=== PATIENT | female | born 1955 | race Caucasian/White ===

== ENCOUNTER 2023-04-07 12:13 | Outpatient (OUT) | payer BC, SELFPAY ==
--- NOTE | 2023-04-07 12:58 | P.CN_ITS ---
Consult Note: HPI Data of Consult Patient: known to practice within the last 3 years Consult date: 04/07/23 Requesting Physician: Keisha Ruiz MD Primary Care Provider: Non-Staff Physician, Consult Narrative Reason for consult: Low back pain Narrative: this is a pleasant 67-year-old female who presents for assessment. She has persistence of her axial pain, as well as pain throughout much of her body. This previously was relieved by Atoka 5 mg 4 times a day when necessary, which she has been on for several years. However, there was some miscommunication, and her refill was not sent. She continues to engage in provider directed home exercises. She otherwise denies adverse medication side effects for loss of bowel or bladder control. cc:: CC: Keisha Ruiz MD Review of Systems ROS Status of ROS 10 or more systems reviewed and unremarkable except as noted in history and below Exam Constitutional Common normals: no apparent distress, oriented x3 and healthy appearing Respiratory Common normals: normal respiratory effort Effort & inspection: able to speak in complete sentences Back & Pelvis Other: tenderness to palpation throughout the bilateral lumbar spine paraspinal musculature. Pain is elicited with flexion, extension, and lateral rotation of the lumbar spine. Facet loading maneuvers are positive bilaterally. Pronation remains tight. Gait remains nonantalgic. Extremity Common normals: normal to inspection Neuro Common normals: oriented x3, CN's II-XII intact bilaterally and no focal motor deficits Psych Common normals: mental status grossly normal and cooperative Assessment and Plan Assessment and Plan (1) Lumbar spondylosis: Plan this is a pleasant 67-year-old female who presents for system. She has persistence of axial low back pain is worsened with standing and ambulation. She is uninterested in interventional modalities and wishes to stay as no ninterventional as possible. Medications were reviewed. I agree to continue her Atoka 5 mg 4 times a day when necessary. We will obtain a urine drug screen today. She expressed understanding. She'll follow-up in three months or sooner, if needed.
== END 2023-04-07 12:14 | disposition home or self-care (01) ==
LOC: PM 12:15
PROVIDERS: Visit Provider Anesthesiology
DX: M47.816 Spondylosis without myelopathy or radiculopathy, lumbar region (principal); M54.50 Low back pain, unspecified
CPT/HCPCS: G0463

== ENCOUNTER 2023-09-08 13:54 | Outpatient (OUT) | payer BC, SELFPAY ==
--- NOTE | 2023-09-08 14:25 | P.CN_ITS ---
Consult Note: HPI Data of Consult Patient: known to practice within the last 3 years Consult date: 09/08/23 Requesting Physician: Keisha Ruiz MD Primary Care Provider: Non-Staff Physician, Consult Narrative Reason for consult: generalized pain, low back pain Narrative: 68yof who presents for assessment. continues to have generalized body pains, low back pain. Continues to have relief with norco 5mg qid prn. denies adverse med side effects. no changes in pain quality. cc:: CC: Keisha Ruiz MD Review of Systems ROS Status of ROS 10 or more systems reviewed and unremark able except as noted in history and below Meds Home Medications and Allergies Home Medications Medication Instructions Recorded Confirmed Type atenolol 50 mg tablet 50 mg PO DAILY 04/07/23 04/07/23 History atorvastatin 40 mg tablet 40 mg PO DAILY 04/07/23 04/07/23 History calcium carbonate 600 mg calcium 600 mg PO DAILY 04/07/23 04/07/23 History (1,500 mg) tablet (Calcium) conjugated estrogens 0.625 mg/gram 0.625 mg vaginal DAILY 04/07/23 04/07/23 History vaginal cream (Premarin) fenofibrate 150 mg capsule 150 mg PO DAILY 04/07/23 04/07/23 History furosemide 20 mg tablet 20 mg PO DAILY 04/07/23 04/07/23 History hydrocodone 5 mg-acetaminophen 325 1 tab PO QID 04/07/23 04/07/23 History mg tablet potassium chloride 10 mEq 10 meq PO DAILY 04/07/23 04/07/23 History tablet,extended release (K-Tab) hydrocodone 5 mg-acetaminophen 325 1 tab PO QID PRN pain #120 tabs 04/28/23 Rx mg tablet hydrocodone 5 mg-acetaminophen 325 1 tab PO QID PRN pain #120 tabs 05/29/23 Rx mg tablet hydrocodone 5 mg-acetaminophen 325 1 tab PO QID PRN pain #120 tabs 07/29/23 Rx mg tablet hydrocodone 5 mg-acetaminophen 325 1 tab PO BID PRN pain #120 tabs 09/08/23 Rx mg tablet hydrocodone 5 mg-acetaminophen 325 1 tab PO QID PRN pain #120 tabs 09/08/23 Rx mg tablet Allergies Allergy/AdvReac Type Severity Reaction Status Date / Time Penicillins Allergy Verified 04/07/23 14:08 Exam Narrative Exam Narrative: Psych-alert and oriented x 3. Attentive and appropriate, constitutionally normal, displays normal mood and affect per situation.? There are no obvious deficits in memory, reasoning, or intellect.? Skin-no obvious rashes, bruising, erythema noted to the patient's area of pain. Extremities- extremities are warm with minimal edema and palpable pulses. Lumbar-no significant tenderness to palpation noted in the lumbar spine and paraspinal musculature.? Pain is elicited with extension, and lateral rotation of the lumbar spine. Range of motion is slightly diminished with these motions due to pain. Facet loading maneuvers are positive bilaterally and do appear to be concordant with the patient's normal complaints of pain.? Coordination remains intact.? Gait remains non-antalgic. Assessment and Plan Assessment and Plan (1) Lumbar spondylosis: Plan 68yof who presents for assessment. continues to have generalized pain, low back pain. prefers to defer interventional modalities. denies adverse med side effects, so will continue norco 5mg qid prn. she is in agreement. follow up in 3 months.
== END 2023-09-08 13:55 | disposition home or self-care (01) ==
PROVIDERS: Visit Provider Anesthesiology
DX: M47.816 Spondylosis without myelopathy or radiculopathy, lumbar region (principal)
CPT/HCPCS: G0463

== ENCOUNTER 2023-12-08 13:59 | Outpatient (OUT) | payer BC, SELFPAY ==
--- NOTE | 2023-12-08 14:49 | P.CN_ITS ---
Consult Note: HPI Data of Consult Patient: known to practice within the last 3 years Consult date: 12/08/23 Requesting Physician: Keisha Ruiz MD Primary Care Provider: Non-Staff Physician, Consult Narrative Reason for consult: low back pain, generalized pain Narrative: 68yof who presents for assessment. continues to have generalized pain, particularly in low back. uses norco, which provides good relief. denies adverse side effects. cc:: CC: Keisha Ruiz MD Review of Systems ROS Status of ROS 10 or more systems reviewed and unremark able except as noted in history and below Meds Home Medications and Allergies Home Medications Medication Instructions Recorded Confirmed Type atenolol 50 mg tablet 50 mg PO DAILY 04/07/23 04/07/23 History atorvastatin 40 mg tablet 40 mg PO DAILY 04/07/23 04/07/23 History calcium carbonate 600 mg calcium 600 mg PO DAILY 04/07/23 04/07/23 History (1,500 mg) tablet (Calcium) conjugated estrogens 0.625 mg/gram 0.625 mg vaginal DAILY 04/07/23 04/07/23 History vaginal cream (Premarin) fenofibrate 150 mg capsule 150 mg PO DAILY 04/07/23 04/07/23 History furosemide 20 mg tablet 20 mg PO DAILY 04/07/23 04/07/23 History hydrocodone 5 mg-acetaminophen 325 1 tab PO QID 04/07/23 04/07/23 History mg tablet potassium chloride 10 mEq 10 meq PO DAILY 04/07/23 04/07/23 History tablet,extended release (K-Tab) hydrocodone 5 mg-acetaminophen 325 1 tab PO QID PRN pain #120 tabs 04/28/23 Rx mg tablet hydrocodone 5 mg-acetaminophen 325 1 tab PO QID PRN pain #120 tabs 05/29/23 Rx mg tablet hydrocodone 5 mg-acetaminophen 325 1 tab PO QID PRN pain #120 tabs 07/29/23 Rx mg tablet hydrocodone 5 mg-acetaminophen 325 1 tab PO BID PRN pain #120 tabs 09/08/23 Rx mg tablet hydrocodone 5 mg-acetaminophen 325 1 tab PO QID PRN pain #120 tabs 09/08/23 Rx mg tablet hydrocodone 5 mg-acetaminophen 325 1 tab PO QID PRN pain #120 tabs 10/02/23 Rx mg tablet hydrocodone 5 mg-acetaminophen 325 1 tab PO QID PRN pain #120 tabs 10/29/23 Rx mg tablet hydrocodone 5 mg-acetaminophen 325 1 tab PO QID PRN pain #120 tabs 11/26/23 Rx mg tablet Allergies Allergy/AdvReac Type Severity Reaction Status Date / Time Penicillins Allergy Verified 04/07/23 14:08 Exam Narrative Exam Narrative: Psych-alert and oriented x 3. Attentive and appropriate, constitutionally normal, displays normal mood and affect per situation.? There are no obvious deficits in memory, reasoning, or intellect.? Skin-no obvious rashes, bruising, erythema noted to the patient's area of pain. Extremities- extremities are warm with minimal edema and palpable pulses. Lumbar-no significant tenderness to palpation noted in the lumbar spine and pa raspinal musculature.? Pain is elicited with extension, and lateral rotation of the lumbar spine. Range of motion is slightly diminished with these motions due to pain. Coordination remains intact.? Gait remains non-antalgic. Assessment and Plan Assessment and Plan (1) Lumbar spondylosis: Plan 68yof who presents for assessment. continues to do well with her current regimen. discussed that she would increase her physical activity as the weather improves. pdmp reviewed. will continue norco as before. follow up in 3 months.
== END 2023-12-08 14:00 | disposition home or self-care (01) ==
LOC: PM 14:00
PROVIDERS: Visit Provider Anesthesiology
DX: M47.816 Spondylosis without myelopathy or radiculopathy, lumbar region (principal)
CPT/HCPCS: G0463

== ENCOUNTER 2024-03-22 12:59 | Outpatient (OUT) | payer BC, SELFPAY ==
--- NOTE | 2024-03-22 14:25 | P.CN_ITS ---
Consult Note: HPI Data of Consult Patient: known to practice within the last 3 years Consult date: 03/22/24 Requesting Physician: Keisha Ruiz MD Primary Care Provider: Non-Staff Physician, Consult Narrative Reason for consult: low back pain, generalized pain Narrative: 68yof who presents for assessment. continues to have generalized pain, worst in low back. continues to utilize norco as needed. denies adverse med side effects. cc:: CC: Keisha Ruiz MD Review of Systems ROS Status of ROS 10 or more systems reviewed and unremark able except as noted in history and below Meds Home Medications and Allergies Home Medications ?Medication ?Instructions ?Recorded ?Confirmed ?Type atenolol 50 mg tablet 50 mg PO DAILY 04/07/23 04/07/23 History atorvastatin 40 mg tablet 40 mg PO DAILY 04/07/23 04/07/23 History calcium carbonate (Calcium 600) 600 mg PO DAILY 04/07/23 04/07/23 History conjugated estrogens 0.625 mg/gram 0.625 mg vaginal DAILY 04/07/23 04/07/23 History vaginal cream (Premarin) fenofibrate 150 mg capsule 150 mg PO DAILY 04/07/23 04/07/23 History furosemide 20 mg tablet 20 mg PO DAILY 04/07/23 04/07/23 History potassium chloride 10 mEq 10 meq PO DAILY 04/07/23 04/07/23 History tablet,extended release (K-Tab) hydrocodone 5 mg-acetaminophen 325 1 tab PO QID PRN pain #120 tabs 12/31/23 Rx mg tablet hydrocodone 5 mg-acetaminophen 325 1 tab PO QID PRN pain #120 tabs 01/30/24 Rx mg tablet hydrocodone 5 mg-acetaminophen 325 1 tab PO QID PRN pain #120 tabs 02/26/24 Rx mg tablet Allergies Allergy/AdvReac Type Severity Reaction Status Date / Time Penicillins Allergy Verified 04/07/23 14:08 Exam Narrative Exam Narrative: Psych-alert and oriented x 3. Attentive and appropriate, constitutionally normal, displays normal mood and affect per situation.? There are no obvious deficits in memory, reasoning, or intellect.? Skin-no obvious rashes, bruising, erythema noted to the patient's area of pain. Extremities- extremities are warm with minimal edema and palpable pulses. Lumbar-no significant tenderness to palpation noted in the lumbar spine and paraspinal musculature.? Pain is elicited with extension, and lateral rotation of the lumbar spine. Range of motion is slightly diminished with these motions due to pain. Facet loading maneuvers are positive bilaterally and do appear to be concordant with the patient's normal complaints of pain.? Coordination remains intact.? Gait remains non-antalgic. Assessment and Plan Assessment and Plan (1) Lumbar spondylosis: Plan 68yof who presents for assessment. failed conservative measures. continues to have widespread generalized pain, has good relief with norco. uds obtained, pdmp reviewed. no med changes at this time. follow up in 3 months.
== END 2024-03-22 13:00 | disposition home or self-care (01) ==
LOC: PM 12:59
PROVIDERS: Visit Provider Anesthesiology
DX: M47.816 Spondylosis without myelopathy or radiculopathy, lumbar region (principal)
CPT/HCPCS: G0463

== ENCOUNTER 2024-06-28 12:58 | Outpatient (OUT) | payer BC, SELFPAY ==
--- OUTSIDE RECORDS SUMMARY | 2024-06-28 13:14 | XMS_ITS | CCD ---
Author Organization [facility]iniSy[facility] Care Team Providers Care Commercial Airplane Pilot Name Role Phone KARENA, MORTEZA A Unavailable Unavailable ASHLEY, CHRISTIE (PRESIDENT/[employer] LIVE EXPERIENCES) Unavailable Unavaila ble KARENA, MORTEZA A Unavailable Unavailable ASHLEY, CHRISTIE (PRESIDENT/[employer] LIVE EXPERIENCES) Unavailable Unavaila ble AKBANI, MOHAMMED Referring Unavailable BREE, VALERIE Primary Care Unavailable BREE, VALERIE Referring Unavailable BREE, VALERIE Primary Care Unavailable AKBANI, MOHAMMED Admitting Unavailable AKBANI, MOHAMMED Attending Unavailable BREE, VALERIE Primary Care Unavailable RAJEEV OCHOA Consulting Unavailable BREE, VALREIE Referring Unavailable BREE, VALERIE Primary Care Unavailable AKBANI, MOHAMMED Referring Unavailable BREE, VALERIE Primary Care Unavailable AKBANI, MOHAMMED Referring Unavailable BREE, VALERIE Primary Care Unavailable AKBANI, MOHAMMED Referring Unavailable MAY MARIA Primary Care Unavailable May Maria Primary Care Provider GIEDRAITIS, ANDRIUS Attending Unavailable GIEDRAITIS, ANDRIUS Admitting Unavailable MISDomenica, DR GRAYSON Primary Care Unavailable Rachel GALVEZ, Simón Stout Primary Care Pro vider SYSTEM, PROVIDER NOT IN Referring Unavaila ble SYSTEM, PROVIDER NOT IN Attending Unavaila ble SIMÓN SPAULDING MOUNIR Primary Care Mirela vailable SYSTEM, PROVIDER NOT IN Attending Unavaila ble SIMÓN SPAULDIGNUNIR Primary Care Mirela vailable SYSTEM, PROVIDER NOT IN Referring Unavaila ble SYSTEM, PROVIDER NOT IN Attending Unavaila ble RACHEL, SIMÓN MONTALVO MOUNIR Primary Care Mirela vailable SYSTEM, PROVIDER NOT IN Referring Unavaila ble SIMÓN SPAULDING Referring Mirela vailable RACHEL, SIMÓN KATIA MOUNIR Primary Care Mirela vailable RACHEL, SIMÓN KATIA MOUNIR Attending Mirela vailable RACHEL, SIMÓN KATIA MOUNIR Referring Mirela vailable RACHEL, SIMÓN KATIA MOUNIR Admitting Mirela vailable RACHEL, SIMÓN KATIA MOUNIR Primary Care Mirela vailable Dunia Simon [address] Unavailable Unavailable RACHEL, SIMÓN KATIA MOUNIR Attending Mirela vailable RACHEL, SIMÓN KATIA MOUNIR Primary Care Mirela vailable RACHEL, SIMÓN KATIA MOUNIR Attending Mirela vailable RACHEL, SIMÓN KATIA MOUNIR Primary Care Mirela vailable Giedraitis MD, Andrius Vandreina Attending Unavailable Giedraitis MD, Andrius Vytautas Attending Unavailable Giedraitis MD, Andrius Vytautas Attending Unavailable Giedraitis MD, Andrius Vytautas Attending Unavailable Allergies Allergy Classification Reported Allergen(s) Allergy Type Date of Onset Reaction(s) Facility Macrolides (antibiotic) (2 sources) Erythromycin; Translations: [ERYTHROMYCIN] Drug Allergy 9 Hives, Nausea Only [facility] Repository Penicillins (antibiotic) (2 sources) Penicillins; Translations: [PENICILLINS] Drug Allergy [facility] (14 sources) Penicillins; Translations: [PENICILLINS] Propensity to adverse reactions to drug (disorder) 6 [facility] Repository (13 sources) Erythromycin; Translations: [ERYTHROMYCIN] Drug Allergy 9 Hives, Nausea Only [place], [place] Medications Current Medications Medication Drug Class(es) Dates Sig (Normalized) Sig (Original) acetaminophen 325 mg / HYDROcodone bitartrate 5 mg oral tablet (11 sources) Opioid Agonist take 1 tablet by mouth every four hours as needed for pain HYDROcodone-acetami nophen (NORCO) 5-325 mg per tablet Take 1 (one) tablet by mouth every 4 (four) hours as needed for pain (Days supply per fill: 30) . Active aspirin 81 mg delayed release oral tablet (12 sources) Platelet Aggregation Inhibitor, Nonsteroidal Anti-inflammatory Drug Start: 05-03-2019 take 1 tablet by mouth once daily aspirin 81 MG EC tablet TAKE 1 TABLET BY MOUTH DAILY 90 tablet 3 05/03/2019 Active atenolol 50 mg oral tablet (13 sources) beta-Adrenergic Yan Start: 03-14-2017 End: 08-28-2024 take 1 tablet by mouth once daily atenoloL (TENORMIN) 50 MG tablet Indications: Hypertension, unspecified type Take 1 (one) tablet (50 mg total) by mouth daily . 90 tablet 3 08/29/2023 08/28/2024 Active atorvastatin 40 mg oral tablet (13 sources) HMG-CoA Reductase Inhibitor Start: 02-26-2023 End: 08-28-2024 take 1 tablet by mouth once daily atorvastatin (LIPITOR) 40 MG tablet Indications: Hyperlipidemia, unspecified hyperlipidemia type Take 1 (one) tablet (40 mg total) by mouth daily . 90 tablet 3 08/29/2023 08/28/2024 Active Start: 04-26-2019 take 1 tablet by sonali th once daily atorvastatin (LIPITOR) 20 MG tablet Indications: Mixed hyperlipidemia , PVD (peripheral vascular disease) with claudication (HCC) , Type 2 diabetes mellitus with other circulatory complication, without long-term current use of insulin (HCC) TAKE 1 TABLET BY MOUTH EVERY DAY 90 tablet 0 04/26/2019 Active Breast Prosthesis MISC (1 source) Start: 12-25-2018 Breast Prosthe sis MISC Indications: History of mastectomy, unspecified laterality by Does not apply route 2 each 0 12/25/2018 Active cholecalciferol 0.05 mg oral tablet (11 sources) Vitamin D take 1 tablet by mouth once daily cholecalciferol, vitamin D3, 50 mcg (2,000 unit) Tab Take 1 (one) tablet (2,000 Units total) by mouth daily . Active docusate sodium 100 mg oral capsule (1 source) Start: 01-31-2019 take 1 capsule by mouth twice daily as needed for constipation docusate sodium (COLACE) 100 MG capsule TAKE 1 CAPSULE BY MOUTH TWICE A DAY NEEDED FOR CONSTIPATION 90 capsule 0 01/31/2019 Active estrogens, conjugated (mcc) 0.625 mg/ml vaginal cream (20 sources) Estrogen Start: 02-26-2024 End: 09-13-2024 conjugated estrogens (Premarin) vaginal cream Indications: Vaginal dryness, menopausal Insert 1.5 (one and a half) g into the vagina twice weekly Start: 04/29/24. 30 g 04/29/2024 07/28/2024 Active Start: 09-01-2023 End: 02-26-2024 conjugated estrogens (Premar in) vaginal cream Indications: Vaginal dryness, menopausal Insert 1 (one) g into the vagina twice weekly Start: 09/01/23. 42.5 g 1 09/01/2023 02/26/2024 Discontinued (Reorder (Suppress CancelRx Message to Pharmacy)) Start: 09-01-2023 conjugated est rogens (Premarin) vaginal cream Indications: Vaginal dryness, menopausal Insert 1 (one) g into the vagina twice weekly Start: 09/01/23. 42.5 g 1 09/01/2023 Active Start: 04-27-2019 End: 08-29-2023 conjugated estrogens (Premar in) vaginal cream APPLY VAGINALLY ONCE A DAY DIRECTED 0 04/27/2019 08/29/2023 Discontinued (Reorder (Suppress CancelRx Message to Pharmacy)) Start: 04-27-2019 PREMARIN 0.625 MG/GM vaginal cream APPLY TO AFFECTED AREA EVERY DAY 90 g 0 04/27/2019 Active fenofibrate 145 mg oral tablet (13 sources) Peroxisome Proliferator Receptor alpha Agonist Start: 04-04-2017 End: 08-29-2023 take 1 tablet by mouth once daily fenofibrate (TRICOR) 145 MG tablet Indications: Hyperlipidemia, unspecified hyperlipidemia type Take 1 (one) tablet (145 mg total) by mouth daily . 90 tablet 3 08/29/2023 Active fluorouracil 50 mg/ml topical cream (1 source) Nucleoside Metabolic Inhibitor Start: 12-17-2017 fluorouracil (EFUDEX) 5 % cream apply topically twice a day to ONE AREA AT A TIME FOR 4-6 WEEKS 40 g 4 12/17/2017 Active fluticasone propionate 0.05 mg/actuat metered dose nasal spray (1 source) Corticosteroid Start: 11-16-2018 fluticasone (FLONASE) 50 MCG/ACT nasal spray 1 spray by Nasal route daily 3 Bottle 3 11/16/2018 Active furosemide 20 mg oral tablet (14 sources) Loop Diuretic Start: 05-10-2024 take 1 tablet by mouth once daily as needed furosemide (LASIX) 20 MG tablet Indications: Hypertension, unspecified type Take 1 (one) tablet (20 mg total) by mouth daily as needed . 30 tablet 1 05/10/2024 Active Start: 06-08-2019 take 1 tablet by sonali th twice daily furosemide (LASIX) 20 MG tablet Indications: Lymphedema of left upper extremity TAKE 1 TABLET BY MOUTH TWICE A DAY 180 tablet 0 06/08/2019 Active Start: 03-14-2017 End: 05-09-2024 take 1 tablet by mouth once daily as needed furosemide (LASIX) 20 MG tablet Indications: Hypertension, unspecified type Take 1 (one) tablet (20 mg total) by mouth daily as needed . 30 tablet 1 08/29/2023 05/09/2024 Discontinued (Reorder (Suppress CancelRx Message to Pharmacy)) Mastectomy Bra [facility] (1 source) Start: 12-28-2018 Mastectomy Bra [facility] Indications: History of mastectomy, unspecified laterality , H/O malignant neoplasm of breast by Does not apply route 4 each 1 12/28/2018 Active nitrofurantoin, macrocrystals 25 mg / nitrofurantoin, monohydrate 75 mg oral capsule (1 source) Nitrofuran Antibacterial Start: 08-29-2023 End: 09-03-2023 take 1 capsule by mouth twice daily nitrofurantoin, macrocrystal-monohyd rate, (MACROBID) 100 MG capsule Indications: Acute cystitis without hematuria Take 1 (one) capsule (100 mg total) by mouth 2 (two) times a day for 5 days . 10 capsule 0 08/29/2023 09/03/2023 Active omeprazole 20 mg delayed release oral capsule (11 sources) Proton Pump Inhibitor Start: 09-01-2023 End: 04-25-2024 take 1 capsule by mouth once daily omeprazole (PRILOSEC) 20 MG capsule Take 1 (one) capsule (20 mg total) by mouth daily . 90 capsule 04/26/2024 Active pantoprazole 20 mg delayed release oral tablet (1 source) Proton Pump Inhibitor Start: 05-21-2019 take 1 tablet by mouth once daily before breakfast pantoprazole (PROTONIX) 20 MG tablet Indications: Gastroesophageal reflux disease, esophagitis presence not specified TAKE 1 TABLET BY MOUTH EVERY DAY BEFORE BREAKFAST 30 tablet 2 05/21/2019 Active potassium chloride 10 meq extended release oral tablet (14 sources) Start: 02-26-2023 End: 07-25-2024 take 1 tablet by mouth once daily potassium chloride 10 MEQ CR tablet Indications: Hypertension, unspecified type Take 1 (one) tablet (10 mEq total) by mouth daily . 90 tablet 04/26/2024 07/25/2024 Active Start: 04-26-2019 take 1 tablet by sonali once daily potassium chloride (KLOR-CON M10) 10 MEQ extended release tablet Indications: Lymphedema of left upper extremity TAKE 1 TABLET BY MOUTH EVERY DAY 90 tablet 0 04/26/2019 Active semaglutide (Ozempic) 0.25 mg or 0.5 mg (2 mg/3 mL) Pen (6 sources) Start: 02-26-2024 semaglutide (O zempic) 0.25 mg or 0.5 mg (2 mg/3 mL) Pen Indications: Type 2 diabetes mellitus without complication, without long-term current use of insulin (HCC) Inject 0.5 (one-half) mg under the skin once a week 0.25 mg for 1-2 weeks then increase to 0.5 mg thereafter . 3 mL 1 02/26/2024 Active semaglutide (Ozempic) 1 mg/dose (4 mg/3 mL) Pen (4 sources) Start: 05-20-2024 End: 06-19-2024 inject 0.75 mL by subcutaneous injection every week semaglutide (Ozempic) 1 mg/dose (4 mg/3 mL) Pen Indications: Type 2 diabetes mellitus without complication, without long-term current use of insulin (HCC) Inject 0.75 mL (1 mg total) under the skin once a week . 3 mL 05/20/2024 06/19/2024 Active Start: 04-21-2024 End: 05-20-2024 inject 0.75 mL by subcutaneous injection every week semaglutide (Ozempic) 1 mg/dose (4 mg/3 mL) Pen Indications: Type 2 diabetes mellitus without complication, without long-term current use of insulin (HCC) Inject 0.75 mL (1 mg total) under the skin once a week . 3 mL 04/21/2024 05/20/2024 Discontinued (Reorder (Suppress CancelRx Message to Pharmacy)) Start: 04-21-2024 End: 05-21-2024 inject 0.75 mL by subcutaneous injection every week semaglutide (Ozempic) 1 mg/dose (4 mg/3 mL) Pen Indications: Type 2 diabetes mellitus without complication, without long-term current use of insulin (HCC) Inject 0.75 mL (1 mg total) under the skin once a week . 3 mL 04/21/2024 05/21/2024 Active traMADol hydrochloride 50 mg oral tablet (1 source) Opioid Agonist Start: 08-06-2019 take 1 tablet by mouth every four hours as needed traMADol (ULTRAM) 50 MG tablet Take 50 mg by mouth every 4 hours as needed. 0 08/06/2019 Active vitamin e 1000 unt oral capsule (1 source) Start: 06-04-2019 take 1 capsule by mouth once daily [facility] VITAMIN E 1000 units capsule TAKE 1 CAPSULE BY MOUTH EVERY DAY 90 capsule 0 06/04/2019 Active Problems Active Problems Problem Classification Problem Date Documented Da te Episodic/Chronic Diabetes mellitus without complication (19 sources) Type 2 diabetes mellitus; Translations: [Type 2 diabetes mellitus without complication] Onset: 08-10-2018 08-10-2018 Chronic Disorders of lipid metabolism (4 sources) Mixed hyperlipidemia; Translations: [Hyperlipidemia] Onset: 11-27-2015 11-27-2015 Chronic Essential hypertension (17 sources) Essential hypertension; Translations: [Hypertensive disorder] Onset: 11-27-2015 11-27-2015 Chronic Malignant neoplasm without specification of site (15 sources) Malignant neoplastic disease; Translations: [Malignant (primary) neoplasm, unspecified] Onset: 08-29-2023 Resolved: 06-09-2018 06-09-2018 Chronic Menopausal disorders (20 sources) Vaginal dryness; Translations: [Menopausal and female climacteric states] Onset: 08-29-2023 08-29-2023 Chronic Other diseases of veins and lymphatics (1 source) Lymphedema of left upper limb; Translations: [Lymphedema of left upper extremity] Onset: 04-05-2016 04-05-2016 Other injuries and conditions due to external causes (6 sources) At low risk for fall; Translations: [History of falling] 02-26-2024 Episodic Other injuries and conditions due to external causes (2 sources) History of falling; Translations: [History of falling] Onset: 02-26-2024 Episodic Other nutritional; endocrine; and metabolic disorders (6 sources) Body mass index 30+ - obesity; Translations: [Obesity, unspecified] 02-26-2024 Chronic Other nutritional; endocrine; and metabolic disorders (2 sources) Obesity, unspecified; Translations: [Obesity, unspecified] Onset: 02-26-2024 Chronic Peripheral and visceral atherosclerosis (17 sources) Peripheral vascular disease; Translations: [Intermittent claudication] Onset: 06-26-2018 08-11-2018 Chronic Past or Other Problems Problem Classification Problem Date Documented Da te Episodic/Chronic Abdominal pain (12 sources) Left inguinal pain; Translations: [Left lower quadrant pain] Onset: 08-29-2023 08-29-2023 Episodic Coronary atherosclerosis and other heart disease (1 source) History of aortofemoral bypass surgery; Translations: [S/P aortobifemoral bypass surgery] Onset: 10-28-2018 10-28-2018 Episodic Diabetes mellitus without complication (6 sources) Impaired glucose tolerance; Translations: [Prediabetes] Onset: 05-08-2018 05-08-2018 Episodic Genitourinary symptoms and ill-defined conditions (3 sources) Dysuria; Translations: [Dysuria] Onset: 08-29-2023 08-29-2023 Episodic Noninfectious gastroenteritis (1 source) Colitis; Translations: [Colitis] 10-29-2018 Episodic Other and unspecified benign neoplasm (1 source) Adenomatous polyp of colon ; Translations: [Adenomatous polyp of colon] Onset: 01-16-2018 01-16-2018 Episodic Other connective tissue disease (13 sources) Fibromyalgia; Translations: [Fibromyalgia] Onset: 04-05-2016 04-05-2016 Episodic Other non-epithelial cancer of skin (12 sources) Malignant neoplasm of skin; Translations: [Unspecified malignant neoplasm of skin, unspecified] Onset: 08-29-2023 08-29-2023 Episodic Other screening for suspected conditions (not mental disorders or infectious disease) (5 sources) Patient encounter status; Translations: [Encounter for other screening for malignant neoplasm of breast] Onset: 08-29-2023 08-29-2023 Episodic Residual codes; unclassified (1 source) X-ray evidence of poor mineralization; Translations: [Osteopenia determined by x-ray] Onset: 01-16-2018 01-16-2018 Episodic Respiratory failure; insufficiency; arrest (adult) (2 sources) Acute hypoxemic respiratory failure; Translations: [Pulmonary insufficiency following surgery] 10-29-2018 Episodic Urinary tract infections (3 sources) Acute cystitis; Translations: [Acute cystitis without hematuria] Onset: 08-29-2023 08-29-2023 Episodic Results Test Name Value Interpretation Reference Range Facility COMPREHENSIVE METABOLIC PANE Yasir 02-19-2024 Albumin [Mass/Vol] 3.9 g/dL Normal 3.2-5.2 [facility] Comment on above: Order Comment: [facility] has implemented the eGFR calculation approach that does not have a coefficient for race that conforms to the NKF-ASN Task Force Recommendations. Performed By: #### [id number] #### LAB [address] [address] Gustavo Coats M.D. [id number] ALP [Catalytic activity/Vol] 77 U/L Normal 40-150 [facility] Comment on above: Order Comment: [facility] has implemented the eGFR calculation approach that does not have a coefficient for race that conforms to the NKF-ASN Task Force Recommendations. Performed By: #### [id number] #### LAB [address] [address] Gustavo Coats M.D. [id number] ALT [Catalytic activity/Vol] 17 U/L Normal 0-35 U/L [facility] Comment on above: Order Comment: [facility] has implemented the eGFR calculation approach that does not have a coefficient for race that conforms to the NKF-ASN Task Force Recommendations. Performed By: #### [id number] #### LAB [address] [address] Gustavo Coats M.D. [id number] Anion gap [Moles/Vol] 14 mmol/L Normal 10-20 [facility] Comment on above: Order Comment: [facility] has implemented the eGFR calculation approach that does not have a coefficient for race that conforms to the NKF-ASN Task Force Recommendations. Performed By: #### [id number] #### LAB [address] [address] Gustavo Coats M.D. [id number] AST [Catalytic activity/Vol] 21 U/L Normal 0-35 U/L [facility] Comment on above: Order Comment: [facility] has implemented the eGFR calculation approach that does not have a coefficient for race that conforms to the NKF-ASN Task Force Recommendations. Performed By: #### [id number] #### LAB [address] [address] Gustavo Coats M.D. [id number] Bilirubin [Mass/Vol] 0.3 mg/dL Normal 0.0-1.3 [facility] Comment on above: Order Comment: [facility] has implemented the eGFR calculation approach that does not have a coefficient for race that conforms to the NKF-ASN Task Force Recommendations. Performed By: #### [id number] #### LAB [address] [address] Gustavo Coats M.D. [id number] Calcium [Mass/Vol] 9.4 mg/dL Normal 8.4-10.2 [facility] Comment on above: Order Comment: [facility] has implemented the eGFR calculation approach that does not have a coefficient for race that conforms to the NKF-ASN Task Force Recommendations. Performed By: #### [id number] #### LAB [address] [address] Gustavo Coats M.D. [id number] Chloride [Moles/Vol] 107 mmol/L Normal 98-108 [facility] Comment on above: Order Comment: [facility] has implemented the eGFR calculation approach that does not have a coefficient for race that conforms to the NKF-ASN Task Force Recommendations. Performed By: #### [id number] #### LAB [address] [address] Gustavo Coats M.D. [id number] Creatinine [Mass/Vol] 0.91 mg/dL Normal 0.60-1.10 [facility] Comment on above: Order Comment: [facility] has implemented the eGFR calculation approach that does not have a coefficient for race that conforms to the NKF-ASN Task Force Recommendations. Performed By: #### [id number] #### LAB [address] [address] Gustavo Coats M.D. [id number] EGFR 69 mL/min/1.73 m2 Normal >=[address] [facility] Comment on above: Order Comment: [facility] has implemented the eGFR calculation approach that does not have a coefficient for race that conforms to the NKF-ASN Task Force Recommendations. Result Comment: Bonnie mated GFR was calculated using the 2020 CKD-EPI creatinine equation. Performed By: #### [id number] #### LAB [address] [address] Gustavo Coats M.D. [id number] Glucose [Mass/Vol] 122 mg/dL High 65-99 [facility] Comment on above: Order Comment: [facility] has implemented the eGFR calculation approach that does not have a coefficient for race that conforms to the NKF-ASN Task Force Recommendations. Performed By: #### [id number] #### LAB [address] [address] Gustavo Coats M.D. [id number] HCO3 (Bld) [Moles/Vol] 25 mmol/L Normal 21-32 [facility] Comment on above: Order Comment: [facility] has implemented the eGFR calculation approach that does not have a coefficient for race that conforms to the NKF-ASN Task Force Recommendations. Performed By: #### [id number] #### LAB [address] [address] Gustavo Coats M.D. [id number] Potassium [Moles/Vol] 4.4 mmol/L Normal 3.5-5.1 [facility] Comment on above: Order Comment: [facility] has implemented the eGFR calculation approach that does not have a coefficient for race that conforms to the NKF-ASN Task Force Recommendations. Performed By: #### [id number] #### LAB [address] [address] Gustavo Coats M.D. [id number] Protein [Mass/Vol] 6.2 g/dL Normal 6.0-8.0 [facility] Comment on above: Order Comment: [facility] has implemented the eGFR calculation approach that does not have a coefficient for race that conforms to the NKF-ASN Task Force Recommendations. Performed By: #### [id number] #### LAB [address] [id number] Gustavo Coats M.D. [id number] Sodium [Moles/Vol] 142 mmol/L Normal 135-145 [facility] Comment on above: Order Comment: [facility] has implemented the eGFR calculation approach that does not have a coefficient for race that conforms to the NKF-ASN Task Force Recommendations. Performed By: #### [id number] #### LAB [address] [address] Gustavo Coats M.D. [id number] Urea nitrogen [Mass/Vol] 17 mg/dL Normal 8-25 [facility] Comment on above: Order Comment: [facility] has implemented the eGFR calculation approach that does not have a coefficient for race that conforms to the NKF-ASN Task Force Recommendations. Performed By: #### [id number] #### LAB [address] [address] Gustavo Coats M.D. [id number] Urea nitrogen/Creatinine [Mass ratio] 18.7 mg/mg Normal 10.0-20.0 [facility] Comment on above: Order Comment: [facility] has implemented the eGFR calculation approach that does not have a coefficient for race that conforms to the NKF-ASN Task Force Recommendations. Performed By: #### [id number] #### LAB [address] [address] Gustavo Coats M.D. [id number] HEMOGLOBIN A1Con 02-19-2024 Glucose [Mass/Vol] 143 mg/dL High 74-114 [facility] Comment on above: Performed By: #### [id number] #### [facility] LAB [address] [id number] Gustavo Coats M.D. [id number] HbA1c (Bld) [Mass fraction] 6.6 % High 4.2-5.6 [facility] Comment on above: Performed By: #### [id number] #### LAB [address] [address] Gustavo Coats M.D. [id number] LIPID PANELon 02-19-2024 Cholesterol [Mass/Vol] 146 mg/dL Normal 100-199 [facility] Comment on above: Performed By: #### [id number] #### [facility] LAB [address] [address] Gustavo Coats M.D. [id number] Cholesterol in HDL [Mass/Vol] 32 mg/dL Low 40-59 [facility] Comment on above: Performed By: #### [id number] #### LAB [address] [address] Gustavo Coats M.D. [id number] Cholesterol.total/C holesterol in HDL [Mass ratio] 4.6 {ratio} Normal [facility] Comment on above: Result Comment: Fema le Cholesterol/HDL Ratio: Average risk: 4.4 1/2 average risk: 3.3 2 x average risk: 7.1 Performed By: #### [id number] #### LAB [address] [address] Gustavo Coats M.D. [id number] LDL CHOLESTEROL CALCULATED 66 mg/dL Normal 10-130 [facility] Comment on above: Result Comment: Deborah onal Cholesterol Education Program Guidelines: LDL Cholesterol Optimal: <100 mg/dL Near Optimal/above Optimal: 100-129 mg/dL Borderline High: 130-159 mg/dL High: 160-189 mg/dL Very High: greater than or equal to 190 mg/dL Performed By: #### 4 6087 #### LAB [address] [address] Gustavo Coats M.D. [id number] NON HDL CHOL 114 mg/dL Normal [facility] Comment on above: Result Comment: Deborah onal Cholesterol Education Program Guidelines: NON HDL Cholesterol Desirable: <130 mg/dL Borderline High: 130-159 mg/dL High: 160-189 mg/dL Very High: > or = 190 mg/dL Performed By: #### 4 6087 #### LAB [address] [address] Gustavo Coats M.D. [id number] Triglyceride [Mass/Vol] 238 mg/dL High 30-150 [facility] Comment on above: Performed By: #### 4 6087 #### LAB [address] [address] Gustavo Coats M.D. [id number] MICROALBUMIN/CREATININE RATI O, UR RANDOMon 02-19-2024 Albumin DL <= 20 mg/L (U) [Mass/Vol] 0.3 mg/dL Normal 0.0-1.8 [facility] Comment on above: Performed By: #### 4 6143 #### MH LAB [address] [address] Gustavo Coats M.D. [id number] CREATININE, URINE, RANDOM 205.0 mg/dL Normal [facility] Comment on above: Performed By: #### 4 6143 #### LAB [address] [address] Gustavo Coats M.D. [id number] MICROALBUMIN/CREATI NINE RATIO 1 mg/g crea Normal 0-25 [facility] Comment on above: Performed By: #### 4 6143 #### LAB [address] [address] Gustavo Coats M.D. [id number] MM SCREENING YOGESH RIGHTon MM SCREENING YOGESH RIGHT EXAMINATION: MM SCREENING YOGESH RIGHT CLINICAL INFORMATION: Visit for screening mammogram. COMPARISON: 05/27/2018. 04/02/2017. TECHNIQUE: True lateral, CC and MLO views of the right breast were obtained using tomosynthesis. Computer-aided detection was utilized in the interpretation of this exam. FINDINGS: BREAST COMPOSITION: Scattered fibroglandular densities. Vascular and other benign-appearing calcifications are present. No dominant mass, suspicious microcalcifications or architectural distortion. IMPRESSION: Benign findings. BIRADS: BIRADS - CATEGORY 2 Benign, no evidence of malignancy. Normal interval follow-up is recommended in 12 months. OVERALL ASSESSMENT - BENIGN A letter of notification will be sent to the patient regarding the results. [facility], along with the National Comprehensive Cancer Network, the [employer], and [facility], recommend annual screening mammograms for women age 40 and older. [facility] Workstation ID: [id number] Dictated by: MARSHA MENJIVAR on FriFebruary 20, 2024 12:06:08 PM EDT Transcribed by: PADDY MUNOZ on FriFebruary 20, 2024 12:22:27 PM EDT Finalized by: MARSHA MENJIVAR on FriFebruary 20, 2024 2:42:06 PM EDT Normal [facility] Comment on above: Order Comment: Mammo bus TSH WITH REFLEX FREE T4on TSH Qn 3.09 m[IU]/L Normal 0.27-4.20 [facility] Comment on above: Performed By: #### 4 6612 #### MH LAB [address] [place], [place] [address] Gustavo Coats M.D. [id number] POC Urinalysis Dipstick, Aut oon 08-29-2023 Bilirubin Ql (U) Negative Negative [facility] Glucose Ql (U) Negative Normal, Negative mg/dL [facility] Hemoglobin Ql (U) Negative Negative [facility] Interpretation and review of laboratory results Abnormal [facility] Ketones Ql (U) Negative Negative mg/dL [facility] Leukocyte esterase Test strip Ql (U) Trace Abnormal Negative [facility] Nitrite Ql (U) Positive Abnormal Negative [facility] pH (U) 5.5 [pH] 5.0 - 7.0 [facility] Protein Ql (U) Negative Negative mg/dL [facility] Specific gravity (U) [Rel density] 1.030 Abnormal 1.005 - 1.025 [facility] Urobilinogen Qn (U) 0.2 mg/dL <2.0, 0. 2, Normal, Negative, 1.0, 2.0, <1.0 [facility] BASIC MET PANEL W/GFRon Calcium [Mass/Vol] 8.8 mg/dL Normal (8.6 - 10.6) [facility] Comment on above: Order Comment: FACIL ITY: [facility] [id number] Performed By: #### C HEM-B #### [facility] [address] [facility], [address] Chloride [Moles/Vol] 108 mmol/L High (98 - 107) [facility] Comment on above: Order Comment: FACIL ITY: [facility] [id number] Performed By: #### C HEM-B #### [facility] [address] [place], [address] CO2 [Moles/Vol] 19 mmol/L Low (22 - 30) [facility] Comment on above: Order Comment: FACIL ITY: [facility] [id number] Performed By: #### C HEM-B #### [facility] [address] [place], [address] Creatinine [Mass/Vol] 0.62 mg/dL Normal (0.52 - 1.04) [facility] Comment on above: Order Comment: FACIL ITY: [facility] [id number] Performed By: #### C HEM-B #### [facility] [address] [place], [address] GFR- AMER 116.5 ML/M1.7 Normal (60.0 - 140.1) [facility] Comment on above: Order Comment: FACIL ITY: [facility] [id number] Performed By: #### C HEM-B #### [facility] [address] [place], [address] GFR-NON AFRIC-AMER 96.3 ML/M1.7 Normal (60.0 - 115.8) [facility] Comment on above: Order Comment: FACIL ITY: [facility] [id number] Performed By: #### C HEM-B #### [facility] [address] [place], [address] Glucose [Mass/Vol] 127 mg/dL High (74 - 106) [facility] Comment on above: Order Comment: FACIL ITY: [facility] [id number] Performed By: #### C HEM-B #### [facility] [address] [place], [id number] Potassium [Moles/Vol] 5.7 mmol/L High (3.5 - 5.1) [facility] Comment on above: Order Comment: FACIL ITY: [facility] [id number] Result Comment: HEMO LYSIS PRESENT; VALIDITY OF RESULTS SHOULD BE DETERMINED BY CLINICAL JUDGEMENT. Performed By: #### C HEM-B #### [facility] [address] [facility], [id number] Sodium [Moles/Vol] 140 mmol/L Normal (137 - 145) [facility] Comment on above: Order Comment: FACIL ITY: [facility] [id number] Performed By: #### C HEM-B #### [facility] [address] [facility], [phone] Urea nitrogen [Mass/Vol] 16 mg/dL Normal (7 - 17) [facility] Comment on above: Order Comment: FACIL ITY: [facility] [id number] Performed By: #### C HEM-B #### [facility] [address] [facility], [id number] VL ARTERIAL PVR LOWER WO MARIYA Morrissey 08-09-2019 [facility] Vascular Lower Arterial Plethysmography Procedure Patient Name OLY Date of Study 08/09/2019 KATHERINE Bonner Date of 1955 Gender Female Age 64 year(s) Race Room Number op Corporate ID # [id number] Patient MR # [id number] Front Office Java Developer Yelena Weston RVT Interpreting Physician Paulino Melendez Referring Referring Physician Nurse Practitioner Procedure Type of Study: Extremities Arteries: Lower Arterial Plethysmography, PVR Lower. Indications for Study:PVD. Patient Status:Out Patient. Conclusions Summary Right DEMETRIUS of 0.93 and left DEMETRIUS of 0.89 are consistent with mild arterial insufficiency. Bilateral toe brachial indices of 0.17 suggest small vessel disease. Signature Left Impression: No BP obtained in the left arm. Risk Factors History + +--------- -+ ---+ !Diagnosis !Date !Comments ! + +--------- -+ ---+ !Previous Scan !11/27/2018!RT DP--.58 ! ! ! !LT DP--.96 ! + +--------- -+ ---+ !Peripheral vascular disease->Aortic ! !H/O Msemn-ac-gsybavi ! !aneurysm ! !bypass ! ! ! !RT atherectomy ! + +--------- -+ ---+ - The patient's risk factor(s) include: diabetes mellitus, dyslipidemia and arterial hypertension. - The patient has a former tobacco history. - The patient has breast cancer. Allergies - Allergy:Penicillin(Drug) . Velocities are measured in cm/s ; Diameters are measured in cm Pressures + ++------- -+-----+----+--------+-- ---+ ! !!Right ! !Left! ! ! + ++------- -+-----+----+--------+-- ---+ !Location !!Pressure!Ratio! !Pressure!Ratio! + ++------- -+-----+----+--------+-- ---+ !Thigh !!138 !0.88 ! !143 !0.92 ! + ++------- -+-----+----+--------+-- ---+ !Calf !!139 !0.89 ! !132 !0.85 ! + ++------- -+-----+----+--------+-- ---+ !Ankle PT !!145 !0.93 ! !139 !0.89 ! + ++------- -+-----+----+--------+-- ---+ !Ankle DP !!142 !0.91 ! !137 !0.88 ! + ++------- -+-----+----+--------+-- ---+ !Great Toe !!26 !0.17 ! !26 !0.17 ! + ++------- -+-----+----+--------+-- ---+ - Brachial Pressure:Right: 156. - DEMETRIUS:Right: 0.93.Left: 0.89. Plethysmographic Digit Evaluation +---------++--------+--- --+ ++---- ----+-----+ ---+ ! !!Right ! !Left !! ! ! ! +---------++--------+--- --+ ++---- ----+-----+ ---+ !Location !!Pressure!Ratio!PPG Wave Form !!Pressure!Ratio!PPG Wave Form ! +---------++--------+--- --+ ++---- ----+-----+ ---+ !Great Toe!!26 !0.17 ! !!26 !0.17 ! ! +---------++--------+--- --+ ++---- ----+-----+ ---+ [facility] [place], [place], pn Incoming Cardio Results From [facility]/ - 08/09/2019 9:[address] [facility] Vascular Lower Arterial Plethysmography Procedure Patient Name OLY Date of Study 08/09/2019 KATHERINE Bonner Date of 1955 Gender Female Age 64 year(s) Race Room Number op Corporate ID # [id number] Patient MR # [id number] Front Office Java Developer Yelena Weston, T Interpreting Physician Paulino Melendez Referring Referring Physician Nurse Practitioner Procedure Type of Study: Extremities Arteries: Lower Arterial Plethysmography, PVR Lower. Indications for Study:PVD. Patient Status:Out Patient. Conclusions Summary Right DEMETRIUS of 0.93 and left DEMETRIUS of 0.89 are consistent with mild arterial insufficiency. Bilateral toe brachial indices of 0.17 suggest small vessel disease. Signature Electronically signed by Harjit MelendezUofl [facility]gopal physician) on 08/09/2019 09:03 PM Left Impression: No BP obtained in the left arm. Risk Factors History + +--------- -+ --- + !Diagnosis !Date !Comments ! + +--------- -+ --- + !Previous Scan !11/27/2018!RT DP--.58 ! ! ! !LT DP--.96 ! + +--------- -+ --- + !Peripheral vascular disease->Aortic ! !H/O Ybvmf-ih-hjprnzz ! !aneurysm ! !bypass ! ! ! !RT atherectomy ! + +--------- -+ --- + - The patient's risk factor(s) include: diabetes mellitus, dyslipidemia and arterial hypertension. - The patient has a former tobacco history. - The patient has breast cancer. Allergies - Allergy:Penicillin(Drug) . Velocities are measured in cm/s ; Diameters are measured in cm Pressures + ++------- -+-----+----+--------+-- --- + ! !!Right ! !Left! ! ! + ++------- -+-----+----+--------+-- --- + !Location !!Pressure!Ratio! !Pressure!Ratio! + ++------- -+-----+----+--------+-- --- + !Thigh !!138 !0.88 ! !143 !0.92 ! + ++------- -+-----+----+--------+-- --- + !Calf !!139 !0.89 ! !132 !0.85 ! + ++------- -+-----+----+--------+-- --- + !Ankle PT !!145 !0.93 ! !139 !0.89 ! + ++------- -+-----+----+--------+-- --- + !Ankle DP !!142 !0.91 ! !137 !0.88 ! + ++------- -+-----+----+--------+-- --- + !Great Toe !!26 !0.17 ! !26 !0.17 ! + ++------- -+-----+----+--------+-- --- + - Brachial Pressure:Right: 156. - DEMETRIUS:Right: 0.93.Left: 0.89. Plethysmographic Digit Evaluation +---------++--------+--- --+ ++---- ----+-----+ --- + ! !!Right ! !Left !! ! ! ! +---------++--------+--- --+ ++---- ----+-----+ --- + !Location !!Pressure!Ratio!PPG Wave Form !!Pressure!Ratio!PPG Wave Form ! +---------++--------+--- --+ ++---- ----+-----+ --- + !Great Toe!!26 !0.17 ! !!26 !0.17 ! ! +---------++--------+--- --+ ++---- ----+-----+ --- + [facility], [place] OPERATIVE REPORTon [address] OPER[address] [address] OPERATIVE REPORT PATIENT NAME: KATHERINE DA SILVA : 1955 MED REC NO: [id number] ROOM: ACCOUNT NO: [id number] ADMIT DATE: 01/07/2019 PROVIDER: Kerri Rajput MD DATE OF PROCEDURE: 01/07/2019 PREOPERATIVE DIAGNOSIS: Lifestyle limiting claudication of right leg, status post aortobifemoral bypass. POSTOPERATIVE DIAGNOSIS: Lifestyle limiting claudication of right leg, status post aortobifemoral bypass. PROCEDURES PERFORMED: 1. Ultrasound-guided vascular access of left common femoral artery with percutaneous closure. 2. Aortogram. 3. Selective catheterization of right superficial femoral artery. 4. Right lower extremity angiogram with runoff. 5. Ultrasound-guided vascular access of right dorsalis pedis (pedal access). 6. Placement of embolic protection FilterWire to superficial femoral artery. 7. Percutaneous directional atherectomy and proximal superficial femoral artery. 8. Percutaneous angioplasty with drug-coated balloon of common femoral and superficial femoral arteries. ANESTHESIA: Monitored anesthesia care, with local. SURGEON: Kerri Rajput MD ESTIMATED BLOOD LOSS: 30 mL. CONTRAST: 50 mL. FLUOROSCOPY TIME: 22 minutes. COMPLICATIONS: None. SPECIMEN: SFA plaque. Please see brief operative note for image. FINDINGS: There is a proximal SFA occlusion just distal to the aortobifemoral bypass. After intervention there is great flow down the superficial femoral artery. There is palpable dorsalis pedis and posterior tibial on exam. INDICATION FOR PROCEDURE: The patient is a 63-year-old woman who is having lifestyle limiting claudication of both lower extremities with early signs of ischemic rest pain. She underwent an aortobifemoral bypass with bilateral femoral endarterectomies. She had done well postoperatively but had noticed some cramping in her right calf with further exercise. This has progressed to a point where it is really bothering her. She had noninvasive done which showed concern for SFA popliteal disease. She did have a palpable femoral pulse suggesting that the graft is open but there is further disease distally. I suspected that during her surgery that she had proximal SFA disease that may not have . Given these, I recommended she undergo an angiogram with possible intervention. Risks and benefits were explained to her and she consented to proceed. DESCRIPTION OF PROCEDURE: The patient was brought to the catheterization suite. She did undergo monitored anesthesia care. Bilateral groin sites were prepped and draped in standard sterile fashion. Time-out was performed and agreed upon. I began by visualizing the left common femoral artery under ultrasound and we could see the bypass graft ending at the bifurcation. Local anesthetic was given, then accessed the femoral bypass graft on the common femoral artery. Using the micropuncture needle, wire passed easily. Ultrasound images were saved. Fluoroscopic image was taken to confirm access over the femoral head. I placed the micropuncture sheath. I dilated the track with a 6-Maldivian dilator and then placed a 5-Maldivian sheath in. An RBI catheter was then brought into the abdominal aorta over a wire and aortogram was performed. I as able to go up and over the aortobifemoral bypass graft and park the catheter at the femoral bifurcation and performed a right lower extremity angiogram. Radiographical findings are as follows: The aortobifemoral bypass graft is widely patent. The right DAVISON to graft empties into the femoral bifurcation. There is an abrupt occlusion of the proximal SFA with reconstitution shortly after due to branches from the robust profunda system. There is 3-vessel runoff. At this point, I gave the patient 8000 units of heparin and allowed to circulate. I did not remove the 5-Maldivian sheath and dilated the track. I had exchanged RBI catheter for an wire and then I was able to get a 7-Maldivian, 45-cm Kane sheath up and over the aortobifemoral bypass graft and parked it in the right femoral bifurcation. I then did a hand-injection angiogram to evaluate the femoral bifurcation again. I used a combination of Glidewire and Quick-Cross to attempt to cross the occlusion of the proximal SFA just distal to the anastomosis. It did appear that I was in a dissection plane. I used a re-entry balloon but was unsuccessful in getting into the true lumen of the superficial femoral artery. At this point, I decided to do a pedal access in order to cross the proximal SFA occlusion so the right foot was prepped out and draped. Local anesthetic was given and under ultrasound guidance, I used a micropuncture needle to access the dorsalis pedis artery. Permanent ultrasound images were saved. I was then able to place a micropuncture sheath in without difficulty. I then placed a Glidewire up and it went all the way up to the superficial femoral artery. In order to use support catheter, I exchanged the micropuncture sheath for a 6-Maldivian Terumo hydrophilic sheath. This was flushed and also 200 mcg of nitro was given through the sheath. Using the Quick-Cross and the Glidewire, I was able to cross the proximal occlusion and get into the common femoral artery and the right limb of the aortobifemoral bypass graft. This was confirmed by performing a hand-injection angiogram through the Quick-Cross in a retrograde fashion. Once this was done, a snare was used from the left femoral access and the Glidewire was snared. Body flossing from the pedal access to the left femoral access. Once that was done, a Quick-Cross was then brought from the left femoral access down past the proximal SFA occlusion. Wire was removed and hand-injection angiogram was performed to the catheter to confirm access into the mid SFA. I then placed a 6-mm embolic protection Filter Spider wire. I had marked out the proximal occlusion of the SFA and then used the TurboHawk directional atherectomy to perform pecutaneous atherectomy of the proximal SFA. Multiple passes were performed. Repeat angiogram was done. There was great luminal gain. There was still some flak right at the femoral bifurcation so this was atherectomized again with the directional TurboHawk. Once this was done, the FilterWire was removed over the Quick-Cross and the wire was passed down. An angiogram was performed which showed a very good luminal gain down the SFA without a dissection flap or extravasation. I then performed percutaneous balloon angioplasty using a 7 mm x 80 mm IN.PACT drug-coated balloon. Prolonged insufflation time was performed. This was done over the distal end of the graft, common femoral artery and the proximal superficial femoral artery. Once this was done, a completion angiogram revealed patent right limb of the aortobifemoral bypass graft. There was great flow now down to the common femoral, superficial femoral and profunda arteries. There was no dissection or extravasation seen. There was a palpable posterior tibial and dorsalis pedis pulse at completion, so the sheath was then brought back into the abdominal aorta over a wire. I then used a ProGlide to perform percutaneous closure of the left common femoral arteriotomy. Left groin was hemostatic. The right dorsalis pedis sheath had been removed prior to atherectomizing and a pressure dressing had been applied. At completion, there was a palpable pulse and there was no hematoma. At this point, Band-Aids were applied. The patient tolerated the procedure well. She was brought to her room for recovery. KERRI RAJPUT MD MANUEL/[email or web address]_I Doc#: [id number] CC: Normal [facility] Platelet Counton 01-07-2019 Platelets (Bld) [#/Vol] 243 10*3/uL Normal 138-453 [facility] Comment on above: Performed By: #### B MP, TSHX, FT4, GLYHGB #### [employer] [address] [place] [phone] Tow Picker: Armando Vaz MD Lipid Profileon 11-25-2018 Cholesterol [Mass/Vol] 172 mg/dL Normal <200 [facility] Comment on above: Result Comment: Cholesterol Guidelines: <200 Desirable 200-240 Borderline >240 Undesirable Performed By: #### B MP, TSHX, FT4, GLYHGB #### [employer] [address] [place] [address] Tow Picker: Armando Vaz MD Cholesterol in HDL [Mass/Vol] 37 mg/dL Low >40 [facility] Comment on above: Result Comment: HDL Guidelines: <40 Undesirable 40-59 Borderline >59 Desirable Performed By: #### B MP, TSHX, FT4, GLYHGB #### [employer] [address] [place] [phone] Tow Picker: Armando Vaz MD Cholesterol in LDL [Mass/Vol] 88 mg/dL Normal 0-130 [facility] Comment on above: Result Comment: LDL Guidelines: <100 Desirable 100-129 Near to/above Desirable 130-159 Borderline >159 Undesirable Direct (measured) LDL and calculated LDL are not interchangeable tests. Performed By: #### B MP, TSHX, FT4, GLYHGB #### [employer] [address] [place] [address] Tow Picker: Armando Vaz MD Cholesterol.total/C holesterol in HDL [Mass ratio] 4.6 {ratio} Normal <5 [facility] Comment on above: Performed By: #### B MP, TSHX, FT4, GLYHGB #### [address] [address] Tow Picker: Armando Vaz MD Triglyceride [Mass/Vol] 237 mg/dL High <150 [facility] Comment on above: Result Comment: Triglyceride Guidelines: <150 Desirable 150-199 Borderline 200-499 High >499 Very high Based on AHA Guidelines for fasting triglyceride, June 2012. Performed By: #### B MP, TSHX, FT4, GLYHGB #### [address] [address] Tow Picker: Armando Vaz MD Cholesterol in VLDL [Mass/Vol] NOT REPORTED Normal 10-21 [facility] Comment on above: Performed By: #### B MP, TSHX, FT4, GLYHGB #### [address] [address] Tow Picker: Armando Vaz MD Basic Metabolic Profon 10-31 (cont.) Normal [facility] Comment on above: Result Comment: Aver age GFR for 60-69 years old: 85 mL/min/1.73sq m Chronic Kidney Disease: <60 mL/min/1.73sq m Kidney failure: <15 mL/min/1.73sq m eGFR calculated using average adult body mass. Additional eGFR calculator available at: http://www.Takkle.Spot Runner/multiple_crcl_2012.htm Performed By: #### B MP, TSHX, FT4, GLYHGB #### [address] [address] Tow Picker: Armando Vaz MD Anion gap [Moles/Vol] 8 mmol/L Low 9-17 [facility] Comment on above: Performed By: #### B MP, TSHX, FT4, GLYHGB #### [address] [address] Tow Picker: Armando Vaz MD Calcium [Mass/Vol] 7.6 mg/dL Low 8.6-10.4 [facility] Comment on above: Performed By: #### B MP, TSHX, FT4, GLYHGB #### [facility] [employer] [address] [place] [address] Tow Picker: Armando Vaz MD Chloride [Moles/Vol] 114 mmol/L High 98-107 [facility] Comment on above: Performed By: #### B MP, TSHX, FT4, GLYHGB #### [facility] [address] [place] [address] Tow Picker: Armando Vaz MD CO2 [Moles/Vol] 24 mmol/L Normal 20-31 [facility] Comment on above: Performed By: #### B MP, TSHX, FT4, GLYHGB #### [address] [address] Tow Picker: Armando Vaz MD Creatinine [Mass/Vol] 0.56 mg/dL Normal 0.50-0.90 [facility] Comment on above: Performed By: #### B MP, TSHX, FT4, GLYHGB #### [facility] [employer] [address] [place] [address] Tow Picker: Armando Vaz MD GFR, Amer >60 Normal >60 [facility] Comment on above: Performed By: #### B MP, TSHX, FT4, GLYHGB #### [facility] [employer] [address] [place] [address] Tow Picker: Armando Vaz MD GFR,non Amer >60 Normal >60 [facility] Comment on above: Performed By: #### B MP, TSHX, FT4, GLYHGB #### [facility] [employer] [address] [place] [phone] Tow Picker: Armando Vaz MD Glucose [Mass/Vol] 112 mg/dL High 70-99 [facility] Comment on above: Performed By: #### B MP, TSHX, FT4, GLYHGB #### [facility] [employer] [address] [place] [address] Tow Picker: Armando Vaz MD Potassium [Moles/Vol] 3.6 mmol/L Low 3.7-5.3 [facility] Comment on above: Performed By: #### B MP, TSHX, FT4, GLYHGB #### [facility] [employer] [address] [place] [address] 46165 Tow Picker: Armando Vaz MD Sodium [Moles/Vol] 146 mmol/L High 135-144 [facility] Comment on above: Performed By: #### B MP, TSHX, FT4, GLYHGB #### [facility] [employer] [address] [place] [address] 98962 Tow Picker: Armando Vaz MD Urea nitrogen [Mass/Vol] 11 mg/dL Normal - [facility] Comment on above: Performed By: #### B MP, TSHX, FT4, GLYHGB #### [address] [address] Tow Picker: Armando Vaz MD BUN/CRE Ratio NOT REPORTED Normal - [facility] Comment on above: Performed By: #### B MP, TSHX, FT4, GLYHGB #### [facility] [employer] [address] [place] [address] 11056 Tow Picker: Armando Vaz MD Staging: NOT REPORTED Normal [facility] Comment on above: Performed By: #### B MP, TSHX, FT4, GLYHGB #### [address] [address] Tow Picker: Armando Vaz MD (cont.) [facility] Comment on above: Result Comment: Aver age GFR for 60-69 years old: 85 mL/min/1.73sq m Chronic Kidney Disease: <60 mL/min/1.73sq m Kidney failure: <15 mL/min/1.73sq m eGFR calculated using average adult body mass. Additional eGFR calculator available at: http://www.Takkle.Spot Runner/multiple_crcl_2012.htm Performed By: #### B MP, TSHX, FT4, GLYHGB #### [facility] [address] [place] [address] 94760 Tow Picker: Armando Vaz MD Anion gap [Moles/Vol] 4 mmol/L Low 9-17 [facility] Comment on above: Performed By: #### B MP, TSHX, FT4, GLYHGB #### [facility] [employer] [address] [place] [address] 09154 Tow Picker: Armando Vaz MD Calcium [Mass/Vol] 7.3 mg/dL Low 8.6-10.4 [facility] Comment on above: Performed By: #### B MP, TSHX, FT4, GLYHGB #### [facility] [employer] [address] [place] [address] 93206 Tow Picker: Armando Vaz MD Chloride [Moles/Vol] 110 mmol/L High 98-107 [facility] Comment on above: Performed By: #### B MP, TSHX, FT4, GLYHGB #### [facility] [employer] [address] [place] [address] 38345 Tow Picker: Armando Vaz MD CO2 [Moles/Vol] 27 mmol/L Normal 20-31 [facility] Comment on above: Performed By: #### B MP, TSHX, FT4, GLYHGB #### [facility] [employer] [address] [place] [address] 47573 Tow Picker: Armando Vaz MD Creatinine [Mass/Vol] 0.67 mg/dL Normal 0.50-0.90 [facility] Comment on above: Performed By: #### B MP, TSHX, FT4, GLYHGB #### [facility] [employer] [address] [place] [address] 97739 Tow Picker: Armando Vaz MD GFR, Amer >60 Normal >60 [facility] Comment on above: Performed By: #### B MP, TSHX, FT4, GLYHGB #### [address] [address] Tow Picker: Armando Vaz MD GFR,non Amer >60 Normal >60 [facility] Comment on above: Performed By: #### B MP, TSHX, FT4, GLYHGB #### [address] [address] Tow Picker: Armando Vaz MD Glucose [Mass/Vol] 106 mg/dL High 70-99 [facility] Comment on above: Performed By: #### B MP, TSHX, FT4, GLYHGB #### [facility] [employer] [address] [place] [address] 26589 Tow Picker: Armadno Vaz MD Potassium [Moles/Vol] 3.3 mmol/L Low 3.7-5.3 [facility] Comment on above: Performed By: #### B MP, TSHX, FT4, GLYHGB #### [address] [address] Tow Picker: Armando Vaz MD Sodium [Moles/Vol] 141 mmol/L Normal 135-144 [facility] Comment on above: Performed By: #### B MP, TSHX, FT4, GLYHGB #### [facility] [employer] [address] [place] [address] 96019 Tow Picker: Armando Vaz MD Urea nitrogen [Mass/Vol] 11 mg/dL Normal 8-23 [facility] Comment on above: Performed By: #### B MP, TSHX, FT4, GLYHGB #### [facility] [employer] [address] [place] [address] Tow Picker: Armando Vaz MD BUN/CRE Ratio NOT REPORTED Normal - [facility] Comment on above: Performed By: #### B MP, TSHX, FT4, GLYHGB #### [facility] [address] [place] [address] Tow Picker: Armando Vaz MD Staging: NOT REPORTED Normal [facility] Comment on above: Performed By: #### B MP, TSHX, FT4, GLYHGB #### [address] [address] Tow Picker: Armando Vaz MD Basic Metabolic Profon 10-30 (cont.) Normal [facility] Comment on above: Result Comment: Aver age GFR for 60-69 years old: 85 mL/min/1.73sq m Chronic Kidney Disease: <60 mL/min/1.73sq m Kidney failure: <15 mL/min/1.73sq m eGFR calculated using average adult body mass. Additional eGFR calculator available at: http://www.Takkle.Spot Runner/multiple_crcl_2012.htm Performed By: #### B MP, TSHX, FT4, GLYHGB #### [facility] [address] [place] [address] 6[address] Tow Picker: Armando Vaz MD Anion gap [Moles/Vol] 11 mmol/L Normal - [facility] Comment on above: Performed By: #### B MP, TSHX, FT4, GLYHGB #### [facility] [address] [place] [address] Tow Picker: Armando Vaz MD Calcium [Mass/Vol] 6.7 mg/dL Low 8.6-10.4 [facility] Comment on above: Performed By: #### B MP, TSHX, FT4, GLYHGB #### [facility] [employer] [address] [place] [address] 07089 Tow Picker: Armando Vaz MD Chloride [Moles/Vol] 109 mmol/L High 98-107 [facility] Comment on above: Performed By: #### B MP, TSHX, FT4, GLYHGB #### [facility] [address] [place] [address] 59666 Tow Picker: Armando Vaz MD CO2 [Moles/Vol] 20 mmol/L Normal 20-31 [facility] Comment on above: Performed By: #### B MP, TSHX, FT4, GLYHGB #### [facility] [address] [place] [address] 6[address]28 Tow Picker: Armando Vaz MD Creatinine [Mass/Vol] 0.76 mg/dL Normal 0.50-0.90 [facility] Comment on above: Performed By: #### B MP, TSHX, FT4, GLYHGB #### [facility] [address] [place] [address] 8[address]12 Tow Picker: Armando Vaz MD GFR, Amer >60 Normal >60 [facility] Comment on above: Performed By: #### B MP, TSHX, FT4, GLYHGB #### [facility] [address] [place] [address] 70772 Tow Picker: Armando Vaz MD GFR,non Amer >60 Normal >60 [facility] Comment on above: Performed By: #### B MP, TSHX, FT4, GLYHGB #### [facility] [address] [place] [address] 50049 Tow Picker: Armando Vaz MD Glucose [Mass/Vol] 151 mg/dL High 70-99 [facility] Comment on above: Performed By: #### B MP, TSHX, FT4, GLYHGB #### [facility] [address] [place] [address] 35591 Tow Picker: Armando Vaz MD Potassium [Moles/Vol] 3.6 mmol/L Low 3.7-5.3 [facility] Comment on above: Performed By: #### B MP, TSHX, FT4, GLYHGB #### [address] [address] Tow Picker: Armando Vaz MD Sodium [Moles/Vol] 140 mmol/L Normal 135-144 [facility] Comment on above: Performed By: #### B MP, TSHX, FT4, GLYHGB #### [address] [address] Tow Picker: Armando Vaz MD Urea nitrogen [Mass/Vol] 13 mg/dL Normal 8-23 [facility] Comment on above: Performed By: #### B MP, TSHX, FT4, GLYHGB #### [address] [address] Tow Picker: Armando Vaz MD BUN/CRE Ratio NOT REPORTED Normal 9-20 [facility] Comment on above: Performed By: #### B MP, TSHX, FT4, GLYHGB #### [facility] [employer] [address] [place] [address] 07490 Tow Picker: Armando Vaz MD Staging: NOT REPORTED Normal [facility] Comment on above: Performed By: #### B MP, TSHX, FT4, GLYHGB #### [address] [address] Tow Picker: Armando Vaz MD CBCon 10-30-2018 Erythrocyte distribution width (RBC) [Ratio] 16.0 % High 11.8-14.4 [facility] Comment on above: Performed By: #### B MP, TSHX, FT4, GLYHGB #### [facility] [employer] [address] [place] [address] 50055 Tow Picker: Armando Vaz MD Hematocrit (Bld) [Volume fraction] 31.0 % Low 36.3-47.1 [facility] Comment on above: Performed By: #### B MP, TSHX, FT4, GLYHGB #### [address] [address] Tow Picker: Armando Vaz MD Hemoglobin (Bld) [Mass/Vol] 10.9 g/dL Low 11.9-15.1 [facility] Comment on above: Performed By: #### B MP, TSHX, FT4, GLYHGB #### [address] [address] Tow Picker: Armando Vaz MD MCH (RBC) [Entitic mass] 31.6 pg Normal 25.2-33.5 [facility] Comment on above: Performed By: #### B MP, TSHX, FT4, GLYHGB #### [place] [address] Tow Picker: Armando Vaz MD MCHC (RBC) [Mass/Vol] 35.2 g/dL High 28.4-34.8 [facility] Comment on above: Performed By: #### B MP, TSHX, FT4, GLYHGB #### [place] [address] Tow Picker: Armando Vaz MD MCV (RBC) [Entitic vol] 89.9 fL Normal 82.6-102.9 [facility] Comment on above: Performed By: #### B MP, TSHX, FT4, GLYHGB #### [place] [address] Tow Picker: Armando Vaz MD NRBC Automated 0.0 per 100 WBC Normal 0.0 [facility] Comment on above: Performed By: #### B MP, TSHX, FT4, GLYHGB #### [address] [address] Tow Picker: Armando Vaz MD Platelet mean volume (Bld) [Entitic vol] 10.3 fL Normal 8.1-13.5 [facility] Comment on above: Performed By: #### B MP, TSHX, FT4, GLYHGB #### [address] [address] Tow Picker: Armando Vaz MD Platelets (Bld) [#/Vol] 129 10*3/uL Low 138-453 [facility] Comment on above: Performed By: #### B MP, TSHX, FT4, GLYHGB #### [address] [address] Tow Picker: Armando Vaz MD RBC (Bld) [#/Vol] 3.45 10*6/uL Low 3.95-5.11 [facility] Comment on above: Performed By: #### B MP, TSHX, FT4, GLYHGB #### [address] [address] Tow Picker: Armando Vaz MD WBC (Bld) [#/Vol] 12.8 10*3/uL High 3.5-11.3 [facility] Comment on above: Performed By: #### B MP, TSHX, FT4, GLYHGB #### [address] [address] Tow Picker: Armando Vaz MD Lactic Acid,Whole Blon 10-30 Lactic Acid,Whole Bl 2.8 mmol/L High 0.7-2.1 [facility] Comment on above: Performed By: #### B MP, TSHX, FT4, GLYHGB #### [address] [address] Tow Picker: Armando Vaz MD XR CHEST PORTABLEon 10-30-19 19 XR CHEST PORTABLE EXAMINATION: SINGLE XRAY VIEW OF THE CHEST 10/30/2018 5:37 am COMPARISON: None. HISTORY: ORDERING SYSTEM PROVIDED HISTORY: intubated FINDINGS: Endotracheal tube is in place in satisfactory position with tip approximately 4 cm above the amor. Enteric tube is in satisfactory position. Right IJ line is in place with tip at the cavoatrial junction. Low lung volumes. Probable small left pleural effusion with basilar atelectasis. No discernible pneumothorax. Left axillary surgical clips. Cholecystectomy clips. Osseous structures grossly intact. IMPRESSION: 1. Satisfactory endotracheal enteric tube positions. 2. Low lung volumes with small left pleural effusion and basilar atelectasis. Interpreted by: Erik Elizondo MD Signed by: Erik Elizondo MD 10/30/18 Final result Normal [facility] Basic Metab w/rfx MGon 10-29 (cont.) Normal [facility] Comment on above: Result Comment: Aver age GFR for 60-69 years old: 85 mL/min/1.73sq m Chronic Kidney Disease: <60 mL/min/1.73sq m Kidney failure: <15 mL/min/1.73sq m eGFR calculated using average adult body mass. Additional eGFR calculator available at: http://[email or web address] Runner/multiple_crcl_2012.htm Performed By: #### B MP, TSHX, FT4, GLYHGB #### [facility] [employer] [address] [place] [address] 29638 Tow Picker: Armando Vaz MD Anion gap [Moles/Vol] 9 mmol/L Normal 9-17 [facility] Comment on above: Performed By: #### B MP, TSHX, FT4, GLYHGB #### [employer] [address] [place] [address] Tow Picker: Armando Vaz MD Calcium [Mass/Vol] 6.4 mg/dL Low 8.6-10.4 [facility] Comment on above: Performed By: #### B MP, TSHX, FT4, GLYHGB #### [employer] [employer] [address] [place] [address] 39815 Tow Picker: Armando Vaz MD Chloride [Moles/Vol] 116 mmol/L High 98-107 [facility] Comment on above: Performed By: #### B MP, TSHX, FT4, GLYHGB #### [facility] [address] [place] [address] 137[address] Tow Picker: Armando Vaz MD CO2 [Moles/Vol] 14 mmol/L Low 20-31 [facility] Comment on above: Performed By: #### B MP, TSHX, FT4, GLYHGB #### [facility] [address] [place] [address] 17542 Tow Picker: Armando Vaz MD Creatinine [Mass/Vol] 0.88 mg/dL Normal 0.50-0.90 [facility] Comment on above: Performed By: #### B MP, TSHX, FT4, GLYHGB #### [facility] [address] [place] [address] Tow Picker: Armando Vaz MD GFR, Amer >60 Normal >60 [facility] Comment on above: Performed By: #### B MP, TSHX, FT4, GLYHGB #### [facility] [address] [place] [address]11 Tow Picker: Armando Vaz MD GFR,non Amer >60 Normal >60 [facility] Comment on above: Performed By: #### B MP, TSHX, FT4, GLYHGB #### [facility] [address] [place] [address] 92140 Tow Picker: Armando Vaz MD Glucose [Mass/Vol] 142 mg/dL High 70-99 [facility] Comment on above: Performed By: #### B MP, TSHX, FT4, GLYHGB #### [facility] [address] [place] [address] 30165 Tow Picker: Armando Vaz MD Potassium [Moles/Vol] 4.1 mmol/L Normal 3.7-5.3 [facility] Comment on above: Performed By: #### B MP, TSHX, FT4, GLYHGB #### [address] [address] Tow Picker: Armando Vaz MD Sodium [Moles/Vol] 139 mmol/L Normal 135-144 [facility] Comment on above: Performed By: #### B MP, TSHX, FT4, GLYHGB #### [address] [address] Tow Picker: Armando Vaz MD Urea nitrogen [Mass/Vol] 12 mg/dL Normal 8-23 [facility] Comment on above: Performed By: #### B MP, TSHX, FT4, GLYHGB #### [address] [address] Tow Picker: Armando Vaz MD BUN/CRE Ratio NOT REPORTED Normal 9-20 [facility] Comment on above: Performed By: #### B MP, TSHX, FT4, GLYHGB #### [address] [address] Tow Picker: Armando Vaz MD Staging: NOT REPORTED Normal [facility] Comment on above: Performed By: #### B MP, TSHX, FT4, GLYHGB #### [address] [address] Tow Picker: Armando Vaz MD Brain Natri. Peptideon 10-29 Natriuretic peptide B (Bld) [Mass/Vol] 288 pg/mL Normal <300 [facility] Comment on above: Result Comment: Pro- BNP results cannot be compared to BNP results. Performed By: #### B MP, TSHX, FT4, GLYHGB #### [address] [address] Tow Picker: Armando Vaz MD Natriuretic peptide B (Bld) [Mass/Vol] Normal [facility] Comment on above: Result Comment: Pro- BNP Reference Range: Rule Out: <300 Ahn Zone: Age <50 300-450 Age 50-75 300-900 Age >75 300-1800 Usually represents mild to moderate HF but other cardiopulmonary causes cannot be ruled out. Rule In: Age <50 >450 Age 50-75 >900 Age >75 >1800 Performed By: #### B MP, TSHX, FT4, GLYHGB #### [address] [address] Tow Picker: Armando Vaz MD CBCon 10-29-2018 Erythrocyte distribution width (RBC) [Ratio] 15.7 % High 11.8-14.4 [facility] Comment on above: Performed By: #### B MP, TSHX, FT4, GLYHGB #### [facility] [employer] [address] [place] [address] Tow Picker: Armando Vaz MD Hematocrit (Bld) [Volume fraction] 38.0 % Normal 36.3-47.1 [facility] Comment on above: Performed By: #### B MP, TSHX, FT4, GLYHGB #### [facility] [employer] [address] [place] [address] 08980 Tow Picker: Armando Vaz MD Hemoglobin (Bld) [Mass/Vol] 12.8 g/dL Normal 11.9-15.1 [facility] Comment on above: Performed By: #### B MP, TSHX, FT4, GLYHGB #### [employer] [address] [place] [address] 67255 Tow Picker: Armando Vaz MD MCH (RBC) [Entitic mass] 30.6 pg Normal 25.2-33.5 [facility] Comment on above: Performed By: #### B MP, TSHX, FT4, GLYHGB #### [employer] [address] Tow Picker: Armando Vaz MD MCHC (RBC) [Mass/Vol] 33.7 g/dL Normal 28.4-34.8 [facility] Comment on above: Performed By: #### B MP, TSHX, FT4, GLYHGB #### [address] [address] Tow Picker: Armando Vaz MD MCV (RBC) [Entitic vol] 90.9 fL Normal 82.6-102.9 [facility] Comment on above: Performed By: #### B MP, TSHX, FT4, GLYHGB #### [address] [address] Tow Picker: Armando Vaz MD NRBC Automated 0.0 per 100 WBC Normal 0.0 [facility] Comment on above: Performed By: #### B MP, TSHX, FT4, GLYHGB #### [address] [address] Tow Picker: Armando Vaz MD Platelet mean volume (Bld) [Entitic vol] 10.2 fL Normal 8.1-13.5 [facility] Comment on above: Performed By: #### B MP, TSHX, FT4, GLYHGB #### [address] [address] Tow Picker: Armando Vaz MD Platelets (Bld) [#/Vol] 134 10*3/uL Low 138-453 [facility] Comment on above: Performed By: #### B MP, TSHX, FT4, GLYHGB #### [address] [address] Tow Picker: Armando Vaz MD RBC (Bld) [#/Vol] 4.18 10*6/uL Normal 3.95-5.11 [facility] Comment on above: Performed By: #### B MP, TSHX, FT4, GLYHGB #### [facility] [employer] [address] [place] [address] [phone] Tow Picker: Armando Vaz MD WBC (Bld) [#/Vol] 12.3 10*3/uL High 3.5-11.3 [facility] Comment on above: Performed By: #### B MP, TSHX, FT4, GLYHGB #### [facility] [address] [place] [address] [phone] Tow Picker: Armando Vaz MD Cult,Urineon 10-29-2018 Cult,Urine Specimen Description .CATHETERIZED URINE TOM INSERTION Special Requests NOT REPORTED Culture NO GROWTH Report Status FINAL 10/29/2018 Normal [facility] Comment on above: Performed By: #### B MP, TSHX, FT4, GLYHGB #### [facility] [address] [place] [address] Tow Picker: Armando Vaz MD Lactic Acid,Whole Blon 10-29 Lactic Acid,Whole Bl 2.9 mmol/L High 0.7-2.1 [facility] Comment on above: Performed By: #### B MP, TSHX, FT4, GLYHGB #### [employer] [address] [place] [address] 91246 Tow Picker: Armando Vaz MD Lactic Acid,Whole Bl 3.0 mmol/L High 0.7-2.1 [facility] Comment on above: Performed By: #### B MP, TSHX, FT4, GLYHGB #### [employer] [employer] [address] [place] [address] 12147 Tow Picker: Armando Vaz MD Phosphorus, Inorg.on 019 Phosphorus, Inorg. 2.3 mg/dL Low 2.6-4.5 [facility] Comment on above: Performed By: #### B MP, TSHX, FT4, GLYHGB #### [facility] [address] [place] [address] 56099 Tow Picker: Armando Vaz MD Type + Screenon 10-29-2018 Type + Screen Sample Expiration 10/31/2018 Arm Band Number [id number] ABO/Rh(D) A POSITIVE Antibody Screen NEGATIVE Unit Number [id number] Blood Component Type Leukocyte Reduced Red Cell Unit Division 00 Status of Unit REL FROM ALLOC Transfusion Status OK TO TRANSFUSE Crossmatch Result COMPATIBLE Unit Number [id number] Blood Component Type Leukocyte Reduced Red Cell Unit Division 00 Status of Unit REL FROM ALLOC Transfusion Status OK TO TRANSFUSE Crossmatch Result COMPATIBLE Unit Number [id number] Blood Component Type Leukocyte Reduced Red Cell Unit Division 00 Status of Unit TRANSFUSED Transfusion Status OK TO TRANSFUSE Crossmatch Result COMPATIBLE Unit Number [id number] Blood Component Type Leukocyte Reduced Red Cell Unit Division 00 Status of Unit TRANSFUSED Transfusion Status OK TO TRANSFUSE Crossmatch Result COMPATIBLE Normal [facility] Comment on above: Performed By: #### T YS #### [address] [address] Tow Picker: Armando Vaz MD Basic Metabolic Profon 10-28 (cont.) Normal [facility] Comment on above: Result Comment: Aver age GFR for 60-69 years old: 85 mL/min/1.73sq m Chronic Kidney Disease: <60 mL/min/1.73sq m Kidney failure: <15 mL/min/1.73sq m eGFR calculated using average adult body mass. Additional eGFR calculator available at: http://www.Takkle.Spot Runner/multiple_crcl_2012.htm Performed By: #### H GEOVANI Puentes, MG #### [facility] [address] [place] [address] [phone] Tow Picker: Armando Vaz MD Anion gap [Moles/Vol] 10 mmol/L Normal -17 [facility] Comment on above: Performed By: #### H GEOVANI Puentes, MG #### [facility] [address] [place] [address] [phone] Tow Picker: Armando Vaz MD Calcium [Mass/Vol] 6.6 mg/dL Low 8.6-10.4 [facility] Comment on above: Performed By: #### H H, BMP, MG #### [facility] [address] [place] [address] Tow Picker: Armando Vaz MD Chloride [Moles/Vol] 119 mmol/L High 98-107 [facility] Comment on above: Performed By: #### H H, BMP, MG #### [facility] [address] [place] [address] Tow Picker: Armando Vaz MD CO2 [Moles/Vol] 16 mmol/L Low 20-31 [facility] Comment on above: Performed By: #### H H, BMP, MG #### [facility] [address] [place] [address] Tow Picker: Armando Vaz MD Creatinine [Mass/Vol] 0.65 mg/dL Normal 0.50-0.90 [facility] Comment on above: Performed By: #### H H, BMP, MG #### [facility] [address] [place] [address] Tow Picker: Armando Vaz MD GFR, Amer >60 Normal >60 [facility] Comment on above: Performed By: #### H H, BMP, MG #### [facility] [address] [place] [address] 7[address] Tow Picker: Armando Vaz MD GFR,non Amer >60 Normal >60 [facility] Comment on above: Performed By: #### H H, BMP, MG #### [facility] [address] [place] [address] Tow Picker: Armando Vaz MD Glucose [Mass/Vol] 196 mg/dL High 70-99 [facility] Comment on above: Performed By: #### H H, BMP, MG #### [facility] [address] [place] [address] Tow Picker: Armando Vaz MD Potassium [Moles/Vol] 4.3 mmol/L Normal 3.7-5.3 [facility] Comment on above: Performed By: #### H H, BMP, MG #### [facility] [address] [place] [address] Tow Picker: Armando Vaz MD Sodium [Moles/Vol] 145 mmol/L High 135-144 [facility] Comment on above: Performed By: #### H H, BMP, MG #### [facility] [address] [place] [address]47 Tow Picker: Armando aVz MD Urea nitrogen [Mass/Vol] 11 mg/dL Normal 8-23 [facility] Comment on above: Performed By: #### H H, BMP, MG #### [facility] [address] [place] [address]397 Tow Picker: Armando Vaz MD BUN/CRE Ratio NOT REPORTED Normal 9-20 [facility] Comment on above: Performed By: #### H H, BMP, MG #### [facility] [address] [place] [address]239 Tow Picker: Armando Vaz MD Staging: NOT REPORTED Normal [facility] Comment on above: Performed By: #### H H, BMP, MG #### [employer] [facility] [address] [place] [phone] Tow Picker: Armando Vaz MD CBC with Diffon 10-28-2018 Abs. Basophil <0.03 Normal 0.00-0.20 [facility] Comment on above: Performed By: #### B MP, TSHX, FT4, GLYHGB #### [facility] [address] [place] [address]443 Tow Picker: Armando Vaz MD Abs.Imm.Granulocyte 0.08 k/uL Normal 0.00-0.30 [facility] Comment on above: Performed By: #### B MP, TSHX, FT4, GLYHGB #### [address] [address] Tow Picker: Armando Vaz MD Abs.Neutrophil (Seg) 9.54 k/uL High 1.50-8.10 [facility] Comment on above: Performed By: #### B MP, TSHX, FT4, GLYHGB #### [address] [address] Tow Picker: Armando Vaz MD Basophils/100 WBC (Bld) 0 % Normal 0-2 [facility] Comment on above: Performed By: #### B MP, TSHX, FT4, GLYHGB #### [place] [address] Tow Picker: Armando Vaz MD Eosinophils (Bld) [#/Vol] 10*3/uL Normal 0.00-0.44 [facility] Comment on above: Performed By: #### B MP, TSHX, FT4, GLYHGB #### [address] [address] Tow Picker: Armando Vaz MD Eosinophils/100 WBC (Bld) 0 % Low 1-4 [facility] Comment on above: Performed By: #### B MP, TSHX, FT4, GLYHGB #### [facility] [address] [place] [address] Tow Picker: Armando Vaz MD Erythrocyte distribution width (RBC) [Ratio] 14.7 % High 11.8-14.4 [facility] Comment on above: Performed By: #### B MP, TSHX, FT4, GLYHGB #### [facility] [address] [place] [address] Tow Picker: Armando Vaz MD Hematocrit (Bld) [Volume fraction] 25.6 % Low 36.3-47.1 [facility] Comment on above: Performed By: #### B MP, TSHX, FT4, GLYHGB #### [facility] [address] [place] [phone] Tow Picker: Armando Vaz MD Hemoglobin (Bld) [Mass/Vol] 8.5 g/dL Low 11.9-15.1 [facility] Comment on above: Performed By: #### B MP, TSHX, FT4, GLYHGB #### [place] [address] Tow Picker: Armando Vaz MD Immature granulocytes (Bld) [#/Vol] 1 % High 0 [facility] Comment on above: Performed By: #### B MP, TSHX, FT4, GLYHGB #### [place] [address] Tow Picker: Armando Vaz MD Lymphocytes (Bld) [#/Vol] 1.38 10*3/uL Normal 1.10-3.70 [facility] Comment on above: Performed By: #### B MP, TSHX, FT4, GLYHGB #### [place] [address] Tow Picker: Armando Vaz MD Lymphocytes/100 WBC (Bld) 12 % Low 24-43 [facility] Comment on above: Performed By: #### B MP, TSHX, FT4, GLYHGB #### [address] [address] Tow Picker: Armando Vaz MD MCH (RBC) [Entitic mass] 32.7 pg Normal 25.2-33.5 [facility] Comment on above: Performed By: #### B MP, TSHX, FT4, GLYHGB #### [address] [address] Tow Picker: Armando Vaz MD MCHC (RBC) [Mass/Vol] 33.2 g/dL Normal 28.4-34.8 [facility] Comment on above: Performed By: #### B MP, TSHX, FT4, GLYHGB #### [address] [address] Tow Picker: Armando Vaz MD MCV (RBC) [Entitic vol] 98.5 fL Normal 82.6-102.9 [facility] Comment on above: Performed By: #### B MP, TSHX, FT4, GLYHGB #### [address] [address] Tow Picker: Armando Vaz MD Monocytes (Bld) [#/Vol] 0.90 10*3/uL Normal 0.10-1.20 [facility] Comment on above: Performed By: #### B MP, TSHX, FT4, GLYHGB #### [address] [address] Tow Picker: Armando Vaz MD Monocytes/100 WBC (Bld) 8 % Normal 3-12 [facility] Comment on above: Performed By: #### B MP, TSHX, FT4, GLYHGB #### [address] [address] Tow Picker: Armando Vaz MD Neutrophil (Seg) 79 % High 36-65 [facility] Comment on above: Performed By: #### B MP, TSHX, FT4, GLYHGB #### [address] [address] Tow Picker: Armando Vaz MD NRBC Automated 0.0 per 100 WBC Normal 0.0 [facility] Comment on above: Performed By: #### B MP, TSHX, FT4, GLYHGB #### [address] [address] Tow Picker: Armando Vaz MD Platelet mean volume (Bld) [Entitic vol] 10.1 fL Normal 8.1-13.5 [facility] Comment on above: Performed By: #### B MP, TSHX, FT4, GLYHGB #### [address] [address] Tow Picker: Armando Vaz MD Platelets (Bld) [#/Vol] 146 10*3/uL Normal 138-453 [facility] Comment on above: Performed By: #### B MP, TSHX, FT4, GLYHGB #### [address] [address] Tow Picker: Armando Vaz MD RBC (Bld) [#/Vol] 2.60 10*6/uL Low 3.95-5.11 [facility] Comment on above: Performed By: #### B MP, TSHX, FT4, GLYHGB #### [address] [address] Tow Picker: Armando Vaz MD RBC morphology finding Nom (Bld) ANISOCYTOSIS PRESENT Normal [facility] Comment on above: Performed By: #### B MP, TSHX, FT4, GLYHGB #### [address] [address] Tow Picker: Armando Vaz MD WBC (Bld) [#/Vol] 11.9 10*3/uL High 3.5-11.3 [facility] Comment on above: Performed By: #### B MP, TSHX, FT4, GLYHGB #### [address] [address] Tow Picker: Armando Vaz MD Auto Diff Performed NOT REPORTED Normal [facility] Comment on above: Performed By: #### B MP, TSHX, FT4, GLYHGB #### [facility] [address] [place] [address] Tow Picker: Armando Vaz MD Platelets (Bld) [#/Vol] NOT REPORTED Normal [facility] Comment on above: Performed By: #### B MP, TSHX, FT4, GLYHGB #### [facility] [address] [place] [address] Tow Picker: Armando Vaz MD WBC Morphology NOT REPORTED Normal [facility] Comment on above: Performed By: #### B MP, TSHX, FT4, GLYHGB #### [facility] [address] [place] [address] Tow Picker: Armando Vaz MD Hgb/Hcton 10-28-2018 Hematocrit (Bld) [Volume fraction] 31.2 % Low 36.3-47.1 [facility] Comment on above: Performed By: #### H H, BMP, MG #### [address] [address] Tow Picker: Armando Vaz MD Hemoglobin (Bld) [Mass/Vol] 10.6 g/dL Low 11.9-15.1 [facility] Comment on above: Performed By: #### H H, BMP, MG #### [facility] [address] [place] [address] Tow Picker: Armando Vaz MD Lactic Acid,Whole Blon 10-28 Lactic Acid,Whole Bl 3.9 mmol/L High 0.7-2.1 [facility] Comment on above: Performed By: #### L ACWB #### [address] [address] Tow Picker: Armando Vaz MD Magnesiumon 10-28-2018 Magnesium [Mass/Vol] 1.3 mg/dL Low 1.6-2.6 [facility] Comment on above: Performed By: #### H H, GEOVANI, MG #### [facility] [address] [place] [address] Tow Picker: Armando Vaz MD OPERATIVE REPORTon 9 OPERATIVE REPORT [facility] [address] [place] [address] OPERATIVE REPORT PATIENT NAME: KATHERINE DA SILVA : 1955 MED REC NO: [id number] ROOM: [facility] ACCOUNT NO: [id number] ADMIT DATE: 10/28/2018 PROVIDER: Kerri Rajput MD DATE OF PROCEDURE: 10/28/2018 PREOPERATIVE DIAGNOSES: Aortoiliac occlusion, lifestyle limiting claudication. POSTOPERATIVE DIAGNOSES: Aortoiliac occlusion, lifestyle limiting claudication. PROCEDURES PERFORMED: 1. Aortobifemoral bypass. 2. Aortic endarterectomy. 3. Right common femoral and superficial femoral artery endarterectomy. 4. Left common femoral artery endarterectomy. ANESTHESIA: General. SURGEON: Kerri Rajput MD TRANSPORTATION DEPARTMENT SUPERVISOR: Dr. Barrientos. ESTIMATED BLOOD LOSS: 950 mL. Please see anesthesia records for fluids given along with Cell Saver and urine output. FINDINGS: Severely atherosclerotic aorta with aortoiliac occlusion. 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 It was extending down into the superficial femoral artery. At completion of the bypass, the patient had strong multiphasic signals in the DP and PT that augmented with compression on the bypass graft. INDICATION FOR PROCEDURE: The patient is a 63-year-old woman who has been suffering with lifestyle limiting claudication. She was found to have aortoiliac occlusive disease, underwent angiogram, which was unsuccessful in crossing her chronic occlusions. She was recommended to undergo open repair given that her symptoms have been getting worse and brink of rest pain. She understood the risks and benefits of the procedure and elected to continue. DESCRIPTION OF PROCEDURE: The patient was brought to the operating room. After undergoing general endotracheal anesthesia, appropriate lines were placed. The arms were padded and tucked to her sides. I initially began by marking out the femoral arteries under ultrasound over the groin site. The patient was then prepped and draped from nipples to bilateral feet with chlorhexidine. She was then prepped in a standard sterile fashion. Time-out was performed and agreed upon. Antibiotics were given during this period. I began by making a small transverse incision in the right groin, just below the inguinal ligament. This was then taken down with electrocautery going through subcutaneous tissue. Doing a lateral to medial dissection, dissecting the fat pad underneath, identifying the femoral sheath and the inguinal ligament and then dissecting right over the femoral artery. This was then sharply and bluntly dissected. Common femoral artery did appear to be soft; however, there was some plaque that could be noted posteriorly and as it came close to the superficial femoral artery and profunda bifurcation. There were several branches that were preserved. Dissection underneath the inguinal ligament on top of the external iliac artery was continued. There was no crossing venous branching at work that was identified. At this point, vessel loop was placed proximally and distally, and then the right groin was packed with a lap pad. I then made a small transverse incision on the left side, below the inguinal ligament, taking it down in similar fashion using electrocautery to get down to the subcutaneous fat and Erica's, then going lateral to medial dissection on the fat pad to move the lymphatics up and away. The femoral sheath and the inguinal ligament were identified. Dissection over the femoral artery was then performed with electrocautery as well as sharp dissection. Proximal and distal dissection was ensued. Several branches were identified and preserved. Dissection under the inguinal ligament, on top of the external iliac artery was performed. There was no crossing venous branch that was noted. A vessel loop was then placed on its proximal portion, where branches were coming in as well as distally, just before the femoral bifurcation. This already was soft, had a small posterior plaque that could be felt over the finger. At this point, the left groin was then packed with a lap pad, then made a midline laparotomy incision and took it down all the way to the fascia. Did see a previous suture line from her previous abdominal surgery and abdominoplasty. The fascia was then entered uneventfully without any injury to small bowel. Once the fascia was completely opened, then I set up the Bookwalter. The omentum and transverse colon were then lifted up and wrapped in a wet towel. Small bowel was also eviscerated and wrapped in a wet towel. I then opened up the retroperitoneum, working my way up towards the duodenum and ligament of Treitz. This was then sharply taken down, leaving some room on the edge of the duodenum. Once the duodenum was partially kocherized, then I tucked it away with the small bowel, then used the malleable for retraction. The aorta could be felt deep within the retroperitoneum. It was pretty calcified. Further dissection through the retroperitoneum, over the aorta was performed using electrocautery as well as clipping any lymphatics that we saw. The renal vein was identified, and dissection around here, the aorta was nice and soft that could be clamped. Dissection on both sides of the aorta was performed until it was cleared away. I then worked distally on top of the aorta, down to the bifurcation. A tunnel was then performed using blunt dissection with my finger, connecting it from the right groin incision to the abdominal incision. An umbilical tape was passed with ease. This was repeated on the left side, making sure to stay right on top of the iliac vessel. Once this was done, the patient was given 7500 units of heparin and allowed to circulate. The patient was then re-bolused every 45 minutes to an hour with 1:3000 of heparin while the patient was clamped. Once the heparin had infiltrated, I then placed an aortic clamp just above the inferior mesenteric artery takeoff, and it was quite calcified here, but it was controllable. I placed a proximal clamp infrarenally. I opened up the aorta with an 11-blade. I then transected a 4- to 5-cm segment that was heavily calcified. The stump was then oversewn with 2 running layers of 3-0 Prolene suture. The distal clamp was removed, and the aortic stump was hemostatic. There were 2 lumbars that were visualized at the proximal stump, which were ligated with clips and transected off the aortic proximal stump. There was some plaque in the posterior aspect. This was endarterectomized off the aorta and using a 14 x 7-mm Dacron graft, proximal tube was shortened, and an end-to-end anastomosis was created using two 3-0 Prolene sutures. After completion of the anastomosis, it was tested with heparinized saline. There were 2 areas that needed sutures to prevent the leak. Once I was satisfied with the anastomosis, I placed clamps on the limbs of the graft and slowly released the aortic clamp. There was some bleeding noted at the posterior anastomosis. This was repaired with a pledgeted suture. Once I was done, I was satisfied with the repair. There was no pulsatile bleeding. The area was then packed with thrombin-soaked Gelfoam and Surgicel. I had flushed out the aorta through one of the limbs of the graft to remove any debris from the aorta. Each limb of the graft was then tunneled accordingly to its right and left femoral dissections through the previously placed umbilical tape using uterine packing clamp. The limbs were pulled taut to prevent any kinking or twisting. I then packed the abdomen with a lap pad and released some of the tension on the Bookwalter retractors to allow the small bowel to breathe as well as put some compression over the aortic anastomosis. In order to control the right common femoral artery, I realized there was a plaque going down to the SFA, so further dissection distally was performed. A clamp was then placed on the soft spot on the SFA as well as the profunda. Proximal clamp was applied. The branches were controlled with Yasargil clips. I made a longitudinal arteriotomy and extended up the common femoral. I took it down into the superficial femoral artery where the plaque ended. I performed endarterectomy of the common femoral artery and the superficial femoral artery. There was a heavy calcific coral reef plaque buildup in the common femoral and SFA. This was removed with a [place] elevator. Once I had a good endarterectomized plane without creating a flap, I spatulated the graft accordingly to the length of the long arteriotomy. I performed an end-to-side anastomosis, tacking down the keel and toe separately with 5-0 Prolene sutures. Prior to completion, usual flushing maneuvers were performed, and the graft was allowed to deair. The anastomosis was completed. It did require a couple of repair stitches to control bleeding. Once this was done, the anastomosis was hemostatic. There was a great signal in the superficial femoral and profunda artery that diminished with compression of the graft. At this point, the right groin incision was then packed with thrombin-Gelfoam and a Kerlix. I then focused on the left side. The graft had been pulled taut to prevent any kinking or twisting. The common femoral artery was pretty soft proximally and distally. There was a posterior plaque right in the middle, so clamp was applied proximal and distally. The 3 branches that were seen were controlled with Yasargil clips. Longitudinal arteriotomy was created and extended with Fragoso scissors. A long arteriotomy was created. The posterior plaque was identified. It did have a calcific coral reef appearance. This was then endarterectomized using a [place] elevator. A good endarterectomized plane was taken. The distal end, just to be on the safe side, I did tack it down with a 7-0 Prolene suture. The graft was then spatulated and cut according to length, and then an end-to-side anastomosis was created from the graft to the left common femoral artery. Prior to completion, the usual flushing maneuvers were performed. Anastomosis was hemostatic. There was a great signal distal to the anastomosis that diminished with compression of the graft. There was a good pulse that could be felt as well. The wound bed was then packed with thrombin-soaked Gelfoam and Ray-breana. I then re-evaluated the proximal anastomosis. It continued to be hemostatic. There was a general ooze coming from the retroperitoneum and the tunneling area due to all the heparin the patient had received. At this point, everything was irrigated and dried up. A new round of thrombin-Gelfoam was left behind the graft anastomosis. The aortic distal stump was hemostatic as well. The retroperitoneum was then closed with 0 Vicryl. Tissue was used to cover the proximal anastomosis to prevent direct exposure with the duodenum. The small bowel was then placed back into the abdominal cavity. It was pink and healthy. The colon was also healthy at this point. Given that the patient's SMA and celiac were wide open and now it was getting perfusion through the internal iliac to the aortobifemoral bypass, it was decided not to reimplant the inferior mesenteric artery. The transverse colon and the omentum was placed over the bowel. At this point, I re-evaluated the signals in the foot. There was a great signal in the dorsalis pedis and posterior tibial that was multiphasic, which did diminish significantly with compression of the bypass graft on each leg. At this point, the fascia was then closed using doubled looped 0 PDS suture. Care was taken to prevent since she has had previous surgery. Once the fascia was closed, then irrigated and dried out both groin sites. They were both hemostatic. A small piece of thrombin-Gelfoam was left behind over the anastomosis. The femoral sheath was then closed with interrupted 2-0 Vicryl suture. Then, the lymphatic fat pad was allowed to drape over this and then Erica's was closed with interrupted 3-0 Vicryl sutures followed by a deep dermal layer and then running Monocryl skin closure. This was repeated on the left side. It was anastomosed, it was hemostatic. Femoral sheath was closed with interrupted 2-0, followed by Erica's with 3-0 and deep dermal with 3-0 Vicryl and then running Monocryl skin closure. The abdominal incision was irrigated and dried. It was closed with several interrupted deep dermal Vicryl sutures, followed by running Monocryl suture. Benzoin, Steri-Strip, and sterile dressings were applied. The patient tolerated the procedure well and was hemodynamically stable on transfer to her room for recovery. At this point, we will keep her intubated due to the length of the procedure and just to monitor her hemodynamically. If she does well, we will hopefully get her extubated within the next 24 hours. KERRI RAJPUT MD MANUEL/[email or web address] Doc#: [id number] CC: Normal [facility] Surgical Pathologyon 019 Surgical Pathology (NOTE) [id number] [facility] ANATOMIC PATHOLOGY [address] [place] [id number] SURGICAL PATHOLOGY CONSULTATION Patient Name: KATHERINE DA SILVA [facility] Rec: [id number] Path Number: [id number] Collected: 10/28/2018 Received: 10/29/2018 Reported: 10/30/2018 16:46 -- Diagnosis -- 1. VESSEL, AORTA, ENDARTERECTOMY: -CALCIFIC ATHEROMATOUS PLAQUE. 2. VESSEL, RIGHT FEMORAL, ENDARTERECTOMY: -CALCIFIC ATHEROMATOUS PLAQUE. 3. VESSEL, LEFT FEMORAL, ENDARTERECTOMY: -CALCIFIC ATHEROMATOUS PLAQUE. Thomas Short M.D. Electronically Signed Out jet/10/30/2018 Clinical Information Pre-op Diagnosis: ILEOFEMORAL DISEASE Operative Findings: AORTA AND AORTIC PLAQUE; RIGHT FEMORAL PLAQUE; LEFT FEMORAL PLAQUE Operation Performed: AORTO BIFEM BYPASS WITH 12 MM x 6 MM x 45 CM GELSOFT BIFURCATED GRAFT Source of Specimen 1: AORTA AND AORTIC PLAQUE 2: RIGHT FEMORAL PLAQUE 3: LEFT FEMORAL PLAQUE Gross Description 1. KATHERINE POTTER, AORTA AND AORTIC PLAQUE Mineralized yellow fragments, 2.0 x 1.2 x 0.2 cm and 4.3 x 1.5 x 0.3 cm. Agricultural Production Engineer sections of each 1cs after decalcification. 2. KATHERINE POTTER, RIGHT FEMORAL PLAQUE Fragments of yellow-mckenna atheromatous cast material, 3.2 x 0.5 x 0.3 cm in aggregate. Entirely 1cs after decalcification. 3. KATHERINE POTTER, LEFT FEMORAL PLAQUE 1.9 x 0.5 x 0.3 cm portion of mckenna plaque material. Entirely 1cs after decalcification. tm Microscopic Description 1-3. Microscopic examination performed. Normal [facility] Comment on above: Performed By: #### B MP, TSHX, FT4, GLYHGB #### [employer] [facility] [place], [place] [id number] Tow Picker: Armando Vaz MD Hemoglobin A1Con 10-25-2018 HbA1c (Bld) [Mass fraction] 6.1 % High 4.0-6.0 [facility] Comment on above: Performed By: #### B MP, TSHX, FT4, GLYHGB #### [facility] [place] [address] Tow Picker: Armando Vaz MD HbA1c (Bld) [Mass fraction] 128 mg/dL Normal [facility] Comment on above: Result Comment: The ADA and AACC recommend providing the estimated average glucose result to permit better patient understanding of their HBA1c result. Performed By: #### B MP, TSHX, FT4, GLYHGB #### [facility] [address] [place] [address] Tow Picker: Armando Vaz MD Thyroxine, Freeon 10-24-2018 Thyroxine, Free 1.03 ng/dL Normal 0.93-1.70 [facility] Comment on above: Performed By: #### B MP, TSHX, FT4, GLYHGB #### [facility] [address] [place] [address] Tow Picker: Armando Vaz MD Basic Metabolic Profon 10-23 (cont.) Normal [facility] Comment on above: Result Comment: Aver age GFR for 60-69 years old: 85 mL/min/1.73sq m Chronic Kidney Disease: <60 mL/min/1.73sq m Kidney failure: <15 mL/min/1.73sq m eGFR calculated using average adult body mass. Additional eGFR calculator available at: http://www.[employer]/multiple_crcl_2012.htm Performed By: #### B MP, TSHX, FT4, GLYHGB #### [facility] [address] [place] [address] Tow Picker: Armando Vaz MD Anion gap [Moles/Vol] 18 mmol/L High 9-17 [facility] Comment on above: Performed By: #### B MP, TSHX, FT4, GLYHGB #### [facility] [address] [place] [address] Tow Picker: Armando Vaz MD Calcium [Mass/Vol] 10.3 mg/dL Normal 8.6-10.4 [facility] Comment on above: Performed By: #### B MP, TSHX, FT4, GLYHGB #### [facility] [address] [place] [address] Tow Picker: Armando Vaz MD Chloride [Moles/Vol] 102 mmol/L Normal 98-107 [facility] Comment on above: Performed By: #### B MP, TSHX, FT4, GLYHGB #### [facility] [address] [place] [address] Tow Picker: Armando Vaz MD CO2 [Moles/Vol] 20 mmol/L Normal 20-31 [facility] Comment on above: Performed By: #### B MP, TSHX, FT4, GLYHGB #### [facility] [address] [place] [address] Tow Picker: Armando Vaz MD Creatinine [Mass/Vol] 1.06 mg/dL High 0.50-0.90 [facility] Comment on above: Performed By: #### B MP, TSHX, FT4, GLYHGB #### [facility] [address] [place] [phone] Tow Picker: Armando Vaz MD GFR, Amer >60 Normal >60 [facility] Comment on above: Performed By: #### B MP, TSHX, FT4, GLYHGB #### [address] [address] Tow Picker: Armando Vaz MD GFR,non Amer 53 mL/min Low >60 [facility] Comment on above: Performed By: #### B MP, TSHX, FT4, GLYHGB #### [facility] [address] [place] [address] Tow Picker: Armando Vaz MD Glucose [Mass/Vol] 85 mg/dL Normal 70-99 [facility] Comment on above: Performed By: #### B MP, TSHX, FT4, GLYHGB #### [facility] [address] [place] [address] Tow Picker: Armando Vaz MD Potassium [Moles/Vol] 4.2 mmol/L Normal 3.7-5.3 [facility] Comment on above: Performed By: #### B MP, TSHX, FT4, GLYHGB #### [facility] [address] [place] [address] Tow Picker: Armando Vaz MD Sodium [Moles/Vol] 140 mmol/L Normal 135-144 [facility] Comment on above: Performed By: #### B MP, TSHX, FT4, GLYHGB #### [facility] [employer] [address] [place] [address] Tow Picker: Armando Vaz MD Urea nitrogen [Mass/Vol] 16 mg/dL Normal 05-14 [facility] Comment on above: Performed By: #### B MP, TSHX, FT4, GLYHGB #### [facility] [employer] [address] [place] [address] Tow Picker: Armando Vaz MD BUN/CRE Ratio NOT REPORTED Normal 06-11 [facility] Comment on above: Performed By: #### B MP, TSHX, FT4, GLYHGB #### [address] [id number] Tow Picker: Armando Vaz MD Staging: NOT REPORTED Normal [facility] Comment on above: Performed By: #### B MP, TSHX, FT4, GLYHGB #### [facility] [employer] [address] [place] [address] Tow Picker: Armando Vaz MD TSH w/reflex to FT4on 2018 TSH Qn 5.35 m[IU]/L High 0.30-5.00 [facility] Comment on above: Performed By: #### B MP, TSHX, FT4, GLYHGB #### [facility] [employer] [address] [place] [address] Tow Picker: Armando Vaz MD OPERATIVE REPORTon OPERATIVE REPORT [address] [id number] OPERATIVE REPORT PATIENT NAME: KATHERINE DA SILVA : 1955 MED REC NO: [id number] ROOM: ACCOUNT NO: [id number] ADMIT DATE: 08/11/2018 PROVIDER: Kerri Rajput MD DATE OF PROCEDURE: 08/11/2018 PREOPERATIVE DIAGNOSES: Lifestyle-limiting claudication, bilateral common iliac artery occlusions. POSTOPERATIVE DIAGNOSES: Lifestyle-limiting claudication, bilateral common iliac artery occlusions. ANESTHESIA: IV sedation with fentanyl, versed, as well as local anesthetic. SURGERY PERFORMED: 1. Ultrasound-guided access of right common femoral artery. 2. Ultrasound-guided access of left common femoral artery. 3. Retrograde right iliac angiogram. 4. Retrograde left iliac angiogram. 5. Selective catheterization of right common iliac artery. 6. Selective catheterization of left common iliac artery. SURGEON: Kreri Rajput MD ESTIMATED BLOOD LOSS: 5 mL. FINDINGS: Bilateral common iliac artery occlusions with reconstitution at the iliac bifurcation. Unable to cross the chronic occlusions at the aortic bifurcation. PLAN: The patient will need open revascularization with aorta bi-femoral bypass. We will get cardiac risk stratification prior and schedule the surgery as an outpatient. INDICATIONS OF PROCEDURE: The patient is a 63-year-old woman with progressive worsening of claudication symptoms to a point where she can barely make it more than 50 feet before having to rest. She is found to have distal aortic occlusion at the bifurcation of the common iliac artery, so reconstitution of the iliac bifurcation bilaterally with heavy calcific burden at the distal aorta. Given these findings, I recommend that we perform an angiogram and attempt crossing her chronic occlusion, attempt iliac stenting. She understood the risks and benefits of the procedure and elected to continue. DESCRIPTION OF PROCEDURE: The patient was brought to the catheterization suite. After an appropriate time-out was performed, bilateral groin sites were prepped and draped in standard sterile fashion. The patient was given sedation with IV fentanyl and versed. Under ultrasound, the right and left common femoral arteries were visualized. They were quite small and they have posterior plaque. They were compressible. A local anesthetic was then given and under ultrasound guidance it was accessed. The right side was accessed with a micropuncture needle. Images were permanently saved and stored. I then performed a fluoroscopic image with the micropuncture needle and wire and placed to confirm access over the femoral head. I then placed a micropuncture sheath and upsized to a short 6-Maldivian sheath on the right side. On the left, local anesthetic was then given and under ultrasound the common femoral artery was visualized again. It was quite small and there was a posterior plaque, however, it was compressible. It was accessed using the micropuncture needle and wire passed easily. Ultrasound image was saved and stored. Access confirmation over the femoral head was performed by performing fluoroscopy. I then placed a micropuncture sheath and upsized to a short 7-Maldivian sheath. Using a Glidewire and a combination of different catheters like Quick-Cross and the Tyrone catheter, I attempted getting through the left common iliac artery. I was able to get all the way up to the aorta; however, it was in the dissection plane and could not get into the true lumen. Multiple attempts were tried as well as using the end of the stiff-angled Glidewire to try it pass through; however, there is solid top cap that was preventing me from getting through this. I did perform a retrograde iliac angiogram to the 7-Maldivian sheath which showed a patent external and internal iliac artery. There was some plaque at the take off of the internal iliac artery. The common iliac artery was occluded. I then attempted to go from the right side using a Glidewire and a Glidecath. I was able to get through the initial occlusion of the common iliac artery, but however, kept getting into dissection plane in the aorta and could not pop through the calcified top cap. Multiple attempts were performed using a variety of different angles and both ends of the Glidewire. I performed a retrograde angiogram with a right iliac artery through the sheath which showed patent external iliac and internal iliac artery. The common iliac artery was occluded. After multiple attempts and unable to get through the occlusion at the aortic bifurcation, I decided to stop and the sheath and wires were removed. Manual pressure was held for hemostasis. The patient tolerated the procedure well. Again, the plan would be the patient will need an open aortic bi-femoral bypass. We will have her see a delivery aide prior to getting her scheduled as an outpatient. KERRI RAJPUT MD [id number] Doc#: [id number] CC: Normal [facility] BASIC METABOLIC PANELon 09-2 Calcium [Mass/Vol] 9.9 mg/dL Normal 8.6-10.3 [facility] Comment on above: Performed By: #### 0 0071 #### [facility] [address] [place] [address], [place] Chloride [Moles/Vol] 105 mmol/L Normal 98-107 [facility] Comment on above: Performed By: #### 0 0071 #### [facility] [address] [place] [address], [place] CO2 [Moles/Vol] 23 mmol/L Normal 21-31 [facility] Comment on above: Performed By: #### 0 0071 #### [facility] [address] [place] [address], [place] Creatinine [Mass/Vol] 0.97 mg/dL Normal 0.60-1.20 [facility] Comment on above: Performed By: #### 0 0071 #### [facility] [address] [place] [address], [place] GFR/1.73 sq M predicted among blacks MDRD (S/P/Bld) [Vol rate/Area] mL/min/{1.73_m2} Normal >60 [facility] Comment on above: Performed By: #### 0 0071 #### [facility] [address] [place] [address], [place] GFR/1.73 sq M predicted among non-blacks MDRD (S/P/Bld) [Vol rate/Area] 59 ml/min/1.73sq m Abnormal >60 [facility] Comment on above: Performed By: #### 0 0071 #### [facility] [address] [place] [address], [place] Glucose [Mass/Vol] 155 mg/dL High 70-100 [facility] Comment on above: Performed By: #### 0 0071 #### [facility] [address] [place] [address], [place] Potassium [Moles/Vol] 3.8 mmol/L Normal 3.5-5.1 [facility] Comment on above: Performed By: #### 0 0071 #### [facility] [address] [place] [address], [facility] Sodium [Moles/Vol] 139 mmol/L Normal 136-145 [facility] Comment on above: Performed By: #### 0 0071 #### [facility] [address] Urea nitrogen [Mass/Vol] 20 mg/dL Normal 7-25 [facility] Comment on above: Performed By: #### 0 0071 #### [facility] [address] [facility] CNOVon 06-04-2017 CNOV Office Visit (GYNMN) ROD ROSIS ([id number]) 1955 [facility] Time Provider Department06/04/17 10:30 AM MORTEZA MIMS GYNANTHONY During your visit today, we recorded the following information about you: Blood pressure Weight Height 124/74 72.6 kg 1.524 Selene Mims MD MPH 06/04/2017 2:16 PM SignedPROCEDURE NOTE: FRANCES FAY TOUCH LASERSmarzena Rossi presents for Frances Fay Touch Laser treatment.Pre treatment record:Vaginal pH: 4.5Total Vaginal Length (TVL): 10.5Topical anesthetic applied?: YES If yes, Time applied: 11:0amTopical anesthetic removed? YESProtective eyewear? YesWet towels draped around the pelvis and thighs: Yes:Procedure: UNIVERSAL PROTOCOL / SAFETY CHECKLISTProcedure to be performed: Frances Kaiser in Communication: CompletedTime Out: Team Confirms the Correct Patient, Correct Procedure, Correct Siteand Site Marking, Correct Position (if applicable), Prep and Dry Time (ifapplicable). Time: 11:08amAffirmation of Time Out: YESSign Out Discussion: Penelope Mims MD MPHVaginal TreatementMonaLisa Touch Laser setting confirmed: YesTreatment Number: 3Power (W): 30Shape: squareSize %: 100Ratio: 10/10Dwell time (us) :1000Smart Stack: 3Scan Mode: normalExposure Mode: singleEmission Mode: D pulseSpacing (um): 1000Density%: 6.4Fluence J/cm2: 2.20Pulse Energy mJ: 43.2Vulvar TreatmentMonaLisa Touch Laser setting confirmed: YesTreatment Number: 2Power (W): 26Shape: squareSize %: 100Ratio: 10/10Dwell time (us) :800Smart Stack: 1Scan Mode: normalExposure Mode: singleEmission Mode: smart pulseSpacing (um): 800Density%: 8.7Fluence J/cm2: 1.93Pulse Energy mJ: 27.7Procedure Note: Vaginal and vestibular treatment performed. Patient toleratedprocedure well.Patient instructed to refrain from vaginal sexual activity for 48 hours aftertreatment, may resume normal activity as tolerated immediately after procedure.Follow up 6 months by phone or in office.Referring Provider: CHRISTIE HASKINS ([facility]) [[id number]]Allergies As of Date: 06/04/2017 Noted Allergy ReactionPENICILLINS 11/27/2015 4 - HivesDate Reviewed: 06/04/2017Reviewed by: Mayte Haskins [facility] - Fully AssessedReason for Visit: Procedure [88] Cmt: Frances Gregg Diagnoses:Vaginal atrophy [N95.2] Vaginal dryness [N89.8] Superficial dyspareunia [N94.11]Prescriptions as of 06/04/2017 Sig: FENOFIBRATE NANOCRYSTALLIZED * Take 145 mg by mouth once earline* POTASSIUM CHLORIDE ER 10 MEQ * Take 10 mEq by mouth once earline* ATENOLOL 50 MG TABLET Take by mouth. ATORVASTATIN 10 MG TABLET Take by mouth. FUROSEMIDE 20 MG TABLET Take by mouth. FENOFIBRATE 50 MG CAPSULE Take by mouth. ATENOLOL 50 MG TABLET Take 50 mg by mouth once yamilka* ATORVASTATIN 10 MG TABLET Take 10 mg by mouth once yamilka* FUROSEMIDE 20 MG TABLET Take 20 mg by mouth twice earline* POTASSIUM CHLORIDE ER 10 MEQ * Take 10 mEq by mouth twice da* CALCIUM 600 ORAL Take 1,200 mg by mouth. VITAMIN D-3 ORAL Take by mouth. VITAMIN E ORAL Take by mouth. CONJUGATED ESTROGENS 0.625 MG* Use vaginally once each week.Problem List As Of Date 06/04/2017 Noted Resolved History of breast cancer in female [Z85.3] INVALID FOR* Dyspareunia, female [N94.10] INVALID FOR* Vaginal atrophy [N95.2] INVALID FOR* Lymphedema [I89.0] INVALID FOR* High cholesterol [E78.00] INVALID FOR* Status:Closed by KARENA GALVEZ, MORTEZA MPH on 06/04/17 [facility] PROGRESSon 06-04-2017 PROGRESS HNO ID: [id number]: Morteza Grayervice: (none)Author Type: PhysicianType: Progress NotesFiled: 06/04/2017 2:16 PMNote Text:PROCEDURE NOTE: FRANCES FAY TOUCH LASERSmarzena Rossi presents for Frances Fay Touch Laser treatment.Pre treatment record:Vaginal pH: 4.5Total Vaginal Length (TVL): 10.5Topical anesthetic applied?: YES If yes, Time applied: 11:0amTopical anesthetic removed? YESProtective eyewear? YesWet towels draped around the pelvis and thighs: Yes:Procedure: UNIVERSAL PROTOCOL / SAFETY CHECKLISTProcedure to be performed: Frances Kaiser in Communication: CompletedTime Out: Team Confirms the Correct Patient, Correct Procedure, CorrectSite and Site Marking, Correct Position (if applicable), Prep and Dry Time(if applicable). Time: 11:08amAffirmation of Time Out: YESSign Out Discussion: Penelope Mims MD MPHVaginal TreatementMonaLisa Touch Laser setting confirmed: YesTreatment Number: 3Power (W): 30Shape: squareSize %: 100Ratio: 10/10Dwell time (us) :1000Smart Stack: 3Scan Mode: normalExposure Mode: singleEmission Mode: D pulseSpacing (um): 1000Density%: 6.4Fluence J/cm2: 2.20Pulse Energy mJ: 43.2Vulvar TreatmentMonaLisa Touch Laser setting confirmed: YesTreatment Number: 2Power (W): 26Shape: squareSize %: 100Ratio: 1010Dwell time (us) :800Smart Stack: 1Scan Mode: normalExposure Mode: singleEmission Mode: smart pulseSpacing (um): 800Density%: 8.7Fluence J/cm2: 1.93Pulse Energy mJ: 27.7Procedure Note: Vaginal and vestibular treatment performed. Patienttolerated procedure well.Patient instructed to refrain from vaginal sexual activity for 48 hoursafter treatment, may resume normal activity as tolerated immediately afterprocedure. Follow up 6 months by phone or in office. Normal [facility] CNOVon 04-16-2017 CNOV Office Visit (GYNMN) ROD ROSSI ([id number]) 1955 [facility] Time Provider Department04/16/17 1:30 PM MORTEZA MIMS GYNANTHONY During your visit today, we recorded the following information about you: Blood pressure Weight Height 128/74 73 kg 1.524 Selene Mims MD MPH 04/17/2017 8:36 AM SignedPROCEDURE NOTE: FRANCES FAY TOUCH Izaiah Rossi presents for Frances Fay Touch Laser treatment.Pre treatment record:Vaginal pH: 5Total Vaginal Length (TVL): 10.5Topical anesthetic applied?: YES If yes, Time applied: 1400Topical anesthetic removed? YESProtective eyewear? YesWet towels draped around the pelvis and thighs: yes:Procedure: UNIVERSAL PROTOCOL / SAFETY CHECKLISTProcedure to be performed: Frances Fay Laser TreatmentSign in Communication: CompletedTime Out: Team Confirms the Correct Patient, Correct Procedure, Correct Siteand Site Marking, Correct Position (if applicable), Prep and Dry Time (ifapplicable). Time: 2:03pmAffirmation of Time Out: YESSign Out Discussion: Eliud RussellMistycatarina Touch Laser setting confirmed: yesTreatment Number: 2Power (W): 30Shape: squareSize %: 100Ratio: 10/10Dwell time (us) :1000Smart Stack: 3Scan Mode: normalExposure Mode: singleEmission Mode: D pulseSpacing (um): 1000Density%: 6.4Fluence J/cm2: 2.20Pulse Energy mJ: 43.2Procedure Note: Vaginal treatment performed. Patient tolerated procedure well.Patient instructed to refrain from vaginal sexual activity for 48 hours aftertreatment, may resume normal activity as tolerated immediately after procedure.Follow up 6-8 weeks for treatment #3.MD Ej Torres Ma 04/16/2017 1:21 PM SignedFRANCES FAY LASER TREATMENT: Post-Treatment Instructions*Refrain from intercourse for 48 hours after treatment*You may have a small amount of vaginal spotting and/or watery discharge for2-3 days after the procedure*It is ok to resume activity as tolerated immediately after the procedure*The treatment regimen consists of 3 treatments spaced 6 weeks apart*Please contact our office at with any questions or concerns,and to schedule follow up visitsReferring Provider: CHRISTIE HASKINS ([facility]) [[id number]]Allergies As of Date: 04/16/2017 Noted Allergy ReactionPENICILLINS 11/27/2015 4 - HivesDate Reviewed: 04/16/2017Reviewed by: Olivia Fortune Ma - Fully AssessedReason for Visit: Procedure [88]Visit Diagnoses:Vaginal atrophy [N95.2] Superficial dyspareunia [N94.11] Vaginal dryness [N89.8]Prescriptions as of 04/16/2017 Sig: ATENOLOL 50 MG TABLET Take by mouth. ATORVASTATIN 10 MG TABLET Take by mouth. FUROSEMIDE 20 MG TABLET Take by mouth. FENOFIBRATE 50 MG CAPSULE Take by mouth. ATENOLOL 50 MG TABLET Take 50 mg by mouth once yamilka* ATORVASTATIN 10 MG TABLET Take 10 mg by mouth once yamilka* FUROSEMIDE 20 MG TABLET Take 20 mg by mouth twice earline* POTASSIUM CHLORIDE ER 10 MEQ * Take 10 mEq by mouth twice da* CALCIUM 600 ORAL Take 1,200 mg by mouth. VITAMIN D-3 ORAL Take by mouth. VITAMIN E ORAL Take by mouth. FENOFIBRATE NANOCRYSTALLIZED * Take 145 mg by mouth once earline* POTASSIUM CHLORIDE ER 10 MEQ * Take 10 mEq by mouth once earline* CONJUGATED ESTROGENS 0.625 MG* Use vaginally once each week.Medication notes this encounter ATENOLOL 50 MG TABLET >> Olivia Fortune Ma 04/16/2017 1:29 PM >> OLIVIA FORTUNE MA FriApr 16, 2017 1:29 PM Received from: [place], [place] Received Sig: Take 1 tablet by mouth daily ATORVASTATIN 10 MG TABLET >> Olivia Fortune Ma 04/16/2017 1:29 PM >> OLIVIA FORTUNE MA FriApr 16, 2017 1:29 PM Received from: [place], [place] Received Sig: Take 1 tablet by mouth daily FUROSEMIDE 20 MG TABLET >> Olivia Fortune Ma 04/16/2017 1:29 PM >> OLIVIA FORTUNE MA FriApr 16, 2017 1:29 PM Received from: [place], [place] Received Sig: Take 1 tablet by mouth 2times daily FENOFIBRATE NANOCRYSTALLIZED 145 MG TABLET >> Olivia Fortune Ma 04/16/2017 1:29 PM >> OLIVIA FORTUNE MA FriApr 16, 2017 1:29 PM Received from: External Pharmacy Received Sig: take 1 tablet by mouth oncedaily POTASSIUM CHLORIDE ER 10 MEQ TABLET,EXTENDED RELEASE(PART/CRYST) >> Olivia Fortune Ma 04/16/2017 1:29 PM >> OLIVIA FORTUNE MA FriApr 16, 2017 1:29 PM Received from: External Pharmacy Received Sig: take 1 tablet by mouth oncedaily CONJUGATED ESTROGENS 0.625 MG/GRAM VAGINAL CREAM >> Olivia Fortune Ma 04/16/2017 1:28 PM >> OLIVIA FORTUNE MA FriApr 16, 2017 1:28 PM Not takingProblem List As Of Date 04/16/2017 Noted Resolved History of breast cancer in female [Z85.3] INVALID FOR* Dyspareunia, female [N94.10] INVALID FOR* Vaginal atrophy [N95.2] INVALID FOR* Lymphedema [I89.0] INVALID FOR* High cholesterol [E78.00] INVALID FOR* Other instructions from your clinician: FRANCES FAY LASER TREATMENT: Post-Treatment Instructions *Refrain from intercourse for 48 hours after treatment *You may have a small amount of vaginal spotting and/or watery discharge for 2-3 days after the procedure *It is ok to resume activity as tolerated immediately after the procedure *The treatment regimen consists of 3 treatments spaced 6 weeks apart *Please contact our office at with any questions or concerns, and to schedule follow up visitsEncounter Number: [id number] Status:Closed by KARENA GALVEZ, MORTEZA MPH on 04/17/17 [facility] PROGRESSon 04-16-2017 PROGRESS HNO ID: [id number]: Morteza Grayervice: (none)Author Type: PhysicianType: Progress NotesFiled: 04/17/2017 8:36 AMNote Text:PROCEDURE NOTE: FRANCES FAY TOUCH Izaiah [place]ag[place] presents for Frances Fay Touch Laser treatment.Pre treatment record:Vaginal pH: 5Total Vaginal Length (TVL): 10.5Topical anesthetic applied?: YES If yes, Time applied: 1400Topical anesthetic removed? YESProtective eyewear? YesWet towels draped around the pelvis and thighs: yes:Procedure: UNIVERSAL PROTOCOL / SAFETY CHECKLISTProcedure to be performed: Frances Fay Laser TreatmentSign in Communication: CompletedTime Out: Team Confirms the Correct Patient, Correct Procedure, CorrectSite and Site Marking, Correct Position (if applicable), Prep and Dry Time(if applicable). Time: 2:03pmAffirmation of Time Out: YESSign Out Discussion: Eliud Langford Touch Laser setting confirmed: yesTreatment Number: 2Power (W): 30Shape: squareSize %: 100Ratio: 10/10Dwell time (us) :1000Smart Stack: 3Scan Mode: normalExposure Mode: singleEmission Mode: D pulseSpacing (um): 1000Density%: 6.4Fluence J/cm2: 2.20Pulse Energy mJ: 43.2Procedure Note: Vaginal treatment performed. Patient tolerated procedurewell.Patient instructed to refrain from vaginal sexual activity for 48 hoursafter treatment, may resume normal activity as tolerated immediately afterprocedure. Follow up 6-8 weeks for treatment #3.Morteza Mims MD MPH Normal [facility] Vital Signs Date Time Vital Sign Value Performing Clinician Rizwana [email or web address] 02-26-2024 15:30-0400 Diastolic blood pressure 73 mm[Hg] Simón Spaulding MD Work Phone: [facility] 02-26-2024 15:30-0400 Heart rate 70 /min Simón Spaulding MD Work Phone: [facility] 02-26-2024 15:30-0400 Respiratory rate 16 /min Simón Spaulding MD Work Phone: [facility] 02-26-2024 15:30-0400 SaO2% (BldA) [Mass fraction] 95 % Simón Spaulding MD Work Phone: [facility] 02-26-2024 15:30-0400 Systolic blood pressure 133 mm[Hg] Simón Spaulding MD Work Phone: [facility] 02-26-2024 15:23-0400 Body height 152.4 cm Simón Spaulding MD Work Phone: [facility] 02-26-2024 15:23-0400 Body mass index (BMI) [Ratio] 32.6 kg/m2 Simón Spaulding MD Work Phone: [facility] 02-26-2024 15:23-0400 Body temperature 98.29 [degF] Simón Spaulding MD Work Phone: [facility] 02-26-2024 15:23-0400 Body weight 75.7 kg Simón Spaulding MD Work Phone: [facility] 08-29-2023 10:26-0500 Body height 152.4 cm Simón Spaulding MD Work Phone: [facility] 08-29-2023 10:26-0500 Body mass index (BMI) [Ratio] 30.66 kg/m2 Simón Spaulding MD Work Phone: [facility] 08-29-2023 10:26-0500 Body temperature 98.1 [degF] Simón Spaulding MD Work Phone: [facility] 08-29-2023 10:26-0500 Body weight 71.22 kg Simón Spaulding MD Work Phone: [facility] 08-29-2023 10:26-0500 Diastolic blood pressure 80 mm[Hg] Simón Spaulding MD Work Phone: [facility] 08-29-2023 10:26-0500 Heart rate 71 /min Simón Spaulding MD Work Phone: [facility] 08-29-2023 10:26-0500 Respiratory rate 16 /min Simón Spaulding MD Work Phone: [facility] 08-29-2023 10:26-0500 SaO2% (BldA) [Mass fraction] 95 % Simón Spaulding MD Work Phone: [facility] 08-29-2023 10:26-0500 Systolic blood pressure 125 mm[Hg] Simón Spaulding MD Work Phone: [facility] Encounters Encounter Date Encounter Type Care Provider Facility Start: 05-20-2024 End: 05-20-2024 Refill Go Valdes DO Work Phone: [facility] Comment on above: Type 2 diabetes mundo itus without complication, without long- term current use of insulin (HCC) Start: 05-09-2024 End: 05-10-2024 Refill Simón Spaulding MD Work Phone: [facility] Comment on above: Hypertension, unspec ified type Start: 04-25-2024 End: 04-26-2024 Refill Simón Spaulding MD Work Phone: [facility] Comment on above: Hypertension, unspec ified type; Vaginal dryness, menopausal Start: 03-22-2024 End: 03-22-2024 ambulatory Riley Ruiz MD Facility: [facility] Start: 02-26-2024 End: 02-26-2024 Office outpatient new 45 minutes Simón Spaulding MD Work Phone: [facility] Comment on above: Vaginal dryness, men opausal (Primary Dx); At low risk for fall; Type 2 diabetes mellitus without complication, without long-term current use of insulin (HCC); Obesity (BMI 30-39.9) Start: 02-26-2024 End: 02-26-2024 Office outpatient visit 40 minutes Simón Spaulding MD Work Phone: [facility] Comment on above: Vaginal dryness, men opausal (Primary Dx); At low risk for fall; Type 2 diabetes mellitus without complication, without long-term current use of insulin (HCC); Obesity (BMI 30-39.9) Start: 02-26-2024 End: 02-26-2024 Periodic preventive med est patient 65yrs& older Simón Spaulding MD Work Phone: [facility] Comment on above: Vaginal dryness, men opausal (Primary Dx); At low risk for fall; Type 2 diabetes mellitus without complication, without long-term current use of insulin (HCC); Obesity (BMI 30-39.9) Start: 02-26-2024 End: 02-26-2024 ambulatory [facility] Start: 02-19-2024 End: 02-19-2024 ambulatory [facility] Start: 02-19-2024 End: 02-23-2024 ambulatory [facility] Start: 12-25-2023 End: 12-26-2023 ambulatory PROVIDER NOT IN SYSTEM [facility] Start: 12-08-2023 End: 12-08-2023 ambulatory Riley Ruiz MD Facility:[facility] Start: 11-05-2023 Documentation procedure Stephanie Olson LPN [facility] Comment on above: rescheduled Start: 09-08-2023 End: 09-08-2023 ambulatory Riley Ruiz MD Facility:[facility] Start: 08-29-2023 End: 08-29-2023 Office outpatient new 45 minutes Simón Spaulding MD Work Phone: [facility] Comment on above: Dysuria (Primary Dx) ; Hypertension, unspecified type; Cancer (HCC); Acute cystitis without hematuria; Encounter for screening for malignant neoplasm of breast, unspecified screening modality; PAD (peripheral artery disease) ([facility]); Prediabetes; Hyperlipidemia, unspecified hyperlipidemia type; Vaginal dryness, menopausal; Left groin pain; Skin cancer; Fibromyalgia Start: 08-29-2023 End: 08-29-2023 ambulatory [facility] Start: 04-07-2023 End: 04-07-2023 ambulatory Riley Ruiz MD Facility: [place] Start: 02-07-2023 ambulatory RILEY RUIZ Faci lity:H1 Start: 08-09-2019 End: 08-10-2019 Patient encounter procedure [facility] Start: 08-09-2019 End: 08-09-2019 Subsequent hospital visit by physician [facility] Comment on above: PAD (peripheral laura ry disease) ([facility]) Start: 01-07-2019 End: 01-08-2019 Patient encounter procedure [facility] Start: 11-27-2018 End: 11-28-2018 Patient encounter procedure [facility] Start: 11-25-2018 End: 11-26-2018 Patient encounter procedure [facility] Start: 10-28-2018 End: 11-02-2018 Evaluation and management of inpatient [facility] Start: 10-23-2018 End: 10-24-2018 Patient encounter procedure [facility] Start: 08-11-2018 End: 08-12-2018 Patient encounter procedure [facility] Start: 06-04-2017 End: 08-05-2017 Ambulatory MORTEZA MIMS [facility] Start: 04-16-2017 End: 04-22-2017 Ambulatory MORTEZA MIMS [facility] Procedures Date Procedure Procedure Detail Performing Clinician Start: 02-19-2024 Mammography Simón swift MD Work Phone: Start: 02-19-2024 Microalbumin [Mass/v olume] in Urine by Test strip Simón Spaulding MD Work Phone: Start: 08-29-2023 Urnls dip stick/tabl et rgnt auto w/o microscopy Simón Spaulding MD Work Phone: Start: 08-29-2023 Adult depression scr eening assessment Simón Spaulding MD Work Phone: Start: 08-09-2019 Non-invasive physiol ogic study extremity 3 levls KERRI RAJPUT Start: 08-09-2019 Non-invasive physiol ogic study extremity 3 levls Kerrisalvador Rajput Work Phone: Start: 01-08-2019 DIET NPO, SPECIFIED TIME KERRI RAJPUT Start: 01-07-2019 MEDICAL RECEPTIONIST MEDICAL ASSISTANT REPORT KIMBERLY RAJPUT Start: 01-07-2019 DISCHARGE PATIENT SHERYL MEDEIROS JOHN Start: 01-07-2019 ASSESS KERRI RODRIGUEZ Start: 01-07-2019 BEDREST KERRI RODRIGUEZ Start: 01-07-2019 Continuous pulse oximetry KERRI RAJPUT Start: 01-07-2019 ENCOURAGE DEEP BREAT RAMY AND COUGHING KERRI RAJPUT Start: 01-07-2019 NEURO/VASCULAR CHECKS Shena RAJPUT Start: 01-07-2019 NOTIFY PHYSICIAN (SPECIFY) KERRI RAJPUT Start: 01-07-2019 NURSING COMMUNICATION M ROSIBEL RAJPUT Start: 01-07-2019 REMOVE IV KERRI RODRIGUEZ Start: 01-07-2019 VITAL SIGNS KERRI RODRIGUEZ Start: 01-07-2019 INITIATE OXYGEN THER APY PROTOCOL KERRI RAJPUT Start: 01-07-2019 Blood count hemoglobin KERRI RAJPUT Start: 01-07-2019 Chloride other source M WYSALVADOR RAJPUT Start: 01-07-2019 CREATININE W/GFR POI NT OF CARE KERRI RAJPUT Start: 01-07-2019 Gluc bld gluc mntr d ev cleared fda spec home use KERRI RAJPUT Start: 01-07-2019 Potassium serum plasma/whole [facility] Start: 01-07-2019 Sodium serum plasma or whole blood [facility] Start: 01-07-2019 Blood count platelet automated [facility] Start: 01-07-2019 R & l hrt cath w/njx l ventriculog img s&i [facility] Start: 01-07-2019 FULL CODE KERRI Magana MICHAEL Start: 01-07-2019 INITIATE OXYGEN THER APY PROTOCOL [facility] Start: 01-07-2019 VERIFY INFORMED CONSENT [facility] Start: 01-07-2019 POC CHEMISTRY (NA,K,ICA,GLU,CALC HCT/HGB,LACTATE,CREA,CL) [facility] Start: 11-27-2018 Non-invasive physiol ogic study extremity 3 levls KERRI RAJPUT Start: 11-25-2018 Lipid panel KERRI Magana MICHAEL Start: 11-02-2018 PULSE OXIMETRY, CONTINUOUS KERRI AKSADEQuin Start: 11-02-2018 DISCHARGE PATIENT SHERYL HAGERRACHELLE Start: 11-02-2018 NASAL CANNULA [facility]XYGEN [facility] Start: 11-02-2018 INITIATE OXYGEN THER APY PROTOCOL KERRI HAGERRACHELLE Start: 11-02-2018 PULSE OXIMETRY, CONTINUOUS ALICIAED AKBANI Start: 11-02-2018 PULSE OXIMETRY, CONTINUOUS [facility] Start: 11-02-2018 PULSE OXIMETRY, CONTINUOUS [facility] Start: 11-01-2018 PULSE OXIMETRY, CONTINUOUS [facility] Start: 11-01-2018 PULSE OXIMETRY, CONTINUOUS [facility] Start: 11-01-2018 PULSE OXIMETRY, CONTINUOUS [facility] Start: 11-01-2018 OT EVAL AND TREAT SHERYL MED VERENICEQuin Start: 11-01-2018 DIET CARDIAC KERRI Magana MICHAEL Start: 11-01-2018 MISCELLANEOUS NURSIN G CARE ORDER (SPECIFY) [facility] Start: 11-01-2018 VITAL SIGNS KERRI RODRIGUEZ Start: 11-01-2018 INITIATE OXYGEN THER APY PROTOCOL [facility] Start: 11-01-2018 NASAL CANNULA OXYGEN MO HAMMED AKBANI Start: 11-01-2018 PULSE OXIMETRY, CONTINUOUS [facility] Start: 11-01-2018 PULSE OXIMETRY, CONTINUOUS [facility] Start: 11-01-2018 PULSE OXIMETRY, CONTINUOUS [facility] Start: 11-01-2018 TRANSFER PATIENT [facility] AKBANI Start: 10-31-2018 PULSE OXIMETRY, CONTINUOUS [facility] Start: 10-31-2018 PULSE OXIMETRY, CONTINUOUS [facility] Start: 10-31-2018 PULSE OXIMETRY, CONTINUOUS [facility] Start: 10-31-2018 INSERT TOM CATHETER M [facility] H[facility] Start: 10-31-2018 AMBULATE PATIENT [facility] JOHN Start: 10-31-2018 REMOVE ARTERIAL LINE MO HAMMALAN AKBANI Start: 10-31-2018 Basic metabolic pane l calcium total [facility] Start: 10-31-2018 PT EVAL AND TREAT [facility] MED VERENICEI Start: 10-31-2018 INITIATE OXYGEN THER APY PROTOCOL [facility] AK[facility] Start: 10-31-2018 NASAL CANNULA OXYGEN MO HAMMED AKBANI Start: 10-31-2018 PULSE OXIMETRY, CONTINUOUS [facility] Start: 10-31-2018 PULSE OXIMETRY, CONTINUOUS [facility] Start: 10-31-2018 TELEMETRY MONITORING MO HAMMALAN AKBANI Start: 10-31-2018 PULSE OXIMETRY, CONTINUOUS [facility] Start: 10-31-2018 Basic metabolic pane l calcium total [facility] Start: 10-30-2018 PULSE OXIMETRY, CONTINUOUS [facility] Start: 10-30-2018 PULSE OXIMETRY, CONTINUOUS [facility] Start: 10-30-2018 NASAL CANNULA OXYGEN MO HAMMED AKBANI Start: 10-30-2018 EXTUBATION KERRI RODRIGUEZ Start: 10-30-2018 PULSE OXIMETRY, CONTINUOUS [facility] Start: 10-30-2018 INITIATE OXYGEN THER APY PROTOCOL [facility] Start: 10-30-2018 PULSE OXIMETRY, CONTINUOUS MOHAMMED AKBANI Start: 10-30-2018 Radiologic exam ches t single view MOHAMMED AKBANI Start: 10-30-2018 Assay of lactate [facility] ED AKBANI Start: 10-30-2018 Basic metabolic pane l calcium total MOHAMMED AKBANI Start: 10-30-2018 Blood count complete automated [facility] Start: 10-30-2018 ARTERIAL BLOOD GAS, POC MOHAMMED AKBANI Start: 10-30-2018 POCT GLUCOSE [facility] KBANI Start: 10-30-2018 PULSE OXIMETRY, CONTINUOUS MOHAMMED AKBANI Start: 10-30-2018 PULSE OXIMETRY, CONTINUOUS MOHAMMED AKBANI Start: 10-30-2018 RESTRAINTS NON-VIOLE NT OR [id number] [facility]OHAMMED AKBANI Start: 10-30-2018 ARTERIAL BLOOD GAS, POC MOHAMMED AKBANI Start: 10-30-2018 POCT GL[facility]COSE [facility] KBANI Start: 10-29-2018 ARTERIAL BLOOD GAS, POC MOHAMMED AKBANI Start: 10-29-2018 POCT GLUCOSE MOHAMMED A KBANI Start: 10-29-2018 PULSE OXIMETRY, CONTINUOUS [facility] Start: 10-29-2018 ABG DRAW MOHAMMED A KBANI Start: 10-29-2018 BRAIN NATRIURETIC PEPTIDE [facility] Start: 10-29-2018 ARTERIAL BLOOD GAS, POC MOHAMMED AKBANI Start: 10-29-2018 PULSE OXIMETRY, CONTINUOUS [facility] Start: 10-29-2018 Transfusion blood/bl ood components [facility] Start: 10-29-2018 IP CONSULT TO GENERA L SURGERY [facility] Start: 10-29-2018 PULSE OXIMETRY, CONTINUOUS [facility] Start: 10-29-2018 Assay of lactate [facility] AKBANI Start: 10-29-2018 ANION GAP (CALC) POC MO HAMMED AKBANI Start: 10-29-2018 ARTERIAL BLOOD GAS, POC MOHAMMED AKBANI Start: 10-29-2018 Calcium ionized MOHAMME D AKBANI Start: 10-29-2018 Chloride other source M OHAMMED AKBANI Start: 10-29-2018 CREATININE W/GFR POI NT OF CARE [facility] Start: 10-29-2018 HGB/HCT KERRI RODRIGUEZ Start: 10-29-2018 LACTIC ACID,POINT OF CARE [facility] RA[facility] Start: 10-29-2018 POCT GLUCOSE KERRI RODRIGUEZ Start: 10-29-2018 Potassium serum plasma/whole blood [facility] Start: 10-29-2018 Sodium serum plasma or whole blood [facility] Start: 10-29-2018 IP CONSULT TO CASE MANAGEMENT [facility] CALEDRA Start: 10-29-2018 INITIATE OXYGEN THER APY PROTOCOL [facility] Start: 10-29-2018 PULSE OXIMETRY, CONTINUOUS [facility] Start: 10-29-2018 Assay of lactate [facility] AL[facility] CALDERA Start: 10-29-2018 IP CONSULT TO PULMONOLOGY [facility] VERENICE Start: 10-29-2018 ARTERIAL BLOOD GAS, POC [facility] Start: 10-29-2018 Assay of phosphorus inorganic [facility] VERENICE Start: 10-29-2018 Blood count complete automated [facility] Start: 10-29-2018 Comprehensive metabo lic panel [facility] VERENICE Start: 10-29-2018 PULSE OXIMETRY, CONTINUOUS [facility] Start: 10-29-2018 Blood gases any comb ination ph pco2 po2 co2 hco3 [facility] Start: 10-29-2018 TRANSFUSE RED BLOOD CELLS [facility] Start: 10-29-2018 ARTERIAL BLOOD GAS, POC [facility] Start: 10-29-2018 POCT GLUCOSE KERRI RODRIGUEZ Start: 10-29-2018 ABG DRAW [facility] Start: 10-29-2018 DAILY WEIGHTS [facility] RA[facility] Start: 10-29-2018 PULSE OXIMETRY, CONTINUOUS [facility] Start: 10-29-2018 TRANSFUSE RED BLOOD CELLS [facility] VER[facility] Start: 10-29-2018 PREPARE RBC (CROSSMATCH) [facility] Start: 10-28-2018 Blood count complete auto&auto difrntl wbc [facility] Start: 10-28-2018 ARTERIAL BLOOD GAS, POC [facility] Start: 10-28-2018 POCT GLUCOSE [facility] ROD[facility] Start: 10-28-2018 Potassium serum plasma/whole blood [facility] AKSADEI Start: 10-28-2018 ABG DRAW [facility] A KBLAURA Start: 10-28-2018 PULSE OXIMETRY, CONTINUOUS [facility] AKSADEI Start: 10-28-2018 MISCELLANEOUS NURSIN G CARE ORDER (SPECIFY) [facility] AKSADEI Start: 10-28-2018 PULSE OXIMETRY, CONTINUOUS [facility] AKSADEI Start: 10-28-2018 Assay of lactate [facility] AKRACHELLE Start: 10-28-2018 PREVIOUS SPECIMEN [facility] AKSADEI Start: 10-28-2018 ARTERIAL BLOOD GAS, POC [facility] AKSADEI Start: 10-28-2018 Assay of magnesium [facility] MMED AKSADEI Start: 10-28-2018 Basic metabolic pane l calcium total [facility] A[facility] Start: 10-28-2018 HEMOGLOBIN AND HEMAT OCRIT, BLOOD [facility] Start: 10-28-2018 PLACE INTERMITTENT PNEUMATIC COMPRESSION DEVICE [facility] ALLE[facility] Start: 10-28-2018 TELEMETRY MONITORING [facility] ALLEYRACHELLE Start: 10-28-2018 FULL CODE [facility] MICHAEL Start: 10-28-2018 INITIATE OXYGEN THER APY PROTOCOL [facility] Start: 10-28-2018 INTAKE AND OUTPUT [facility] MED AKRACHELLE Start: 10-28-2018 VITAL SIGNS [facility] MICHAEL Start: 10-28-2018 PATIENT STATUS (FROM ED OR OR/PROCEDURAL) [facility] AKRACHELLE Start: 10-28-2018 TRANSFER PATIENT [facility] AKRACHELLE Start: 10-28-2018 ARTERIAL BLOOD GAS, POC [facility] AKRACHELLE Start: 10-28-2018 Calcium ionized [facility] ALLEYRACHELLE Start: 10-28-2018 HGB/HCT [facility] KBLAURA Start: 10-28-2018 POCT GLUCOSE [facility] KBANI Start: 10-28-2018 Potassium serum plasma/whole blood [facility] AKBANQuin Start: 10-28-2018 SURGICAL PATHOLOGY [facility] MMED AKSADEI Start: 10-28-2018 SURGICAL PATHOLOGY [facility] MMED AKBANI Start: 10-28-2018 Culture bacterial quanttative colony count urine [facility] AKRACHELLE Start: 10-28-2018 TRANSFUSE RED BLOOD CELLS [facility] AKRACHELLE Start: 10-28-2018 TYPE AND SCREEN KIMBERLY RAJPUT Start: 10-28-2018 VERIFY INFORMED CONSENT KERRI RAJPUT Start: 10-23-2018 Assay of free thyroxine KERRI RAJPUT Start: 10-23-2018 Basic metabolic pane l calcium total KERRI RAJPUT Start: 10-23-2018 Hemoglobin glycosylated a1c KERRI RAJPUT Start: 10-23-2018 TSH WITH REFLEX KIMBERLY RAJPUT Start: 08-12-2018 DIET NPO, SPECIFIED TIME KERRI RAJPUT Start: 08-11-2018 DISCHARGE PATIENT SHERYL RAJPUT Start: 08-11-2018 R & l hrt cath w/njx l ventriculog img s&i KERRI RAJPUT Start: 08-11-2018 Chloride other source M ROSIBEL RAJPUT Start: 08-11-2018 CREATININE W/GFR POI NT OF CARE KERRI RAJPUT Start: 08-11-2018 HGB/HCT KERRI RODRIGUEZ Start: 08-11-2018 NOTIFICATION PANEL, POC KERRI RAJPUT Start: 08-11-2018 POCT GLUCOSE KERRI RODRIGUEZ Start: 08-11-2018 Potassium serum plasma/whole blood KERRI RAJPUT Start: 08-11-2018 Sodium serum plasma or whole blood KERRI RAJPUT Start: 08-11-2018 FULL CODE KERRI RODRIGUEZ Start: 08-11-2018 INITIATE OXYGEN THER APY PROTOCOL KERRI RAJPUT Start: 08-11-2018 VERIFY INFORMED CONSENT KERRI RAJPUT Start: 08-11-2018 POC CHEMISTRY (NA,K,ICA,GLU,CALC HCT/HGB,LACTATE,CREA,CL) KERRI RAJPUT Plan of Treatment Date Care Activity Detail Author Start: 02-25-2025 History and physical examination, annual for health maintenance Wellness Visit [facility] Start: 02-19-2025 Fall risk assessment Falls Risk Assessment [facility] Start: 02-18-2025 Screening for malignant neoplasm of breast Mammogram [facility] Start: 02-18-2025 Urine screening for protein Urine Microalbumin [facility] Start: 08-29-2024 Depression screening using PHQ-9 (Patient Health Questionnaire 9) score [facility] Start: 08-21-2024 Hemoglobin A1c measurement A1C [facility] Start: 07-16-2024 End: 07-16-2024 Patient encounter procedure 07/16/2024 11:40 AM EDT Office Visit [facility] [address] [place] [address] Simón Spaulding MD [address] [address] [facility] Start: 05-23-2024 Influenza vaccination [facility] Start: 03-11-2024 End: 03-11-2024 Patient encounter procedure 03/11/2024 3:40 PM EDT Office Visit [facility] [address] [place] [address] Simón Spaulding MD [address] [address] [facility] Start: 02-29-2024 History and physical examination, annual for health maintenance Wellness Visit [facility] Start: 01-09-2024 End: 01-09-2024 Patient encounter procedure 01/09/2024 12:00 PM EDT Office Visit [facility] [address] [place] [address] Simón Spaulding MD [address] [address] [facility] Start: 09-04-2023 Hemoglobin A1c measurement A1C [facility] Start: 05-23-2023 COVID-19 Vaccine ( season) COVID-19 Vaccine ( season) [facility] Start: 05-23-2023 Influenza vaccination Sequential Influenza Vaccine (#1) [facility] Start: 01-09-2023 Colon cancer screen colonoscopy Colon cancer screen colonoscopy [place], [place] Start: 2021 Fall risk assessment Falls Risk Assessment [facility] Start: 2021 Pneumococcal Vaccine: Age 65+ (1 of 1 - PCV) Pneumococcal Vaccine: Age 65+ (1 of 1 - PCV) [facility] Start: 05-27-2020 Breast cancer screen Breast cancer screen [place], [place] Start: 04-21-2020 Diabetic retinal exam Diabetic retinal exam [place], [place] Comment on above: Postponed from 1966 (Not Indicated ) Start: 04-12-2020 [object Object] Diabetic foot exam [place], [place] Comment on above: Postponed from 1966 (Patient Refus ed) Start: 04-12-2020 Cervical cancer screen Cervical cancer screen [place], [place] Comment on above: Postponed from 1977 (Patient Refus ed) Start: 04-12-2020 DTaP/Tdap/Td vaccine (1 - Tdap) DTaP/Tdap/Td vaccine (1 - Tdap) [place], [place] Comment on above: Postponed from 1967 (Patient Refus ed) Start: 04-12-2020 Hepatitis C screen Hepatitis C screen [place], [place] Comment on above: Postponed from 1956 (Patient Refus ed) Start: 04-12-2020 Shingles Vaccine (1 of 2) Shingles Vaccine (1 of 2) [place], [place] Comment on above: Postponed from 2006 (Patient Refus ed) Start: 01-08-2020 Creatinine monitoring Creatinine monitoring [place], [place] Start: 01-08-2020 Potassium monitoring Potassium monitoring [place], [place] Start: 11-26-2019 Lipid screen Lipid screen [place], [place] Start: 10-23-2019 A1C test (Diabetic or Prediabetic) A1C test (Diabetic or Prediabetic) [place], [place] Start: 05-23-2019 Influenza vaccination Flu vaccine (#1) [place], [place] Start: 08-04-2018 Screening for malignant neoplasm of colon [facility] Start: 2006 Administration of herpes zoster vaccine Zoster Vaccines (1 of 2) [facility] Start: 2006 Screening for malignant neoplasm of colon Flexible sigmoidoscopy [facility] Start: 1996 Screening for malignant neoplasm of breast Mammogram [facility] Start: 1975 Administration of herpes zoster vaccine Zoster Vaccines (1 of 2) [facility] Start: 1974 Diabetic microalbuminuria test Diabetic microalbuminuria test [place], [place] Start: 1974 Hepatitis C screening Hepatitis C Screening [facility] Start: 1966 Diabetic foot examination Diabetic Foot Exam [facility] Start: 1966 Glaucoma screening Diabetic Eye Exam [facility] Start: 1966 Urine screening for protein Urine Microalbumin [facility] Start: 1962 Pneumococcal 0-64 years Vaccine (1 of 1 - PPSV23) Pneumococcal 0-64 years Vaccine (1 of 1 - PPSV23) [place], [place] Start: 1962 Pneumococcal Vaccine: Age 65+ (1 - PCV) Pneumococcal Vaccine: Age 65+ (1 - PCV) [facility] Start: 1962 Pneumococcal Vaccine: Age 65+ (1 of 2 - PCV) Pneumococcal Vaccine: Age 65+ (1 of 2 - PCV) [facility] Start: 1961 COVID-19 Vaccine (#1) COVID-19 Vaccine (#1) [facility] Start: 01-08-1957 COVID-19 Vaccine (#1) COVID-19 Vaccine (#1) [facility] Start: 1956 Screening for malignant neoplasm of colon [facility] Start: 1956 Screening for osteoporosis Dexa Scan [facility] Start: 1956 Tetanus vaccination Tetanus: Every 10yrs [facility] End: 08-29-2024 Bacteria identified in Unspecified specimen by Aerobe culture Urine Aerobic Culture Microbiology Routine Dysuria 1 Occurrences starting 08/29/2023 until 08/29/2024 [facility] Work Phone: Comment on above: 1 Occurrences starting 08/29/2023 until 08/29/2024 Bacteria identified in Unspecified specimen by Aerobe culture Urine Aerobic Culture Microbiology Routine Dysuria 08/29/2023 10:49 AM EST [facility] End: 08-29-2024 Comprehensive metabolic 2000 panel - Serum or Plasma Comprehensive Metabolic Panel Lab Routine Prediabetes 1 Occurrences starting 08/29/2023 until 08/29/2024 [facility] Comment on above: 1 Occurrences starting 08/29/2023 until 08/29/2024 End: 08-29-2024 Hemoglobin A1c/Hemoglobin.total in Blood Hemoglobin A1c Lab Routine Prediabetes 1 Occurrences starting 08/29/2023 until 08/29/2024 [facility] Comment on above: 1 Occurrences starting 08/29/2023 until 08/29/2024 End: 02-25-2025 Hemoglobin A1c/Hemoglobin.total in Blood Hemoglobin A1c Lab Routine Type 2 diabetes mellitus without complication, without long-term current use of insulin (HCC) 1 Occurrences starting 02/26/2024 until 02/25/2025 [facility] Work Phone: Comment on above: 1 Occurrences starting 02/26/2024 until 02/25/2025 End: 08-29-2024 Lipid 1996 panel - Serum or Plasma Lipid Panel Lab Routine Prediabetes 1 Occurrences starting 08/29/2023 until 08/29/2024 [facility] Comment on above: 1 Occurrences starting 08/29/2023 until 08/29/2024 End: 10-30-2024 MG Breast - bilateral Screening Mammography Screening Yogesh Bilateral Imaging Routine Encounter for screening for malignant neoplasm of breast, unspecified screening modality 1 Occurrences starting 08/29/2023 until 10/30/2024 [facility] Comment on above: 1 Occurrences starting 08/29/2023 until 10/30/2024 End: 08-29-2024 Microalbumin measurement, urine, quantitative Microalbumin/Creatinine Ratio, UR Random Lab Routine Prediabetes 1 Occurrences starting 08/29/2023 until 08/29/2024 [facility] Comment on above: 1 Occurrences starting 08/29/2023 until 08/29/2024 End: 08-29-2024 Thyrotropin [Units/volume] in Serum or Plasma TSH with Reflex Free T4 Lab Routine Prediabetes 1 Occurrences starting 08/29/2023 until 08/29/2024 [facility] Comment on above: 1 Occurrences starting 08/29/2023 until 08/29/2024 Payers Date Payer Category Payer Unknown [id number] 2017 Unknown BCBS [place] P PO xxxxxxxxxxxx 2017-Present [address] [place] [address] xxxxxxxxxxxx [id number] 1959 Unknown [id number] 1956 Unknown [id number] 1956 Unknown [id number] 1956 Unknown [id number] 1956 Unknown [id number] 1956 Unknown [id number] 1956 Unknown [id number] [id number] 1956 Unknown [id number] [id number] 1956 Unknown [id number] [id number] 1956 Unknown [id number] [id number] 1956 Unknown [id number] [id number] 1956 Unknown [id number] [id number] 1956 Unknown [id number] [id number] 1956 Unknown [id number] [id number] 1956 Unknown [id number] [id number] 1956 Unknown [id number] [id number] 1956 Unknown [id number] [id number] 1956 Unknown [id number] 2.16.840.1.379842.3.579.2.196 1956 Unknown [id number] 1955 Unknown [id number] Social History Date Type Detail Facility Start: 08-09-2019 End: 08-29-2023 Tobacco smoking status NHIS Former smoker [place], [place] End: 05-08-2003 History of tobacco use Current [place]oker [place] End: 05-08-2003 History of tobacco use Cigarette Smoker [place] Start: 08-09-2019 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) [place] Start: 1955 Sex Assigned At Not on file [place], [place] Start: 08-29-2023 Tobacco use and exposure Smokeless tobacco non-user [facility] Start: 08-29-2023 End: 02-26-2024 Alcohol intake Ex-drinker (finding) [facility] Start: 03-30-2014 End: 08-29-2023 History of Social function [facility] Start: 03-30-2014 End: 08-29-2023 Tobacco use panel [facility] Start: 05-08-2023 Sexual orientation Heterosexual (fin ding) [facility] Adult Depression Screening Assessment 2 [facility] Start: 09-01-2023 Gender identity Identifies as female gender (finding) [facility] NEGATED: Highlighted rowStart: NINF History of tobacco use Passive smoker [facility] Medical Equipment Procedure Code Equipment Code Equipment Origin al Text Equipment Identifier Dates Graft Vasc Aort Abd Bif [id number] - [id number] Start: 10-28-2018 Comment on above: Description: KAREN SHANNON RN, Nathalie WHITE RN Clinical Notes 08-29-2023 to 05-20-2024 Telephone Encounter - Viri Alarcon LPN - 05/20/2024 7:52 AM EDTTelephone Encounter - Viri Alarcon LPN - 05/20/2024 7:52 AM EDTTelephone Encounter - Stefany Swanson LPN - 05/10/2024 6:47 AM EDT Note Date & Type Note Facility 05-20-2024 Telephone encount er Note Last OV 02/26/24. Pt cancelled her appointment that she was to have on 07/16/24 with provider and did not reschedule. [facility] 05-20-2024 Miscellaneous Notes Formattin g of this note might be different from the original. Last OV 02/26/24. Pt cancelled her appointment that she was to have on 07/16/24 with provider and did not reschedule. documented in this encounter [facility] 05-10-2024 Telephone encount er Note Last visit 02/26/24 Next visit not scheduled. Last refill 08/29/23 [facility] 05-10-2024 Miscellaneous Notes Formattin g of this note might be different from the original. Last visit 02/26/24 Next visit not scheduled. Last refill 08/29/23 documented in this encounter [facility] 04-26-2024 Telephone encount er Note Last OV 02/26/24. Next OV 07/16/24. [facility] 04-26-2024 Miscellaneous Notes Formattin g of this note might be different from the original. Last OV 02/26/24. Next OV 07/16/24. documented in this encounter [facility] 03-24-2024 Note Addended by: Deloris OLSON on: 03/24/2024 10:17 AM Modules accepted: Level of Service [facility] 03-24-2024 Note Addended by: Deloris OLSON on: 03/24/2024 10:17 AM Modules accepted: Level of Service [facility] 03-24-2024 Note Addended by: Deloris OLSON on: 03/24/2024 10:17 AM Modules accepted: Level of Service [facility] 03-24-2024 Miscellaneous Notes Addended by: STEPHANIE OLSON on: 03/24/2024 10:17 AM Modules accepted: Level of Service Addended by: SIMÓN SPAULDING on: 03/23/2024 05:36 PM Modules accepted: Level of Service Addended by: SIMÓN SPAULDING on: 03/19/2024 05:16 PM Modules accepted: Level of Service documented in this encounter [facility] 03-23-2024 Note Addended by: SIMÓN SPAULDING on: 03/23/2024 05:36 PM Modules accepted: Level of Service [facility] 03-23-2024 Note Addended by: SIMÓN SPAULDING on: 03/23/2024 05:36 PM Modules accepted: Level of Service [facility] 03-23-2024 Note Addended by: SIMÓN SPAULDING on: 03/23/2024 05:36 PM Modules accepted: Level of Service [facility] 03-23-2024 Note Addended by: SIMÓN SPAULDING on: 03/23/2024 05:36 PM Modules accepted: Level of Service [facility] 03-23-2024 Miscellaneous Notes Addended by: SIMÓN SPAULDING on: 03/23/2024 05:36 PM Modules accepted: Level of Service Addended by: SIMÓN SPAULDING on: 03/19/2024 05:16 PM Modules accepted: Level of Service documented in this encounter [facility] 03-19-2024 Note Addended by: SIMÓN SPAULDING on: 03/19/2024 05:16 PM Modules accepted: Level of Service [facility] 03-19-2024 Note Addended by: SIMÓN SPAULDING on: 03/19/2024 05:16 PM Modules accepted: Level of Service [facility] 03-19-2024 Note Addended by: SIMÓN SPAULDING on: 03/19/2024 05:16 PM Modules accepted: Level of Service [facility] 03-19-2024 Note Addended by: SIMÓN SPAULDING on: 03/19/2024 05:16 PM Modules accepted: Level of Service [facility] 03-19-2024 Note Addended by: SIMÓN SPAULDING on: 03/19/2024 05:16 PM Modules accepted: Level of Service [facility] 03-19-2024 Miscellaneous Notes Addended by: SIMÓN SPAULDING on: 03/19/2024 05:16 PM Modules accepted: Level of Service documented in this encounter [facility] 02-26-2024 Instructions Simón Spaulding MD - 02/26/2024 4:12 PM EDT [facility] Low Risk Patient Instructions: Your Falls Screening today shows that you are at low risk for falls. To further protect yourself from falls and maintain your independence, we recommend: 1. Read through the brochure, What You Can Do to Prevent Falls (from CDC). 2. Go through the brochure, Check for Safety: A Home Fall Prevention Checklist for Older Adults (from [facility]), and make changes as recommended. 3. Join a community falls prevention program: Stepping On, a 7-week evidence based program that teaches balance exercises and fall prevention strategies Devyn Chi for older adults, group exercise that teaches Devyn Chi forms that reduce fall risk (weight shifting, postural alignment and control, and coordinated movements of the arms, legs, head, and trunk) Matter of Balance, an evidence based program designed to reduce the fear of falling and increase activity levels of older adults OR an exercise class for strength and balance. 4. Take your Vitamin D with or without Calcium, as determined by your healthcare provider. 5. Get your vision and hearing checked annually. Falls At Home Each year, thousands of older Americans fall at home. Many of them are seriously injured, and some are disabled. In 2011, nearly 23,000 people over age 65 and 2.4 million were treated in emergency departments because of falls. Falls are often due to hazards that are easy to overlook but easy to fix. This checklist will help you find and fix those hazards in your home. The checklist asks about hazards found in each room of your home. For each hazard, the checklist tells you how to fix the problem. At the end of the checklist, you ll find other tips for preventing falls. FLOORS: Look at the floor in each room. Q: When you walk through a room, do you have to walk around furniture? A. Ask someone to move the furniture so your path is clear Q: Do you have throw rugs on the floor? A. Remove the rugs or use double-sided tape or a non-slip backing so the rugs won t slip. Q: Are there papers, books, towels, shoes, magazines, boxes, blankets, or other objects on the floor? A.electrician supervisor substation things that are on the floor. Always keep objects off the floor. Q: Do you have to walk over or around wires or cords (like lamp, telephone, or extension cords)? A. Coil or tape cords and wires next to the wall so you can t trip over them. If needed, have an electrician chief put in another outlet. STAIRS AND STEPS: Look at the stairs you use both inside and outside your home. Q: Are there papers, shoes, books, or other objects on the stairs? A. electrician supervisor substation things on the stairs. Always keep objects off stairs. Q: Are some steps broken or uneven? A. Fix loose or uneven steps. Q: Are you missing a light over the stairway? A. Have an electrician chief put in an overhead light at the top and bottom of the stairs. Q: Do you have only one light switch for your stairs (only at the top or at the bottom of the stairs)? A. Have an electrician chief put in a light switch at the top and bottom of the stairs. You can get light switches that glow. Q: Has the stairway light bulb burned out? A. Have a friend or family member change the light bulb. Q: Is the carpet on the steps loose or torn? A. Make sure the carpet is firmly attached to every step, or remove the carpet and attach non-slip rubber treads to the stairs. Q: Are the handrails loose or broken? Is there a handrail on only one side of the stairs? A. Fix loose handrails or put in new ones. Make sure handrails are on both sides of the stairs and are as long as the stairs. KITCHEN: Look at your kitchen and eating area. Q: Are the things you use often on high shelves? A. Move items in your cabinets. Keep things you use often on the lower shelves (about waist level). Q: Is your step stool unsteady? A. If you must use a step stool, get one with a bar to hold on to. Never use a chair as a step stool. BATHROOMS: Look at all your bathrooms. Q: Is the tub or shower floor slippery? A. Put a non-slip rubber mat or self-stick strips on the floor of the tub or shower. Q: Do you need some support when you get in and out of the tub or up from the toilet? A. Have grab bars put in next to and inside the tub and next to the toilet. BEDROOMS: Look at all your bedrooms. Q: Is the light near the bed hard to reach? A. Place a lamp close to the bed where it s easy to reach. Q: Is the path from your bed to the bathroom dark? A. Put in a night-light so you can see where you re walking. Some night-lights go on by themselves after dark. Other Things You Can Do to Prevent Falls Do exercises that improve your balance and make your legs stronger. Exercise also helps you feel better and more confident. Have your doctor or pharmacist look at all the medicines you take, even dylk-sqa-lgndhuw medicines. Some medicines can make you sleepy or dizzy. Have your eyes checked by an eye doctor at least once a year and update your glasses. Get up slowly after you sit or lie down. Wear shoes both inside and outside the house. Avoid going barefoot or wearing slippers. Improve the lighting in your home. Put in brighter light bulbs. Florescent bulbs are bright and cost less to use. It s safest to have uniform lighting in a room. Add lighting to dark areas. Hang lightweight curtains or shades to reduce glare. [place] a contrasting color on the top edge of all steps so you can see the stairs better. For example, use a light color paint on dark wood. To access this brochure online, please visit the [facility] website at http://www.cdc.gov/steadi/pdf/ch eck_for_safety_brochure-a.pdf Chair Rise Exercise What it does: Strengthens the muscles in your thighs & buttocks. Goal: To do this exercise without using your hands as you become stronger. How to do it: 1. Sit toward the front of a sturdy chair with your knees bent & feet flat on the floor shoulder-width apart 2. Rest your hands lightly on the seat on either side of you, keeping your back & neck straight & and chest slightly forward. 3. Breathe in slowly. Lean forward & feel your weight on the front of your feet. 4. Breathe out and slowly stand up, using your hands as little as possible. 5. Pause for a full breath in & out. 6. Breathe in as you slowly sit down. Do not let yourself collapse back down into the chair. Rather, control your lowering as much as possible. 7. Breathe out. Repeat 10-15 times. If this number is too hard for you when you first start practicing this exercise, begin with fewer and work up to this number. Rest for a minute & then do a final set of 10-15. For detailed instructions, please visit the CDC website at http://www.cdc.gov/steadi/pdf/ch air_rise_exercise-a.pdf Stepping On is an evidence based program proven to reduce falls in older adults. It is a workshop offered once a week for seven weeks. In a small-group setting, you will learn balance exercises and develop specific knowledge and skills to prevent falls. Older adults who should attend are those who: are at risk of falling who have fallen one or more times lives at home are able to walk without the help of another person Local guest experts provide information on exercise, safety, vision, and medications. Classes are offered at [facility]. To find out specifics about a class, please call [phone]. Devyn chi: Moving for Better Balance involves low impact exercise. The 12-week class is offered for three hours per week and is led by a trained water fitness instructor. It is intended for people aged 60 and older. Participants learn and perform a program of eight forms that progress from easy to more difficult. The program can accommodate persons with various physical conditions. Health Benefits of Devyn Chi: Moving for Better Balance: Improved social and mental well-being, Improved balance and physical functioning, Improved confidence in conducting daily activities, Reduced risk of falling and sustaining associated injuries, and Maintained independence and improved quality of life. To find a Devyn Chi program in your area or additional resources about fall prevention please contact: [facility] Violence and Injury Prevention Program at [phone] or [email or web address] A Matter of Balance: Managing Concerns about Falls is an evidence based program designed to reduce the fear of falling and increase activity levels of older adults. A trained hem inspector leads 8 two-hour sessions for small groups of older adults. The class is intended for people 60 and older who are at risk of falling have a fear of falling or restrict activities who have fallen in the past are interested in improving flexibility, balance, and strength. Participants will learn to view falls as controllable, set goals to increase activity levels, and reduce fall risks at home. Classes are offered in all [address] [place] [address] in [place]. For more information about specific classes near you, please visit http://aging.[place].gov/steadyu/re sources/matterofbalance.aspx. documented in this encounter [facility] 02-26-2024 Instructions Simón Spaulding MD - 02/26/2024 4:12 PM EDT [facility] Low Risk Patient Instructions: Your Falls Screening today shows that you are at low risk for falls. To further protect yourself from falls and maintain your independence, we recommend: 1. Read through the brochure, What You Can Do to Prevent Falls (from CDC). 2. Go through the brochure, Check for Safety: A Home Fall Prevention Checklist for Older Adults (from CDC), and make changes as recommended. 3. Join a community falls prevention program: Stepping On, a 7-week evidence based program that teaches balance exercises and fall prevention strategies Devyn Chi for older adults, group exercise that teaches Devyn Chi forms that reduce fall risk (weight shifting, postural alignment and control, and coordinated movements of the arms, legs, head, and trunk) Matter of Balance, an evidence based program designed to reduce the fear of falling and increase activity levels of older adults OR an exercise class for strength and balance. 4. Take your Vitamin D with or without Calcium, as determined by your healthcare provider. 5. Get your vision and hearing checked annually. Falls At Home Each year, thousands of older Americans fall at home. Many of them are seriously injured, and some are disabled. In 2011, nearly 23,000 people over age 65 and 2.4 million were treated in emergency departments because of falls. Falls are often due to hazards that are easy to overlook but easy to fix. This checklist will help you find and fix those hazards in your home. The checklist asks about hazards found in each room of your home. For each hazard, the checklist tells you how to fix the problem. At the end of the checklist, you ll find other tips for preventing falls. FLOORS: Look at the floor in each room. Q: When you walk through a room, do you have to walk around furniture? A. Ask someone to move the furniture so your path is clear Q: Do you have throw rugs on the floor? A. Remove the rugs or use double-sided tape or a non-slip backing so the rugs won t slip. Q: Are there papers, books, towels, shoes, magazines, boxes, blankets, or other objects on the floor? A.electrician supervisor substation things that are on the floor. Always keep objects off the floor. Q: Do you have to walk over or around wires or cords (like lamp, telephone, or extension cords)? A. Coil or tape cords and wires next to the wall so you can t trip over them. If needed, have an electrician chief put in another outlet. STAIRS AND STEPS: Look at the stairs you use both inside and outside your home. Q: Are there papers, shoes, books, or other objects on the stairs? A. electrician supervisor substation things on the stairs. Always keep objects off stairs. Q: Are some steps broken or uneven? A. Fix loose or uneven steps. Q: Are you missing a light over the stairway? A. Have an electrician chief put in an overhead light at the top and bottom of the stairs. Q: Do you have only one light switch for your stairs (only at the top or at the bottom of the stairs)? A. Have an electrician chief put in a light switch at the top and bottom of the stairs. You can get light switches that glow. Q: Has the stairway light bulb burned out? A. Have a friend or family member change the light bulb. Q: Is the carpet on the steps loose or torn? A. Make sure the carpet is firmly attached to every step, or remove the carpet and attach non-slip rubber treads to the stairs. Q: Are the handrails loose or broken? Is there a handrail on only one side of the stairs? A. Fix loose handrails or put in new ones. Make sure handrails are on both sides of the stairs and are as long as the stairs. KITCHEN: Look at your kitchen and eating area. Q: Are the things you use often on high shelves? A. Move items in your cabinets. Keep things you use often on the lower shelves (about waist level). Q: Is your step stool unsteady? A. If you must use a step stool, get one with a bar to hold on to. Never use a chair as a step stool. BATHROOMS: Look at all your bathrooms. Q: Is the tub or shower floor slippery? A. Put a non-slip rubber mat or self-stick strips on the floor of the tub or shower. Q: Do you need some support when you get in and out of the tub or up from the toilet? A. Have grab bars put in next to and inside the tub and next to the toilet. BEDROOMS: Look at all your bedrooms. Q: Is the light near the bed hard to reach? A. Place a lamp close to the bed where it s easy to reach. Q: Is the path from your bed to the bathroom dark? A. Put in a night-light so you can see where you re walking. Some night-lights go on by themselves after dark. Other Things You Can Do to Prevent Falls Do exercises that improve your balance and make your legs stronger. Exercise also helps you feel better and more confident. Have your doctor or pharmacist look at all the medicines you take, even ieqq-koy-iatvgaw medicines. Some medicines can make you sleepy or dizzy. Have your eyes checked by an eye doctor at least once a year and update your glasses. Get up slowly after you sit or lie down. Wear shoes both inside and outside the house. Avoid going barefoot or wearing slippers. Improve the lighting in your home. Put in brighter light bulbs. Florescent bulbs are bright and cost less to use. It s safest to have uniform lighting in a room. Add lighting to dark areas. Hang lightweight curtains or shades to reduce glare. [place] a contrasting color on the top edge of all steps so you can see the stairs better. For example, use a light color paint on dark wood. To access this brochure online, please visit the CDC website at http://www.cdc.gov/steadi/pdf/ch eck_for_safety_brochure-a.pdf Chair Rise Exercise What it does: Strengthens the muscles in your thighs & buttocks. Goal: To do this exercise without using your hands as you become stronger. How to do it: 1. Sit toward the front of a sturdy chair with your knees bent & feet flat on the floor shoulder-width apart 2. Rest your hands lightly on the seat on either side of you, keeping your back & neck straight & and chest slightly forward. 3. Breathe in slowly. Lean forward & feel your weight on the front of your feet. 4. Breathe out and slowly stand up, using your hands as little as possible. 5. Pause for a full breath in & out. 6. Breathe in as you slowly sit down. Do not let yourself collapse back down into the chair. Rather, control your lowering as much as possible. 7. Breathe out. Repeat 10-15 times. If this number is too hard for you when you first start practicing this exercise, begin with fewer and work up to this number. Rest for a minute & then do a final set of 10-15. For detailed instructions, please visit the CDC website at http://www.cdc.gov/steadi/pdf/ch air_rise_exercise-a.pdf Stepping On is an evidence based program proven to reduce falls in older adults. It is a workshop offered once a week for seven weeks. In a small-group setting, you will learn balance exercises and develop specific knowledge and skills to prevent falls. Older adults who should attend are those who: are at risk of falling who have fallen one or more times lives at home are able to walk without the help of another person Local guest experts provide information on exercise, safety, vision, and medications. Classes are offered at [facility]. To find out specifics about a class, please call [phone]. Devyn chi: Moving for Better Balance involves low impact exercise. The 12-week class is offered for three hours per week and is led by a trained water fitness instructor. It is intended for people aged 60 and older. Participants learn and perform a program of eight forms that progress from easy to more difficult. The program can accommodate persons with various physical conditions. Health Benefits of Devyn Chi: Moving for Better Balance: Improved social and mental well-being, Improved balance and physical functioning, Improved confidence in conducting daily activities, Reduced risk of falling and sustaining associated injuries, and Maintained independence and improved quality of life. To find a Devyn Chi program in your area or additional resources about fall prevention please contact: [facility] Violence and Injury Prevention Program at [phone] or [email or web address] A Matter of Balance: Managing Concerns about Falls is an evidence based program designed to reduce the fear of falling and increase activity levels of older adults. A trained hem inspector leads 8 two-hour sessions for small groups of older adults. The class is intended for people 60 and older who are at risk of falling have a fear of falling or restrict activities who have fallen in the past are interested in improving flexibility, balance, and strength. Participants will learn to view falls as controllable, set goals to increase activity levels, and reduce fall risks at home. Classes are offered in all [address] [place] [address] in [place]. For more information about specific classes near you, please visit http://aging.[place].gov/steadyu/re sources/matterofbalance.aspx. documented in this encounter [facility] 02-26-2024 Instructions Simón Spaulding MD - 02/26/2024 4:12 PM EDT [facility] Low Risk Patient Instructions: Your Falls Screening today shows that you are at low risk for falls. To further protect yourself from falls and maintain your independence, we recommend: 1. Read through the brochure, What You Can Do to Prevent Falls (from [facility]). 2. Go through the brochure, Check for Safety: A Home Fall Prevention Checklist for Older Adults (from [facility] SERVICES), and make changes as recommended. 3. Join a community falls prevention program: Stepping On, a 7-week evidence based program that teaches balance exercises and fall prevention strategies Devyn Chi for older adults, group exercise that teaches Devyn Chi forms that reduce fall risk (weight shifting, postural alignment and control, and coordinated movements of the arms, legs, head, and trunk) Matter of Balance, an evidence based program designed to reduce the fear of falling and increase activity levels of older adults OR an exercise class for strength and balance. 4. Take your Vitamin D with or without Calcium, as determined by your healthcare provider. 5. Get your vision and hearing checked annually. Falls At Home Each year, thousands of older Americans fall at home. Many of them are seriously injured, and some are disabled. In 2011, nearly 23,000 people over age 65 and 2.4 million were treated in emergency departments because of falls. Falls are often due to hazards that are easy to overlook but easy to fix. This checklist will help you find and fix those hazards in your home. The checklist asks about hazards found in each room of your home. For each hazard, the checklist tells you how to fix the problem. At the end of the checklist, you ll find other tips for preventing falls. FLOORS: Look at the floor in each room. Q: When you walk through a room, do you have to walk around furniture? A. Ask someone to move the furniture so your path is clear Q: Do you have throw rugs on the floor? A. Remove the rugs or use double-sided tape or a non-slip backing so the rugs won t slip. Q: Are there papers, books, towels, shoes, magazines, boxes, blankets, or other objects on the floor? A.electrician supervisor substation things that are on the floor. Always keep objects off the floor. Q: Do you have to walk over or around wires or cords (like lamp, telephone, or extension cords)? A. Coil or tape cords and wires next to the wall so you can t trip over them. If needed, have an electrician chief put in another outlet. STAIRS AND STEPS: Look at the stairs you use both inside and outside your home. Q: Are there papers, shoes, books, or other objects on the stairs? A. electrician supervisor substation things on the stairs. Always keep objects off stairs. Q: Are some steps broken or uneven? A. Fix loose or uneven steps. Q: Are you missing a light over the stairway? A. Have an electrician chief put in an overhead light at the top and bottom of the stairs. Q: Do you have only one light switch for your stairs (only at the top or at the bottom of the stairs)? A. Have an electrician chief put in a light switch at the top and bottom of the stairs. You can get light switches that glow. Q: Has the stairway light bulb burned out? A. Have a friend or family member change the light bulb. Q: Is the carpet on the steps loose or torn? A. Make sure the carpet is firmly attached to every step, or remove the carpet and attach non-slip rubber treads to the stairs. Q: Are the handrails loose or broken? Is there a handrail on only one side of the stairs? A. Fix loose handrails or put in new ones. Make sure handrails are on both sides of the stairs and are as long as the stairs. KITCHEN: Look at your kitchen and eating area. Q: Are the things you use often on high shelves? A. Move items in your cabinets. Keep things you use often on the lower shelves (about waist level). Q: Is your step stool unsteady? A. If you must use a step stool, get one with a bar to hold on to. Never use a chair as a step stool. BATHROOMS: Look at all your bathrooms. Q: Is the tub or shower floor slippery? A. Put a non-slip rubber mat or self-stick strips on the floor of the tub or shower. Q: Do you need some support when you get in and out of the tub or up from the toilet? A. Have grab bars put in next to and inside the tub and next to the toilet. BEDROOMS: Look at all your bedrooms. Q: Is the light near the bed hard to reach? A. Place a lamp close to the bed where it s easy to reach. Q: Is the path from your bed to the bathroom dark? A. Put in a night-light so you can see where you re walking. Some night-lights go on by themselves after dark. Other Things You Can Do to Prevent Falls Do exercises that improve your balance and make your legs stronger. Exercise also helps you feel better and more confident. Have your doctor or pharmacist look at all the medicines you take, even [id number] medicines. Some medicines can make you sleepy or dizzy. Have your eyes checked by an eye doctor at least once a year and update your glasses. Get up slowly after you sit or lie down. Wear shoes both inside and outside the house. Avoid going barefoot or wearing slippers. Improve the lighting in your home. Put in brighter light bulbs. Florescent bulbs are bright and cost less to use. It s safest to have uniform lighting in a room. Add lighting to dark areas. Hang lightweight curtains or shades to reduce glare. [place] a contrasting color on the top edge of all steps so you can see the stairs better. For example, use a light color paint on dark wood. To access this brochure online, please visit the CDC website at http://www.cdc.gov/steadi/pdf/ch eck_for_safety_brochure-a.pdf Chair Rise Exercise What it does: Strengthens the muscles in your thighs & buttocks. Goal: To do this exercise without using your hands as you become stronger. How to do it: 1. Sit toward the front of a sturdy chair with your knees bent & feet flat on the floor shoulder-width apart 2. Rest your hands lightly on the seat on either side of you, keeping your back & neck straight & and chest slightly forward. 3. Breathe in slowly. Lean forward & feel your weight on the front of your feet. 4. Breathe out and slowly stand up, using your hands as little as possible. 5. Pause for a full breath in & out. 6. Breathe in as you slowly sit down. Do not let yourself collapse back down into the chair. Rather, control your lowering as much as possible. 7. Breathe out. Repeat 10-15 times. If this number is too hard for you when you first start practicing this exercise, begin with fewer and work up to this number. Rest for a minute & then do a final set of 10-15. For detailed instructions, please visit the CDC website at http://www.cdc.gov/steadi/pdf/ch air_rise_exercise-a.pdf Stepping On is an evidence based program proven to reduce falls in older adults. It is a workshop offered once a week for seven weeks. In a small-group setting, you will learn balance exercises and develop specific knowledge and skills to prevent falls. Older adults who should attend are those who: are at risk of falling who have fallen one or more times lives at home are able to walk without the help of another person Local guest experts provide information on exercise, safety, vision, and medications. Classes are offered at [facility]. To find out specifics about a class, please call [phone]. Devyn chi: Moving for Better Balance involves low impact exercise. The 12-week class is offered for three hours per week and is led by a trained water fitness instructor. It is intended for people aged 60 and older. Participants learn and perform a program of eight forms that progress from easy to more difficult. The program can accommodate persons with various physical conditions. Health Benefits of Devyn Chi: Moving for Better Balance: Improved social and mental well-being, Improved balance and physical functioning, Improved confidence in conducting daily activities, Reduced risk of falling and sustaining associated injuries, and Maintained independence and improved quality of life. To find a Devyn Chi program in your area or additional resources about fall prevention please contact: [facility] Violence and Injury Prevention Program at [phone] or [email or web address] A Matter of Balance: Managing Concerns about Falls is an evidence based program designed to reduce the fear of falling and increase activity levels of older adults. A trained hem inspector leads 8 two-hour sessions for small groups of older adults. The class is intended for people 60 and older who are at risk of falling have a fear of falling or restrict activities who have fallen in the past are interested in improving flexibility, balance, and strength. Participants will learn to view falls as controllable, set goals to increase activity levels, and reduce fall risks at home. Classes are offered in all [address] [place] [address] in [place]. For more information about specific classes near you, please visit http://aging.[place].gov/steadyu/re sources/matterofbalance.aspx. documented in this encounter [facility] 02-26-2024 Instructions Simón Spaulding MD - 02/26/2024 4:12 PM EDT [facility]ADI Low Risk Patient Instructions: Your Falls Screening today shows that you are at low risk for falls. To further protect yourself from falls and maintain your independence, we recommend: 1. Read through the brochure, What You Can Do to Prevent Falls (from [facility]). 2. Go through the brochure, Check for Safety: A Home Fall Prevention Checklist for Older Adults (from [facility]), and make changes as recommended. 3. Join a community falls prevention program: Stepping On, a 7-week evidence based program that teaches balance exercises and fall prevention strategies Devyn Chi for older adults, group exercise that teaches Devyn Chi forms that reduce fall risk (weight shifting, postural alignment and control, and coordinated movements of the arms, legs, head, and trunk) Matter of Balance, an evidence based program designed to reduce the fear of falling and increase activity levels of older adults OR an exercise class for strength and balance. 4. Take your Vitamin D with or without Calcium, as determined by your healthcare provider. 5. Get your vision and hearing checked annually. Falls At Home Each year, thousands of older Americans fall at home. Many of them are seriously injured, and some are disabled. In 2011, nearly 23,000 people over age 65 and 2.4 million were treated in emergency departments because of falls. Falls are often due to hazards that are easy to overlook but easy to fix. This checklist will help you find and fix those hazards in your home. The checklist asks about hazards found in each room of your home. For each hazard, the checklist tells you how to fix the problem. At the end of the checklist, you ll find other tips for preventing falls. FLOORS: Look at the floor in each room. Q: When you walk through a room, do you have to walk around furniture? A. Ask someone to move the furniture so your path is clear Q: Do you have throw rugs on the floor? A. Remove the rugs or use double-sided tape or a non-slip backing so the rugs won t slip. Q: Are there papers, books, towels, shoes, magazines, boxes, blankets, or other objects on the floor? A.electrician supervisor substation things that are on the floor. Always keep objects off the floor. Q: Do you have to walk over or around wires or cords (like lamp, telephone, or extension cords)? A. Coil or tape cords and wires next to the wall so you can t trip over them. If needed, have an electrician chief put in another outlet. STAIRS AND STEPS: Look at the stairs you use both inside and outside your home. Q: Are there papers, shoes, books, or other objects on the stairs? A. electrician supervisor substation things on the stairs. Always keep objects off stairs. Q: Are some steps broken or uneven? A. Fix loose or uneven steps. Q: Are you missing a light over the stairway? A. Have an electrician chief put in an overhead light at the top and bottom of the stairs. Q: Do you have only one light switch for your stairs (only at the top or at the bottom of the stairs)? A. Have an electrician chief put in a light switch at the top and bottom of the stairs. You can get light switches that glow. Q: Has the stairway light bulb burned out? A. Have a friend or family member change the light bulb. Q: Is the carpet on the steps loose or torn? A. Make sure the carpet is firmly attached to every step, or remove the carpet and attach non-slip rubber treads to the stairs. Q: Are the handrails loose or broken? Is there a handrail on only one side of the stairs? A. Fix loose handrails or put in new ones. Make sure handrails are on both sides of the stairs and are as long as the stairs. KITCHEN: Look at your kitchen and eating area. Q: Are the things you use often on high shelves? A. Move items in your cabinets. Keep things you use often on the lower shelves (about waist level). Q: Is your step stool unsteady? A. If you must use a step stool, get one with a bar to hold on to. Never use a chair as a step stool. BATHROOMS: Look at all your bathrooms. Q: Is the tub or shower floor slippery? A. Put a non-slip rubber mat or self-stick strips on the floor of the tub or shower. Q: Do you need some support when you get in and out of the tub or up from the toilet? A. Have grab bars put in next to and inside the tub and next to the toilet. BEDROOMS: Look at all your bedrooms. Q: Is the light near the bed hard to reach? A. Place a lamp close to the bed where it s easy to reach. Q: Is the path from your bed to the bathroom dark? A. Put in a night-light so you can see where you re walking. Some night-lights go on by themselves after dark. Other Things You Can Do to Prevent Falls Do exercises that improve your balance and make your legs stronger. Exercise also helps you feel better and more confident. Have your doctor or pharmacist look at all the medicines you take, even bglk-dyh-vkrcsfh medicines. Some medicines can make you sleepy or dizzy. Have your eyes checked by an eye doctor at least once a year and update your glasses. Get up slowly after you sit or lie down. Wear shoes both inside and outside the house. Avoid going barefoot or wearing slippers. Improve the lighting in your home. Put in brighter light bulbs. Florescent bulbs are bright and cost less to use. It s safest to have uniform lighting in a room. Add lighting to dark areas. Hang lightweight curtains or shades to reduce glare. [place] a contrasting color on the top edge of all steps so you can see the stairs better. For example, use a light color paint on dark wood. To access this brochure online, please visit the CDC website at http://www.cdc.gov/steadi/pdf/ch eck_for_safety_brochure-a.pdf Chair Rise Exercise What it does: Strengthens the muscles in your thighs & buttocks. Goal: To do this exercise without using your hands as you become stronger. How to do it: 1. Sit toward the front of a sturdy chair with your knees bent & feet flat on the floor shoulder-width apart 2. Rest your hands lightly on the seat on either side of you, keeping your back & neck straight & and chest slightly forward. 3. Breathe in slowly. Lean forward & feel your weight on the front of your feet. 4. Breathe out and slowly stand up, using your hands as little as possible. 5. Pause for a full breath in & out. 6. Breathe in as you slowly sit down. Do not let yourself collapse back down into the chair. Rather, control your lowering as much as possible. 7. Breathe out. Repeat 10-15 times. If this number is too hard for you when you first start practicing this exercise, begin with fewer and work up to this number. Rest for a minute & then do a final set of 10-15. For detailed instructions, please visit the CDC website at http://www.cdc.gov/steadi/pdf/ch air_rise_exercise-a.pdf Stepping On is an evidence based program proven to reduce falls in older adults. It is a workshop offered once a week for seven weeks. In a small-group setting, you will learn balance exercises and develop specific knowledge and skills to prevent falls. Older adults who should attend are those who: are at risk of falling who have fallen one or more times lives at home are able to walk without the help of another person Local guest experts provide information on exercise, safety, vision, and medications. Classes are offered at [facility]. To find out specifics about a class, please call [phone]. Devyn chi: Moving for Better Balance involves low impact exercise. The 12-week class is offered for three hours per week and is led by a trained water fitness instructor. It is intended for people aged 60 and older. Participants learn and perform a program of eight forms that progress from easy to more difficult. The program can accommodate persons with various physical conditions. Health Benefits of Devyn Chi: Moving for Better Balance: Improved social and mental well-being, Improved balance and physical functioning, Improved confidence in conducting daily activities, Reduced risk of falling and sustaining associated injuries, and Maintained independence and improved quality of life. To find a Devyn Chi program in your area or additional resources about fall prevention please contact: [facility] Violence and Injury Prevention Program at [phone] or [email or web address] A Matter of Balance: Managing Concerns about Falls is an evidence based program designed to reduce the fear of falling and increase activity levels of older adults. A trained hem inspector leads 8 two-hour sessions for small groups of older adults. The class is intended for people 60 and older who are at risk of falling have a fear of falling or restrict activities who have fallen in the past are interested in improving flexibility, balance, and strength. Participants will learn to view falls as controllable, set goals to increase activity levels, and reduce fall risks at home. Classes are offered in all [address] [place] [address] in [place]. For more information about specific classes near you, please visit http://aging.[place].gov/steadyu/re sources/matterofbalance.aspx. documented in this encounter [facility] 02-26-2024 Note Chief Complaint Patient presents with Follow-up 6 month f/u Fall Risk Screening HPI: Katherine Da Silva is a 68 y.o. female [facility] Former patient in [facility] in [place], recently moved back to [place], still works in [place] and retiring next year to settle locally. HTN: Chronic , diet controlled Currently on atenolol primarily for calming the pulse. For the past 2 weeks has been taking Azo feels better bt as soon as she stops she gets urgency , dribbling and foul smelling . Dipstick shows positive for nitrates and leuk esterase. Breast cancer : Diagnosed 2005 with lumpectomy then chemo and radiation , has had sepsis in 2009 followed by mastectomy given infection, follow-up with annual mammogram. Overdue at this time Skin cancer: Establishing with dermatology locally for history of SCC and BCC. PAD: Aortobifemoral bypass (10/28/18) Atherectomy/angioplasty right SFA (01/07/19) Severe PAD. She underwent aortobifemoral bypass and percutaneous angioplasty of her right SFA. medical therapy with aspirin and lipitor 40 mg. Currently having mild left internal groin pain on certain movements as if she pulled a muscle was wondering if it is related to her previous procedures. Fibromyalgia: Chronic for which she follow-up with Dr. Ruiz at the pain clinic in [facility] currently on hydrocodone 500/325. We will get records Vaginal dryness: Controlled on Premarin cream that she is using 4 days a week. Has not had any trouble and seems to help with painful intercourse. 02/25:The patient reports experiencing difficulties in managing her Premarin prescription. She has adjusted her dosage from once or twice a month to once or twice every 3.5 months due to thin vaginal lobo and perceived tearing during sexual intercourse. She notes that the prescribed Premarin has been effective in managing her symptoms. History of Present Illness Obesity and diabetes: The patient has been struggling with weight loss since her 60s, which has now become increasingly challenging. She has attempted dieting since the age of 61, with intermittent success. She is seeking a food suppressant to aid in weight loss. She has gained approximately 10 pounds since her last visit, which she attributes to stress eating. Her diet includes salads and meat, albeit not daily. Past Medical History: Diagnosis Date Cancer (HCC) Breast CA Fibromyalgia Hypertension Lymphedema Past Surgical History: Procedure Laterality Date BREAST REDUCTION BREAST SURGERY BYPASS AORTOBIFEMORAL REPAIR/GRAFT CHOLECYSTECTOMY EYE SURGERY Crossed eye SKIN GRAFT TONSILLECTOMY Family History Problem Relation Age of Onset Breast cancer Neg Hx Social History Tobacco Use Smoking status: Former Types: Cigarettes Passive exposure: Never Smokeless tobacco: Never Vaping Use Vaping Use: Never used Substance Use Topics Alcohol use: Not Currently Drug use: Never Review of Systems Vitals: 02/26/24 1523 02/26/24 1530 BP: (!) 141/67 133/73 BP Location: Right arm Right arm Patient Position: Sitting Sitting BP Cuff Size: Adult Adult Pulse: 69 70 Resp: 16 16 Temp: 98.3 degrees F (36.8 degrees C) TempSrc: Infrared SpO2: 94% 95% Weight: 75.7 kg (166 lb 14.4 oz) Height: 5' Estimated body mass index is 32.6 kg/m as calculated from the following: Height as of this encounter: 5'. Weight as of this encounter: 75.7 kg (166 lb 14.4 oz). Physical Exam Constitutional: General: She is not in acute distress. Appearance: She is not ill-appearing. HENT: Head: Normocephalic and atraumatic. Nose: Nose normal. Mouth/Throat: Mouth: Mucous membranes are moist. Pharynx: Oropharynx is clear. No oropharyngeal exudate or posterior oropharyngeal erythema. Eyes: Extraocular Movements: Extraocular movements intact. Conjunctiva/sclera: Conjunctivae normal. Pupils: Pupils are equal, round, and reactive to light. Cardiovascular: Rate and Rhythm: Normal rate and regular rhythm. Pulses: Normal pulses. Heart sounds: Normal heart sounds. No murmur heard. No gallop. Pulmonary: Effort: Pulmonary effort is normal. Breath sounds: Normal breath sounds. No wheezing, rhonchi or rales. Chest: Chest wall: No tenderness. Abdominal: General: Abdomen is flat. Bowel sounds are normal. There is no distension. Palpations: Abdomen is soft. There is no mass. Tenderness: There is no abdominal tenderness. There is no right CVA tenderness, left CVA tenderness, guarding or rebound. Musculoskeletal: General: No tenderness. Normal range of motion. Cervical back: Normal range of motion and neck supple. No rigidity. No muscular tenderness. Right lower leg: No edema. Left lower leg: No edema. Lymphadenopathy: Cervical: No cervical adenopathy. Skin: General: Skin is warm. Findings: No erythema or rash. Neurological: General: No focal defic (more content not included)... [facility] 02-26-2024 History of Presen t illness Narrative Chief Complaint Patient presents with Follow-up 6 month f/u Fall Risk Screening HPI: Katherine Da Silva is a 68 y.o. female presenting today [facility] Former patient in [facility] in [place], recently moved back to [place], still works in [place] and retiring next year to settle locally. HTN: Chronic , diet controlled Currently on atenolol primarily for calming the pulse. For the past 2 weeks has been taking Azo feels better bt as soon as she stops she gets urgency , dribbling and foul smelling . Dipstick shows positive for nitrates and leuk esterase. Breast cancer : Diagnosed 2005 with lumpectomy then chemo and radiation , has had sepsis in 2009 followed by mastectomy given infection, follow-up with annual mammogram. Overdue at this time Skin cancer: Establishing with dermatology locally for history of SCC and BCC. PAD: Aortobifemoral bypass (10/28/18) Atherectomy/angioplasty right SFA (01/07/19) Severe PAD. She underwent aortobifemoral bypass and percutaneous angioplasty of her right SFA. medical therapy with aspirin and lipitor 40 mg. Currently having mild left internal groin pain on certain movements as if she pulled a muscle was wondering if it is related to her previous procedures. Fibromyalgia: Chronic for which she follow-up with Dr. Ruiz at the pain clinic in [facility] currently on hydrocodone 500/325. We will get records Vaginal dryness: Controlled on Premarin cream that she is using 4 days a week. Has not had any trouble and seems to help with painful intercourse. 02/25:The patient reports experiencing difficulties in managing her Premarin prescription. She has adjusted her dosage from once or twice a month to once or twice every 3.5 months due to thin vaginal lobo and perceived tearing during sexual intercourse. She notes that the prescribed Premarin has been effective in managing her symptoms. History of Present Illness Obesity and diabetes: The patient has been struggling with weight loss since her 60s, which has now become increasingly challenging. She has attempted dieting since the age of 61, with intermittent success. She is seeking a food suppressant to aid in weight loss. She has gained approximately 10 pounds since her last visit, which she attributes to stress eating. Her diet includes salads and meat, albeit not daily. Past Medical History: Diagnosis Date Cancer (HCC) Breast CA Fibromyalgia Hypertension Lymphedema Past Surgical History: Procedure Laterality Date BREAST REDUCTION BREAST SURGERY BYPASS AORTOBIFEMORAL REPAIR/GRAFT CHOLECYSTECTOMY EYE SURGERY Crossed eye SKIN GRAFT TONSILLECTOMY Family History Problem Relation Age of Onset Breast cancer Neg Hx Social History Tobacco Use Smoking status: Former Types: Cigarettes Passive exposure: Never Smokeless tobacco: Never Vaping Use Vaping Use: Never used Substance Use Topics Alcohol use: Not Currently Drug use: Never Review of Systems Vitals: 02/26/24 1523 02/26/24 1530 BP: (!) 141/67 133/73 BP Location: Right arm Right arm Patient Position: Sitting Sitting BP Cuff Size: Adult Adult Pulse: 69 70 Resp: 16 16 Temp: 98.3 F (36.8 C) TempSrc: Infrared SpO2: 94% 95% Weight: 75.7 kg (166 lb 14.4 oz) Height: 5' Estimated body mass index is 32.6 kg/m as calculated from the following: Height as of this encounter: 5'. Weight as of this encounter: 75.7 kg (166 lb 14.4 oz). Physical Exam Constitutional: General: She is not in acute distress. Appearance: She is not ill-appearing. HENT: Head: Normocephalic and atraumatic. Nose: Nose normal. Mouth/Throat: Mouth: Mucous membranes are moist. Pharynx: Oropharynx is clear. No oropharyngeal exudate or posterior oropharyngeal erythema. Eyes: Extraocular Movements: Extraocular movements intact. Conjunctiva/sclera: Conjunctivae normal. Pupils: Pupils are equal, round, and reactive to light. Cardiovascular: Rate and Rhythm: Normal rate and regular rhythm. Pulses: Normal pulses. Heart sounds: Normal heart sounds. No murmur heard. No gallop. Pulmonary: Effort: Pulmonary effort is normal. Breath sounds: Normal breath sounds. No wheezing, rhonchi or rales. Chest: Chest wall: No tenderness. Abdominal: General: Abdomen is flat. Bowel sounds are normal. There is no distension. Palpations: Abdomen is soft. There is no mass. Tenderness: There is no abdominal tenderness. There is no right CVA tenderness, left CVA tenderness, guarding or rebound. Musculoskeletal: General: No tenderness. Normal range of motion. Cervical back: Normal range of motion and neck supple. No rigidity. No muscular tenderness. Right lower leg: No edema. Left lower leg: No edema. Lymphadenopathy: Cervical: No cervical adenopathy. Skin: General: Skin is warm. Findings: No erythema or rash. Neurological: General: No focal deficit present. Mental Status: She is alert and oriented to person, place, and time. Sensory: No sensory deficit. Motor: No weakness. Gait: Gait normal. Psychiatric: Mood and Affect: Mood normal. Behavior: Behavior normal. Thought Content: Thought content normal. Judgment: Judgment normal. OARRS/NARxCHECK Report Received and Assessed: Date controlled substance agreement signed: No data found Date of last drug screen: @Exam@ PHQ9: SARAH-7 Tobacco Counseling: Counseling given: Not Answered Patient's Medications New Prescriptions SEMAGLUTIDE (OZEMPIC) 0.25 MG OR 0.5 MG (2 MG/3 ML) PEN Inject 0.5 (one-half) mg under the skin once a week 0.25 mg for 1-2 weeks then increase to 0.5 mg thereafter . Previous Medications ASPIRIN 81 MG EC TABLET Take 1 (one) tablet (81 mg total) by mouth daily . ATENOLOL (TENORMIN) 50 MG TABLET Take 1 (one) tablet (50 mg total) by mouth daily . ATORVASTATIN (LIPITOR) 40 MG TABLET Take 1 (one) tablet (40 mg total) by mouth daily . CHOLECALCIFEROL, VITAMIN D3, 50 MCG (2,000 UNIT) TAB Take 1 (one) tablet (2,000 Units total) by mouth daily . FENOFIBRATE (TRICOR) 145 MG TABLET Take 1 (one) tablet (145 mg total) by mouth daily . FUROSEMIDE (LASIX) 20 MG TABLET Take 1 (one) tablet (20 mg total) by mouth daily as needed . HYDROCODONE-ACETAMINOPHEN (NORCO) 5-325 MG PER TABLET Take 1 (one) tablet by mouth every 4 (four) hours as needed for pain (Days supply per fill: 30) . OMEPRAZOLE (PRILOSEC) 20 MG CAPSULE Take 1 (one) capsule (20 mg total) by mouth daily . POTASSIUM CHLORIDE 10 MEQ CR TABLET Take 1 (one) tablet (10 mEq total) by mouth daily . Modified Medications Modified Medication Previous Medication CONJUGATED ESTROGENS (PREMARIN) VAGINAL CREAM conjugated estrogens (Premarin) vaginal cream Insert 1.5 (one and a half) g into the vagina twice weekly . Insert 1 (one) g into the vagina twice weekly Start: 09/01/23. Discontinued Medications No medications on file Health Maintenance Due Topic Date Due Tetanus: Every 10yrs Never done Dexa Scan Never done Diabetic Foot Exam Never done Diabetic Eye Exam Never done Hepatitis C Screening Never done Zoster Vaccines (1 of 2) Never done Colorectal Cancer Screening/Monitoring 08/04/2018 Pneumococcal Vaccine: Age 65+ (1 of 1 - PCV) Never done COVID-19 Vaccine (2022- season) Never done Wellness Visit 02/29/2024 Assessment & Plan Problem List Items Addressed This Visit Endocrine Diabetes (HCC) Relevant Medications semaglutide (Ozempic) 0.25 mg or 0.5 mg (2 mg/3 mL) Pen Other Relevant Orders Ambulatory referral to Nutrition Services Hemoglobin A1c Genitourinary Vaginal dryness, menopausal - Primary Relevant Medications conjugated estrogens (Premarin) vaginal cream Other Visit Diagnoses At low risk for fall Obesity (BMI 30-39.9) Relevant Orders Ambulatory referral to Nutrition Services Assessment & Plan 1. Vaginal atrophy. The dosage of Premarin will be escalated. Stressed on the importance to use it twice a week for maintenance. I discussed with her that this is the proper way to use it. 2. Weight management. Dietary modifications were recommended. A consultation with a dietitian was recommended. Had a lengthy discussion regarding the diagnosis of diabetes and what that entails. Discussed different regimens that help with diabetes control as well as weight loss, agreeable to start on Ozempic she will call and let us know if she needs teaching for Ozempic with a nurse visit. Follow-up A follow-up appointment is scheduled for 3 to 4 months from now. After discussing the use of ambient listening and audio recording in generating medical documentation, the patient verbally consented to use of this technology for today's visit. My ongoing relationship with Katherine Da Silva requires continued responsibility and cognitive effort of being the focal point for all services related to chronic condition(s). I spent 40 minutes with patient reviewing HPI and coordinating plan of care. Return in about 4 months (around 06/27/2024) for Follow Up. SIMÓN SPAULDING MD [facility] [address] [facility] [address] [facility] [id number] Dept: [phone] 08/29/2023 11:56 AM Depression Screening Little interest or pleasure in doing things 0 Feeling down, depressed, or hopeless 1 PHQ-2 Total Score 1 Trouble falling or staying asleep, or sleeping too much 0 Feeling tired or having little energy 0 Poor appetite or overeating 0 Feeling bad about yourself - or that you are a failure or have let yourself or your family down 1 Trouble concentrating on things, such as reading the newspaper or watching television 0 Moving or speaking so slowly that other people could have noticed. Or the opposite - being so fidgety or restless that you have been moving around a lot more than usual 0 Thoughts that you would be better off , or of hurting yourself in some way 0 PHQ-9 Total Score 2 If you checked off any problems, how difficult have these problems made it for you to do your work, take care of things at home, or get along with other people? Not difficult at all documented in this encounter [facility] 02-26-2024 History of Presen t illness Narrative Chief Complaint Patient presents with Follow-up 6 month f/u Fall Risk Screening HPI: Katherine Da Silva is a 68 y.o. female presenting [facility]. Former patient in [facility] in [place], recently moved back to [place], still works in [place] and retiring next year to settle locally. HTN: Chronic , diet controlled Currently on atenolol primarily for calming the pulse. For the past 2 weeks has been taking Azo feels better bt as soon as she stops she gets urgency , dribbling and foul smelling . Dipstick shows positive for nitrates and leuk esterase. Breast cancer : Diagnosed 2005 with lumpectomy then chemo and radiation , has had sepsis in 2009 followed by mastectomy given infection, follow-up with annual mammogram. Overdue at this time Skin cancer: Establishing with dermatology locally for history of SCC and BCC. PAD: Aortobifemoral bypass (10/28/18) Atherectomy/angioplasty right SFA (01/07/19) Severe PAD. She underwent aortobifemoral bypass and percutaneous angioplasty of her right SFA. medical therapy with aspirin and lipitor 40 mg. Currently having mild left internal groin pain on certain movements as if she pulled a muscle was wondering if it is related to her previous procedures. Fibromyalgia: Chronic for which she follow-up with Dr. Ruiz at the pain clinic in [facility] currently on hydrocodone 500/325. We will get records Vaginal dryness: Controlled on Premarin cream that she is using 4 days a week. Has not had any trouble and seems to help with painful intercourse. 02/25:The patient reports experiencing difficulties in managing her Premarin prescription. She has adjusted her dosage from once or twice a month to once or twice every 3.5 months due to thin vaginal lobo and perceived tearing during sexual intercourse. She notes that the prescribed Premarin has been effective in managing her symptoms. History of Present Illness Obesity and diabetes: The patient has been struggling with weight loss since her 60s, which has now become increasingly challenging. She has attempted dieting since the age of 61, with intermittent success. She is seeking a food suppressant to aid in weight loss. She has gained approximately 10 pounds since her last visit, which she attributes to stress eating. Her diet includes salads and meat, albeit not daily. Past Medical History: Diagnosis Date Cancer (HCC) Breast CA Fibromyalgia Hypertension Lymphedema Past Surgical History: Procedure Laterality Date BREAST REDUCTION BREAST SURGERY BYPASS AORTOBIFEMORAL REPAIR/GRAFT CHOLECYSTECTOMY EYE SURGERY Crossed eye SKIN GRAFT TONSILLECTOMY Family History Problem Relation Age of Onset Breast cancer Neg Hx Social History Tobacco Use Smoking status: Former Types: Cigarettes Passive exposure: Never Smokeless tobacco: Never Vaping Use Vaping Use: Never used Substance Use Topics Alcohol use: Not Currently Drug use: Never Review of Systems Vitals: 02/26/24 1523 02/26/24 1530 BP: (!) 141/67 133/73 BP Location: Right arm Right arm Patient Position: Sitting Sitting BP Cuff Size: Adult Adult Pulse: 69 70 Resp: 16 16 Temp: 98.3 F (36.8 C) TempSrc: Infrared SpO2: 94% 95% Weight: 75.7 kg (166 lb 14.4 oz) Height: 5' Estimated body mass index is 32.6 kg/m as calculated from the following: Height as of this encounter: 5'. Weight as of this encounter: 75.7 kg (166 lb 14.4 oz). Physical Exam Constitutional: General: She is not in acute distress. Appearance: She is not ill-appearing. HENT: Head: Normocephalic and atraumatic. Nose: Nose normal. Mouth/Throat: Mouth: Mucous membranes are moist. Pharynx: Oropharynx is clear. No oropharyngeal exudate or posterior oropharyngeal erythema. Eyes: Extraocular Movements: Extraocular movements intact. Conjunctiva/sclera: Conjunctivae normal. Pupils: Pupils are equal, round, and reactive to light. Cardiovascular: Rate and Rhythm: Normal rate and regular rhythm. Pulses: Normal pulses. Heart sounds: Normal heart sounds. No murmur heard. No gallop. Pulmonary: Effort: Pulmonary effort is normal. Breath sounds: Normal breath sounds. No wheezing, rhonchi or rales. Chest: Chest wall: No tenderness. Abdominal: General: Abdomen is flat. Bowel sounds are normal. There is no distension. Palpations: Abdomen is soft. There is no mass. Tenderness: There is no abdominal tenderness. There is no right CVA tenderness, left CVA tenderness, guarding or rebound. Musculoskeletal: General: No tenderness. Normal range of motion. Cervical back: Normal range of motion and neck supple. No rigidity. No muscular tenderness. Right lower leg: No edema. Left lower leg: No edema. Lymphadenopathy: Cervical: No cervical adenopathy. Skin: General: Skin is warm. Findings: No erythema or rash. Neurological: General: No focal deficit present. Mental Status: She is alert and oriented to person, place, and time. Sensory: No sensory deficit. Motor: No weakness. Gait: Gait normal. Psychiatric: Mood and Affect: Mood normal. Behavior: Behavior normal. Thought Content: Thought content normal. Judgment: Judgment normal. OARRS/NARxCHECK Report Received and Assessed: Date controlled substance agreement signed: No data found Date of last drug screen: @Exam@ PHQ9: SARAH-7 Tobacco Counseling: Counseling given: Not Answered Patient's Medications New Prescriptions SEMAGLUTIDE (OZEMPIC) 0.25 MG OR 0.5 MG (2 MG/3 ML) PEN Inject 0.5 (one-half) mg under the skin once a week 0.25 mg for 1-2 weeks then increase to 0.5 mg thereafter . Previous Medications ASPIRIN 81 MG EC TABLET Take 1 (one) tablet (81 mg total) by mouth daily . ATENOLOL (TENORMIN) 50 MG TABLET Take 1 (one) tablet (50 mg total) by mouth daily . ATORVASTATIN (LIPITOR) 40 MG TABLET Take 1 (one) tablet (40 mg total) by mouth daily . CHOLECALCIFEROL, VITAMIN D3, 50 MCG (2,000 UNIT) TAB Take 1 (one) tablet (2,000 Units total) by mouth daily . FENOFIBRATE (TRICOR) 145 MG TABLET Take 1 (one) tablet (145 mg total) by mouth daily . FUROSEMIDE (LASIX) 20 MG TABLET Take 1 (one) tablet (20 mg total) by mouth daily as needed . HYDROCODONE-ACETAMINOPHEN (NORCO) 5-325 MG PER TABLET Take 1 (one) tablet by mouth every 4 (four) hours as needed for pain (Days supply per fill: 30) . OMEPRAZOLE (PRILOSEC) 20 MG CAPSULE Take 1 (one) capsule (20 mg total) by mouth daily . POTASSIUM CHLORIDE 10 MEQ CR TABLET Take 1 (one) tablet (10 mEq total) by mouth daily . Modified Medications Modified Medication Previous Medication CONJUGATED ESTROGENS (PREMARIN) VAGINAL CREAM conjugated estrogens (Premarin) vaginal cream Insert 1.5 (one and a half) g into the vagina twice weekly . Insert 1 (one) g into the vagina twice weekly Start: 09/01/23. Discontinued Medications No medications on file Health Maintenance Due Topic Date Due Tetanus: Every 10yrs Never done Dexa Scan Never done Diabetic Foot Exam Never done Diabetic Eye Exam Never done Hepatitis C Screening Never done Zoster Vaccines (1 of 2) Never done Colorectal Cancer Screening/Monitoring 08/04/2018 Pneumococcal Vaccine: Age 65+ (1 of 1 - PCV) Never done COVID-19 Vaccine ( - 2022- season) Never done Wellness Visit 02/29/2024 Assessment & Plan Problem List Items Addressed This Visit Endocrine Diabetes (HCC) Relevant Medications semaglutide (Ozempic) 0.25 mg or 0.5 mg (2 mg/3 mL) Pen Other Relevant Orders Ambulatory referral to Nutrition Services Hemoglobin A1c Genitourinary Vaginal dryness, menopausal - Primary Relevant Medications conjugated estrogens (Premarin) vaginal cream Other Visit Diagnoses At low risk for fall Obesity (BMI 30-39.9) Relevant Orders Ambulatory referral to Nutrition Services Assessment & Plan 1. Vaginal atrophy. The dosage of Premarin will be escalated. Stressed on the importance to use it twice a week for maintenance. I discussed with her that this is the proper way to use it. 2. Weight management. Dietary modifications were recommended. A consultation with a dietitian was recommended. Had a lengthy discussion regarding the diagnosis of diabetes and what that entails. Discussed different regimens that help with diabetes control as well as weight loss, agreeable to start on Ozempic she will call and let us know if she needs teaching for Ozempic with a nurse visit. Follow-up A follow-up appointment is scheduled for 3 to 4 months from now. After discussing the use of ambient listening and audio recording in generating medical documentation, the patient verbally consented to use of this technology for today's visit. My ongoing relationship with Katherine Da Silva requires continued responsibility and cognitive effort of being the focal point for all services related to chronic condition(s). I spent 40 minutes with patient reviewing HPI and coordinating plan of care. Return in about 4 months (around 06/27/2024) for Follow Up. SIMÓN SPAULDING MD [facility] [address] [facility] [address] [facility] [id number] Dept: [phone] 08/29/2023 11:56 AM Depression Screening Little interest or pleasure in doing things 0 Feeling down, depressed, or hopeless 1 PHQ-2 Total Score 1 Trouble falling or staying asleep, or sleeping too much 0 Feeling tired or having little energy 0 Poor appetite or overeating 0 Feeling bad about yourself - or that you are a failure or have let yourself or your family down 1 Trouble concentrating on things, such as reading the newspaper or watching television 0 Moving or speaking so slowly that other people could have noticed. Or the opposite - being so fidgety or restless that you have been moving around a lot more than usual 0 Thoughts that you would be better off , or of hurting yourself in some way 0 PHQ-9 Total Score 2 If you checked off any problems, how difficult have these problems made it for you to do your work, take care of things at home, or get along with other people? Not difficult at all documented in this encounter [facility] 02-26-2024 History of Presen t illness Narrative Chief Complaint Patient presents with Follow-up 6 month f/u Fall Risk Screening HPI: Katherine Da Silva is a 68 y.o. female presenting today as a new patient to reestablish care. Former patient in [facility] in [place], recently moved back to [place], still works in [place] and retiring next year to settle locally. HTN: Chronic , diet controlled Currently on atenolol primarily for calming the pulse. For the past 2 weeks has been taking Azo feels better bt as soon as she stops she gets urgency , dribbling and foul smelling . Dipstick shows positive for nitrates and leuk esterase. Breast cancer : Diagnosed 2005 with lumpectomy then chemo and radiation , has had sepsis in 2009 followed by mastectomy given infection, follow-up with annual mammogram. Overdue at this time Skin cancer: Establishing with dermatology locally for history of SCC and BCC. PAD: Aortobifemoral bypass (10/28/18) Atherectomy/angioplasty right SFA (01/07/19) Severe PAD. She underwent aortobifemoral bypass and percutaneous angioplasty of her right SFA. medical therapy with aspirin and lipitor 40 mg. Currently having mild left internal groin pain on certain movements as if she pulled a muscle was wondering if it is related to her previous procedures. Fibromyalgia: Chronic for which she follow-up with Dr. Ruiz at the pain clinic in [facility] currently on hydrocodone 500/325. We will get records Vaginal dryness: Controlled on Premarin cream that she is using 4 days a week. Has not had any trouble and seems to help with painful intercourse. 02/25:The patient reports experiencing difficulties in managing her Premarin prescription. She has adjusted her dosage from once or twice a month to once or twice every 3.5 months due to thin vaginal lobo and perceived tearing during sexual intercourse. She notes that the prescribed Premarin has been effective in managing her symptoms. History of Present Illness Obesity and diabetes: The patient has been struggling with weight loss since her 60s, which has now become increasingly challenging. She has attempted dieting since the age of 61, with intermittent success. She is seeking a food suppressant to aid in weight loss. She has gained approximately 10 pounds since her last visit, which she attributes to stress eating. Her diet includes salads and meat, albeit not daily. Past Medical History: Diagnosis Date Cancer (HCC) Breast CA Fibromyalgia Hypertension Lymphedema Past Surgical History: Procedure Laterality Date BREAST REDUCTION BREAST SURGERY BYPASS AORTOBIFEMORAL REPAIR/GRAFT CHOLECYSTECTOMY EYE SURGERY Crossed eye SKIN GRAFT TONSILLECTOMY Family History Problem Relation Age of Onset Breast cancer Neg Hx Social History Tobacco Use Smoking status: Former Types: Cigarettes Passive exposure: Never Smokeless tobacco: Never Vaping Use Vaping Use: Never used Substance Use Topics Alcohol use: Not Currently Drug use: Never Review of Systems Vitals: 02/26/24 1523 02/26/24 1530 BP: (!) 141/67 133/73 BP Location: Right arm Right arm Patient Position: Sitting Sitting BP Cuff Size: Adult Adult Pulse: 69 70 Resp: 16 16 Temp: 98.3 F (36.8 C) TempSrc: Infrared SpO2: 94% 95% Weight: 75.7 kg (166 lb 14.4 oz) Height: 5' Estimated body mass index is 32.6 kg/m as calculated from the following: Height as of this encounter: 5'. Weight as of this encounter: 75.7 kg (166 lb 14.4 oz). Physical Exam Constitutional: General: She is not in acute distress. Appearance: She is not ill-appearing. HENT: Head: Normocephalic and atraumatic. Nose: Nose normal. Mouth/Throat: Mouth: Mucous membranes are moist. Pharynx: Oropharynx is clear. No oropharyngeal exudate or posterior oropharyngeal erythema. Eyes: Extraocular Movements: Extraocular movements intact. Conjunctiva/sclera: Conjunctivae normal. Pupils: Pupils are equal, round, and reactive to light. Cardiovascular: Rate and Rhythm: Normal rate and regular rhythm. Pulses: Normal pulses. Heart sounds: Normal heart sounds. No murmur heard. No gallop. Pulmonary: Effort: Pulmonary effort is normal. Breath sounds: Normal breath sounds. No wheezing, rhonchi or rales. Chest: Chest wall: No tenderness. Abdominal: General: Abdomen is flat. Bowel sounds are normal. There is no distension. Palpations: Abdomen is soft. There is no mass. Tenderness: There is no abdominal tenderness. There is no right CVA tenderness, left CVA tenderness, guarding or rebound. Musculoskeletal: General: No tenderness. Normal range of motion. Cervical back: Normal range of motion and neck supple. No rigidity. No muscular tenderness. Right lower leg: No edema. Left lower leg: No edema. Lymphadenopathy: Cervical: No cervical adenopathy. Skin: General: Skin is warm. Findings: No erythema or rash. Neurological: General: No focal deficit present. Mental Status: She is alert and oriented to person, place, and time. Sensory: No sensory deficit. Motor: No weakness. Gait: Gait normal. Psychiatric: Mood and Affect: Mood normal. Behavior: Behavior normal. Thought Content: Thought content normal. Judgment: Judgment normal. OARRS/NARxCHECK Report Received and Assessed: Date controlled substance agreement signed: No data found Date of last drug screen: @Exam@ PHQ9: SARAH-7 Tobacco Counseling: Counseling given: Not Answered Patient's Medications New Prescriptions SEMAGLUTIDE (OZEMPIC) 0.25 MG OR 0.5 MG (2 MG/3 ML) PEN Inject 0.5 (one-half) mg under the skin once a week 0.25 mg for 1-2 weeks then increase to 0.5 mg thereafter . Previous Medications ASPIRIN 81 MG EC TABLET Take 1 (one) tablet (81 mg total) by mouth daily . ATENOLOL (TENORMIN) 50 MG TABLET Take 1 (one) tablet (50 mg total) by mouth daily . ATORVASTATIN (LIPITOR) 40 MG TABLET Take 1 (one) tablet (40 mg total) by mouth daily . CHOLECALCIFEROL, VITAMIN D3, 50 MCG (2,000 UNIT) TAB Take 1 (one) tablet (2,000 Units total) by mouth daily . FENOFIBRATE (TRICOR) 145 MG TABLET Take 1 (one) tablet (145 mg total) by mouth daily . FUROSEMIDE (LASIX) 20 MG TABLET Take 1 (one) tablet (20 mg total) by mouth daily as needed . HYDROCODONE-ACETAMINOPHEN (NORCO) 5-325 MG PER TABLET Take 1 (one) tablet by mouth every 4 (four) hours as needed for pain (Days supply per fill: 30) . OMEPRAZOLE (PRILOSEC) 20 MG CAPSULE Take 1 (one) capsule (20 mg total) by mouth daily . POTASSIUM CHLORIDE 10 MEQ CR TABLET Take 1 (one) tablet (10 mEq total) by mouth daily . Modified Medications Modified Medication Previous Medication CONJUGATED ESTROGENS (PREMARIN) VAGINAL CREAM conjugated estrogens (Premarin) vaginal cream Insert 1.5 (one and a half) g into the vagina twice weekly . Insert 1 (one) g into the vagina twice weekly Start: 09/01/23. Discontinued Medications No medications on file Health Maintenance Due Topic Date Due Tetanus: Every 10yrs Never done Dexa Scan Never done Diabetic Foot Exam Never done Diabetic Eye Exam Never done Hepatitis C Screening Never done Zoster Vaccines (1 of 2) Never done Colorectal Cancer Screening/Monitoring 08/04/2018 Pneumococcal Vaccine: Age 65+ (1 of 1 - PCV) Never done COVID-19 Vaccine ( - 2022- season) Never done Wellness Visit 02/29/2024 Assessment & Plan Problem List Items Addressed This Visit Endocrine Diabetes (HCC) Relevant Medications semaglutide (Ozempic) 0.25 mg or 0.5 mg (2 mg/3 mL) Pen Other Relevant Orders Ambulatory referral to Nutrition Services Hemoglobin A1c Genitourinary Vaginal dryness, menopausal - Primary Relevant Medications conjugated estrogens (Premarin) vaginal cream Other Visit Diagnoses At low risk for fall Obesity (BMI 30-39.9) Relevant Orders Ambulatory referral to Nutrition Services Assessment & Plan 1. Vaginal atrophy. The dosage of Premarin will be escalated. Stressed on the importance to use it twice a week for maintenance. I discussed with her that this is the proper way to use it. 2. Weight management. Dietary modifications were recommended. A consultation with a dietitian was recommended. Had a lengthy discussion regarding the diagnosis of diabetes and what that entails. Discussed different regimens that help with diabetes control as well as weight loss, agreeable to start on Ozempic she will call and let us know if she needs teaching for Ozempic with a nurse visit. Follow-up A follow-up appointment is scheduled for 3 to 4 months from now. After discussing the use of ambient listening and audio recording in generating medical documentation, the patient verbally consented to use of this technology for today's visit. My ongoing relationship with Katherine Da Silva requires continued responsibility and cognitive effort of being the focal point for all services related to chronic condition(s). I spent 40 minutes with patient reviewing HPI and coordinating plan of care. Return in about 4 months (around 06/27/2024) for Follow Up. SIMÓN SPAULDING MD [facility] [address] [facility] [id number] Dept: [phone] 08/29/2023 11:56 AM Depression Screening Little interest or pleasure in doing things 0 Feeling down, depressed, or hopeless 1 PHQ-2 Total Score 1 Trouble falling or staying asleep, or sleeping too much 0 Feeling tired or having little energy 0 Poor appetite or overeating 0 Feeling bad about yourself - or that you are a failure or have let yourself or your family down 1 Trouble concentrating on things, such as reading the newspaper or watching television 0 Moving or speaking so slowly that other people could have noticed. Or the opposite - being so fidgety or restless that you have been moving around a lot more than usual 0 Thoughts that you would be better off , or of hurting yourself in some way 0 PHQ-9 Total Score 2 If you checked off any problems, how difficult have these problems made it for you to do your work, take care of things at home, or get along with other people? Not difficult at all documented in this encounter [facility] 02-26-2024 History of Presen t illness Narrative Chief Complaint Patient presents with Follow-up 6 month f/u Fall Risk Screening HPI: Katherine Da Silva is a 68 y.o. female [facility] Former patient in [facility] in [place], recently moved back to [place], still works in [place] and retiring next year to settle locally. HTN: Chronic , diet controlled Currently on atenolol primarily for calming the pulse. For the past 2 weeks has been taking Azo feels better bt as soon as she stops she gets urgency , dribbling and foul smelling . Dipstick shows positive for nitrates and leuk esterase. Breast cancer : Diagnosed 2005 with lumpectomy then chemo and radiation , has had sepsis in 2009 followed by mastectomy given infection, follow-up with annual mammogram. Overdue at this time Skin cancer: Establishing with dermatology locally for history of SCC and BCC. PAD: Aortobifemoral bypass (10/28/18) Atherectomy/angioplasty right SFA (01/07/19) Severe PAD. She underwent aortobifemoral bypass and percutaneous angioplasty of her right SFA. medical therapy with aspirin and lipitor 40 mg. Currently having mild left internal groin pain on certain movements as if she pulled a muscle was wondering if it is related to her previous procedures. Fibromyalgia: Chronic for which she follow-up with Dr. Ruiz at the pain clinic in [facility] currently on hydrocodone 500/325. We will get records Vaginal dryness: Controlled on Premarin cream that she is using 4 days a week. Has not had any trouble and seems to help with painful intercourse. 02/25:The patient reports experiencing difficulties in managing her Premarin prescription. She has adjusted her dosage from once or twice a month to once or twice every 3.5 months due to thin vaginal lobo and perceived tearing during sexual intercourse. She notes that the prescribed Premarin has been effective in managing her symptoms. History of Present Illness Obesity and diabetes: The patient has been struggling with weight loss since her 60s, which has now become increasingly challenging. She has attempted dieting since the age of 61, with intermittent success. She is seeking a food suppressant to aid in weight loss. She has gained approximately 10 pounds since her last visit, which she attributes to stress eating. Her diet includes salads and meat, albeit not daily. Past Medical History: Diagnosis Date Cancer (HCC) Breast CA Fibromyalgia Hypertension Lymphedema Past Surgical History: Procedure Laterality Date BREAST REDUCTION BREAST SURGERY BYPASS AORTOBIFEMORAL REPAIR/GRAFT CHOLECYSTECTOMY EYE SURGERY Crossed eye SKIN GRAFT TONSILLECTOMY Family History Problem Relation Age of Onset Breast cancer Neg Hx Social History Tobacco Use Smoking status: Former Types: Cigarettes Passive exposure: Never Smokeless tobacco: Never Vaping Use Vaping Use: Never used Substance Use Topics Alcohol use: Not Currently Drug use: Never Review of Systems Vitals: 02/26/24 1523 02/26/24 1530 BP: (!) 141/67 133/73 BP Location: Right arm Right arm Patient Position: Sitting Sitting BP Cuff Size: Adult Adult Pulse: 69 70 Resp: 16 16 Temp: 98.3 F (36.8 C) TempSrc: Infrared SpO2: 94% 95% Weight: 75.7 kg (166 lb 14.4 oz) Height: 5' Estimated body mass index is 32.6 kg/m as calculated from the following: Height as of this encounter: 5'. Weight as of this encounter: 75.7 kg (166 lb 14.4 oz). Physical Exam Constitutional: General: She is not in acute distress. Appearance: She is not ill-appearing. HENT: Head: Normocephalic and atraumatic. Nose: Nose normal. Mouth/Throat: Mouth: Mucous membranes are moist. Pharynx: Oropharynx is clear. No oropharyngeal exudate or posterior oropharyngeal erythema. Eyes: Extraocular Movements: Extraocular movements intact. Conjunctiva/sclera: Conjunctivae normal. Pupils: Pupils are equal, round, and reactive to light. Cardiovascular: Rate and Rhythm: Normal rate and regular rhythm. Pulses: Normal pulses. Heart sounds: Normal heart sounds. No murmur heard. No gallop. Pulmonary: Effort: Pulmonary effort is normal. Breath sounds: Normal breath sounds. No wheezing, rhonchi or rales. Chest: Chest wall: No tenderness. Abdominal: General: Abdomen is flat. Bowel sounds are normal. There is no distension. Palpations: Abdomen is soft. There is no mass. Tenderness: There is no abdominal tenderness. There is no right CVA tenderness, left CVA tenderness, guarding or rebound. Musculoskeletal: General: No tenderness. Normal range of motion. Cervical back: Normal range of motion and neck supple. No rigidity. No muscular tenderness. Right lower leg: No edema. Left lower leg: No edema. Lymphadenopathy: Cervical: No cervical adenopathy. Skin: General: Skin is warm. Findings: No erythema or rash. Neurological: General: No focal deficit present. Mental Status: She is alert and oriented to person, place, and time. Sensory: No sensory deficit. Motor: No weakness. Gait: Gait normal. Psychiatric: Mood and Affect: Mood normal. Behavior: Behavior normal. Thought Content: Thought content normal. Judgment: Judgment normal. OARRS/NARxCHECK Report Received and Assessed: Date controlled substance agreement signed: No data found Date of last drug screen: @Exam@ PHQ9: SARAH-7 Tobacco Counseling: Counseling given: Not Answered Patient's Medications New Prescriptions SEMAGLUTIDE (OZEMPIC) 0.25 MG OR 0.5 MG (2 MG/3 ML) PEN Inject 0.5 (one-half) mg under the skin once a week 0.25 mg for 1-2 weeks then increase to 0.5 mg thereafter . Previous Medications ASPIRIN 81 MG EC TABLET Take 1 (one) tablet (81 mg total) by mouth daily . ATENOLOL (TENORMIN) 50 MG TABLET Take 1 (one) tablet (50 mg total) by mouth daily . ATORVASTATIN (LIPITOR) 40 MG TABLET Take 1 (one) tablet (40 mg total) by mouth daily . CHOLECALCIFEROL, VITAMIN D3, 50 MCG (2,000 UNIT) TAB Take 1 (one) tablet (2,000 Units total) by mouth daily . FENOFIBRATE (TRICOR) 145 MG TABLET Take 1 (one) tablet (145 mg total) by mouth daily . FUROSEMIDE (LASIX) 20 MG TABLET Take 1 (one) tablet (20 mg total) by mouth daily as needed . HYDROCODONE-ACETAMINOPHEN (NORCO) 5-325 MG PER TABLET Take 1 (one) tablet by mouth every 4 (four) hours as needed for pain (Days supply per fill: 30) . OMEPRAZOLE (PRILOSEC) 20 MG CAPSULE Take 1 (one) capsule (20 mg total) by mouth daily . POTASSIUM CHLORIDE 10 MEQ CR TABLET Take 1 (one) tablet (10 mEq total) by mouth daily . Modified Medications Modified Medication Previous Medication CONJUGATED ESTROGENS (PREMARIN) VAGINAL CREAM conjugated estrogens (Premarin) vaginal cream Insert 1.5 (one and a half) g into the vagina twice weekly . Insert 1 (one) g into the vagina twice weekly Start: 09/01/23. Discontinued Medications No medications on file Health Maintenance Due Topic Date Due Tetanus: Every 10yrs Never done Dexa Scan Never done Diabetic Foot Exam Never done Diabetic Eye Exam Never done Hepatitis C Screening Never done Zoster Vaccines (1 of 2) Never done Colorectal Cancer Screening/Monitoring 08/04/2018 Pneumococcal Vaccine: Age 65+ (1 of 1 - PCV) Never done COVID-19 Vaccine ( - 2022-24 season) Never done Wellness Visit 02/29/2024 Assessment & Plan Problem List Items Addressed This Visit Endocrine Diabetes (HCC) Relevant Medications semaglutide (Ozempic) 0.25 mg or 0.5 mg (2 mg/3 mL) Pen Other Relevant Orders Ambulatory referral to Nutrition Services Hemoglobin A1c Genitourinary Vaginal dryness, menopausal - Primary Relevant Medications conjugated estrogens (Premarin) vaginal cream Other Visit Diagnoses At low risk for fall Obesity (BMI 30-39.9) Relevant Orders Ambulatory referral to Nutrition Services Assessment & Plan 1. Vaginal atrophy. The dosage of Premarin will be escalated. Stressed on the importance to use it twice a week for maintenance. I discussed with her that this is the proper way to use it. 2. Weight management. Dietary modifications were recommended. A consultation with a dietitian was recommended. Had a lengthy discussion regarding the diagnosis of diabetes and what that entails. Discussed different regimens that help with diabetes control as well as weight loss, agreeable to start on Ozempic she will call and let us know if she needs teaching for Ozempic with a nurse visit. Follow-up A follow-up appointment is scheduled for 3 to 4 months from now. After discussing the use of ambient listening and audio recording in generating medical documentation, the patient verbally consented to use of this technology for today's visit. My ongoing relationship with Katherine Da Silva requires continued responsibility and cognitive effort of being the focal point for all services related to chronic condition(s). I spent 40 minutes with patient reviewing HPI and coordinating plan of care. Return in about 4 months (around 06/27/2024) for Follow Up. SIMÓN SPAULDING MD [facility] [address] [facility] [address] [facility] [address] Dept: [phone] 08/29/2023 11:56 AM Depression Screening Little interest or pleasure in doing things 0 Feeling down, depressed, or hopeless 1 PHQ-2 Total Score 1 Trouble falling or staying asleep, or sleeping too much 0 Feeling tired or having little energy 0 Poor appetite or overeating 0 Feeling bad about yourself - or that you are a failure or have let yourself or your family down 1 Trouble concentrating on things, such as reading the newspaper or watching television 0 Moving or speaking so slowly that other people could have noticed. Or the opposite - being so fidgety or restless that you have been moving around a lot more than usual 0 Thoughts that you would be better off , or of hurting yourself in some way 0 PHQ-9 Total Score 2 If you checked off any problems, how difficult have these problems made it for you to do your work, take care of things at home, or get along with other people? Not difficult at all documented in this encounter [facility] 02-26-2024 History of Presen t illness Narrative Chief Complaint Patient presents with Follow-up 6 month f/u Fall Risk Screening HPI: Katherine Da Silva is a 68 y.o. female presenting today [facility] Former patient in [facility] in [place], recently moved back to [place], still works in [place] and retiring next year to settle locally. HTN: Chronic , diet controlled Currently on atenolol primarily for calming the pulse. For the past 2 weeks has been taking Azo feels better bt as soon as she stops she gets urgency , dribbling and foul smelling . Dipstick shows positive for nitrates and leuk esterase. Breast cancer : Diagnosed 2005 with lumpectomy then chemo and radiation , has had sepsis in 2009 followed by mastectomy given infection, follow-up with annual mammogram. Overdue at this time Skin cancer: Establishing with dermatology locally for history of SCC and BCC. PAD: Aortobifemoral bypass (10/28/18) Atherectomy/angioplasty right SFA (01/07/19) Severe PAD. She underwent aortobifemoral bypass and percutaneous angioplasty of her right SFA. medical therapy with aspirin and lipitor 40 mg. Currently having mild left internal groin pain on certain movements as if she pulled a muscle was wondering if it is related to her previous procedures. Fibromyalgia: Chronic for which she follow-up with Dr. Ruiz at the pain clinic in [facility] currently on hydrocodone 500/325. We will get records Vaginal dryness: Controlled on Premarin cream that she is using 4 days a week. Has not had any trouble and seems to help with painful intercourse. 02/25:The patient reports experiencing difficulties in managing her Premarin prescription. She has adjusted her dosage from once or twice a month to once or twice every 3.5 months due to thin vaginal lobo and perceived tearing during sexual intercourse. She notes that the prescribed Premarin has been effective in managing her symptoms. History of Present Illness Obesity and diabetes: The patient has been struggling with weight loss since her 60s, which has now become increasingly challenging. She has attempted dieting since the age of 61, with intermittent success. She is seeking a food suppressant to aid in weight loss. She has gained approximately 10 pounds since her last visit, which she attributes to stress eating. Her diet includes salads and meat, albeit not daily. Past Medical History: Diagnosis Date Cancer (HCC) Breast CA Fibromyalgia Hypertension Lymphedema Past Surgical History: Procedure Laterality Date BREAST REDUCTION BREAST SURGERY BYPASS AORTOBIFEMORAL REPAIR/GRAFT CHOLECYSTECTOMY EYE SURGERY Crossed eye SKIN GRAFT TONSILLECTOMY Family History Problem Relation Age of Onset Breast cancer Neg Hx Social History Tobacco Use Smoking status: Former Types: Cigarettes Passive exposure: Never Smokeless tobacco: Never Vaping Use Vaping Use: Never used Substance Use Topics Alcohol use: Not Currently Drug use: Never Review of Systems Vitals: 02/26/24 1523 02/26/24 1530 BP: (!) 141/67 133/73 BP Location: Right arm Right arm Patient Position: Sitting Sitting BP Cuff Size: Adult Adult Pulse: 69 70 Resp: 16 16 Temp: 98.3 F (36.8 C) TempSrc: Infrared SpO2: 94% 95% Weight: 75.7 kg (166 lb 14.4 oz) Height: 5' Estimated body mass index is 32.6 kg/m as calculated from the following: Height as of this encounter: 5'. Weight as of this encounter: 75.7 kg (166 lb 14.4 oz). Physical Exam Constitutional: General: She is not in acute distress. Appearance: She is not ill-appearing. HENT: Head: Normocephalic and atraumatic. Nose: Nose normal. Mouth/Throat: Mouth: Mucous membranes are moist. Pharynx: Oropharynx is clear. No oropharyngeal exudate or posterior oropharyngeal erythema. Eyes: Extraocular Movements: Extraocular movements intact. Conjunctiva/sclera: Conjunctivae normal. Pupils: Pupils are equal, round, and reactive to light. Cardiovascular: Rate and Rhythm: Normal rate and regular rhythm. Pulses: Normal pulses. Heart sounds: Normal heart sounds. No murmur heard. No gallop. Pulmonary: Effort: Pulmonary effort is normal. Breath sounds: Normal breath sounds. No wheezing, rhonchi or rales. Chest: Chest wall: No tenderness. Abdominal: General: Abdomen is flat. Bowel sounds are normal. There is no distension. Palpations: Abdomen is soft. There is no mass. Tenderness: There is no abdominal tenderness. There is no right CVA tenderness, left CVA tenderness, guarding or rebound. Musculoskeletal: General: No tenderness. Normal range of motion. Cervical back: Normal range of motion and neck supple. No rigidity. No muscular tenderness. Right lower leg: No edema. Left lower leg: No edema. Lymphadenopathy: Cervical: No cervical adenopathy. Skin: General: Skin is warm. Findings: No erythema or rash. Neurological: General: No focal deficit present. Mental Status: She is alert and oriented to person, place, and time. Sensory: No sensory deficit. Motor: No weakness. Gait: Gait normal. Psychiatric: Mood and Affect: Mood normal. Behavior: Behavior normal. Thought Content: Thought content normal. Judgment: Judgment normal. OARRS/NARxCHECK Report Received and Assessed: Date controlled substance agreement signed: No data found Date of last drug screen: @Exam@ PHQ9: SARAH-7 Tobacco Counseling: Counseling given: Not Answered Patient's Medications New Prescriptions SEMAGLUTIDE (OZEMPIC) 0.25 MG OR 0.5 MG (2 MG/3 ML) PEN Inject 0.5 (one-half) mg under the skin once a week 0.25 mg for 1-2 weeks then increase to 0.5 mg thereafter . Previous Medications ASPIRIN 81 MG EC TABLET Take 1 (one) tablet (81 mg total) by mouth daily . ATENOLOL (TENORMIN) 50 MG TABLET Take 1 (one) tablet (50 mg total) by mouth daily . ATORVASTATIN (LIPITOR) 40 MG TABLET Take 1 (one) tablet (40 mg total) by mouth daily . CHOLECALCIFEROL, VITAMIN D3, 50 MCG (2,000 UNIT) TAB Take 1 (one) tablet (2,000 Units total) by mouth daily . FENOFIBRATE (TRICOR) 145 MG TABLET Take 1 (one) tablet (145 mg total) by mouth daily . FUROSEMIDE (LASIX) 20 MG TABLET Take 1 (one) tablet (20 mg total) by mouth daily as needed . HYDROCODONE-ACETAMINOPHEN (NORCO) 5-325 MG PER TABLET Take 1 (one) tablet by mouth every 4 (four) hours as needed for pain (Days supply per fill: 30) . OMEPRAZOLE (PRILOSEC) 20 MG CAPSULE Take 1 (one) capsule (20 mg total) by mouth daily . POTASSIUM CHLORIDE 10 MEQ CR TABLET Take 1 (one) tablet (10 mEq total) by mouth daily . Modified Medications Modified Medication Previous Medication CONJUGATED ESTROGENS (PREMARIN) VAGINAL CREAM conjugated estrogens (Premarin) vaginal cream Insert 1.5 (one and a half) g into the vagina twice weekly . Insert 1 (one) g into the vagina twice weekly Start: 09/01/23. Discontinued Medications No medications on file Health Maintenance Due Topic Date Due Tetanus: Every 10yrs Never done Dexa Scan Never done Diabetic Foot Exam Never done Diabetic Eye Exam Never done Hepatitis C Screening Never done Zoster Vaccines (1 of 2) Never done Colorectal Cancer Screening/Monitoring 08/04/2018 Pneumococcal Vaccine: Age 65+ (1 of 1 - PCV) Never done COVID-19 Vaccine (2022-24 season) Never done Wellness Visit 02/29/2024 Assessment & Plan Problem List Items Addressed This Visit Endocrine Diabetes (HCC) Relevant Medications semaglutide (Ozempic) 0.25 mg or 0.5 mg (2 mg/3 mL) Pen Other Relevant Orders Ambulatory referral to Nutrition Services Hemoglobin A1c Genitourinary Vaginal dryness, menopausal - Primary Relevant Medications conjugated estrogens (Premarin) vaginal cream Other Visit Diagnoses At low risk for fall Obesity (BMI 30-39.9) Relevant Orders Ambulatory referral to Nutrition Services Assessment & Plan 1. Vaginal atrophy. The dosage of Premarin will be escalated. Stressed on the importance to use it twice a week for maintenance. I discussed with her that this is the proper way to use it. 2. Weight management. Dietary modifications were recommended. A consultation with a dietitian was recommended. Had a lengthy discussion regarding the diagnosis of diabetes and what that entails. Discussed different regimens that help with diabetes control as well as weight loss, agreeable to start on Ozempic she will call and let us know if she needs teaching for Ozempic with a nurse visit. Follow-up A follow-up appointment is scheduled for 3 to 4 months from now. After discussing the use of ambient listening and audio recording in generating medical documentation, the patient verbally consented to use of this technology for today's visit. My ongoing relationship with Katherine Da Silva requires continued responsibility and cognitive effort of being the focal point for all services related to chronic condition(s). I spent 40 minutes with patient reviewing HPI and coordinating plan of care. Return in about 4 months (around 06/27/2024) for Follow Up. SIMÓN SPAULDING MD [facility] [address] [place] [id number] Dept: [phone] 08/29/2023 11:56 AM Depression Screening Little interest or pleasure in doing things 0 Feeling down, depressed, or hopeless 1 PHQ-2 Total Score 1 Trouble falling or staying asleep, or sleeping too much 0 Feeling tired or having little energy 0 Poor appetite or overeating 0 Feeling bad about yourself - or that you are a failure or have let yourself or your family down 1 Trouble concentrating on things, such as reading the newspaper or watching television 0 Moving or speaking so slowly that other people could have noticed. Or the opposite - being so fidgety or restless that you have been moving around a lot more than usual 0 Thoughts that you would be better off , or of hurting yourself in some way 0 PHQ-9 Total Score 2 If you checked off any problems, how difficult have these problems made it for you to do your work, take care of things at home, or get along with other people? Not difficult at all documented in this encounter [facility] 11-05-2023 History of Presen t illness Narrative Pt originally scheduled on 01/08/24, needed to reschedule due to provider out of office. was willing to see pt on 12/26/23 at 1:40 instead, pt declined, states she needs to move this appt out to February for insurance coverage purposes. documented in this encounter [facility] 08-29-2023 Evaluation + Plan note Associated Problem(s): Vaginal dryness, menopausal Refill Premarin cream, advised patient to use twice a week, was checked per oncology in the past prior to using it and was told it would be fine to continue on it [facility] 08-29-2023 Miscellaneous Notes Associate d Problem(s): Vaginal dryness, menopausal Refill Premarin cream, advised patient to use twice a week, was checked per oncology in the past prior to using it and was told it would be fine to continue on it Associated Problem(s): Fibromyalgia Chronic for which she follow-up with Dr. Ruiz at the pain clinic in [facility] currently on hydrocodone 500/325. We will get records Associated Problem(s): Skin cancer SCC and BCC, following up with dermatology establishing will get records Associated Problem(s): Cancer (HCC) History of breast cancer in 2007 At this time mammogram ordered to be followed up annually, no previous history of recurrence. Associated Problem(s): Hypertension Controlled with diet and atenolol Blood work ordered today Associated Problem(s): Left groin pain I believe this is musculoskeletal and related to left hip pain, patient will continue to monitor it and work on stretches at home and will let me know if it got worse. Associated Problem(s): PAD (peripheral artery disease) (HCC) Used to follow-up with vascular medicine in [place] s/p aortobifemoral bypass as well as atherectomy of right SFA in 2019. Currently on Lipitor 40 mg and aspirin 81 mg. No concerns at this time documented in this encounter [facility] 08-29-2023 Evaluation + Plan note Associated Problem(s): Fibromyalgia Chronic for which she follow-up with Dr. Ruiz at the pain clinic in [facility] currently on hydrocodone 500/325. We will get records [facility] 08-29-2023 Evaluation + Plan note Associated Problem(s): Skin cancer SCC and BCC, following up with dermatology establishing will get records [facility] 08-29-2023 Evaluation + Plan note Associated Problem(s): Cancer (HCC) History of breast cancer in 2007 At this time mammogram ordered to be followed up annually, no previous history of recurrence. [facility] 08-29-2023 Evaluation + Plan note Associated Problem(s): Hypertension Controlled with diet and atenolol Blood work ordered today [facility] 08-29-2023 Evaluation + Plan note Associated Problem(s): Left groin pain I believe this is musculoskeletal and related to left hip pain, patient will continue to monitor it and work on stretches at home and will let me know if it got worse. [facility] 08-29-2023 Evaluation + Plan note Associated Problem(s): PAD (peripheral artery disease) (HCC) Used to follow-up with vascular medicine in [place] s/p aortobifemoral bypass as well as atherectomy of right SFA in 2019. Currently on Lipitor 40 mg and aspirin 81 mg. No concerns at this time [facility] 08-29-2023 Instructions Simón Spaulding MD - 08/29/2023 11:30 AM EST Problem List Items Addressed This Visit Cardiovascular and Mediastinum Hypertension Relevant Medications atenoloL (TENORMIN) 50 MG tablet furosemide (LASIX) 20 MG tablet potassium chloride 10 MEQ CR tablet PAD (peripheral artery disease) (HCC) Other Cancer (HCC) Other Visit Diagnoses Dysuria - Primary Relevant Orders POC Urinalysis Dipstick, Auto (Completed) Urine Aerobic Culture Acute cystitis without hematuria Relevant Medications nitrofurantoin, macrocrystal-monohydrate, (MACROBID) 100 MG capsule Encounter for screening for malignant neoplasm of breast, unspecified screening modality Relevant Orders Mammography Screening Yogesh Bilateral Prediabetes Relevant Orders TSH with Reflex Free T4 Microalbumin/Creatinine Ratio, UR Random Hemoglobin A1c Lipid Panel Comprehensive Metabolic Panel Hyperlipidemia, unspecified hyperlipidemia type Relevant Medications atorvastatin (LIPITOR) 40 MG tablet fenofibrate (TRICOR) 145 MG tablet Vaginal dryness, menopausal Relevant Medications conjugated estrogens (Premarin) vaginal cream (Start on 09/01/2023) If any referrals were placed at the time of your visit please allow 2 weeks for processing. If you haven't heard from anyone within 2 weeks please contact my office so we can look into the status of your referral. If you were given any labs today please ensure they are completed according to the directions given. Once labs are completed please allow 1-2 weeks for us to receive the results, review them, and let you know what steps, if any, are needed next. If you haven't heard from us after that please call to inquire. If labs were ordered to be done PRIOR to your next visit we will discuss the results at the time of your office visit. If any procedures or imaging studies were ordered that must be prior authorized please give us 2 weeks to get them approved. Once approved someone should call you to schedule them or give you a date and time that they were scheduled for. If you haven't heard anything within 2 weeks of the office visit please call the office so we can look into their status. Customer Service/Billing Questions: [phone] [employer] Assistance: [phone] or [phone] Financial Assistance: [phone] or [phone] Friday 7 am to 5 pm Friday 7 am to 5 pm Friday closed 7 am to 5 pm Friday 8 am to 2 pm documented in this encounter [facility] 08-29-2023 History of Presen t illness Narrative Chief Complaint Patient presents with Establish Care UTI? HPI: Katherine Da Silva is a 68 y.o. female presenting today as a new patient to reestablish care. Former patient in [facility] in [place], recently moved back to [place], still works in [place] and retiring next year to settle locally. HTN: Chronic , diet controlled Currently on atenolol primarily for calming the pulse. For the past 2 weeks has been taking Azo feels better bt as soon as she stops she gets urgency , dribbling and foul smelling . Dipstick shows positive for nitrates and leuk esterase. Breast cancer : Diagnosed 2005 with lumpectomy then chemo and radiation , has had sepsis in 2009 followed by mastectomy given infection, follow-up with annual mammogram. Overdue at this time Skin cancer: Establishing with dermatology locally for history of SCC and BCC. PAD: Aortobifemoral bypass (10/28/18) Atherectomy/angioplasty right SFA (01/07/19) Severe PAD. She underwent aortobifemoral bypass and percutaneous angioplasty of her right SFA. medical therapy with aspirin and lipitor 40 mg. Currently having mild left internal groin pain on certain movements as if she pulled a muscle was wondering if it is related to her previous procedures. Fibromyalgia: Chronic for which she follow-up with Dr. Ruiz at the pain clinic in [facility] currently on hydrocodone 500/325. We will get records Vaginal dryness: Controlled on Premarin cream that she is using 4 days a week. Has not had any trouble and seems to help with painful intercourse. Past Medical History: Diagnosis Date Cancer (HCC) Breast CA Fibromyalgia Hypertension Lymphedema Past Surgical History: Procedure Laterality Date BREAST REDUCTION BREAST SURGERY BYPASS AORTOBIFEMORAL REPAIR/GRAFT CHOLECYSTECTOMY EYE SURGERY Crossed eye SKIN GRAFT TONSILLECTOMY No family history on file. Social History Tobacco Use Smoking status: Former Types: Cigarettes Passive exposure: Never Smokeless tobacco: Never Vaping Use Vaping Use: Never used Substance Use Topics Alcohol use: Not Currently Drug use: Never Review of Systems Vitals: 08/29/23 1026 BP: 125/80 BP Location: Right arm Patient Position: Sitting BP Cuff Size: Adult Pulse: 71 Resp: 16 Temp: 98.1 F (36.7 C) TempSrc: Temporal SpO2: 95% Weight: 71.2 kg (157 lb) Height: 5' Estimated body mass index is 30.66 kg/m as calculated from the following: Height as of this encounter: 5'. Weight as of this encounter: 71.2 kg (157 lb). Physical Exam Constitutional: General: She is not in acute distress. Appearance: She is not ill-appearing. HENT: Head: Normocephalic and atraumatic. Nose: Nose normal. Mouth/Throat: Mouth: Mucous membranes are moist. Pharynx: Oropharynx is clear. No oropharyngeal exudate or posterior oropharyngeal erythema. Eyes: Extraocular Movements: Extraocular movements intact. Conjunctiva/sclera: Conjunctivae normal. Pupils: Pupils are equal, round, and reactive to light. Cardiovascular: Rate and Rhythm: Normal rate and regular rhythm. Pulses: Normal pulses. Heart sounds: Normal heart sounds. No murmur heard. No gallop. Pulmonary: Effort: Pulmonary effort is normal. Breath sounds: Normal breath sounds. No wheezing, rhonchi or rales. Chest: Chest wall: No tenderness. Abdominal: General: Abdomen is flat. Bowel sounds are normal. There is no distension. Palpations: Abdomen is soft. There is no mass. Tenderness: There is no abdominal tenderness. There is no right CVA tenderness, left CVA tenderness, guarding or rebound. Musculoskeletal: General: No tenderness. Normal range of motion. Cervical back: Normal range of motion and neck supple. No rigidity. No muscular tenderness. Right lower leg: No edema. Left lower leg: No edema. Lymphadenopathy: Cervical: No cervical adenopathy. Skin: General: Skin is warm. Findings: No erythema or rash. Neurological: General: No focal deficit present. Mental Status: She is alert and oriented to person, place, and time. Sensory: No sensory deficit. Motor: No weakness. Gait: Gait normal. Psychiatric: Mood and Affect: Mood normal. Behavior: Behavior normal. Thought Content: Thought content normal. Judgment: Judgment normal. OARRS/NARxCHECK Report Received and Assessed: No data found Date controlled substance agreement signed: No data found Date of last drug screen: No data found Functional Assessment: No data found @Exam@ PHQ9: Over the last 2 weeks, how often have you been bothered by any of the following problems? Little interest or pleasure in doing things: Not at all Feeling down, depressed, or hopeless: Several days PHQ-2 Total Score: 1 Trouble falling or staying asleep, or sleeping too much: Not at all Feeling tired or having little energy: Not at all Poor appetite or overeating: Not at all Feeling bad about yourself - or that you are a failure or have let yourself or your family down: Several days Trouble concentrating on things, such as reading the newspaper or watching television: Not at all Moving or speaking so slowly that other people could have noticed. Or the opposite - being so fidgety or restless that you have been moving around a lot more than usual: Not at all Thoughts that you would be better off , or of hurting yourself in some way: Not at all PHQ-9 Total Score: 2 If you checked off any problems, how difficult have these problems made it for you to do your work, take care of things at home, or get along with other people?: Not difficult at all SARAH-7 Over the last 2 weeks, how often have you been bothered by the following problems? Feeling nervous, anxious or on edge: Not at all Not being able to stop or control worrying: Several days Worrying too much about different things: Over half the days Trouble relaxing: Not at all Being so restless that it is hard to sit still: Not at all Becoming easily annoyed or irritable: Several days Feeling afraid as if something awful might happen: Not at all SARAH-7 Score: 4 Tobacco Counseling: Counseling given: Not Answered Patient's Medications New Prescriptions NITROFURANTOIN, MACROCRYSTAL-MONOHYDRATE, (MACROBID) 100 MG CAPSULE Take 1 (one) capsule (100 mg total) by mouth 2 (two) times a day for 5 days . Previous Medications ASPIRIN 81 MG EC TABLET Take 1 (one) tablet (81 mg total) by mouth daily . CHOLECALCIFEROL, VITAMIN D3, 50 MCG (2,000 UNIT) TAB Take 1 (one) tablet (2,000 Units total) by mouth daily . HYDROCODONE-ACETAMINOPHEN (NORCO) 5-325 MG PER TABLET Take 1 (one) tablet by mouth every 4 (four) hours as needed for pain (Days supply per fill: 30) . Modified Medications Modified Medication Previous Medication ATENOLOL (TENORMIN) 50 MG TABLET atenoloL (TENORMIN) 50 MG tablet Take 1 (one) tablet (50 mg total) by mouth daily . Take 1 (one) tablet (50 mg total) by mouth . ATORVASTATIN (LIPITOR) 40 MG TABLET atorvastatin (LIPITOR) 40 MG tablet Take 1 (one) tablet (40 mg total) by mouth daily . Take 1 (one) tablet (40 mg total) by mouth . CONJUGATED ESTROGENS (PREMARIN) VAGINAL CREAM conjugated estrogens (Premarin) vaginal cream Insert 1 (one) g into the vagina twice weekly Start: 09/01/23. APPLY VAGINALLY ONCE A DAY DIRECTED FENOFIBRATE (TRICOR) 145 MG TABLET fenofibrate (TRICOR) 145 MG tablet Take 1 (one) tablet (145 mg total) by mouth daily . Take 1 (one) tablet (145 mg total) by mouth daily . FUROSEMIDE (LASIX) 20 MG TABLET furosemide (LASIX) 20 MG tablet Take 1 (one) tablet (20 mg total) by mouth daily as needed . Take 1 (one) tablet (20 mg total) by mouth . POTASSIUM CHLORIDE 10 MEQ CR TABLET potassium chloride 10 MEQ CR tablet Take 1 (one) tablet (10 mEq total) by mouth daily . Take 1 (one) tablet (10 mEq total) by mouth daily . Discontinued Medications No medications on file Health Maintenance Due Topic Date Due Tetanus: Every 10yrs Never done Dexa Scan Never done COVID-19 Vaccine (1) Never done Pneumococcal Vaccine: Age 65+ (1 - PCV) Never done Diabetic Foot Exam Never done Diabetic Eye Exam Never done Urine Microalbumin Never done Hepatitis C Screening Never done Zoster Vaccines (1 of 2) Never done Mammogram Never done Colorectal Cancer Screening/Monitoring 08/04/2018 Falls Risk Assessment Never done Sequential Influenza Vaccine (1) Never done Assessment & Plan Problem List Items Addressed This Visit Cardiovascular and Mediastinum Hypertension Controlled with diet and atenolol Blood work ordered today Relevant Medications atenoloL (TENORMIN) 50 MG tablet furosemide (LASIX) 20 MG tablet potassium chloride 10 MEQ CR tablet PAD (peripheral artery disease) (HCC) Used to follow-up with vascular medicine in [place] s/p aortobifemoral bypass as well as atherectomy of right SFA in 2019. Currently on Lipitor 40 mg and aspirin 81 mg. No concerns at this time Musculoskeletal and Integument Skin cancer SCC and BCC, following up with dermatology establishing will get records Genitourinary Vaginal dryness, menopausal Refill Premarin cream, advised patient to use twice a week, was checked per oncology in the past prior to using it and was told it would be fine to continue on it Relevant Medications conjugated estrogens (Premarin) vaginal cream (Start on 09/01/2023) Other Cancer (HCC) History of breast cancer in 2007 At this time mammogram ordered to be followed up annually, no previous history of recurrence. Left groin pain I believe this is musculoskeletal and related to left hip pain, patient will continue to monitor it and work on stretches at home and will let me know if it got worse. Fibromyalgia Chronic for which she follow-up with Dr. Ruiz at the pain clinic in [facility] currently on hydrocodone 500/325. We will get records Other Visit Diagnoses Dysuria - Primary Relevant Orders POC Urinalysis Dipstick, Auto (Completed) Urine Aerobic Culture Acute cystitis without hematuria Relevant Medications nitrofurantoin, macrocrystal-monohydrate, (MACROBID) 100 MG capsule Encounter for screening for malignant neoplasm of breast, unspecified screening modality Relevant Orders Mammography Screening Yogesh Bilateral Prediabetes Relevant Orders TSH with Reflex Free T4 Microalbumin/Creatinine Ratio, UR Random Hemoglobin A1c Lipid Panel Comprehensive Metabolic Panel Hyperlipidemia, unspecified hyperlipidemia type Relevant Medications atorvastatin (LIPITOR) 40 MG tablet fenofibrate (TRICOR) 145 MG tablet Return in about 4 months (around 12/29/2023) for MWV. SIMÓN SPAULDING MD [facility] [place] [address] [facility] [place] [facility] [address] Dept: [phone] 08/29/2023 11:56 AM Depression Screening Little interest or pleasure in doing things 0 Feeling down, depressed, or hopeless 1 PHQ-2 Total Score 1 Trouble falling or staying asleep, or sleeping too much 0 Feeling tired or having little energy 0 Poor appetite or overeating 0 Feeling bad about yourself - or that you are a failure or have let yourself or your family down 1 Trouble concentrating on things, such as reading the newspaper or watching television 0 Moving or speaking so slowly that other people could have noticed. Or the opposite - being so fidgety or restless that you have been moving around a lot more than usual 0 Thoughts that you would be better off , or of hurting yourself in some way 0 PHQ-9 Total Score 2 If you checked off any problems, how difficult have these problems made it for you to do your work, take care of things at home, or get along with other people? Not difficult at all documented in this encounter [facility] Evaluation note Diagnosis Dysuria- Primary Hypertension, unspecified type Cancer (HCC) Other malignant neoplasm of unspecified site Acute cystitis without hematuria Encounter for screening for malignant neoplasm of breast, unspecified screening modality PAD (peripheral artery disease) (HCC) Unspecified peripheral vascular disease Prediabetes Other abnormal glucose Hyperlipidemia, unspecified hyperlipidemia type Vaginal dryness, menopausal Left groin pain Abdominal pain, left lower quadrant Skin cancer Other malignant neoplasm of skin, site unspecified Fibromyalgia Unspecified myalgia and myositis [facility] Vaginal dryness, menopausal- Primary At low risk for fall Type 2 diabetes mellitus without complication, without long-term current use of insulin (HCC) Obesity (BMI 30-39.9) [facility] Diagnosis Vaginal dryness, menopausal- Primary At low risk for fall Type 2 diabetes mellitus without complication, without long-term current use of insulin (HCC) Obesity (BMI 30-39.9) [facility] Diagnosis Vaginal dryness, menopausal- Primary At low risk for fall Type 2 diabetes mellitus without complication, without long-term current use of insulin (HCC) Obesity (BMI 30-39.9) [facility] Diagnosis Vaginal dryness, menopausal- Primary At low risk for fall Type 2 diabetes mellitus without complication, without long-term current use of insulin (HCC) Obesity (BMI 30-39.9) [facility] Diagnosis Hypertension, unspecified type Vaginal dryness, menopausal [facility] Diagnosis Hypertension, unspecified type [facility] Diagnosis Type 2 diabetes mellitus without complication, without long-term current use of insulin (HCC) documented in this encounter [facility] Summary Purpose Family History No Family History Records FoundNo Family History Records FoundNo Family History Records FoundNo Family History Records FoundNo Family History Records FoundNo Family History Records FoundNo Family History Records FoundNo Family History Records FoundNo Family History Records Found Advance Directives Documents on File Type Date 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 Advance Directives and Livin g Will Advance Directives and Livin g Will 10/29/2018 9:01 AM 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 10/29/2018 9:01 AM Latest Code Status on File Code Status Date Activated Date Inactivated Comments Full Code 01/07/2019 7:02 AM 01/08/2019 2:43 AM Full Code 10/28/2018 5:02 PM 11/02/2018 3:42 PM Full Code 10/28/2018 6:54 AM 10/28/2018 5:02 PM Full Code 08/11/2018 7:17 AM 08/12/2018 2:50 AM Documents on File Type Date 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 Advance Directives and Livin g Will 02/19/2024 12:14 PM Documents on File Type Date 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 Advance Directives and Livin g Will 02/19/2024 12:14 PM Reason for Referral Status Reason Specialty Diagnoses / Procedures Referre d By Contact Referred To Contact Open Radiology Diagnoses PAD (peripheral artery disease) (HCC) Procedures VL ARTERIAL PVR LOWER WO EXERCISE Kerri Rajput MD [address] [id number] [id number] [place] [address] Specialty Diagnoses / Procedures Referred By Contac t Referred To Contact Radiology Diagnoses Encounter for screening for malignant neoplasm of breast, unspecified screening modality Procedures Mammography Screening Yogesh Bilateral Simón Spaulding MD [place] [facility] [address] [address] [place] [address] Referral ID Status Reason Start Date Expiration Date V isits Requested Visits Authorized [id number] Authorized 08/29/2023 08/28/2024 1 1 Specialty Diagnoses / Procedures Referred By Contac t Referred To Contact Nutrition Diagnoses Type 2 diabetes mellitus without complication, without long-term current use of insulin (HCC) Obesity (BMI 30-39.9) Simón Spaulding MD [address] Referral ID Status Reason Start Date Expiration Date V isits Requested Visits Authorized [id number] Authorized 02/26/2024 02/25/2025 1 1 Specialty Diagnoses / Procedures Referred By Contac t Referred To Contact Nutrition Diagnoses Type 2 diabetes mellitus without complication, without long-term current use of insulin (HCC) Obesity (BMI 30-39.9) Simón Spaulding MD [address] [address] [facility] [place] [address] Referral ID Status Reason Start Date Expiration Date Visits Re quested Visits Authorized [id number] Closed 02/26/2024 02/25/2025 1 1 Assessments Diagnosis PAD (peripheral artery disease) (HCC) Unspecified disorders of arteries and arterioles Additional Source Comments INFORMATION SOURCE (unrecogn ized section and content) DATE CREATED AUTHOR 03/17/2018 [facility] DATE CREATED AUTHOR AUTHOR'S ORGANIZ ATION 06/02/2019 [facility] DATE CREATED AUTHOR AUTHOR'S ORGANIZ ATION 08/10/2019 [facility] DATE CREATED AUTHOR AUTHOR'S ORGANIZ ATION 01/24/2023 [facility] DATE CREATED AUTHOR AUTHOR'S ORGANIZ ATION 03/01/2023 [facility] DATE CREATED AUTHOR AUTHOR'S ORGANIZ ATION 12/26/2023 [facility] DATE CREATED AUTHOR AUTHOR'S ORGANIZ ATION 02/28/2024 [facility] DATE CREATED AUTHOR AUTHOR'S ORGANIZ ATION 03/25/2024 [facility] DATE CREATED AUTHOR AUTHOR'S ORGANIZ ATION 03/27/2024 [facility] Reason for Visit (unrecogniz ed section and content) Status Reason Specialty Diagnoses / Procedures Referre d By Contact Referred To Contact Open Radiology Diagnoses PAD (peripheral artery disease) (HCC) Procedures VL ARTERIAL PVR LOWER WO EXERCISE Kerri Rajput MD [facility] [id number] [id number] [place] [address] Reason Comments Establish Care UTI? Reason Onset Date Comments rescheduled 11/05/2023 Reason Onset Date Comments Follow-up 6 month f/u Fall Risk Screening 02/26/2024 Reason Onset Date Comments Follow-up 6 month f/u Fall Risk Screening 02/26/2024 Medicare Wellness Visit Reason Onset Date Comments Medication Refill 04/25/2024 Reason Onset Date Comments Medication Refill 05/09/2024 Reason Onset Date Comments Medication Refill 05/20/2024 Care Teams (unrecognized sec tion and content) [employer] Relationship Specialty Start Date End Date Simón Spaulding MD [facility] [address] [address] PCP - General Family Medicine 08/29/23 [employer] Relationship Specialty Start Date End Date Simón Spaulding MD [address] [address] PCP - General Family Medicine 08/29/23 [employer] Relationship Specialty Start Date End Date Simón Spaulding MD [facility] [address] [address] PCP - General Family Medicine 08/29/23 [employer] Relationship Specialty Start Date End Date Simón Spaulding MD [facility] [address] [address] PCP - General Family Medicine 08/29/[address] Dietitian Case Management 02/27/24 [employer] Relationship Specialty Start Date End Date Simón Spaulding MD [address] [address] PCP - General Family Medicine 08/29/[address] Dietitian Case Management 02/27/24 [employer] Relationship Specialty Start Date End Date Simón Spaulding MD [address] [address] PCP - General Family Medicine 08/29/23 Dunia Simon, MIKKI Dietitian Case Management 02/27/24 [employer] Relationship Specialty Start Date End Date Simón Spaulding MD [address] [address] PCP - General Family Medicine 08/29/23 [employer] Relationship Specialty Start Date End Date Simón Spaulding MD [address] [address] PCP - General Family Medicine 08/29/23 FOR RECORDS PERTAINING TO PATIENTS WHO ARE OR HAVE BEEN ENROLLED IN A CHEMICAL DEPENDENCY/SUBSTANCEABUSE PROGRAM, SOME INFORMATION MAY BE OMITTED. This clinical summary was aggregated from multiple sources. Caution should be exercised in using it in the provision of clinical care. This summary normalizes information from multiple sources, and as a consequence, information in this document may materially change the coding, format and clinical context of patient data. In addition, data may be omitted in some cases. CLINICAL DECISIONS SHOULD BE BASED ON THE PRIMARY CLINICAL RECORDS. [employer] [facility]. provides no warranty or guarantee of the accuracy or completeness of information in this document.
--- NOTE | 2024-06-28 14:57 | P.CN_ITS ---
Consult Note: HPI Data of Consult Patient: known to practice within the last 3 years Consult date: 06/28/24 Requesting Physician: Keisha Ruiz MD Primary Care Provider: Non-Staff Physician, Consult Narrative Reason for consult: generalized pain Narrative: 68yof who presents for assessment. continues to have pain generally, but notes that norco has caused some side effects recently. states that she lost significant weight with ozempic, though has recently gained some back. previously uses tramadol, with good benefit. denies adverse med side effects. cc:: CC: Keisha Ruiz MD Review of Systems 2 ROS Status of ROS 10 or more systems reviewed and unremark able except as noted in history and below Meds Home Medications and Allergies Home Medications ?Medication ?Instructions ?Recorded ?Confirmed ?Type atenolol 50 mg tablet 50 mg PO DAILY 04/07/23 04/07/23 History atorvastatin 40 mg tablet 40 mg PO DAILY 04/07/23 04/07/23 History calcium carbonate (Calcium 600) 600 mg PO DAILY 04/07/23 04/07/23 History conjugated estrogens 0.625 mg/gram 0.625 mg vaginal DAILY 04/07/23 04/07/23 History vaginal cream (Premarin) fenofibrate 150 mg capsule 150 mg PO DAILY 04/07/23 04/07/23 History furosemide 20 mg tablet 20 mg PO DAILY 04/07/23 04/07/23 History potassium chloride 10 mEq 10 meq PO DAILY 04/07/23 04/07/23 History tablet,extended release (K-Tab) hydrocodone 5 mg-acetaminophen 325 1 tab PO QID PRN pain #120 tabs 12/31/23 Rx mg tablet hydrocodone 5 mg-acetaminophen 325 1 tab PO QID PRN pain #120 tabs 01/30/24 Rx mg tablet hydrocodone 5 mg-acetaminophen 325 1 tab PO QID PRN pain #120 tabs 02/26/24 Rx mg tablet hydrocodone 5 mg-acetaminophen 325 1 tab PO QID PRN pain #120 tabs 03/29/24 Rx mg tablet hydrocodone 5 mg-acetaminophen 325 1 tab PO QID PRN pain #120 tabs 04/29/24 Rx mg tablet hydrocodone 5 mg-acetaminophen 325 1 tab PO QID PRN pain #120 tabs 05/26/24 Rx mg tablet tramadol 50 mg tablet 50 mg PO QID PRN pain #120 tabs 06/28/24 Rx Allergies Allergy/AdvReac Type Severity Reaction Status Date / Time Penicillins Allergy Verified 04/07/23 14:08 Exam Narrative Exam Narrative: Psych-alert and oriented x 3. Attentive and appropriate, constitutionally normal, displays normal mood and affect per situation.? There are no obvious deficits in memory, reasoning, or intellect.? Skin-no obvious rashes, bruising, erythema noted to the patient's area of pain. Extremities- extremities are warm with minimal edema and palpable pulses. Lumbar-no significant tenderness to palpation noted in the lumbar spine and paraspinal musculature.? Pain is elicited with extension, and lateral rotation of the lumbar spine. Range of motion is slightly diminished with these motions due to pain. Coordination remains intact.? Gait remains non-antalgic. Assessment and Plan Assessment and Plan (1) Lumbar spondylosis: Plan 68yof who presents for assessment. failed conservative measures. continues to do reasonably well with her pain medicines, but will do an opioid rotation to tramadol 50mg qid prn and discontinue norco. she is in agreement. follow up in 3 months.
== END 2024-06-28 12:59 | disposition home or self-care (01) ==
LOC: PM 12:59
PROVIDERS: Visit Provider Anesthesiology
DX: M47.816 Spondylosis without myelopathy or radiculopathy, lumbar region (principal)
CPT/HCPCS: G0463

== ENCOUNTER 2024-09-27 12:21 | Outpatient (OUT) | payer BC, SELFPAY ==
--- NOTE | 2024-09-27 13:25 | P.CN_ITS ---
Consult Note: HPI Data of Consult Patient: known to practice within the last 3 years Consult date: 09/27/24 Requesting Physician: Keisha Ruiz MD Primary Care Provider: Non-Staff Physician, Consult Narrative Reason for consult: low back pain, generalized pain Narrative: 69yof who presents for assessment. notes persistence of generalized pain. currently on ozempic. uses tramadol, but states that she was tolerating the norco better. denies adverse med side effects. cc:: CC: Keisha Ruiz MD Review of Systems ROS Status of ROS 10 or more systems reviewed and unremark able except as noted in history and below Meds Home Medications and Allergies Home Medications ?Medication ?Instructions ?Recorded ?Confirmed ?Type atenolol 50 mg tablet 50 mg PO DAILY 04/07/23 04/07/23 History atorvastatin 40 mg tablet 40 mg PO DAILY 04/07/23 04/07/23 History calcium carbonate (Calcium 600) 600 mg PO DAILY 04/07/23 04/07/23 History conjugated estrogens 0.625 mg/gram 0.625 mg vaginal DAILY 04/07/23 04/07/23 History vaginal cream (Premarin) fenofibrate 150 mg capsule 150 mg PO DAILY 04/07/23 04/07/23 History furosemide 20 mg tablet 20 mg PO DAILY 04/07/23 04/07/23 History potassium chloride 10 mEq 10 meq PO DAILY 04/07/23 04/07/23 History tablet,extended release (K-Tab) tramadol 50 mg tablet 50 mg PO QID PRN pain #120 tabs 06/28/24 Rx naloxone 4 mg/actuation nasal 4 mg intranasal Q2M PRN opioid 07/21/24 Rx spray (Narcan) overdose #2 ea tramadol 50 mg tablet 50 mg PO QID PRN pain #120 tabs 07/21/24 Rx tramadol 50 mg tablet 50 mg PO QID PRN pain #120 tabs 08/24/24 Rx tramadol 50 mg tablet 50 mg PO TID PRN pain #120 tabs 09/21/24 Rx Allergies Allergy/AdvReac Type Severity Reaction Status Date / Time Penicillins Allergy Verified 04/07/23 14:08 Exam Narrative Exam Narrative: Psych-alert and oriented x 3. Attentive and appropriate, constitutionally normal, displays normal mood and affect per situation.? There are no obvious deficits in memory, reasoning, or intellect.? Skin-no obvious rashes, bruising, erythema noted to the patient's area of pain. Extremities- extremities are warm with minimal edema and palpable pulses. Lumbar-no significant tenderness to palpation noted in the lumbar spine and paraspinal musculature.? Pain is elicited with extension, and lateral rotation of the lumbar spine. Range of motion is slightly diminished with these motions due to pain. Coordination remains intact.? Gait remains non-antalgic. Assessment and Plan Assessment and Plan (1) Lumbar spondylosis: Plan 69yof who presents for assessment. continues to do reasonably well with current medication regimen, but would like to go back to norco 5mg qid prn in place of the tramadol, as she was tolerating the side effects better. i will prescribe this and have her waste the tramadol she currently has. she is in agreement. follow up in 3 months.
== END 2024-09-27 12:22 | disposition home or self-care (01) ==
PROVIDERS: Visit Provider Anesthesiology
DX: M47.816 Spondylosis without myelopathy or radiculopathy, lumbar region (principal)
CPT/HCPCS: G0463

== ENCOUNTER 2024-12-27 12:49 | Outpatient (OUT) | payer BC, SELFPAY ==
--- NOTE | 2024-12-27 13:25 | PM.CN ---
Consult Note: HPI Data of Consult Patient: known to practice within the last 3 years Consult date: 12/27/24 Requesting Physician: Keisha Ruiz MD Primary Care Provider: Non-Staff Physician, Consult Narrative Reason for consult: low back pain, bilateral hip pain Narrative: 69yof who presents for assessment. she notes persistence of low back pain. she ntoes that a few weeks ago, she had severe right hip and groin pain, which prompted presentation to the ED. dopplers were completed, which did not show occlusion. since then, pain has subsided on its own. continues to use norco. denies adverse med side effects. cc:: CC: Keisha Ruiz MD Review of Systems ROS Status of ROS 10 or more systems reviewed and unremarkable except as noted in history and below Meds Home Medications and Allergies Home Medications ?Medication ?Instructions ?Recorded ?Confirmed ?Type atenolol 50 mg tablet 50 mg PO DAILY 04/07/23 04/07/23 History atorvastatin 40 mg tablet 40 mg PO DAILY 04/07/23 04/07/23 History calcium carbonate (Calcium 600) 600 mg PO DAILY 04/07/23 04/07/23 History conjugated estrogens 0.625 mg/gram 0.625 mg vaginal DAILY 04/07/23 04/07/23 History vaginal cream (Premarin) fenofibrate 150 mg capsule 150 mg PO DAILY 04/07/23 04/07/23 History furosemide 20 mg tablet 20 mg PO DAILY 04/07/23 04/07/23 History potassium chloride 10 mEq 10 meq PO DAILY 04/07/23 04/07/23 History tablet,extended release (K-Tab) tramadol 50 mg tablet 50 mg PO QID PRN pain #120 tabs 06/28/24 Rx naloxone 4 mg/actuation nasal 4 mg intranasal Q2M PRN opioid 07/21/24 Rx spray (Narcan) overdose #2 ea hydrocodone 5 mg-acetaminophen 325 1 tab PO QID PRN pain #120 tabs 09/27/24 Rx mg tablet hydrocodone 5 mg-acetaminophen 325 1 tab PO QID PRN pain #120 tabs 10/20/24 Rx mg tablet hydrocodone 5 mg-acetaminophen 325 1 tab PO QID PRN pain #120 tabs 11/19/24 Rx mg tablet hydrocodone 5 mg-acetaminophen 325 1 tab PO QID PRN pain #120 tabs 12/17/24 Rx mg tablet Allergies Allergy/AdvReac Type Severity Reaction Status Date / Time Penicillins Allergy Verified 04/07/23 14:08 Exam Narrative Exam Narrative: Psych-alert and oriented x 3. Attentive and appropriate, constitutionally normal, displays normal mood and affect per situation.? There are no obvious deficits in memory, reasoning, or intellect.? Skin-no obvious rashes, bruising, erythema noted to the patient's area of pain. Extremities- extremities are warm with minimal edema and palpable pulses. Lumbar-no significant tenderness to palpation noted in the lumbar spine and paraspinal musculature.? Pain is elicited with extension, and lateral rotation of the lumbar spine. Range of motion is slightly diminished with these motions due to pain. Coordination remains intact.? Gait remains non-antalgic. Assessment and Plan Assessment and Plan (1) Lumbar spondylosis: Plan 69yof who presents for assessment. failed conservative measures, as noted. given persistence of pain, will continue norco as before, which helps her pain. also recommended that she follow up with traffic supervisor. she states that she no longer follows with one and requested referral to cardiology in [facility], so i will place this when she tells us where she would like to go. follow up in 3 months.
== END 2024-12-27 12:50 | disposition home or self-care (01) ==
LOC: PM 12:52
PROVIDERS: Visit Provider Anesthesiology
DX: M47.816 Spondylosis without myelopathy or radiculopathy, lumbar region (principal)
CPT/HCPCS: G0463

== ENCOUNTER 2025-03-28 13:02 | Outpatient (OUT) | payer BC, SELFPAY ==
--- OUTSIDE RECORDS SUMMARY | 2024-12-27 | XMS_ITS ---
Author Name Auto Generated Organization OHIP Care Team Providers Care Tourist Escort Name Role Phone Sara GALVEZ, Keisha Lorenzo Attending Unavailable Sara GALVEZ, Keisha Lorenoz Attending Unavailable Sara GALVEZ, Andrius Lorenzo Attending Unavailable RACHEL, SIMÓN KATIA MOUNIR Primary Care Mirela vailable MILAGRO PURVIS Attending Unavailable RACHEL SIMÓN KATIA MOUNIR Primary Care Mirela vailable RACHEL, SIMÓN KATIA MOUNIR Attending Mirela vailable DAVID COLMENARES Primary Care Unavailable JUICE CONTE Referring Unava ilable JUICE CONTE Attending Unava ilable DAVID COLMENARES Primary Care Unavailable MILAGRO PURVIS Referring Unavailable MILAGRO PURVIS Attending Unavailable PROBLEMS DATE TYPE CONDITION / CODE ATTENDING STATUS [facility] 12/10/2024 Admitting diagnosis Abdominal aortic aneurysm, without rupture, unspecified / I71.40(ICD-10) JUICE CONTE [facility] 12/10/2024 Admitting diagnosis Other specified peripheral vascular diseases / I73.89(ICD-10) JUICE CONTE [facility] 11/17/2024 Admitting diagnosis Low back pain, unspecified / M54.50(ICD-10) MILAGRO PURVIS [facility] 11/17/2024 Admitting diagnosis Right lower quadrant pain / R10.31(ICD-10) MILAGRO PURVIS [facility] 03/30/2024 Admitting diagnosis Other vitreous opacities, unspecified eye / H43.399(ICD-10) SIMÓN SPAULDING [facility] Ambulatory PROCEDURES No Procedure Records Found RESULTS US ANKLE/BRACHIAL INDICES EXTREMITY LIMITED Observed: 12/10/2024 3:06 PM Status: F Source: [facility] Patient Info Name: KATHERINE DA SILVA Age: 69 years : 1955 Gender: Female Exam Date: 12/10/2024 1:03 PM Patient Status: Outpatient [employer] Supervisor: Rosemarie Stewart RDMS (AB) RVS Referring Physician: JUICE CONTE ; Indications I73.9 - Peripheral vascular disease, unspecified Procedure Description 58500 Limited bilateral noninvasive physiologic studies of upper or lower extremity arteries with bidirectional Doppler/PVR waveform analysis at 1-2 levels. Conclusions * Right. * Right ankle brachial index is normal. DEMETRIUS is 1.01. * Mild small vessel disease at the transmetatarsal level in the right foot. * Right toe brachial index is abnormal. * Left. * Left ankle brachial index is normal. DEMETRIUS is 0.98. * No evidence of small vessel disease at the transmetatarsal level in the left foot. * Left toe brachial index is abnormal. Recommendations * This study indicates normal resting DEMETRIUS's bilaterally. Doppler and PVR waveforms show satisfactory amplitude and triphasic patterns at both ankles. Clinical correlation advised. . Doppler Findings Bilateral posterior tibial arteries are a low triphasic/high biphasic waveform. Doppler Rt Posterior Tibial: Triphasic Rt Dorsalis Pedis: Triphasic Lt Posterior Tibial: Triphasic Lt Dorsalis Pedis: Triphasic PVR Rt Ankle: Normal Lt Ankle: Normal Rt Digit: Abnormal Lt Digit: Abnormal Rt Brachial: 161 Rt Posterior Tibial: 156 Rt Dorsalis Pedis: 163 Rt Digit: 109 0.97 1.01 0.68 Lt Brachial: 161 Lt Posterior Tibial: 156 Lt Dorsalis Pedis: 157 Lt Digit: 93 0.97 0.98 0.58 Prior Study Date: 08/09/2019 Risk Factors Patient has a history of hypertension, hyperlipidemia, PAD and tobacco use-previous. . Report Signatures Finalized by MANJEET Muhammad DO on 12/10/2024 03:05 PM US DUPLEX ARTERIAL LEG RIGHT Observed: 0 12/10/2024 3:02 PM Status: F Source: [facility] Patient Info Name: KATHERINE DA SILVA Age: 69 years : 1955 Gender: Female Exam Date: 12/10/2024 1:30 PM Patient Status: Outpatient [employer] Supervisor: Rosemarie Stewart RDMS (AB), RVS Referring Physician: MILAGRO PURVIS ; Indications - Right groin pain and patient has history of aortoiliac femoral graft, attention to groin I71.4 - Abdominal aortic aneurysm, without rupture Procedure Description 19903 Duplex scan of lower extremity arteries or arterial bypass grafts using B-mode, color and spectral Doppler; unilateral or limited study. Conclusions * Right. * Dilatation noted in the proximal superficial femoral artery, possibly related to prior arterial bypass/anastamosis. Proximal superficial femoral artery measures 1.2 cm x 1.2 cm. * Elevated velocities noted in the proximal superificial femoral artery with a velocity of 172 cm/s, however, this may elevated due to diameter difference of the proximal portion of the superficial femoral artery. * Less than 50% stenosis in the right lower extremity, however low velocities are noted throughout entire right lower extremity. * Difficult exam due to atherosclerotic plaque. Right Measurements Name Value Right PSV Right Distal EIA PSV 53 cm/s Right Mid ACADEMIC SUPPORT SPECIALIST PSV 32 cm/s Right Prox Profunda PSV 63 cm/s Right Prox SFA PSV 172 cm/s Right Mid SFA PSV 69 cm/s Right Distal SFA PSV 48 cm/s Right Prox Pop A PSV 45 cm/s Right Distal Pop A PSV 63 cm/s Right Prox THOMAS PSV 58 cm/s Right Mid THOMAS PSV 51 cm/s Right Distal THOMAS PSV 54 cm/s Right Prox Dorcas A PSV 45 cm/s Right Mid Dorcas A PSV 45 cm/s Right Distal Dorcas A PSV 48 cm/s Right Prox DISTANCE LEARNING PROGRAM COORDINATOR PSV 48 cm/s Right Mid DISTANCE LEARNING PROGRAM COORDINATOR PSV 35 cm/s Right Distal DISTANCE LEARNING PROGRAM COORDINATOR PSV 30 cm/s R DEMETRIUS 1.01 Right Measurements Name Value Right EDV Right Distal EIA EDV 6 cm/s Right Mid ACADEMIC SUPPORT SPECIALIST EDV 0 cm/s Right Prox Profunda EDV 3 cm/s Right Prox SFA EDV 0 cm/s Right Mid SFA EDV 0 cm/s Right Distal SFA EDV 0 cm/s Right Prox Pop A EDV 0 cm/s Right Distal Pop A EDV 0 cm/s Right Prox THOMAS EDV 0 cm/s Right Mid THOMSA EDV 4 cm/s Right Distal THOMAS EDV 0 cm/s Right Prox Dorcas A EDV 0 cm/s Right Mid Dorcas A EDV 0 cm/s Right Distal Dorcas A EDV 3 cm/s Right Prox DISTANCE LEARNING PROGRAM COORDINATOR EDV 6 cm/s Right Mid DISTANCE LEARNING PROGRAM COORDINATOR EDV 6 cm/s Right Distal DISTANCE LEARNING PROGRAM COORDINATOR EDV 4 cm/s Right Stenosis Measurements Name Value PSV Rt Pre Stenosis PSV 43 cm/s Rt At Stenosis PSV 172 cm/s Rt Ratio 4.0 Right Stenosis Measurements Name Value EDV Rt Pre Stenosis EDV 0 cm/s Rt At Stenosis EDV 0 cm/s Stenosis Location (1) (right): proximal superficial femoral Right Findings Calcific plaque noted in the right external iliac, common femoral, profunda femoral, superficial femoral, popliteal, posterior tibial, peroneal and anterior tibial arteries. Risk Factors Patient has a history of hypertension, malignancy, tobacco use-previous and PAD. . Report Signatures Finalized by MANJEET Muhammad DO on 12/10/2024 03:01 PM US DUPLEX ARTERIAL LEG RIGHT Observed: 0 12/10/2024 12:43 PM Status: F Source: [facility] Patient Info Name: KATHERINE DA SILVA Age: 69 years : 1955 Gender: Female Exam Date: 12/10/2024 1:30 PM Patient Status: Outpatient [employer] Supervisor: Rosemarie Stewart RDMS (AB), RVS Referring Physician: MILAGRO PURVIS ; Indications - Right groin pain and patient has history of aortoiliac femoral graft, attention to groin I71.4 - Abdominal aortic aneurysm, without rupture Procedure Description 42519 Duplex scan of lower extremity arteries or arterial bypass grafts using B-mode, color and spectral Doppler; unilateral or limited study. Conclusions * Right. * Dilatation noted in the proximal superficial femoral artery, possibly related to prior arterial bypass/anastamosis. Proximal superficial femoral artery measures 1.2 cm x 1.2 cm. * Elevated velocities noted in the proximal superificial femoral artery with a velocity of 172 cm/s, however, this may elevated due to diameter difference of the proximal portion of the superficial femoral artery. * Less than 50% stenosis in the right lower extremity, however low velocities are noted throughout entire right lower extremity. * Difficult exam due to atherosclerotic plaque. Right Measurements Name Value Right PSV Right Distal EIA PSV 53 cm/s Right Mid ACADEMIC SUPPORT SPECIALIST PSV 32 cm/s Right Prox Profunda PSV 63 cm/s Right Prox SFA PSV 172 cm/s Right Mid SFA PSV 69 cm/s Right Distal SFA PSV 48 cm/s Right Prox Pop A PSV 45 cm/s Right Distal Pop A PSV 63 cm/s Right Prox THOMAS PSV 58 cm/s Right Mid THOMAS PSV 51 cm/s Right Distal THOMAS PSV 54 cm/s Right Prox Dorcas A PSV 45 cm/s Right Mid Dorcas A PSV 45 cm/s Right Distal Dorcas A PSV 48 cm/s Right Prox DISTANCE LEARNING PROGRAM COORDINATOR PSV 48 cm/s Right Mid DISTANCE LEARNING PROGRAM COORDINATOR PSV 35 cm/s Right Distal DISTANCE LEARNING PROGRAM COORDINATOR PSV 30 cm/s R DEMETRIUS 1.01 Right Measurements Name Value Right EDV Right Distal EIA EDV 6 cm/s Right Mid ACADEMIC SUPPORT SPECIALIST EDV 0 cm/s Right Prox Profunda EDV 3 cm/s Right Prox SFA EDV 0 cm/s Right Mid SFA EDV 0 cm/s Right Distal SFA EDV 0 cm/s Right Prox Pop A EDV 0 cm/s Right Distal Pop A EDV 0 cm/s Right Prox THOMAS EDV 0 cm/s Right Mid THOMAS EDV 4 cm/s Right Distal THOMAS EDV 0 cm/s Right Prox Dorcas A EDV 0 cm/s Right Mid Dorcas A EDV 0 cm/s Right Distal Dorcas A EDV 3 cm/s Right Prox DISTANCE LEARNING PROGRAM COORDINATOR EDV 6 cm/s Right Mid DISTANCE LEARNING PROGRAM COORDINATOR EDV 6 cm/s Right Distal DISTANCE LEARNING PROGRAM COORDINATOR EDV 4 cm/s Right Stenosis Measurements Name Value PSV Rt Pre Stenosis PSV 43 cm/s Rt At Stenosis PSV 172 cm/s Rt Ratio 4.0 Right Stenosis Measurements Name Value EDV Rt Pre Stenosis EDV 0 cm/s Rt At Stenosis EDV 0 cm/s Stenosis Location (1) (right): proximal superficial femoral Right Findings Calcific plaque noted in the right external iliac, common femoral, profunda femoral, superficial femoral, popliteal, posterior tibial, peroneal and anterior tibial arteries. Risk Factors Patient has a history of hypertension, malignancy, tobacco use-previous and PAD. . Report Signatures Finalized by MANJEET Muhammad DO on 12/10/2024 03:01 PM Dictated by: LEANNE GREY III on FriDec 10, 2024 3:02:34 PM EDT Transcribed by: LEANNE GREY III on FriDec 10, 2024 3:02:34 PM EDT Finalized by: LEANNE GREY III on FriDec 10, 2024 3:02:34 PM EDT US ANKLE/BRACHIAL INDICES EXTREMITY LIMITED Observed: 12/10/2024 12:42 PM Status: F Source: [facility] Patient Info Name: KATHERINE DA SILVA Age: 69 years : 1955 Gender: Female Exam Date: 12/10/2024 1:03 PM Patient Status: Outpatient [employer] Supervisor: Rosemarie Stewart RDMS (AB) S Referring Physician: JUICE CONTE ; Indications I73.9 - Peripheral vascular disease, unspecified Procedure Description 25981 Limited bilateral noninvasive physiologic studies of upper or lower extremity arteries with bidirectional Doppler/PVR waveform analysis at 1-2 levels. Conclusions * Right. * Right ankle brachial index is normal. DEMETRIUS is 1.01. * Mild small vessel disease at the transmetatarsal level in the right foot. * Right toe brachial index is abnormal. * Left. * Left ankle brachial index is normal. DEMETRIUS is 0.98. * No evidence of small vessel disease at the transmetatarsal level in the left foot. * Left toe brachial index is abnormal. Recommendations * This study indicates normal resting EDMETRIUS's bilaterally. Doppler and PVR waveforms show satisfactory amplitude and triphasic patterns at both ankles. Clinical correlation advised. . Doppler Findings Bilateral posterior tibial arteries are a low triphasic/high biphasic waveform. Doppler Rt Posterior Tibial: Triphasic Rt Dorsalis Pedis: Triphasic Lt Posterior Tibial: Triphasic Lt Dorsalis Pedis: Triphasic PVR Rt Ankle: Normal Lt Ankle: Normal Rt Digit: Abnormal Lt Digit: Abnormal Rt Brachial: 161 Rt Posterior Tibial: 156 Rt Dorsalis Pedis: 163 Rt Digit: 109 0.97 1.01 0.68 Lt Brachial: 161 Lt Posterior Tibial: 156 Lt Dorsalis Pedis: 157 Lt Digit: 93 0.97 0.98 0.58 Prior Study Date: 08/09/2019 Risk Factors Patient has a history of hypertension, hyperlipidemia, PAD and tobacco use-previous. . Report Signatures Finalized by MANJEET Muhammad DO on 12/10/2024 03:05 PM Dictated by: LEANNE GREY III on FriDec 10, 2024 3:06:13 PM EDT Transcribed by: LEANNE GREY III on FriDec 10, 2024 3:06:13 PM EDT Finalized by: LEANNE GREY III on FriDec 10, 2024 3:06:[address] ABDOMEN PELVIS WITHOUT CONTRAST Observed: 11/17/2024 9:17 AM Status: F Source: [facility] Order Comment: Injury/Trauma or Illness?:Illness/Other How long have you had these symptoms (acute/chronic)?:Acute Reason for exam?:pain in right groin over stent Type of Exam?:Initial Additional signs and symptoms?:no Unable to obtain IV access at the ER so changed order to non-con EXAMINATION: CT ABDOMEN PELVIS WITHOUT CONTRAST HISTORY: ORDERING SYSTEM PROVIDED HISTORY: Pain right groin over stent, TECHNOLOGIST PROVIDED HISTORY: Illness/Other Reason for exam: pain in right groin over stent Encounter Type: Initial Additional signs and symptoms: no ORDERING SYSTEM PROVIDED DIAGNOSIS CODES: COMPARISON: None TECHNIQUE: CT examination of the abdomen and pelvis without IV contrast. Coronal and sagittal reformations were performed. Dose reduction techniques were achieved by using automated exposure control and/or adjustment of mA and/or kV according to patient size and/or use of iterative reconstruction technique. FINDINGS: LOWER CHEST: Normal. ABDOMEN: Liver: Normal. Bile ducts: Normal caliber. Gallbladder: Prior cholecystectomy. Pancreas: Normal. Spleen: Normal. Adrenals: Normal. Kidneys: Normal. PELVIS: Reproductive organs: No pelvic masses. Ureters: Normal. Bladder: Normal. OTHER ABDOMEN AND PELVIS: Bowel: Normal caliber. Normal appendix. Diverticulosis coli. Peritoneum: No free intraperitoneal air. No ascites or fluid collection. Vessels: Aorto bi-iliac bypass graft noted. Patency not evaluated on unenhanced exam. Lymph nodes: No enlarged lymph nodes. Abdominal wall: Normal. Osseous structures: No destructive lesions. IMPRESSION: No convincing acute process in the abdomen or pelvis. Aorto bi-iliac bypass graft noted. Patency not evaluated on unenhanced exam. No overt right groin fluid collection or inflammatory change by CT. Workstation ID: [id number] Dictated by: ARNAUD WAITE on FriNov 17, 2024 10:14:57 AM EST Transcribed by: ARNAUD WAITE on FriNov 17, 2024 10:14:57 AM EST Finalized by: ARNAUD WAITE on FriNov 17, 2024 10:14:57 AM EST ED PROV NOTE Observed: 11/17/2024 8:46 AM Status: COMPLETED Source: [facility] HPI: 11/17/2024, Time: @MAXIMILIAN@ Katherine Ha Rekha is a 69 y.o. female presenting to the ED for right groin pain and patient is worried that her aorta iliac femoral stent is affected, beginning 2 days ago. The complaint has been constant, moderate in severity, and worsened by changing position. No fever chills or recent injury and no numbness of the leg or coldness of the leg ROS: Pertinent positives and negatives are stated within HPI, all other systems reviewed and are negative. PAST HISTORY Past Medical History: @[facility]@ Past Surgical History: has a past surgical history that includes tonsillectomy; Eye surgery; Breast surgery; Skin graft; Cholecystectomy; BYPASS AORTOBIFEMORAL REPAIR/GRAFT; and Breast Reduction. Social History: reports that she has quit smoking. Her smoking use included cigarettes. She has never been exposed to tobacco smoke. She has never used smokeless tobacco. She reports that she does not currently use alcohol. She reports that she does not use drugs. Family History: family history is not on file. The patient's home medications have been reviewed. Allergies: Erythromycin and Penicillins RESULTS All laboratory and radiology results have been personally reviewed by myself LABS: Results for orders placed or performed in visit on 02/19/24 TSH with Reflex Free T4 Collection Time: 02/19/24 9:17 AM Result Value Ref Range TSH 3.09 0.27 - 4.20 mcIU/mL Hemoglobin A1c Collection Time: 02/19/24 9:17 AM Result Value Ref Range Hemoglobin A1C 6.6 (H) 4.2 - 5.6 % Estimated Average Glucose 143 (H) 74 - 114 mg/dL Lipid Panel Collection Time: 02/19/24 9:17 AM Result Value Ref Range Cholesterol 146 100 - 199 mg/dL Triglycerides 238 (H) 30 - 150 mg/dL HDL 32 (L) 40 - 59 mg/dL Chol/HDL Ratio 4.6 ratio LDL Calculated 66 10 - 130 mg/dL Non HDL Cholesterol 114 mg/dL Comprehensive Metabolic Panel Collection Time: 02/19/24 9:17 AM Result Value Ref Range Sodium 142 135 - 145 mmol/L Potassium 4.4 3.5 - 5.1 mmol/L Chloride 107 98 - 108 mmol/L Bicarbonate 25 21 - 32 mmol/L Anion Gap 14 10 - 20 mmol/L Glucose 122 (H) 65 - 99 mg/dL BUN 17 8 - 25 mg/dL Creatinine 0.91 0.60 - 1.10 mg/dL eGFR 69 >=60 mL/min/1.73 m2 BUN/Creatinine Ratio 18.7 10.0 - 20.0 Total Protein 6.2 6.0 - 8.0 g/dL Albumin 3.9 3.2 - 5.2 g/dL Calcium 9.4 8.4 - 10.2 mg/dL Alkaline Phosphatase 77 40 - 150 U/L AST 21 0-35 U/L U/L ALT 17 0-35 U/L U/L Total Bilirubin 0.3 0.0 - 1.3 mg/dL Microalbumin/Creatinine Ratio, UR Random Collection Time: 02/19/24 10:01 AM Result Value Ref Range Microalb, Ur 0.3 0.0 - 1.8 mg/dL Microalbumin/Creat Ratio 1 0 - 25 mg/g crea Creatinine, Ur, Random 205.0 mg/dL RADIOLOGY: Interpreted by Radiologist. CT Abdomen Pelvis Without Contrast Final Result No convincing acute process in the abdomen or pelvis. Aorto bi-iliac bypass graft noted. Patency not evaluated on unenhanced exam. No overt right groin fluid collection or inflammatory change by CT. Workstation ID: [id number] Ultrasound duplex arterial leg right (Results Pending) NURSING NOTES AND VITALS REVIEWED The nursing notes within the ED encounter and vital signs as below have been reviewed. BP (!) 179/92 (BP Location: Left arm, Patient Position: Sitting) Pulse 98 Temp 98.3 degrees F (36.8 degrees C) (Temporal) Resp 18 Ht 5' Wt 63.5 kg (140 lb) SpO2 100% BMI 27.34 kg/m Oxygen Saturation Interpretation: Normal PHYSICAL EXAM Constitutional/General: Alert and oriented x3, well appearing, non toxic in moderate apparent pain Head: NC/AT Eyes: PERRL, EOMI Mouth: Oropharynx clear, handling secretions, no trismus Neck: Supple, full ROM, no meningeal signs Pulmonary: Lungs clear to auscultation bilaterally, no wheezes, rales, or rhonchi. Not in respiratory distress Cardiovascular: Regular rate and rhythm, no murmurs, gallops, or rubs. 2+ distal pulses Abdomen/back: Soft, moderate right groin and right hip tenderness and also tenderness over sciatic notch, non distended, Extremities: Moves all extremities x 4. Warm and well perfused Skin: warm and dry without rash Neurologic: GCS 15, Psych: Normal Affect ED COURSE/MEDICAL DECISION MAKING Medications HYDROcodone-acetaminophen (NORCO) 5-325 mg per tablet 1 tablet (has no administration in time range) ketorolac (TORADOL) injection 30 mg (30 mg Intramuscular Given 11/17/24 1948) Medical Decision Making: Will obtain CTA of abdomen and pelvis and provide pain control, unable to obtain IV even with ultrasound guidance Counseling: The emergency provider has spoken with the patient and discussed today's results, in addition to providing specific details for the plan of care and counseling regarding the diagnosis and prognosis. Questions are answered at this time and they are agreeable with the plan. IMPRESSION AND DISPOSITION IMPRESSION 1. Acute right-sided low back pain, unspecified whether sciatica present 2. Right groin pain DISPOSITION Disposition: discharged to home Patient condition is stable Summation Patient Course: Feels somewhat better after Toradol ED Medications administered this visit: Medications HYDROcodone-acetaminophen (NORCO) 5-325 mg per tablet 1 tablet (has no administration in time range) ketorolac (TORADOL) injection 30 mg (30 mg Intramuscular Given 11/17/24 7379) New Prescriptions from this visit: New Prescriptions ketorolac (TORADOL) 10 mg tablet Take 1 (one) tablet (10 mg total) by mouth 3 (three) times a day as needed for pain . baclofen (LIORESAL) 10 MG tablet Take 2 (two) tablets (20 mg total) by mouth 3 (three) times a day for 5 days . Follow-up: Simón Spaulding MD [address] [address] In 2 days Final Impression: 1. Acute right-sided low back pain, unspecified whether sciatica present 2. Right groin pain (Please note that portions of this note were completed with a voice recognition program. Efforts were made to edit the dictations but occasionally words are mis-transcribed.) Milagro Purvis MD 11/17/24 1039 Milagro Purvis MD 11/17/24 1040 AUTHENTICATED BY MILAGRO PURVIS, ON 11/17/2024 10:40:21 ALLERGIES DATE TYPE / CODE NAME / CODE REACTION SEVERITY SOURCE 10/05/2018 DRUG/[id number](SNOME D CT) ERYTHROMYCIN Hives [facility] 11/27/2015 Drug Class/[id number](SNOMED CT) PENICILLINS Hives [facility] ENCOUNTERS ADMIT/DISCHARGE ACCOUNT NUMBER ADMITTING ENCOUNTER CLASS LOCATION SOURCE 12/27/2024/ 5 [id number] Ambulatory PM [facility] ding:[facility] 12/10/2024/ 5 [id number] Ambulatory Building:[facility] 12/10/2024/ 5 [id number] Ambulatory Building:[facility] 11/17/2024/ 5 [id number] Emergency Building:[facility] Room: [id number]: [address] [place] [address] 09/27/2024/ 5 [id number] [facility] [place] [facility] [place] 06/28/2024/ 4 [id number] Ambulatory PM [facility] 03/30/2024 [id number] Ambulatory Building:[facility] Ambulatory PAYERS ENCOUNTER GUARANTOR PAYER SUBSCRIBER SOURCE 12/27/2024 Katherine ClarosB: STATE [address] [address]Aje: () Primary Insurance:AnthemPo licy Number: Effective Date:1599-25-57Qsg n Name:COMP [address], [place] [address]PI: Katherine ClarosB: [id number] STATE [address] [address] [facility] 12/10/2024 KATHERINE CLAROSB: STATE [address] [address]Wcq: () Primary Insurance:ANTHEMPo licy Number: [id number] yandel Date:5536-64-52[address], [place] [address]RM: BERENICE CLAROSB: [id number] STATE [id number] [place] [address] 12/10/2024 KATHERINE CLAROSB: [address] [address]Wrm: () Primary Insurance:ANTHEMPo licy Number: [id number] yandel Date:0500-05-28[address], [place] [address]JC: BERENICE YVESB: [id number] STATE [address] [address] [facility] 11/17/2024 KATHERINE Bonner YVESB: STATE [address] [address]Bje: (HP) Primary Insurance:ANTHEMPo licy Number: [id number] yandel Date:3156-73-10[address], [place] [address]XO: BERENICE REKHADOB: [id number] [address] [address] [facility] 11/17/2024 Secondary Insurance:MEDICARE Policy Number: [id number] ve Date:0313-57-47AGN J15 PART A CLAIMSPO [address] [address]IQZOFZZZP, [place] [address]RM: KATHERINE Bonner YVESB: [id number] STATE [address] [address] [facility] 09/27/2024 Katherine Ha ClarosB: [address] [address]Jnq: (HP) Primary Insurance:AnthemPo licy Number: Effective Date:4263-81-48Hqf n Name:COMP [address] [address]TE: Katherine ClarosB: [id number] STATE [address] [address] [facility] 06/28/2024 Katherine Villeda: [place] [address]Xrb: (HP) Primary Insurance:AnthemPo licy Number: Effective Date:1493-36-74Vcj n Name:COMP [address], [place] [address]XA: Berenice Ronal: [id number] [place], [place] [address]Yyd: (WP) [facility] 03/30/2024 KATHERINE VILLEDA: [facility] [address] [place] [address]Vhp: (HP) [facility] Number: [id number] yandel Date:4529-31-03[address], [place] [address]CU: BERENICEGREG VILLEDA: [id number] [facility] [address] [place] [address] [facility]
--- NOTE | 2025-03-28 14:23 | PM.CN ---
Consult Note: HPI Data of Consult Patient: known to practice within the last 3 years Consult date: 03/28/25 Requesting Physician: Keisha Ruiz MD Primary Care Provider: Non-Staff Physician, Consult Narrative Reason for consult: low back pain Narrative: 69yof who presents for assessment. continues to have generalized pain that is currently well controlled with her medication regimen. denies adverse med side effects. cc:: CC: Keisha Ruiz MD Review of Systems ROS Status of ROS 10 or more systems reviewed and unremarkable except as noted in history and below Meds Home Medications and Allergies Home Medications �Medication �Instructions �Recorded �Confirmed �Type atenolol 50 mg tablet 50 mg PO DAILY 04/07/23 04/07/23 History atorvastatin 40 mg tablet 40 mg PO DAILY 04/07/23 04/07/23 History calcium carbonate (Calcium 600) 600 mg PO DAILY 04/07/23 04/07/23 History conjugated estrogens 0.625 mg/gram 0.625 mg vaginal DAILY 04/07/23 04/07/23 History vaginal cream (Premarin) fenofibrate 150 mg capsule 150 mg PO DAILY 04/07/23 04/07/23 History furosemide 20 mg tablet 20 mg PO DAILY 04/07/23 04/07/23 History potassium chloride 10 mEq 10 meq PO DAILY 04/07/23 04/07/23 History tablet,extended release (K-Tab) naloxone 4 mg/actuation nasal 4 mg intranasal Q2M PRN opioid 07/21/24 Rx spray (Narcan) overdose #2 ea aspirin 81 mg capsule 81 mg PO DAILY 12/27/24 12/27/24 History semaglutide 0.25 mg or 0.5 mg (2 0.25 mg subcut QWEEK 12/27/24 12/27/24 History mg/1.5 mL) subcutaneous pen injector (Ozempic) vitamin E 200 unit capsule 201 mg PO .QD 12/27/24 12/27/24 History tramadol 50 mg tablet 50 mg PO QID PRN pain #120 tabs 01/19/25 Rx tramadol 50 mg tablet 50 mg PO QID PRN pain #120 tabs 02/17/25 Rx tramadol 50 mg tablet 50 mg PO QID PRN pain #120 tabs 03/17/25 Rx Allergies Allergy/AdvReac Type Severity Reaction Status Date / Time Penicillins Allergy Verified 04/07/23 14:08 Exam Narrative Exam Narrative: Psych-alert and oriented x 3. Attentive and appropriate, constitutionally normal, displays normal mood and affect per situation.� There are no obvious deficits in memory, reasoning, or intellect.� Skin-no obvious rashes, bruising, erythema noted to the patient's area of pain. Extremities- extremities are warm with minimal edema and palpable pulses. Lumbar-no significant tenderness to palpation noted in the lumbar spine and paraspinal musculature.� Pain is elicited with extension, and lateral rotation of the lumbar spine. Range of motion is slightly diminished with these motions due to pain. Facet loading maneuvers are positive bilaterally and do appear to be concordant with the patient's normal complaints of pain.� Coordination remains intact.� Gait remains non-antalgic. Assessment and Plan Assessment and Plan (1) Lumbar spondylosis: Plan 69yof who presents for assessment. failed conservative measures, as noted. given persistence of pain and current regimen, will continue with current medication regimen. uds obtained. follow up in 3 months.
== END 2025-03-28 13:03 | disposition home or self-care (01) ==
LOC: PM 13:03
PROVIDERS: Visit Provider Anesthesiology
DX: M47.816 Spondylosis without myelopathy or radiculopathy, lumbar region (principal)
CPT/HCPCS: G0463

== ENCOUNTER 2025-06-27 07:11 | Outpatient (OUT) | payer BC, SELFPAY ==
--- OUTSIDE RECORDS SUMMARY | 2025-06-27 07:14 | XMS_ITS | Encounter Summary ---
Author Organization [facility] Address [address], [address] [place] [address] Care Team Providers Care Makeup Sales Advisor Name Role Phone Ifeanyi Caldera MD Primary Care Provider [phone] Reason for Visit * Reason Comments Medication Refill Encounter Details Date Type Department Care Team (Late st Contact Info) Description 09/04/[address] [facility] Primary Care [address] [place] [address] [place] [address] Salud Samayoa MD [address] [place] [address] Medication Refill Social History Tobacco Use Types Packs/Day Years Used Date Smoking Tobacco: Former Cigarettes Q uit: 05/08/2003 Smokeless Tobacco: Never Alcohol Use Standard Drinks/Week Comments No 0 (1 standard drink = 0.6 oz pur e alcohol) PHQ-2 Answer Date Recorded PHQ-2 Score 0 12/23/2018 Comments No Sex and Gender Information Value Date Recorded Sex Assigned at Not on file Legal Sex Female 2:49 PM EST Gender Identity Not on file Sexual Orientation Not on file documented as of this encounter Plan of Treatment Not on file documented as of this encounter Visit Diagnoses Not on filedocumented in this encounter Care Teams Makeup Sales Advisor Relationship Specialty Start Date End Date Ifeanyi Caldera MD PCP - General Family Medicine 08/09/19 documented as of this encounter
--- OUTSIDE RECORDS SUMMARY | 2025-06-27 07:14 | XMS_ITS | Encounter Summary ---
Author Organization [facility] Address [address], [address] [place] [address] Care Team Providers Care Sales And Retail Management Recruiter Name Role Phone Ifeanyi Caldera MD Primary Care Provider [phone] Reason for Visit * Reason Comments Medication Refill Encounter Details Date Type Department Care Team (Late st Contact Info) Description 01/14/2019 Refill [facility] [address] [place] [address] [place] [address] Salud Samayoa MD [address] [place] [address] Medication Refill Social History Tobacco Use Types [...] on filedocumented in this encounter Care Teams Sales And Retail Management Recruiter Relationship Specialty Start Date End Date Ifeanyi Caldera MD PCP - General Family Medicine 08/09/19 documented as of this encounter
--- OUTSIDE RECORDS SUMMARY | 2025-06-27 07:14 | XMS_ITS | Clinical Summary ---
Author Organization [facility] Address [id number] [place] [address] Care Team Providers Care Attorney General Name Role Phone Rowan Byrd CNP Primary Care Provider + Allergies Active Allergy Reactions Criticality Noted Date Comments Erythromycin Hives,Nausea Only Medium 10/05/2018 Welts, stomach cramping Penicillins Hives Medium 11/27/2015 Medications cholecalciferol, vitamin D3, 50 mcg (2,000 unit) Tab Take 1 (one) tablet (2,000 Units total) by mouth daily . Active aspirin 81 MG EC tablet Take 1 (one) tablet (81 mg total) by mouth daily . Active atenoloL (TENORMIN) 50 MG tabletIndications:H ypertension, unspecified type Take 1 (one) tablet (50 mg total) by mouth daily . 90 tablet 3 3 Active atorvastatin (LIPITOR) 40 MG tabletIndications:H yperlipidemia, unspecified hyperlipidemia type Take 1 (one) tablet (40 mg total) by mouth daily . 90 tablet 3 3 Active fenofibrate (TRICOR) 145 MG tabletIndications:H yperlipidemia, unspecified hyperlipidemia type Take 1 (one) tablet (145 mg total) by mouth daily . 90 tablet 3 3 Active HYDROcodone-acetami nophen (NORCO) 5-325 mg per tablet Take 1 (one) tablet by mouth every 4 (four) hours as needed for pain (Days supply per fill: 30) . Active potassium chloride 10 MEQ CR tabletIndications:H ypertension, unspecified type Take 1 (one) tablet (10 mEq total) by mouth daily . 90 tablet 4 Active omeprazole (PRILOSEC) 20 MG capsule Take 1 (one) capsule (20 mg total) by mouth daily . 90 capsule 4 Active conjugated estrogens (Premarin) vaginal creamIndications:Va ginal dryness, menopausal Insert 1.5 (one and a half) g into the vagina twice weekly Start: 04/29/24. 30 g 4 Active furosemide (LASIX) 20 MG tabletIndications:H ypertension, unspecified type Take 1 (one) tablet (20 mg total) by mouth daily as needed . 30 tablet 1 4 Active ketorolac (TORADOL) 10 mg tablet Take 1 (one) tablet (10 mg total) by mouth 3 (three) times a day as needed for pain . 15 tablet 5 Active baclofen (LIORESAL) 10 MG tablet Take 2 (two) tablets (20 mg total) by mouth 3 (three) times a day for 5 days . 30 tablet 5 Active Active Problems Problem Noted Date Diagnosed Date Diabetes 02/26/2024 Hypertension 08/29/2023 Assessment & Plan (08/29/2023 3:48 PM EST): Controlled with diet and atenolol Blood work ordered today Cancer 08/29/2023 Overview (08/29/2023): Breast CA Assessment & Plan (08/29/2023 3:49 PM EST): History of breast cancer in 2008 At this time mammogram ordered to be followed up annually, no previous history of recurrence. PAD (peripheral artery disease) 08/29/2023 Assessment & Plan (08/29/2023 3:47 PM EST): Used to follow-up with vascular medicine in [place] s/p aortobifemoral bypass as well as atherectomy of right SFA in 2019. Currently on Lipitor 40 mg and aspirin 81 mg. No concerns at this time Left groin pain 08/29/2023 Assessment & Plan (08/29/2023 3:48 PM EST): I believe this is musculoskeletal and related to left hip pain, patient will continue to monitor it and work on stretches at home and will let me know if it got worse. Skin cancer 08/29/2023 Assessment & Plan (08/29/2023 3:49 PM EST): SCC and BCC, following up with dermatology establishing will get records Fibromyalgia 08/29/2023 Assessment & Plan (08/29/2023 3:49 PM EST): Chronic for which she follow-up with Dr. Ruiz at the pain clinic in [facility] currently on hydrocodone 500/325. We will get records Vaginal dryness, menopausal 08/29/2023 Assessment & Plan (08/29/2023 3:50 PM EST): Refill Premarin cream, advised patient to use twice a week, was checked per oncology in the past prior to using it and was told it would be fine to continue on it Encounters Date Type Department Care Team Description 06/21/2025 Travel from Last 3 Months Family History Medical History Relation Comments Breast cancer Neg Hx Social History Tobacco Use Types Packs/Day Years Used Date Smoking Tobacco: Former Cigarettes Passive Smoke Exposure: Never Smokeless Tobacco: Never Alcohol Use Standard Drinks/Week Comments Not Currently 0 (1 standard drink = 0.6 oz pur e alcohol) PHQ-2 Answer Date Recorded PHQ-9 Total Score 2 08/29/2023 Comments No Sex and Gender Information Value Date Recorded Sex Assigned at Not on file Legal Sex Female 6:46 AM EDT Gender Identity Female 09/01/2023 9:46 AM EST Sexual Orientation Straight 05/08/2023 2: 11 PM EDT Last Filed Vital Signs Vital Sign Reading Time Taken Comments Blood Pressure 179/92 11/17/2024 8:38 AM EST Pulse 98 11/17/2024 8:38 AM EST Temperature 36.8 C (98.3 F) 11/17/2024 8:38 AM EST Respiratory Rate 16 11/17/2024 10:42 AM EST Oxygen Saturation 100% 11/17/2024 8:38 AM EST Inhaled Oxygen Concentration - - Weight 63.5 kg (140 lb) 11/17/2024 8:38 AM EST Height 152.4 cm (5') 11/17/2024 8:38 AM EST Body Mass Index 27.34 11/17/2024 8:38 AM EST Plan of Treatment Upcoming Encounters Date Type Department Care Team (Late st Contact Info) Description 06/30/2025 11:00 AM EDT Hospital Encounter [facility] [address] [place] [address] Health Maintenance Due Date Last Done Comments CT Colonography 1956 Colonoscopy 1956 Dexa Scan 1956 Tetanus: Every 10yrs 1956 Diabetic Foot Exam 1966 Hepatitis C Screening 1974 Pneumococcal Vaccine: Age 50 + (1 of 2 - PCV) 1975 Flexible sigmoidoscopy 2006 Zoster Vaccines (1 of 2) 2006 Fecal occult blood test (FOBT,FIT) 08/04/20182016 Wellness Visit 02/29/2024 02/28/2023, 06/0 05/2023, 01/16/2018 A1C 08/21/2024 02/19/2024, 06/1 12/2022, 10/23/2018 Depression Screening/Follow- Up (PHQ-2/9) 08/29/2024 08/29/2023 Mammogram 02/18/2025 02/19/2024 Urine (micro)albumin/creatin ine ratio - Diabetes 02/18/2025 02/19/2024 eGFR Diabetes 02/18/2025 02/19/2024 Falls Risk Assessment 02/19/2025 02/20/2024 Diabetic Eye Exam 03/19/2025 03/19/2024 COVID-19 Vaccine ( season) 2025 Influenza Vaccine (#1) 2025 Colorectal Cancer Screening/Monitoring 06/24/2027 Fecal DNA 06/24/2027 06/24/2024 Respiratory Syncytial Virus Immunization: Risk, 60-74 Risk, or 75+ (1 - 1-dose 75+ series) 2031 Procedures Procedure Name Priority Date/Time Associated Diagnosis Comments MM SCREENING FLYOD RIGHT Routine 02/19/2024 12:43 PM EDT Visit for screening mammogram MICROALBUMIN, URINE, RANDOM Routine 02/19/2024 10:01 AM EDT Prediabetes HEMOGLOBIN A1C Routine 02/19/2024 9:17 AM EDT Prediabetes COMPREHENSIVE METABOLIC PANEL Routine 02/19/2024 9:17 AM EDT Prediabetes from Last 3 Months or Most Recently Relevant to Health Maintenance Results * Mammography Screening Floyd Right (02/19/2024 12:43 PM EDT) Anatomical Region Laterality Modality Breast Right Mammography 02/20/2024 12:0 3 PM EDT Impressions 02/20/2024 2:42 PM EDT Benign findings. BIRADS: BIRADS - CATEGORY 2 Benign, no evidence of malignancy. Normal interval follow-up is recommended in 12 months. OVERALL ASSESSMENT - BENIGN A letter of notification will be sent to the patient regarding the results. [facility], along with the National Comprehensive Cancer Network, the [employer], and [facility], recommend annual screening mammograms for women age 40 and older. [facility] Workstation ID: [id number] Narrative 02/20/2024 2:42 PM EDT EXAMINATION: MM SCREENING FLOYD RIGHT CLINICAL INFORMATION: Visit for screening mammogram. COMPARISON: 05/27/2018. 04/02/2017. TECHNIQUE: True lateral, CC and MLO views of the right breast were obtained using tomosynthesis. Computer-aided detection was utilized in the interpretation of this exam. FINDINGS: BREAST COMPOSITION: Scattered fibroglandular densities. Vascular and other benign-appearing calcifications are present. No dominant mass, suspicious microcalcifications or architectural distortion. Leah Spaulding MD IMG MAMMOGRAPHY O RDERABLES Final Result * Microalbumin/Creatinine Ratio, UR Random (02/19/2024 10:01 AM EDT) Microalb, Ur 0.3 0.0 - 1.8 mg/dL 02/19/2024 12:13 PM EDT LAB Microalbumin/Cr eat Ratio 1 0 - 25 mg/g crea 02/19/2024 12:13 PM EDT LAB Creatinine, Ur, Random 205.0 mg/dL 02/19/2024 12:13 PM EDT LAB Urine URINE SPECIMEN / Unknown Collection / Unknown 02/19/2024 10:01 AM EDT 02/19/2024 10:01 AM EDT Leah Spaulding MD URINE ORDERABLES Final Result Performing Organization Address [facility] de Phone Number LAB [address] [place] [address] * (ABNORMAL) Hemoglobin A1c (02/19/2024 9:17 AM EDT) [facility] Hemoglobin A1C 6.6(H) 4.2 - 5.6 % 02/19/2024 12:01 PM EDT LAB Estimated Average Glucose 143(H) 74 - 114 mg/dL 02/19/2024 12:01 PM EDT LAB Comment: Blood BLOOD SPECIMEN / Unknown Venipuncture / Unknown 02/19/2024 9:17 AM EDT 02/19/2024 9:17 AM EDT Leah Spaulding MD LAB BLOOD ORDERAB LES Final Result Performing Organization Address [facility] de Phone Number LAB [address] [place] [address] * (ABNORMAL) Comprehensive Metabolic Panel (02/19/2024 9:17 AM EDT) Pathologist [facility] Sodium 142 135 - 145 mmol/L 02/19/2024 12:13 PM EDT LAB Potassium 4.4 3.5 - 5.1 mmol/L 02/19/2024 12:13 PM EDT LAB Chloride 107 98 - 108 mmol/L 02/19/2024 12:13 PM EDT LAB Bicarbonate 25 21 - 32 mmol/L 02/19/2024 12:13 PM EDT LAB Anion Gap 14 10 - 20 mmol/L 02/19/2024 12:13 PM EDT LAB Glucose 122(H) 65 - 99 mg/dL 02/19/2024 12:13 PM EDT LAB BUN 17 8 - 25 mg/dL 02/19/2024 12:13 PM EDT LAB Creatinine 0.91 0.60 - 1.10 mg/dL 02/19/2024 12:13 PM EDT LAB eGFR 69 >=60 mL/min/1.7 3 m2 02/19/2024 12:13 PM EDT LAB Comment:Estimated GFR was ca lculated using the 2020 CKD-EPI creatinine equation. BUN/Creatinine Ratio 18.7 10.0 - 20.0 02/19/2024 12:13 PM EDT LAB Total Protein 6.2 6.0 - 8.0 g/dL 02/19/2024 12:13 PM EDT LAB Albumin 3.9 3.2 - 5.2 g/dL 02/19/2024 12:13 PM EDT LAB Calcium 9.4 8.4 - 10.2 mg/dL 02/19/2024 12:13 PM EDT LAB Alkaline Phosphatase 77 40 - 150 U/L 02/19/2024 12:13 PM EDT LAB AST 21 0-35 U/L U/L 02/19/2024 12:13 PM EDT LAB ALT 17 0-35 U/L U/L 02/19/2024 12:13 PM EDT LAB Total Bilirubin 0.3 0.0 - 1.3 mg/dL 02/19/2024 12:13 PM EDT LAB Blood BLOOD SPECIMEN / Unknown Venipuncture / Unknown 02/19/2024 9:17 AM EDT 02/19/2024 9:17 AM EDT Narrative LAB - 02/19/2024 12:13 PM EDT [facility] Services has implemented the eGFR calculation approach that does not have a coefficient for race that conforms to the NKF-ASN Task Force Recommendations. us Leah Spaulding MD LAB BLOOD ORDERAB LES Final Result LAB [address] [place] [address] from Last 3 Months or Most Recently Relevant to Health Maintenance Insurance [place] OUT OF [place] [facility] [place] Member Subscriber Plan / Payer (Ef fective 2021-Present) Name:Katherine Da Silva Member ID:[id number] Relation to Subscriber:Self Name:Katherine Da Silva Subscriber ID:[id number] Payer ID:Not on file Group ID:Not on file Type:Not on file Address: [facility] [place] PART A CLAIMS [address] [address] [place] [address] Advance Directives For more information, please contact: [phone] Documents on File Type Date Recorded Patient Vibration Technician Expl anation Advance Directives and Livin g Will 02/19/2024 12:14 PM Care Teams Attorney General Relationship Specialty Start Date End Date [place], Rowan Zuleta CNP [facility] [address] [address] PCP - General Nurse Practitioner 11/24/24
--- OUTSIDE RECORDS SUMMARY | 2025-06-27 07:14 | XMS_ITS | Encounter Summary ---
Author [facility] Address [address], [address] [place] [address] Care Team Providers Care Statistical Typist Name Role Phone Ifeanyi Caldera MD Primary Care Provider [phone] Reason for Visit * Reason Comments Medication Refill Encounter Details Date Type Department Care Team (Late st Contact Info) Description 02/11/2019 Refill [facility] Primary Care [address] [place] [address] [place] [address] Salud Samayoa MD [address] [facility] [place] [address] Medication Refill Social History Tobacco Use Types [...] documented as of this encounter Visit Diagnoses Diagnosis Lymphedema of left upper extremity Essential hypertension Unspecified essential hypertension documented in this encounter Care Teams Statistical Typist Relationship Specialty Start Date End Date Ifeanyi Caldera MD PCP - General Family Medicine 08/09/19 documented as of this encounter
--- OUTSIDE RECORDS SUMMARY | 2025-06-27 07:14 | XMS_ITS | Encounter Summary ---
Author Organization [facility] Address [address], [address] [place] [address] Care Team Providers Care Program Attendant Name Role Phone Ifeanyi Caldera MD Primary Care Provider [phone] Reason for Visit * Reason Comments Medication Refill Encounter Details Date Type Department Care Team (Late st Contact Info) Description 08/08/2019 Refill [facility] Primary Care [address] [place] [address] [place] [address] Leonor Platt, PA-C [address] [place] [address] Medication Refill Social History Tobacco Use Types [...] Diagnoses Diagnosis Lymphedema of left upper extremity Mixed hyperlipidemia PVD (peripheral vascular disease) with claudication Peripheral vascular disease, unspecified Type 2 diabetes mellitus with other circulatory complication, without long-term current use of insulin (HCC) documented in this encounter Care Teams Program Attendant Relationship Specialty Start Date End Date Ifeanyi Caldera MD PCP - General Family Medicine 08/09/19 documented as of this encounter
--- OUTSIDE RECORDS SUMMARY | 2025-06-27 07:14 | XMS_ITS | Encounter Summary ---
Author [facility] Address [address] [facility] [address] [place] [address] Care Team Providers Care Paralegal Instructor Name Role Phone Ifeanyi Caldera MD Primary Care Provider [phone] Reason for Visit * Reason Comments Medication Refill Encounter Details Date Type Department Care Team (Late st Contact Info) Description 03/06/2019 Refill [facility] Primary Care [address] [place] [address] [place] [address] Salud Samayoa MD [address] [facility] [place] [address] Medication Refill Social History Tobacco Use Types [...] Diagnoses Diagnosis Lymphedema of left upper extremity documented in this encounter Care Teams Paralegal Instructor Relationship Specialty Start Date End Date Ifeanyi Caldera MD PCP - General Family Medicine 08/09/19 documented as of this encounter
--- OUTSIDE RECORDS SUMMARY | 2025-06-27 07:14 | XMS_ITS | Encounter Summary ---
Author Organization [facility] Address [address] [facility], [address] [place] [address] Care Team Providers Care Dry House Operator Name Role Phone Ifeanyi Caldera MD Primary Care Provider [phone] Reason for Visit * Reason Comments Medication Refill Encounter Details Date Type Department Care Team (Late st Contact Info) Description 06/04/[address] [facility] Primary Care [address] [place] [address] [place] [address] Salud Samayoa MD [address] [place] [address] Medication Refill Social History Tobacco Use Types [...] on filedocumented in this encounter Care Teams Dry House Operator Relationship Specialty Start Date End Date Ifeanyi Caldera MD PCP - General Family Medicine 08/09/19 documented as of this encounter
--- OUTSIDE RECORDS SUMMARY | 2025-06-27 07:14 | XMS_ITS | Encounter Summary ---
Author Organization [facility] Address [address] [facility], [address] [place] [address] Care Team Providers Care Twisting Frame Changer Name Role Phone Ifeanyi Caldera MD Primary Care Provider [phone] Reason for Visit * Reason Comments Medication Refill Encounter Details Date Type Department Care Team (Late st Contact Info) Description 05/03/2019 Refill [facility] Primary Care [address] [place] [address] [place] [address] Salud Samayoa MD [address] [place] [address] Medication Refill Social History Tobacco Use Types [...] on filedocumented in this encounter Care Teams Twisting Frame Changer Relationship Specialty Start Date End Date Ifeanyi Caldera MD PCP - General Family Medicine 08/09/19 documented as of this encounter
--- OUTSIDE RECORDS SUMMARY | 2025-06-27 07:14 | XMS_ITS | Clinical Summary ---
Author Organization [facility] Address [address] [facility], [address] [place] [address] Care Team Providers Care Cardiothoracic Icu Rn Name Role Phone Ifeanyi Caldera MD Primary Care Provider [phone] Allergies Active Allergy Reactions Criticality Noted Date Comments Erythromycin Hives,Nausea Only Medium 10/05/2018 Welts, stomach cramping Penicillins Hives Medium 11/27/2015 Medications fluorouracil (EFUDEX) 5 % cream apply topically twice a day to ONE AREA AT A TIME FOR 4-6 WEEKS 40 g 4 12/18/19 18 Active Additional Information Patient not taking.Reported on 08/09/2019 fluticasone (FLONASE) 50 MCG/ACT nasal spray 1 spray by Nasal route daily 3 Bottle 3 11/16/19 Active Additional Information Patient not taking.Reported on 08/09/2019 Breast Prosthesis MISCIndications:Hi story of mastectomy, unspecified laterality by Does not apply route 2 each 12/26/19 Active Mastectomy Bra MISCIndications:Hi story of mastectomy, unspecified laterality,H/O malignant neoplasm of breast by Does not apply route 4 each 1 12/29/19 19 Active fenofibrate (TRICOR) 145 MG tabletIndications: Mixed hyperlipidemia take 1 tablet by mouth once daily 90 tablet 2 01/19/20 19 Active docusate sodium (COLACE) 100 MG capsule TAKE 1 CAPSULE BY MOUTH TWICE A DAY NEEDED FOR CONSTIPATION 90 capsule 02/01/20 Active Additional Information Patient not taking.Reported on 08/09/2019 atenolol (TENORMIN) 50 MG tabletIndications: Essential hypertension TAKE 1 TABLET BY MOUTH EVERY DAY 90 tablet 04/26/20 19 Active potassium chloride (KLOR-CON M10) 10 MEQ extended release tabletIndications: Lymphedema of left upper extremity TAKE 1 TABLET BY MOUTH EVERY DAY 90 tablet 04/26/20 19 Active atorvastatin (LIPITOR) 20 MG tabletIndications: Mixed hyperlipidemia,PVD (peripheral vascular disease) with claudication,Type 2 diabetes mellitus with other circulatory complication, without long-term current use of insulin (HCC) TAKE 1 TABLET BY MOUTH EVERY DAY 90 tablet 04/26/20 19 Active PREMARIN 0.625 MG/GM vaginal cream APPLY TO AFFECTED AREA EVERY DAY 90 g 04/27/20 19 Active aspirin 81 MG EC tablet TAKE 1 TABLET BY MOUTH DAILY 90 tablet 3 05/03/20 19 Active pantoprazole (PROTONIX) 20 MG tabletIndications: Gastroesophageal reflux disease, esophagitis presence not specified TAKE 1 TABLET BY MOUTH EVERY DAY BEFORE BREAKFAST 30 tablet 2 05/21/20 19 Active Additional Information Patient taking differently: DAILY PRN, Reported on 08/09/2019 [facility] VITAMIN E 1000 units capsule TAKE 1 CAPSULE BY MOUTH EVERY DAY 90 capsule 06/04/20 19 Active furosemide (LASIX) 20 MG tabletIndications: Lymphedema of left upper extremity TAKE 1 TABLET BY MOUTH TWICE A DAY 180 tablet 06/08/20 19 Active traMADol (ULTRAM) 50 MG tablet Take 50 mg by mouth every 4 hours as needed. 08/06/20 19 Active Active Problems Problem Noted Date Diagnosed Date S/P aortobifemoral bypass surgery 10/28/2018 New onset type 2 diabetes mellitus 08/10/2018 PVD (peripheral vascular disease) with claudicat ion 06/26/2018 IGT (impaired glucose tolerance) 05/08/2018 Adenomatous polyp of colon 01/16/2018 Osteopenia determined by x-ray 01/16/2018 Lymphedema of left upper extremity 04/05/2016 Fibromyalgia 04/05/2016 Essential hypertension 11/27/2015 Mixed hyperlipidemia 11/27/2015 Claudication in peripheral vascular disease Colitis Acute respiratory failure with hypoxemia Acute postoperative respiratory insufficiency Resolved Problems Problem Noted Date Diagnosed Date Resolved Date Cancer 06/09/2018 Family History Medical History Relation Name Comments Other Brother 4 MARY AIDS Cancer Brother 5 FRANCISCO LYMPH NODE Cancer Father SKIN Cancer Maternal Aunt Cancer Maternal Grandfather LUNG Diabetes Maternal Grandfather Heart Disease Maternal Grandfather Cancer Maternal Grandmother BREAST Cancer Maternal Uncle Diabetes Mother Heart Disease Mother Relation Name Status Comments Brother 1 [place]ST[place] Alive Brother 2 [place] Alive Brother 3 GERSON Alive Brother 4 MARY Brother 5 FARNCISCO Father Alive Maternal Aunt Alive Maternal Grandfather Maternal Grandmother Maternal Uncle Alive Mother Paternal Grandfather Paternal Grandmother Social History Tobacco Use Types Packs/Day Years Used Date Smoking Tobacco: Former Cigarettes Q uit: 05/08/2003 Smokeless Tobacco: Never Tobacco Cessation:Counseling Given: Yes Alcohol Use Standard Drinks/Week Comments No 0 (1 standard drink = 0.6 oz pur e alcohol) PHQ-2 Answer Date Recorded PHQ-2 Score 0 12/23/2018 Comments No Sex and Gender Information Value Date Recorded Sex Assigned at Not on file Legal Sex Female 2:49 PM EST Gender Identity Not on file Sexual Orientation Not on file Last Filed Vital Signs Vital Sign Reading Time Taken Comments Blood Pressure 111/73 08/09/2019 12:46 PM EST Pulse 60 08/09/2019 12:46 PM EST Temperature 36.1 C (97 F) 08/09/2019 12:46 PM EST Respiratory Rate 18 08/09/2019 12:46 PM EST Oxygen Saturation 96% 08/09/2019 12:46 PM EST Inhaled Oxygen Concentration - - Weight 69.4 kg (153 lb) 08/09/2019 12:46 PM EST Height 156.2 cm (5' 1.5 ) 08/09/2019 12:46 PM ES T per pt Body Mass Index 28.44 08/09/2019 12:46 PM EST Plan of Treatment Not on file Medical Devices Implanted Type Area Marine Water Tender Device Identifier Shelf Expiration Date Model / Serial / Lot Graft Vasc Aort Abd Bif [id number] - [id number] Implanted:Qty : 1 on 10/28/2018 by Kerri Rajput MD at [facility] /Graft/P atch/Matthew ter N/A: Aorta [employer]: CARDIOVASCULAR SYSTEMS-PMM 02/09/2021 [id number] / [id number] / [id number] Description:VERIFIED X2 T. Cheryl GONZALEZ RN, Nathalie WHITE RN Insurance [place] Advance Directives Documents on File Type Date Recorded Patient Environmental Research Scientist Expl anation ACP-Advance Directive 10/29/2018 9:01 AM ACP-Power of Supervisor Shuttle Preparation 10/29/2018 9:01 AM * Full Code (Latest Code Status on File) Date Activated Date Inactivated Comments 01/07/2019 7:02 AM 01/08/2019 2:43 AM * Full Code Date Activated Date Inactivated Comments 10/28/2018 5:02 PM 11/02/2018 3:42 PM * Full Code Date Activated Date Inactivated Comments 10/28/2018 6:54 AM 10/28/2018 5:02 PM * Full Code Date Activated Date Inactivated Comments 08/11/2018 7:17 AM 08/12/2018 2:50 AM Care Teams Cardiothoracic Icu Rn Relationship Specialty Start Date End Date Ifeanyi Caldera MD PCP - General Family Medicine 08/09/19
--- OUTSIDE RECORDS SUMMARY | 2025-06-27 07:14 | XMS_ITS | Encounter Summary ---
Author Organization [facility] Address [address] [facility], [address] [place] [address] Care Team Providers Care Experimental Mechanic Name Role Phone Ifeanyi Caldera MD Primary Care Provider [phone] Reason for Visit * Reason Comments Medication Refill Encounter Details Date Type Department Care Team (Late st Contact Info) Description 03/11/2018 Refill [facility] Primary Care [address] [place] [address] [place] [address] Salud Samayoa MD [address] [facility] , [facility] [address] [place] [address] Medication Refill Social History Tobacco Use Types Packs/Day Years Used Date Smoking Tobacco: Former Smokeless Tobacco: Never Alcohol Use Standard Drinks/Week Comments No 0 (1 standard drink = 0.6 oz pur e alcohol) Comments Unknown Sex and Gender Information Value Date Recorded Sex Assigned at Not on file Legal Sex Female 2:49 PM EST Gender Identity Not on file Sexual Orientation Not on file documented as of this encounter Plan of Treatment Not on file documented as of this encounter Visit Diagnoses Diagnosis Chronic left shoulder pain Pain in joint, shoulder region Fibromyalgia Mylagia and myositis, unspecified documented in this encounter Care Teams Experimental Mechanic Relationship Specialty Start Date End Date Ifeanyi Caldera MD PCP - General Family Medicine 08/09/19 documented as of this encounter
--- OUTSIDE RECORDS SUMMARY | 2025-06-27 07:14 | XMS_ITS | Encounter Summary ---
Author Organization [facility] Address [address] [facility], [address] [place] [address] Care Team Providers Care Wire Frame Dipper Name Role Phone Ifeanyi Caldera MD Primary Care Provider [phone] Reason for Visit * Reason Comments Medication Refill Encounter Details Date Type Department Care Team (Late st Contact Info) Description 04/06/2019 Refill [facility] Primary Care [address] [place] [address] [place] [address] Salud Samayoa MD [address] [facility] [place] [address] Medication Refill Social History Tobacco Use Types [...] as of this encounter Visit Diagnoses Diagnosis Gastroesophageal reflux disease, esophagitis presence not specified documented in this encounter Care Teams Wire Frame Dipper Relationship Specialty Start Date End Date Ifeanyi Caldera MD PCP - General Family Medicine 08/09/19 documented as of this encounter
--- OUTSIDE RECORDS SUMMARY | 2025-06-27 07:14 | XMS_ITS | Encounter Summary ---
Author Organization [facility] Address [address] [facility], [address] [place] [address] Care Team Providers Care Diesel Fleet Mechanic Name Role Phone Ifeanyi Caldera MD Primary Care Provider [phone] Reason for Visit * Reason Comments Medication Refill Encounter Details Date Type Department Care Team (Late st Contact Info) Description 07/19/2019 Refill [facility] Primary Care [address] [place] [address] [place] [address] Leonor Platt, PA-C [address] [facility] [address] [place] [address] Medication Refill Social History Tobacco Use Types [...] without long-term current use of insulin (HCC) Essential hypertension Unspecified essential hypertension documented in this encounter Care Teams Diesel Fleet Mechanic Relationship Specialty Start Date End Date Ifeanyi Caldera MD PCP - General Family Medicine 08/09/19 documented as of this encounter
--- OUTSIDE RECORDS SUMMARY | 2025-06-27 07:14 | XMS_ITS | Encounter Summary ---
Author Organization [facility] Address [address] [facility], [address] [place] [address] Care Team Providers Care Biosecurity Officer Name Role Phone Ifeanyi Caldera MD Primary Care Provider [phone] Reason for Visit * Reason Comments Medication Refill Encounter Details Date Type Department Care Team (Late st Contact Info) Description 11/14/2017 Refill [facility] Primary Care [address] [place] [address] [place] [address] Salud Samayoa MD [address] [facility] , [facility] [address] [place] [address] Medication Refill Social History Tobacco Use Types [...] of this encounter Visit Diagnoses Diagnosis Chronic neck and back pain Chronic left shoulder pain Pain in joint, shoulder region documented in this encounter Care Teams Biosecurity Officer Relationship Specialty Start Date End Date Ifeanyi Caldera MD PCP - General Family Medicine 08/09/19 documented as of this encounter
--- OUTSIDE RECORDS SUMMARY | 2025-06-27 07:14 | XMS_ITS | Clinical Summary ---
Author Organization [facility] Address [id number] [address] [place] [address] Care Team Providers Care Bus Operator Name Role Phone Ifeanyi Caldera MD Primary Care Provider [phone] Allergies Active Allergy Reactions Criticality Noted Date Comments Penicillins 02/27/2023 Medications atorvastatin (LIPITOR) 40 mg tablet TAKE 1 TABLET DAILY 90 tablet 3 3 Active potassium chloride (K-TAB,KLOR-CON ) 10 MEQ CR tablet TAKE 1 TABLET DAILY WITH FOOD 90 tablet 3 3 Active fluorouraciL (EFUDEX) 5 % cream Apply 1 Application topically See Admin Instructions. APPLY TO THE AFFECTED AREAS TWICE DAILY FOR 2 WEEKS THEN 2 WEEK OFF REPEAT FOR A TOTAL OF 6 WEEKS 3 Active HYDROcodone-raymundo taminophen (NORCO) 5-325 mg per tablet Take 1 tablet by mouth 4 (four) times a day as needed. Max Daily Amount: 4 tablets 3 Active aspirin 81 mg Take 1 tablet (81 mg total) by mouth in the morning. Active calcium carbonate (OS-STACEY) 600 mg (1,500 mg) tablet Take 2 tablets (1,200 mg total) by mouth daily with breakfast. Active fluticasone propionate (FLONASE) 50 mcg/actuation nasal spray Administer 1 spray into each nostril in the morning. Active atenoloL (TENORMIN) 50 mg tablet TAKE 1 TABLET DAILY 90 tablet 3 3 Active PREMARIN vaginal cream APPLY VAGINALLY ONCE A DAY DIRECTED 90 g 3 3 Active omeprazole (PriLOSEC) 20 mg capsule TAKE 1 CAPSULE DAILY 30 MINUTES BEFORE MORNING MEAL NEEDED 90 capsule 3 3 Active fenofibrate (TRICOR) 145 mg tablet TAKE 1 TABLET DAILY 90 tablet 3 3 Active furosemide (LASIX) 20 mg tablet Take 1 tablet (20 mg total) by mouth daily. Active cholecalciferol , vitamin D3, 2,000 units tablet Take 1 tablet (2,000 Units total) by mouth in the morning. Active Active Problems Problem Noted Date Diagnosed Date Basal cell carcinoma of skin 04/20/202105/2023 Squamous cell carcinoma of skin 04/20/2021 02/28/2023 Tachycardia 04/20/2021 02/28/2023 Family History Medical History Relation Name Comments Lung cancer Maternal Aunt Diabetes type II Maternal Grandfather Heart attack Maternal Uncle Diabetes type II Mother Relation Name Status Comments Maternal Aunt Maternal Grandfather Maternal Uncle Mother Social History Tobacco Use Types Packs/Day Years Used Date Smoking Tobacco: Former Cigarettes Q uit: 1985 Smokeless Tobacco: Never Tobacco Cessation:Counseling Given: Not Answered Alcohol Use Standard Drinks/Week Comments Never 0 (1 standard drink = 0.6 oz pur e alcohol) PHQ-2 Answer Date Recorded Total Score 0 02/28/2023 Childcare Answer Date Recorded Childcare Unknown 03/03/2019 Employment Answer Date Recorded Employment Unknown 03/03/2019 Hunger Screening Answer Date Recorded Within the past 12 months we worried whether our food would run out before we got money to buy more. Never True 02/28/2023 Within the past 12 months th e food we bought just didn't last and we didn't have money to get more. Never True 02/28/2023 Comments Unknown Sex and Gender Information Value Date Recorded Sex Assigned at Not on file Legal Sex Female 12:17 PM EDT Gender Identity Not on file Sexual Orientation Not on file Last Filed Vital Signs Vital Sign Reading Time Taken Comments Blood Pressure 112/64 02/28/2023 10:06 AM EDT Pulse 78 02/28/2023 10:06 AM EDT Temperature - - Respiratory Rate - - Oxygen Saturation 95% 02/28/2023 10:06 AM EDT Inhaled Oxygen Concentration - - Weight 76.7 kg (169 lb) 02/28/2023 10:06 AM EDT Height 154.9 cm (5' 1 ) 02/28/2023 10:06 AM EDT Body Mass Index 31.93 02/28/2023 10:06 AM EDT Plan of Treatment Health Maintenance Due Date Last Done Comments Tobacco Screening 1968 DTaP,Tdap and Td Vaccines (1 - Tdap) 1975 Zoster (Shingles) Vaccine (1 of 2) 1975 Adult BMI Screening 02/29/2024 02/28/2023 Depression Screening 02/29/2024 02/28/2023 Fall Risk Screening 02/29/2024 02/28/2023 Influenza Vaccine 05/23/2025 Medical Devices Not on file Insurance [facility] Care Teams Bus Operator Relationship Specialty Start Date End Date Ifeanyi Caldera MD [address] [facility] [address] [place] [id number] PCP - General Family Medicine 02/14/23
--- OUTSIDE RECORDS SUMMARY | 2025-06-27 07:14 | XMS_ITS | Encounter Summary ---
Author Organization [facility] Address [address] [facility], [address] [place] [address] Care Team Providers Care Dry Cleaner Apprentice Name Role Phone Ifeanyi Caldera MD Primary Care Provider [phone] Reason for Visit * Reason Comments Medication Refill Encounter Details Date Type Department Care Team (Late st Contact Info) Description 02/20/2019 Refill [facility] Primary Care [address] [place] [address] [place] [address] Salud Samayoa MD [address] [facility] [place] [address] Medication Refill Social History Tobacco Use Types [...] specified documented in this encounter Care Teams Dry Cleaner Apprentice Relationship Specialty Start Date End Date Ifeanyi Caldera MD PCP - General Family Medicine 08/09/19 documented as of this encounter
--- OUTSIDE RECORDS SUMMARY | 2025-06-27 07:14 | XMS_ITS | Encounter Summary ---
Author Organization [facility] Address [address] [facility], [address] [place] [address] Care Team Providers Care Clinical Therapist Name Role Phone Ifeanyi Caldera MD Primary Care Provider [phone] Reason for Visit * Reason Comments Medication Refill Encounter Details Date Type Department Care Team (Late st Contact Info) Description 05/22/2017 Refill [facility] Primary Care [address] [place] [address] [place] [address] Salud Samayoa MD [address] [facility] [address] [place] [address] Medication Refill Social History Tobacco Use Types Packs/Day Years Used Date Smoking Tobacco: Former Alcohol Use Standard Drinks/Week Comments No 0 [...] region documented in this encounter Care Teams Clinical Therapist Relationship Specialty Start Date End Date Ifeanyi Caldera MD PCP - General Family Medicine 08/09/19 documented as of this encounter
--- OUTSIDE RECORDS SUMMARY | 2025-06-27 07:14 | XMS_ITS | Patient Health Record ---
Author Organization Telehealth Visit Address [address] [place], [place] [address] [place], [place] [address] Care Team Providers Care Woodenware Assembler Name Role Phone Salud Samayoa Primary Care Provider Ansley Simon MD [place] Unavailable [phone] Allergies Allergen (clinical drug ingredient) Drug/Non Drug Allergy documented on EMR Reaction Allergy Type Onset Date Status PCN (uncoded) Unknown Allergy Active Reason For Referral No Information Medications Medication SIG (Take, Route, Frequency, Duration) Notes Start Date End Date Status traMADol HCl 50 MG Orally A ctive Premarin 0.625 MG/GM Vaginal Active Fluorouracil 5 % Externally Ac tive Omeprazole 20 MG 1 capsule Orally Onc e a day Active Atenolol 50 MG 1 tablet Orally Active Potassium Chloride A ctive Furosemide 20 MG Orally Act yandel Atorvastatin Calcium 10 MG 1 tablet Orally Active Fenofibrate 145 MG 1 tablet Orally Active Social History Tobacco Use: Social History Observation Description Date Details (start date - stop date) Former Smoker NA - NA Alcohol Screen Question Answer Notes Did you have a drink containing alcohol in the p ast year? No Points 0 Interpretation Negative Smoking Question Answer Notes Status former smoker Additional Findings: Tobacco Non-User Current no n-smoker quit 21 years ago Section Notes: Plan Of Treatment Pending Test Test Name Order Date .COLONOSCOPY 12/11/2017 Insurance Providers Payer Name Payer Address Payer Phone Subscriber Number Group Number Insured Name Patient Relationship to Insured Coverage Start Date Coverage End Date [employer]THE[employer]/ BCBS [address] [place] [address] [phone] [id number] Francois Da Silva Spouse - patient is the spouse of the insured Medical (General) History Medical History History ICD Code hypertension fibromyalgia lymphedema hyperlipidemia breast cancer Surgical History Surgery Date(Month/Year) hysterectomy eye surgery tonsillectomy cholecystectomy mastectomy
--- OUTSIDE RECORDS SUMMARY | 2025-06-27 07:14 | XMS_ITS | Encounter Summary ---
Author Organization [facility] Address [address] [facility], [address] [place] [address] Care Team Providers Care Custodian Name Role Phone Ifeanyi Caldera MD Primary Care Provider [phone] Reason for Visit * Reason Comments Medication Refill Encounter Details Date Type Department Care Team (Late st Contact Info) Description 03/11/2019 Refill [facility] Primary Care [address] [place] [address] [place] [address] Salud Samayoa MD [address] [facility] [address] [place] [address] Medication Refill Social History Tobacco Use Types [...] as of this encounter Visit Diagnoses Diagnosis PVD (peripheral vascular disease) with claudication Peripheral vascular disease, unspecified documented in this encounter Care Teams Custodian Relationship Specialty Start Date End Date Ifeanyi Caldera MD PCP - General Family Medicine 08/09/19 documented as of this encounter
--- OUTSIDE RECORDS SUMMARY | 2025-06-27 07:14 | XMS_ITS | Encounter Summary ---
Author Organization [facility] Address [address] [place] [address] Care Team Providers Care Manager Relocation Name Role Phone Rowna Byrd CNP Primary Care Provider + Encounter Details Date Type Department Care Team (Latest Contact Info) Description 06/21/2025 Travel Social History Tobacco Use Types Packs/Day Years [...] Orientation Straight 05/08/2023 2: 11 PM EDT documented as of this encounter Plan of Treatment Upcoming Encounters Date Type Department Care Team (Late st Contact Info) Description 06/30/2025 11:00 AM EDT Hospital Encounter [facility] Mobile Mammography [address] [place] [address] documented as of this encounter Visit Diagnoses Not on filedocumented in this encounter Additional Health Concerns Assessment Noted Time PHQ-9 Depression Total Score: 2 08/29/20 11:56 AM EST PHQ-2 Depression Total Score: 1 08/29/20 11:56 AM EST documented as of this encounter Care Teams Manager Relocation Relationship Specialty Start Date End Date Rowan Byrd CNP [address] [address] PCP - General Nurse Practitioner 11/24/24 documented as of this encounter
--- OUTSIDE RECORDS SUMMARY | 2025-06-27 07:14 | XMS_ITS | Encounter Summary ---
Author Organization [facility] Address [address], [address] [place] [address] Care Team Providers Care Social Services Specialist Name Role Phone Ifeanyi Caldera MD Primary Care Provider [phone] Reason for Visit * Reason Comments Medication Refill Encounter Details Date Type Department Care Team (Late st Contact Info) Description 02/05/2017 Refill [facility] [address] [place] [address] Tayler Toure MD Medication Refill Social History Tobacco Use Types [...] Diagnoses Diagnosis Chronic neck and back pain documented in this encounter Care Teams Social Services Specialist Relationship Specialty Start Date End Date Ifeanyi Caldera MD PCP - General Family Medicine 08/09/19 documented as of this encounter
--- OUTSIDE RECORDS SUMMARY | 2025-06-27 07:15 | XMS_ITS | Encounter Summary ---
Author Organization [facility] Address [address], [address] [place] [address] Care Team Providers Care Case Supervisor Name Role Phone Ifeanyi Caldera MD Primary Care Provider [phone] Reason for Visit * Reason Comments Medication Refill Encounter Details Date Type Department Care Team (Late st Contact Info) Description 10/10/2018 Refill [facility] Primary Care [address] [place] [address] [place] [address] Salud Samayoa MD [address] [facility] [address] [place] [address] Medication Refill Social History Tobacco Use Types Packs/Day Years Used Date Smoking Tobacco: Former Cigarettes Q uit: 05/08/2003 Smokeless Tobacco: Never Alcohol Use Standard Drinks/Week Comments No 0 (1 standard drink = 0.6 oz pur e alcohol) Comments No Sex and Gender Information Value Date Recorded Sex Assigned at Not on file Legal Sex Female 2:49 PM EST Gender Identity Not on file Sexual Orientation Not on file documented as of this encounter Plan of Treatment Not on file documented as of this encounter Visit Diagnoses Diagnosis Lymphedema of left upper extremity documented in this encounter Care Teams Case Supervisor Relationship Specialty Start Date End Date Ifeanyi Caldera MD PCP - General Family Medicine 08/09/19 documented as of this encounter
--- OUTSIDE RECORDS SUMMARY | 2025-06-27 07:15 | XMS_ITS | Encounter Summary ---
Author Organization [facility] Address [address], [address] [place] [address] Care Team Providers Care Truck Leasing Manager Name Role Phone Ifeanyi Caldera MD Primary Care Provider [phone] Reason for Visit * Reason Comments Medication Refill Encounter Details Date Type Department Care Team (Late st Contact Info) Description 08/17/2018 Refill [facility] Primary Care [address] [place] [address] [place] [address] Salud Samayoa MD [address] [facility] [address] [place] [address] Medication Refill Social History Tobacco Use Types [...] as of this encounter Visit Diagnoses Diagnosis Mixed hyperlipidemia documented in this encounter Care Teams Truck Leasing Manager Relationship Specialty Start Date End Date Ifeanyi Caldera MD PCP - General Family Medicine 08/09/19 documented as of this encounter
--- OUTSIDE RECORDS SUMMARY | 2025-06-27 07:15 | XMS_ITS | Encounter Summary ---
Author Organization [facility] Address [id number] [place] [address] Care Team Providers Care Aircraft Instrument Engineer Name Role Phone Ifeanyi Caldera MD Primary Care Provider [phone] Encounter Details Date Type Department Care Team (Late st Contact Info) Description 03/27/2023 Orders Only [facility] [address] [place] [id number] Verona Dominguez LPN Wellness examination; Benign essential HTN; Mixed hyperlipidemia; Encounter for screening mammogram for malignant neoplasm of breast; Osteoporosis, post-menopausal; Prediabetes Social History Tobacco Use Types Packs/Day Years Used Date Smoking Tobacco: Former Cigarettes Q uit: 1985 Smokeless Tobacco: Never Alcohol Use Standard Drinks/Week Comments Never 0 [...] on file documented as of this encounter Procedures Procedure Name Priority Date/Time Associated Diagnosis Comments HEMOGLOBIN A1C Routine 03/05/2023 Wellness examination Benign essential HTN Mixed hyperlipidemia Encounter for screening mammogram for malignant neoplasm of breast Osteoporosis, post-menopausal Prediabetes VITAMIN B12 Routine 03/05/2023 Wellness examination Benign essential HTN Mixed hyperlipidemia Encounter for screening mammogram for malignant neoplasm of breast Osteoporosis, post-menopausal Prediabetes LIPID PROFILE Routine 03/05/2023 Wellness examination Benign essential HTN Mixed hyperlipidemia Encounter for screening mammogram for malignant neoplasm of breast Osteoporosis, post-menopausal Prediabetes COMPREHENSIVE METABOLIC PANEL Routine 03/05/2023 Wellness examination Benign essential HTN Mixed hyperlipidemia Encounter for screening mammogram for malignant neoplasm of breast Osteoporosis, post-menopausal Prediabetes documented in this encounter Results * Vitamin B12 (03/05/2023) 03/05/2023 Ifeanyi Caldera MD LAB BLOOD ORDERABLES Final Resu lt Performing Organization Address [facility] de Phone Number [facility] * Hemoglobin A1c (03/05/2023) External Hemoglobin A1C 6.4% 6.4% % [facility] 03/05/2023 Ifeanyi Caldera MD LAB BLOOD ORDERABLES Final Resu lt Performing Organization Address [facility] Co de Phone Number [facility] * Lipid profile (03/05/2023) External Cholesterol 153 <=200 [facility] External Cholesterol:Hdl 3.6 <=4.4 [facility] External Hdl Cholesterol 43 >=40 [facility] External Ldl (Calc) 84 <=130 [facility] External Triglycerides 131 <=150 [facility] External Very Low Lipoprotein 26 <=46 [facility] 03/05/2023 Ifeanyioskar Caldera MD LAB BLOOD ORDERABLES Final Resu lt Performing Organization Address [facility] Co de Phone Number [facility] * Comprehensive metabolic panel (03/05/2023) 03/05/2023 us Ifeanyi Caldera MD LAB BLOOD ORDERABLES Final Resu lt [facility] documented in this encounter Visit Diagnoses Diagnosis Wellness examination Benign essential HTN Mixed hyperlipidemia Encounter for screening mammogram for malignant neoplasm of breast Osteoporosis, post-menopausal Senile osteoporosis Prediabetes Other abnormal glucose documented in this encounter Additional Health Concerns Assessment Noted Time PHQ-9 Depression Total Score: 0 02/29/20 10:13 AM EDT documented as of this encounter Care Teams Aircraft Instrument Engineer Relationship Specialty Start Date End Date Ifeanyi Caldera MD [address] [place] [address] [place] [phone] PCP - General Family Medicine 02/14/23 documented as of this encounter
--- OUTSIDE RECORDS SUMMARY | 2025-06-27 07:15 | XMS_ITS | Encounter Summary ---
Author Organization [facility] Address [address] [facility], [address] [place] [address] Care Team Providers Care Rest Room Attendant Name Role Phone Ifeanyi Caldera MD Primary Care Provider [phone] Reason for Visit * Reason Comments Medication Refill Encounter Details Date Type Department Care Team (Late st Contact Info) Description 08/11/2018 Refill [facility] Primary Care [address] [place] [address] [place] [address] Salud Samayoa MD [address] [facility] [address] [place] [address] Medication Refill Social History Tobacco Use Types [...] extremity documented in this encounter Care Teams Rest Room Attendant Relationship Specialty Start Date End Date Ifeanyi Caldera MD PCP - General Family Medicine 08/09/19 documented as of this encounter
--- OUTSIDE RECORDS SUMMARY | 2025-06-27 07:15 | XMS_ITS | CCD ---
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 Name Role Phone KARENA, MORTEZA A Unavailable Unavailable ASHLEY, CHRISTIE (FUR REPAIR INSPECTOR) Unavailable Unavaila ble KARENA, MORTEZA A Unavailable Unavailable ASHLEY, CHRISTIE (FUR REPAIR INSPECTOR) Unavailable Unavaila ble AKBANI, MOHAMMED Referring Unavailable BREE, VALERIE Primary Care Unavailable BREE, VALERIE Referring Unavailable BREE, VALERIE Primary Care Unavailable AKBANI, MOHAMMED Admitting Unavailable AKBANI, MOHAMMED Attending Unavailable BREE, VALERIE Primary Care Unavailable RAJEEV OCHOA Consulting Unavailable BREE, VALERIE Referring Unavailable BREE, VALERIE Primary Care Unavailable AKBANI, MOHAMMED Referring Unavailable BREE, VALERIE Primary Care Unavailable AKBANI, MOHAMMED Referring Unavailable BREE, VALERIE Primary Care Unavailable AKBANI, MOHAMMED Referring Unavailable MAY MARIA Primary Care Unavailable May Maria Primary Care Provider [phone] GIEDRAITIS, ANDRIUS Attending Unavailable GIEDRAITIS, ANDRIUS Admitting Unavailable DR RENUKA BRUNNER Primary Care Unavailable Simón Ramos MD Primary Care Pro vider SYSTEM, PROVIDER NOT IN Referring Unavaila ble SYSTEM, PROVIDER NOT IN Attending Unavaila ble SIMÓN RAMOSUNIR Primary Care Mirela vailable SYSTEM, PROVIDER NOT IN Attending Unavaila ble SIMÓN RAMOS Primary Care Mirela vailable SYSTEM, PROVIDER NOT IN Referring Unavaila ble SYSTEM, PROVIDER NOT IN Attending Unavaila ble SIMÓN RAMOSUNIR Primary Care Mirela vailable SYSTEM, PROVIDER NOT IN Referring Unavaila ble Dunia Simon RD Unavailable Unavailable RACHEL, SIMÓN KATIA MOUNIR Attending Mirela vailable RACHEL, SIMÓN KATIA MOUNIR Primary Care Mirela vailable RACHEL, SIMÓN KATIA MOUNIR Attending Mirela vailable RACHEL, SIMÓN KATIA MOUNIR Primary Care Mirela vailable RACHEL, SIMÓN KATIA MOUNIR Primary Care Mirela vailable MILAGRO GILES Attending Unavailable RACHEL, SIMÓN KATIA MOUNIR Primary Care Mirela vailable RACHEL, SIMÓN KATIA MOUNIR Admitting Mirela vailable RACHEL, SIMÓN KATIA MOUNIR Referring Mirela vailable RACHEL, SIMÓN KATIA MOUNIR Referring Mirela vailable RACHEL, SIMÓN KATIA MOUNIR Attending Mirela vailable RACHEL, SIMÓN KATIA MOUNIR Primary Care Mirela vailable ROWAN BYRD Primary Care Unavailable JUICE CONTE Referring Unava ilable JUICE CONTE Attending Unava ilable ROWAN BYRD Primary Care Unavailable MILAGRO GILES Referring Unavailable MILAGRO GILES Attending Unavailable [facility] Provider Gisoraida GALVEZ, Andrius Vytautjosie Attending Unavailable Gisoraida GALVEZ, Andrius Vytautjosie Attending Unavailable Sara GALVEZ, Andrius Vytautas Attending Unavailable Gisoraida GALVEZ, Andrius Vytautjosie Attending Unavailable Dr. James Franco DO Emergency Provider [phone] [place] ROWAN MAYNARD Primary Care Provider [phone] James Franco Attending Unavailable [facility] Care Unavailable Allergies Allergy Classification Reported Allergen(s) Allergy Type Date of Onset Reaction(s) Facility Macrolides (antibiotic) (1 source) Erythromycin Drug Allergy 9 Hives, Nausea Only [facility] Penicillins (antibiotic) (1 source) [facility] Penicillins; Translations: [PENICILLINS] Propensity to adverse reactions to drug (disorder) 6 Hives [facility] (16 sources) Erythromycin; Translations: [ERYTHROMYCIN] Drug Allergy 9 Hives, Nausea Only [facility] [place], [place] (1 source) Amoxicillin Drug Allergy 5 RASH [facility] (1 source) Azithromycin Drug Allergy 5 UNKNWN [facility] (1 source) Amoxicillin Drug Allergy 5 [facility] Repository (1 source) Azithromycin Drug Allergy 5 [facility] Repository Medications Current Medications Medication Drug Class(es) Dates Sig (Normalized) Sig (Original) acetaminophen 325 mg / HYDROcodone bitartrate 5 mg oral tablet (12 sources) Opioid Agonist take 1 tablet by mouth every four hours as needed for pain HYDROcodone-acetami nophen (NORCO) 5-325 mg per tablet Take 1 (one) tablet by mouth every 4 (four) hours as needed for pain (Days supply per fill: 30) . Active aspirin 81 mg delayed release oral tablet (13 sources) Platelet Aggregation Inhibitor, Nonsteroidal Anti-inflammatory Drug [...] 12/25/2018 Active cholecalciferol 0.05 mg oral tablet (12 sources) Vitamin D take 1 tablet by [...] 90 capsule 0 01/31/2019 Active estrogens, conjugated (longterm) 0.625 mg/ml vaginal cream (20 sources) Estrogen [...] 04/27/2019 Active fenofibrate 145 mg oral tablet (14 sources) Peroxisome Proliferator Receptor alpha Agonist Start: [...] 11/16/2018 Active furosemide 20 mg oral tablet (15 sources) Loop Diuretic Start: 06-08-2019 take 1 tablet by mouth twice daily furosemide (LASIX) 20 MG tablet [...] needed . 30 tablet 1 05/10/2024 Active ketorolac tromethamine 10 mg oral tablet (1 source) Nonsteroidal Anti-inflammatory Drug, Cyclooxygenase Inhibitor Start: 11-17-2024 take 1 tablet by mouth three times daily as needed for pain ketorolac (TORADOL) 10 mg tablet Take 1 (one) tablet (10 mg total) by mouth 3 (three) times a day as needed for pain . 15 tablet 11/17/2024 Active Mastectomy Bra MISC (1 source) Start: 12-28-2018 Mastectomy Bra MISC Indications: History of mastectomy, unspecified laterality , [...] omeprazole 20 mg delayed release oral capsule (12 sources) Proton Pump Inhibitor Start: 09-01-2023 End: [...] Classification Problem Date Documented Da te Episodic/Chronic Cancer of breast (1 source) Malignant tumor of breast ; Translations: [Malignant neoplasm of unspecified site of unspecified female breast] 04-15-2025 Chronic Diabetes mellitus without complication (20 sources) Type 2 diabetes mellitus; Translations: [Type 2 diabetes mellitus without complication] Onset: 08-10-2018 08-10-2018 Chronic Disorders of lipid metabolism (4 sources) Mixed hyperlipidemia; Translations: [Hyperlipidemia] Onset: 11-27-2015 11-27-2015 Chronic Essential hypertension (19 sources) Essential hypertension; Translations: [Hypertensive disorder] Onset: 11-27-2015 11-27-2015 Chronic Malignant neoplasm without specification of site (16 sources) Malignant neoplastic disease; Translations: [Malignant (primary) neoplasm, unspecified] Onset: 08-29-2023 Resolved: 06-09-2018 06-09-2018 Chronic Menopausal disorders (20 sources) Vaginal dryness; Translations: [Menopausal and female climacteric states] Onset: 08-29-2023 08-29-2023 Chronic Other circulatory disease (2 sources) Other specified peripheral vascular diseases; Translations: [Other specified peripheral vascular diseases] Onset: 12-10-2024 Chronic Other connective tissue disease (15 sources) Fibromyalgia; Translations: [Fibromyalgia] Onset: 04-05-2016 04-05-2016 Episodic Other diseases of veins and lymphatics (1 source) Lymphedema; Translations: [Lymphedema, not elsewhere classified] 04-15-2025 Chronic Other diseases of veins and lymphatics [...] Onset: 02-26-2024 Chronic Peripheral and visceral atherosclerosis (18 sources) Peripheral vascular disease; Translations: [Intermittent claudication] Onset: 06-26-2018 08-11-2018 Chronic Residual codes; unclassified (1 source) Intermittent confusion; Translations: [Disorientation, unspecified] 04-15-2025 Episodic Residual codes; unclassified (1 source) Disorientation, unspecified; Translations: [Disorientation, unspecified] Onset: 04-21-2025 Episodic Unclassified (1 source) Low back pain, unspecified; Translations: [Low back pain, unspecified] Onset: 11-17-2024 Unclassified (1 source) Abdominal aortic aneurysm, without rupture, unspecified; Translations: [Abdominal aortic aneurysm, without rupture, unspecified] Onset: 12-10-2024 Past or Other Problems Problem Classification Problem Date Documented Da te Episodic/Chronic Abdominal pain (17 sources) Left inguinal pain; Translations: [Left lower [...] Dysuria; Translations: [Dysuria] Onset: 08-29-2023 08-29-2023 Episodic Mood disorders (2 sources) Mood disorders Onset: 08-29-2023 08-29-2023 Noninfectious gastroenteritis (1 source) Colitis; Translations: [Colitis] 10-29-2018 Episodic Other and unspecified benign neoplasm (1 source) Adenomatous polyp of colon ; Translations: [Adenomatous polyp of colon] Onset: 01-16-2018 01-16-2018 Episodic Other non-epithelial cancer of skin (13 sources) Malignant neoplasm of skin; Translations: [Unspecified [...] Translations: [Pulmonary insufficiency following surgery] 10-29-2018 Episodic Unclassified (1 source) Low back pain, unspecified; Translations: [Low back pain, unspecified] Onset: 11-17-2024 Unclassified (1 source) Abdominal aortic aneurysm, without rupture, unspecified; Translations: [Abdominal aortic aneurysm, without rupture, unspecified] Onset: 12-10-2024 Urinary tract infections (3 sources) Acute cystitis; Translations: [Acute cystitis without hematuria] Onset: 08-29-2023 08-29-2023 Episodic Results Test Name Value Interpretation Reference Range Facility Culture, Blood (WB)on 2024 CUB Blood cultures x2, from two different sites No growth in 5 days. Normal [facility] Comment on above: Performed By: #### M 200.1000 #### [facility] [address] [place], [place], [address] Urine Cultureon 04-17-2025 URC Mixed Gram Positive Organisms [place] Count 11,000-25,000 MIXC Mixed contaminants. Submit a new specimen if indicated. Normal [facility] Comment on above: Performed By: #### M 100.2200, L400.0001 #### [facility] [address] [place], [place], [address] Absolute lymphocyte countOrd ered By: James Franco on 04-15-2025 Lymphocytes Auto (Unsp spec) [#/Vol] 2.14 10*3/uL 0.83-4.51 [facility] Absolute neutrophil countOrd ered By: James Franco on 04-15-2025 Neutrophils (Bld) [#/Vol] 4.7 10*3/uL 2.0-7.7 [facility] Anion gap in Serum or Plasma Ordered By: James Franco on 04-15-2025 Anion gap [Moles/Vol] 13 mmol/L 5-15 [facility] Automated lymphocyte count a s percentage of total leukocytesOrdered By: James Franco on 04-15-2025 Lymphocytes/100 WBC Auto (Unsp spec) 27.5 % - [facility] BUN/creatinine ratioOrdered By: James Franco on 04-15-2025 Urea nitrogen/Creatinine [Mass ratio] 13.2 mg/mg - [facility] Basic Metabolic Profile (BMP )on 04-15-2025 BUN/CRE 13.2 RATIO Normal 10-20 [facility] Comment on above: Performed By: #### L 503.6005, L100.0100, L500.2500 #### [facility] [address] [place], [address] Calcium [Mass/Vol] 10.1 mg/dL Normal 7.6-11.0 [facility] Comment on above: Performed By: #### L 503.6005, L100.0100, L500.2500 #### [facility] [address] [place], [address] Chloride [Moles/Vol] 103 mmol/L Normal 98-108 [facility] Comment on above: Performed By: #### L 503.6005, L100.0100, L500.2500 #### [facility] [address] [place], [address] CO2 [Moles/Vol] 21.6 mmol/L Normal 21.0-32.0 [facility] Comment on above: Performed By: #### L 503.6005, L100.0100, L500.2500 #### [facility] [address] [place], [address] Creatinine [Mass/Vol] 1.11 mg/dL Normal 0.70-1.20 [facility] Comment on above: Performed By: #### L 503.6005, L100.0100, L500.2500 #### [facility] [address] [place], [address] GAP 13 Normal 5-15 [facility] Comment on above: Performed By: #### L 503.6005, L100.0100, L500.2500 #### [facility] [address] [place], [address] GFR/1.73 sq M.predicted among non-blacks MDRD (S/P/Bld) [Vol rate/Area] 54 mL/min/{1.73_m2} Low >60 [facility] Comment on above: Result Comment: mL/m in/1.73m2 CKD-EPI Creatinine Equation (2020) Performed By: #### L 503.6005, L100.0100, L500.2500 #### [facility] [address] [place], [address] Glucose [Mass/Vol] 95 mg/dL Normal 70-99 [facility] Comment on above: Performed By: #### L 503.6005, L100.0100, L500.2500 #### [facility] [address] [place], [address] Potassium [Moles/Vol] 4.1 mmol/L Normal 3.3-5.1 [facility] Comment on above: Performed By: #### L 503.6005, L100.0100, L500.2500 #### [facility] [address] [place], [address] Sodium [Moles/Vol] 138 mmol/L Normal 133-145 [facility] Comment on above: Performed By: #### L 503.6005, L100.0100, L500.2500 #### [facility] [address] [place], [address] Urea nitrogen [Mass/Vol] 15 mg/dL Normal 4-19 [facility] Comment on above: Performed By: #### L 503.6005, L100.0100, L500.2500 #### [facility] [address] [place], [address] Basophil percentageOrdered B y: James Franco on 04-15-2025 Basophils/100 WBC (Bld) 0.4 % 0-1 [facility] Bilirubin Test strip Ql (U)O rdered By: James Franco on 04-15-2025 Bilirubin Ql (U) Negative Negative [facility] Brain/Head without Contrasto n 04-15-2025 Brain/Head without Contrast [facility] Imaging Services [address] [place] [address] Brain/Head without Contrast MR#: [id number] Acct: [id number] Name: KATHERINE DA SILVA Rep #: [id number] : 1955 F 69 From: Adam Seaman MD PCP: ROWAN BYRD Status: REG ER Study: Brain/Head without Contrast Date of Exam: 03/23 02/13 Exam# [id number] Ordering Dr: James Franco DO PROCEDURE: BRAIN/HEAD WITHOUT CONTRAST 04/15/2025 REASON FOR EXAM: CONFUSION TECHNIQUE: BRAIN/HEAD WITHOUT CONTRAST Coronal and Sagittal reconstruction series were provided. One or more dose reduction techniques were used (e.g., Automated exposure control, adjustment of the mA and/or kV according to patient size, use of iterative reconstruction technique. RADIATION DOSE SUMMARY: CTDlvol: 44.99 mGy DLP: 76.11 mGycm FINDINGS: Ventricles are normal in size and midline in position. No evidence of acute hemorrhage or infarction. No extra-axial blood or fluid collections. The calvarial vault and skull base are intact. The paranasal sinuses and mastoid air cells are clear. CT/Brain/Head without Contrast IMPRESSION: NO ACUTE FINDINGS Reading Location: [id number] CC: CAESAR COLLAZO; Dr. James Franco DO Medical Office Professional Instructor: Signed Normal [facility] CBC W/Diff, Automatedon 03-23 Absolute Lymph 2.14 X10 3/uL Normal 0.83-4.51 [facility] Comment on above: Performed By: #### L 503.6005, L100.0100, L500.2500 #### [facility] [address] [place], [address] Absolute Neut 4.7 X10 3/uL Normal 2.0-7.7 [facility] Comment on above: Performed By: #### L 503.6005, L100.0100, L500.2500 #### [facility] [address] [place], [address] Basophils/100 WBC (Bld) 0.4 % Normal 0-1 W [facility] Comment on above: Performed By: #### L 503.6005, L100.0100, L500.2500 #### [facility] [address] [place], [address] Eosinophils/100 WBC (Bld) 0.4 % Normal 0-5 [facility] Comment on above: Performed By: #### L 503.6005, L100.0100, L500.2500 #### [facility] [address] [place], [address] Erythrocyte distribution width (RBC) [Ratio] 14.6 % Normal 11.6-14.6 [facility] Comment on above: Performed By: #### L 503.6005, L100.0100, L500.2500 #### [facility] [address] [place], [address] Hematocrit (Bld) [Volume fraction] 43.4 % Normal 37-47 [facility] Comment on above: Performed By: #### L 503.6005, L100.0100, L500.2500 #### [facility] [address] [place], [address] Hemoglobin (Bld) [Mass/Vol] 15.1 g/dL High 12.0-15.0 [facility] Comment on above: Performed By: #### L 503.6005, L100.0100, L500.2500 #### [facility] [address] [place], [address] IG% 0.300 Normal 0.0-0.9 [facility] Comment on above: Result Comment: IG% - Immature Granulocytes (promyelocytes, myelocytes and metamyelocytes) > 1% indicates that a LEFT SHIFT is Present. Performed By: #### L 503.6005, L100.0100, L500.2500 #### [facility] [address] [place], [address] Lymphocytes/100 WBC (Bld) 27.5 % Normal 19-41 [facility] Comment on above: Performed By: #### L 503.6005, L100.0100, L500.2500 #### [facility] [address] [place], [address] MCH (RBC) [Entitic mass] 31.5 pg Normal 27.0-32.0 [facility] Comment on above: Performed By: #### L 503.6005, L100.0100, L500.2500 #### [facility] [address] [place], [address] MCHC (RBC) [Mass/Vol] 34.8 g/dL Normal 32-36 [facility] Comment on above: Performed By: #### L 503.6005, L100.0100, L500.2500 #### [facility] [address] [place], [address] MCV (RBC) [Entitic vol] 90.6 fL Normal 81-99 [facility] Comment on above: Performed By: #### L 503.6005, L100.0100, L500.2500 #### [facility] [address] [place], [address] Monocytes/100 WBC (Bld) 10.8 % High 0-10 [facility] Comment on above: Performed By: #### L 503.6005, L100.0100, L500.2500 #### [facility] [address] [place], [address] Neutrophils/100 WBC (Bld) 60.6 % Normal 47-70 [facility] Comment on above: Performed By: #### L 503.6005, L100.0100, L500.2500 #### [facility] [address] [place], [address] Nucleated RBC (Bld) [#/Vol] 0 10*3/uL Normal 0-5 [facility] Comment on above: Performed By: #### L 503.6005, L100.0100, L500.2500 #### [facility] [address] [place], [address] Platelet mean volume (Bld) [Entitic vol] 9.6 fL Normal 6.2-12.0 [facility] Comment on above: Performed By: #### L 503.6005, L100.0100, L500.2500 #### [facility] [address] [place], [address] Platelets (Bld) [#/Vol] 329 10*3/uL Normal 150-450 [facility] Comment on above: Performed By: #### L 503.6005, L100.0100, L500.2500 #### [facility] [address] [place], [address] RBC (Bld) [#/Vol] 4.79 10*6/uL Normal 4.2-5.4 [facility] Comment on above: Performed By: #### L 503.6005, L100.0100, L500.2500 #### [facility] [address] [place], [address] RDW SD 48.7 fl High 35.1-43.9 [facility] Comment on above: Performed By: #### L 503.6005, L100.0100, L500.2500 #### [facility] [address] [place], [address] WBC (Bld) [#/Vol] 7.8 10*3/uL Normal 4.4-11.0 [facility] Comment on above: Performed By: #### L 503.6005, L100.0100, L500.2500 #### [facility] [address] [place], [address] Carbon dioxide, total [Moles /volume] in Central venous bloodOrdered By: James Franco on 04-15-2025 CO2 [Moles/Vol] 21.6 mmol/L 21.0-32.0 [facility] Chloride assayOrdered By: David Franco on 04-15-2025 Chloride [Moles/Vol] 103 mmol/L 98-108 [facility] Emergency Department Summary on 04-15-2025 Emergency Department Summary [facility] Medical Records Department [address] [place] [address] Emergency Department Summary 04/15/25 MR#: [id number] Acct: [id number] Name: KATHERINE DA SILVA Rep #: [id number] : [id number] From: James Franco DO PCP: ROWAN BYRD Status:DEP ER Location: ED HPI History of Present Illness Chief Complaint: Confusion Informant: patient Onset/Context/Timing Onset: Weeks (6) Context: Gradual Onset Timing: Waxes and wanes Quality: Confused, unsteady, spinning Location: Generalized Worsened by: Nothing Relieved by: Nothing Narrative Narrative: Patient presents with confusion, visual and auditory hallucinations, dizziness, and insomnia for the past 6 weeks. Patient states she has had urinary tract infections that were diagnosed by her nurse practitioner. Patient is currently on Bactrim for these. Patient had a culture done which shows that it is sensitive to Bactrim. Patient denies any fevers or chills. states patient has been more confused. states that the patient has been having some insomnia for the past few days. Patient admits to some nausea and vomiting. Patient admits to headache, neck pain, and back pain. [facility] Medical History (Updated 04/15/25 @ 18:[address] James Franco DO) Lymphedema Fibromyalgia Breast cancer Hypertension Diabetes Allergy/AdvReac Type Severity Reaction Status Date / Time amoxicillin Allergy Severe RASH Verified 04/15/25 15:25 azithromycin (From Zithromax) Allergy Unknown UNKNWN Verified 04/15/25 15:25 Penicillins AdvReac Unknown UNKOWN Verified 04/15/25 15:25 Surgical History S/P aorta repair Hx of eye surgery Hx of tonsillectomy Hx of hysterectomy Hx of cholecystectomy Hx of left mastectomy Social History Smoking Status: Never smoker ROS ROS ED Constitutional Constitutional ED: Denies chills or fever(s) Eyes Eyes: Reports change in vision; Denies blurry vision ENT ENT ED: Denies rhinorrhea or sore throat Cardiovascular Cardiovascular: Denies chest pain or palpitations Respiratory/Chest Respiratory/Chest: Denies cough or dyspnea Gastrointestinal Gastrointestinal: Reports nausea and vomiting Genitourinary Genitourinary ED: Denies dysuria or hematuria Musculoskeletal Musculoskeletal: Reports back pain and neck pain Integumentary Denies abscess or rash Neurologic Neurologic: Reports headache(s); Denies weakness Allergic/Immunologic Allergic/Immunologic ED: Denies mouth swelling or urticaria EXAM Physical Exam Const Vital Signs: 04/15/25 15:22 04/15/25 15:23 04/15/25 16:45 Temperature 98.6 F 98.6 F 97.8 F Temperature Source Oral Oral Oral Pulse Rate 119 H 119 H 85 Respiratory Rate 18 18 16 Blood Pressure 174/98 H 174/98 H 181/62 H Blood Pressure Mean 123 123 101 Pulse Ox 99 99 97 Oxygen Delivery Method Room Air Room Air Room Air 04/15/25 17:00 04/15/25 18:00 04/15/25 18:25 Temperature 98.1 F 98.1 F 98.1 F Temperature Source Temporal Oral Pulse Rate 103 H 84 88 Respiratory Rate 17 16 16 Blood Pressure 167/83 H 168/94 H 168/74 H Blood Pressure Mean 111 118 105 Pulse Ox 98 93 96 Oxygen Delivery Method Room Air Positive well nourished and well developed General Appearance ED: well developed and NAD HEENT Reports moist mucous membranes Neck supple and no JVD Resp normal respiratory effort and clear to auscultation bilaterally Cardio regular rate and regular rhythm GI non-tender and non-distended Palpation: soft Back/Spine no CVA tenderness Extremity Extremity Narrative: There is edema of the left upper extremity. There is no tenderness. General Extremety ED: Yes edema General Extremity: edema Neuro oriented x3, CN's II-XII intact bilaterally and no sensory deficits noted Sensorium / Orientation: alert Motor Exam: strength 5/5 throughout Psych mental status grossly normal MDM MDM MDM Narrative Medical decision making narrative: Differential diagnosis includes urinary tract infection, sepsis, electrolyte abnormality, dehydration, insomnia, vertigo, anemia, and anxiety. CBC will be obtained to assess for leukocytosis and anemia. Basic metabolic profile will be obtained to assess for electrolyte abnormality and renal function. Urinalysis will be obtained to assess for urinary tract infection and hematuria. Serum lactate will be obtained to assess for sepsis. Blood culture will be obtained to assess for sepsis. Urine culture will be obtained to assess for urinary tract infection. Orthostatic vital signs will be obtained to assess for orthostatic hypotension and hypovolemia. CT scan of the brain will be obtained to assess for stroke and intracr (more content not included)... Normal [facility] Eosinophil percentageOrdered By: James Franco on 04-15-2025 Eosinophils/100 WBC (Bld) 0.4 % 0-5 [facility] Erythrocyte distribution wid th ratioOrdered By: James Franco on 04-15-2025 Erythrocyte distribution width (RBC) [Ratio] 14.6 % 11.6-14.6 [facility] Erythrocyte distribution wid th standard deviationOrdered By: James Franco on 04-15-2025 Erythrocyte distribution width (RBC) [Ratio] 48.7 fl High 35.1-43.9 [facility] Glomerular filtration rate ( GFR) estimation/1.73 sq m using serum, plasma, or whole bOrdered By: James Franco on 04-15-2025 GFR/1.73 sq M.predicted among non-blacks MDRD (S/P/Bld) [Vol rate/Area] 54 mL/min/{1.73_m2} Low >60 [facility] Comment on above: mL/min/1.73m2 CKD-EP I Creatinine Equation (2020) Hematocrit Auto (Bld) [Volum e fraction]Ordered By: James Franco on 04-15-2025 Hematocrit (Bld) [Volume fraction] 43.4 % 37-47 [facility] Hemoglobin measurementOrdere d By: James Franco on 04-15-2025 Hemoglobin (Bld) [Mass/Vol] 15.1 g/dL High 12.0-15.0 [facility] Immature granulocytes/100 WB C Auto (Bld)Ordered By: James Franco on 04-15-2025 Immature granulocytes/100 WBC (Bld) 0.300 % 0.0-0.9 [facility] Comment on above: IG% - Immature Granu locytes (promyelocytes, myelocytes and metamyelocytes) > 1% indicates that a LEFT SHIFT is Present. Ketones Test strip Ql (U)Ord ered By: James Franco on 04-15-2025 Ketones Ql (U) Negative Negative [facility] Lactic Acidon 04-15-2025 Lactate [Moles/Vol] 1.5 mmol/L Normal 0.0-2.0 [facility] Comment on above: Order Comment: Y Performed By: #### L 503.6005, L100.0100, L500.2500 #### [facility] Laboratory [facility] [place], [address] Lactic acid measurementOrder ed By: James Franco on 04-15-2025 Lactate [Moles/Vol] 1.5 mmol/L 0.0-2.0 [facility] MCV (mean corpuscular volume ) determinationOrdered By: James Franco on 04-15-2025 MCV (RBC) [Entitic vol] 90.6 fL 81-99 [facility] Mean corpuscular hemoglobin (MCH) determinationOrdered By: James Franco on 04-15-2025 MCH (RBC) [Entitic mass] 31.5 pg 27.0-32.0 [facility] Mean corpuscular hemoglobin concentration (MCHC) determinationOrdered By: James Franco on 04-15-2025 MCHC (RBC) [Mass/Vol] 34.8 g/dL 32-36 [facility] Mean platelet volume determi nationOrdered By: James Franco on 04-15-2025 Platelet mean volume (Bld) [Entitic vol] 9.6 fL 6.2-12.0 [facility] Microscopic analysis of urin e for red blood cells (RBC)Ordered By: James Franco on 04-15-2025 Microscopic analysis of urine for red blood cells (RBC) 0-5 SEEN /hpf 0-5 [facility] Monocyte percentageOrdered B y: James Franco on 04-15-2025 Monocytes/100 WBC (Bld) 10.8 % High 0-10 W [facility] Mucus LM Ql (Urine sed)Order ed By: James Franco on 04-15-2025 Mucus Ql (Urine sed) 0 SEEN /hpf [facility] Neutrophil percentageOrdered By: James Franco on 04-15-2025 Neutrophils/100 WBC (Bld) 60.6 % 47-70 [facility] Nitrite Test strip Ql (U)Ord ered By: James Franco on 04-15-2025 Nitrite Ql (U) Negative Negative [facility] Nucleated red blood cell per centageOrdered By: James Franco on 04-15-2025 Nucleated RBC/100 WBC (Bld) [Ratio] 0 % 0-5 [facility] Platelet countOrdered By: David Franco on 04-15-2025 Platelets (Bld) [#/Vol] 329 10*3/uL 150-450 [facility] Potassium measurement (mass/ volume)Ordered By: James Franco on 04-15-2025 Potassium (Unsp spec) [Mass/Vol] 4.1 mmol/L 3.3-5.1 [facility] Protein Test strip Ql (U)Ord ered By: James Franco on 04-15-2025 Protein Ql (U) 15 mg/dl High Negative [facility] RBC Auto (Bld) [#/Vol]Ordere d By: James Franco on 04-15-2025 RBC (Bld) [#/Vol] 4.79 10*6/uL 4.2-5.4 [facility] Serum creatinine measurement (mass/volume)Ordered By: James Franco on 04-15-2025 Creatinine [Mass/Vol] 1.11 mg/dL 0.70-1.20 [facility] Serum glucose measurement (m ass/volume)Ordered By: James Franco on 04-15-2025 Glucose [Mass/Vol] 95 mg/dL 70-99 [facility] Serum or plasma calcium barney urement (mass/volume)Ordered By: James Franco on 04-15-2025 Calcium [Mass/Vol] 10.1 mg/dL 7.6-11.0 [facility] Serum or plasma urea nitroge n measurement (mass/volume)Ordered By: James Franco on 04-15-2025 Urea nitrogen [Mass/Vol] 15 mg/dL 4-19 [facility] Sodium levelOrdered By: James Franco on 04-15-2025 Sodium [Moles/Vol] 138 mmol/L 133-145 [facility] Squamous epithelial cells de tection in urine sediment by light microscopyOrdered By: James Franco on 04-15-2025 Epithelial cells.squamous LM Ql (Urine sed) 5-10 SEEN /hpf 5-10 [facility] Urinalysis, Completeon 04-15 RBC 0-5 SEEN Normal 0-5 [facility] Comment on above: Order Comment: CLEAN CATCH Performed By: #### M 100.2200, L400.0001 #### [facility] Laboratory [address] [place], [address] YEAST RARE Normal None Seen [facility] Comment on above: Order Comment: CLEAN CATCH Performed By: #### M 100.2200, L400.0001 #### [facility] Laboratory [address] [place], [address] BACTERIA 1+ /hpf Normal None Seen [facility] Comment on above: Order Comment: CLEAN CATCH Performed By: #### M 100.2200, L400.0001 #### [facility] Laboratory [address] [place], [address] EPI,SQUAMOUS 5-10 SEEN Normal 5-10 [facility] Comment on above: Order Comment: CLEAN CATCH Performed By: #### M 100.2200, L400.0001 #### [facility] Laboratory [address] [place], [address] Mucus Ql (Urine sed) 0 SEEN Normal [facility] Comment on above: Order Comment: CLEAN CATCH Performed By: #### M 100.2200, L400.0001 #### [facility] Laboratory [address] [place], [address] WBC 0 SEEN Normal 0-5 [facility] Comment on above: Order Comment: CLEAN CATCH Performed By: #### M 100.2200, L400.0001 #### [facility] [place], [address] Urine clarityOrdered By: Zeina Franco on 04-15-2025 Clarity (U) Sl. Cloudy Clear [facility] Urine color determinationOrd ered By: James Franco on 04-15-2025 Color (U) Yellow Yellow [facility] Urine glucose detectionOrder ed By: James Franco on 04-15-2025 Glucose Ql (U) Normal mg/dl Normal [facility] Urine leukocyte esterase det ection by dipstickOrdered By: James Franco on 04-15-2025 Leukocyte esterase Test strip Ql (U) Negative Negative [facility] Urine pHOrdered By: James bergeron on 04-15-2025 pH (U) 6.5 [pH] 5.0 - 8.0 [facility] Urine sediment bacteria coun t by microscopy (number/high power field)Ordered By: James Franco on 04-15-2025 Bacteria LM.HPF (Urine sed) [#/Area] 1 /[HPF] None Seen [facility] Urine sediment yeast count b y microscopy (number/high powered field)Ordered By: James Franco on 04-15-2025 Yeast LM.HPF (Urine sed) [#/Area] RARE /hpf None Seen [facility] Urine specific gravity measu rementOrdered By: James Franco on 04-15-2025 Specific gravity (U) [Rel density] 1.010 1.002-1.030 [facility] Urine urobilinogen measureme ntOrdered By: James Franco on 04-15-2025 Urobilinogen Ql (U) 1 mg/dl High Normal [facility] White blood cell (WBC) count Ordered By: James Franco on 04-15-2025 WBC (Bld) [#/Vol] 7.8 10*3/uL 4.4-11.0 [facility] White blood cell countOrdere d By: James Franco on 04-15-2025 White blood cell count 0 SEEN /hpf 0-5 W [facility] US ANKLE/BRACHIAL INDICES EX TREMITY LIMITEDon 12-10-2024 US ANKLE/BRACHIAL INDICES EXTREMITY LIMITED Patient Info Name: KATHERINE DA SILVA Age: 69 years : 1955 Gender: Female Exam Date: 12/10/2024 1:03 PM Patient Status: Outpatient Lehr Operator: Rosemarie Stewart RDMS () S Referring Physician: JUICE CONTE ; Indications I73.9 - Peripheral vascular disease, unspecified Procedure Description 68345 Limited bilateral noninvasive physiologic studies of upper [...] MANJEET Muhammad DO on 12/10/2024 03:05 PM [facility] US ANKLE/BRACHIAL INDICES EXTREMITY LIMITED Patient Info Name: KATHERINE DA SILVA Age: 69 years : 1955 Gender: Female Exam Date: 12/10/2024 1:03 PM Patient Status: Outpatient Lehr Operator: Rosemarie Stewart RDMS (AB) RVS Referring Physician: JUICE CONTE ; Indications I73.9 - Peripheral vascular disease, unspecified Procedure Description 08722 Limited bilateral noninvasive physiologic studies of upper [...] on FriDec 10, 2024 3:06:13 PM EDT Normal [facility] DUPLEX ARTERIAL LEG RIGHT on 12-10-2024 US DUPLEX ARTERIAL LEG RIGHT Patient Info Name: KATHERINE DA SILVA Age: 69 years : 1955 Gender: Female Exam Date: 12/10/2024 1:30 PM Patient Status: Outpatient Lehr Operator: Rosemarie Stewart RDMS (AB), RVS Referring Physician: MILAGRO GILES ; Indications - Right groin pain and patient has history of aortoiliac femoral graft, attention to groin I71.4 - Abdominal aortic aneurysm, without rupture Procedure Description 72142 Duplex scan of lower extremity arteries or [...] exam due to atherosclerotic plaque. Right Measurements ---- Name Value ---- Right PSV ---- Right Distal EIA PSV 53 cm/s Right Mid LUGGAGE MAKER PSV 32 cm/s Right Prox Profunda PSV [...] Dorcas A PSV 48 cm/s Right Prox TEMPORARY OFFICE ASSISTANT PSV 48 cm/s Right Mid TEMPORARY OFFICE ASSISTANT PSV 35 cm/s Right Distal TEMPORARY OFFICE ASSISTANT PSV 30 cm/s R DEMETRIUS 1.01 Right Measurements ---- Name Value ---- Right EDV ---- Right Distal EIA EDV 6 cm/s Right Mid LUGGAGE MAKER EDV 0 cm/s Right Prox Profunda EDV [...] Dorcas A EDV 3 cm/s Right Prox TEMPORARY OFFICE ASSISTANT EDV 6 cm/s Right Mid TEMPORARY OFFICE ASSISTANT EDV 6 cm/s Right Distal TEMPORARY OFFICE ASSISTANT EDV 4 cm/s Right Stenosis Measurements ---- Name Value ---- PSV ---- Rt Pre Stenosis PSV 43 cm/s Rt At Stenosis PSV 172 cm/s Rt Ratio 4.0 Right Stenosis Measurements ---- Name Value ---- EDV ---- Rt Pre Stenosis EDV 0 cm/s Rt [...] MANJEET Muhammad DO on 12/10/2024 03:01 PM Normal [facility] US DUPLEX ARTERIAL LEG RIGHT Patient Info Name: KATHERINE DA SILVA Age: 69 years : 1955 Gender: Female Exam Date: 12/10/2024 1:30 PM Patient Status: Outpatient Lehr Operator: Rosemarie Stewart RDMS (AB), RVS Referring Physician: MILAGRO GILES ; Indications - Right groin pain and patient has history of aortoiliac femoral graft, attention to groin I71.4 - Abdominal aortic aneurysm, without rupture Procedure Description 14299 Duplex scan of lower extremity arteries or [...] exam due to atherosclerotic plaque. Right Measurements ---- Name Value ---- Right PSV ---- Right Distal EIA PSV 53 cm/s Right Mid LUGGAGE MAKER PSV 32 cm/s Right Prox Profunda PSV [...] Dorcas A PSV 48 cm/s Right Prox TEMPORARY OFFICE ASSISTANT PSV 48 cm/s Right Mid TEMPORARY OFFICE ASSISTANT PSV 35 cm/s Right Distal TEMPORARY OFFICE ASSISTANT PSV 30 cm/s R DEMETRIUS 1.01 Right Measurements ---- Name Value ---- Right EDV ---- Right Distal EIA EDV 6 cm/s Right Mid LUGGAGE MAKER EDV 0 cm/s Right Prox Profunda EDV [...] Dorcas A EDV 3 cm/s Right Prox TEMPORARY OFFICE ASSISTANT EDV 6 cm/s Right Mid TEMPORARY OFFICE ASSISTANT EDV 6 cm/s Right Distal TEMPORARY OFFICE ASSISTANT EDV 4 cm/s Right Stenosis Measurements ---- Name Value ---- PSV ---- Rt Pre Stenosis PSV 43 cm/s Rt At Stenosis PSV 172 cm/s Rt Ratio 4.0 Right Stenosis Measurements ---- Name Value ---- EDV ---- Rt Pre Stenosis EDV 0 cm/s Rt [...] on FriDec 10, 2024 3:02:34 PM EDT Normal [facility] CT ABDOMEN PELVIS WITHOUT CO NTRASTon 11-17-2024 CT ABDOMEN PELVIS WITHOUT CONTRAST EXAMINATION: CT ABDOMEN PELVIS WITHOUT CONTRAST HISTORY: [...] on FriNov 17, 2024 10:14:[address] [facility] Comment on above: Order Comment: Injur y/Trauma or Illness?:Illness/Other How long have you had these symptoms (acute/chronic)?:Acute Reason for exam?:pain in right groin over stent Type of Exam?:Initial Additional signs and symptoms?:no Unable to obtain IV access at the ER so changed order to non-con ED Prov Noteon 11-17-2024 ED Prov Note HPI: 11/17/2024, Time: @MAXIMILIAN@ Katherine Bonner Rekha is a 69 y.o. female presenting [...] all other systems reviewed and are negative. - PAST HISTORY - Past Medical History: @[facility]@ Past Surgical History: has a past surgical [...] have been reviewed. Allergies: Erythromycin and Penicillins ------ RESULTS ----- All laboratory and radiology results have been [...] Total Bilirubin 0.3 0.0 - 1.3 mg/dL Microalbumin/Creatinin e Ratio, UR Random Collection Time: 02/19/24 10:01 [...] Ultrasound duplex arterial leg right (Results Pending) --- NURSING NOTES AND VITALS REVIEWED ----- The nursing notes within the ED encounter and vital signs as below have been reviewed. BP (!) 179/92 (BP Location: Left arm, Patient Position: Sitting) Pulse 98 Temp 98.3 degrees F (36.8 degrees C) (Temporal) Resp 18 Ht 5' Wt 63.5 kg (140 lb) SpO2 100% BMI 27.34 kg/m Oxygen Saturation Interpretation: Normal -------PHYSICAL EXAM Constitutional/General : Alert and oriented x3, well appearing, non [...] rash Neurologic: GCS 15, Psych: Normal Affect -------- ED COURSE/MEDICAL DECISION MAKING ------ Medications HYDROcodone-acetaminop hen (NORCO) 5-325 mg per tablet 1 tablet (has no administration in time range) ketorolac (TORADOL) injection 30 mg (30 mg Intramuscular Given 11/17/24 0935) Medical Decision Making: Will obtain CTA of abdomen and pelvis and provide pain control, unable to obtain IV even with ultrasound guidance Power Lineman (more content not included)... Normal [facility] COMPREHENSIVE METABOLIC PANE Yasir 02-19-2024 Albumin [Mass/Vol] 3.9 g/dL Normal 3.2-5.2 [facility] Comment on above: Order Comment: [facility] has implemented the eGFR calculation approach that does not have a coefficient for race that conforms to the NKF-ASN Task Force Recommendations. Performed By: #### [id number] #### LAB [address] [address] Gustavo Coats M.D. [id number] ALP [Catalytic activity/Vol] 77 U/L Normal 40-150 [facility] Comment on above: Order Comment: [facility] has implemented the eGFR calculation approach that does not have a coefficient for race that conforms to the NKF-ASN Task Force Recommendations. Performed By: #### 4 [id number] #### LAB [address] [id number] Gustavo Coats M.D. [id number] ALT [Catalytic activity/Vol] 17 U/L Normal 0-35 U/L [facility] Comment on above: Order Comment: [facility] has implemented the eGFR calculation approach that does not have a coefficient for race that conforms to the NKF-ASN Task Force Recommendations. Performed By: #### 4 [id number] #### LAB [address] [id number] Gustavo Coats M.D. [id number] Anion gap [Moles/Vol] 14 mmol/L Normal 10-20 [facility] Comment on above: Order Comment: [facility] has implemented the eGFR calculation approach that does not have a coefficient for race that conforms to the NKF-ASN Task Force Recommendations. Performed By: #### 4 [id number] #### LAB [address] [address] Gustavo Coats M.D. [id number] AST [Catalytic activity/Vol] 21 U/L Normal 0-35 U/L [facility] Comment on above: Order Comment: [facility] has implemented the eGFR calculation approach that does not have a coefficient for race that conforms to the NKF-ASN Task Force Recommendations. Performed By: #### 4 [id number] #### LAB [address] [address] Gustavo Coats M.D. [id number] Bilirubin [Mass/Vol] 0.3 mg/dL Normal 0.0-1.3 [facility] Comment on above: Order Comment: [facility] has implemented the eGFR calculation approach that does not have a coefficient for race that conforms to the NKF-ASN Task Force Recommendations. Performed By: #### 4 [id number] #### LAB [address] [address] Gustavo Coats M.D. [id number] Calcium [Mass/Vol] 9.4 mg/dL Normal 8.4-10.2 [facility] Comment on above: Order Comment: [facility] has implemented the eGFR calculation approach that does not have a coefficient for race that conforms to the NKF-ASN Task Force Recommendations. Performed By: #### 4 [id number] #### LAB [address] [address] Gustavo Coats M.D. [id number] Chloride [Moles/Vol] 107 mmol/L Normal 98-108 [facility] Comment on above: Order Comment: [facility] has implemented the eGFR calculation approach that does not have a coefficient for race that conforms to the NKF-ASN Task Force Recommendations. Performed By: #### 4 [id number] #### [address] [place], [place] [address] Gustavo Coats M.D. [id number] Creatinine [Mass/Vol] 0.91 mg/dL Normal 0.60-1.10 [facility] Comment on above: Order Comment: [facility] has implemented the eGFR calculation approach that does not have a coefficient for race that conforms to the NKF-ASN Task Force Recommendations. Performed By: #### 4 [id number] #### LAB [address] [address] Gustavo Coats M.D. [id number] EGFR 69 mL/min/1.73 m2 Normal >=60 [facility] Comment on above: Order Comment: [facility] has implemented the eGFR calculation approach that does not have a coefficient for race that conforms to the NKF-ASN Task Force Recommendations. Result Comment: Bonnie mated GFR was calculated using the 2020 CKD-EPI creatinine equation. Performed By: #### 4 [id number] #### LAB [address] [address] Gustavo Coats M.D. [id number] Glucose [Mass/Vol] 122 mg/dL High 65-99 [facility] Comment on above: Order Comment: [facility] has implemented the eGFR calculation approach that does not have a coefficient for race that conforms to the NKF-ASN Task Force Recommendations. Performed By: #### 4 [id number] #### LAB [address] [id number] Gustavo Coats M.D. [id number] HCO3 (Bld) [Moles/Vol] 25 mmol/L Normal 21-32 [facility] Comment on above: Order Comment: [facility] has implemented the eGFR calculation approach that does not have a coefficient for race that conforms to the NKF-ASN Task Force Recommendations. Performed By: #### 4 [id number] #### LAB [address] [id number] Gustavo Coats M.D. [id number] Potassium [Moles/Vol] 4.4 mmol/L Normal 3.5-5.1 [facility] Comment on above: Order Comment: [facility] has implemented the eGFR calculation approach that does not have a coefficient for race that conforms to the NKF-ASN Task Force Recommendations. Performed By: #### 4 [id number] #### LAB [address] [address] Gustavo Coats M.D. [id number] Protein [Mass/Vol] 6.2 g/dL Normal 6.0-8.0 [facility] Comment on above: Order Comment: [facility] has implemented the eGFR calculation approach that does not have a coefficient for race that conforms to the NKF-ASN Task Force Recommendations. Performed By: #### 4 [id number] #### LAB [address] [address] Gustavo Coats M.D. [id number] Sodium [Moles/Vol] 142 mmol/L Normal 135-145 [facility] Comment on above: Order Comment: [facility] has implemented the eGFR calculation approach that does not have a coefficient for race that conforms to the NKF-ASN Task Force Recommendations. Performed By: #### 4 [id number] #### LAB [address] [address] Gustavo Coats M.D. [id number] Urea nitrogen [Mass/Vol] 17 mg/dL Normal 8-25 [facility] Comment on above: Order Comment: [facility] has implemented the eGFR calculation approach that does not have a coefficient for race that conforms to the NKF-ASN Task Force Recommendations. Performed By: #### 4 [id number] #### LAB [address] [address] Gustavo Coats M.D. [id number] Urea nitrogen/Creatinine [Mass ratio] 18.7 mg/mg Normal 10.0-20.0 [facility] Comment on above: Order Comment: [facility] has implemented the eGFR calculation approach that does not have a coefficient for race that conforms to the NKF-ASN Task Force Recommendations. Performed By: #### 4 [id number] #### [facility] [address] [address] Gustavo Coats M.D. [id number] HEMOGLOBIN A1Con 02-19-2024 Glucose [Mass/Vol] 143 mg/dL High 74-114 [facility] Comment on above: Performed By: #### 4 8202 #### [facility] [address] [address] Gustavo Coats M.D. [id number] HbA1c (Bld) [Mass fraction] 6.6 % High 4.2-5.6 [facility] Comment on above: Performed By: #### 4 8202 #### LAB [address] [address] Gustavo Coats M.D. [id number] LIPID PANELon 02-19-2024 Cholesterol [Mass/Vol] 146 mg/dL Normal 100-199 [facility] Comment on above: Performed By: #### 4 6087 #### [facility] [address] [address] Gustavo Coats M.D. [id number] Cholesterol in HDL [Mass/Vol] 32 mg/dL Low 40-59 [facility] Comment on above: Performed By: #### 4 6087 #### LAB [address] [address] Gustavo Coats M.D. [id number] Cholesterol.total/Sakshi sterol in HDL [Mass ratio] 4.6 {ratio} Normal [facility] Comment on above: Result Comment: Fema le Cholesterol/HDL Ratio: Average risk: 4.4 1/2 average risk: 3.3 2 x average risk: 7.1 Performed By: #### 4 6054 #### LAB [address] [address] Gustavo Coats M.D. [id number] LDL CHOLESTEROL CALCULATED 66 mg/dL Normal 10-130 [facility] Comment on above: Result Comment: [facility] Cholesterol Education Program Guidelines: LDL Cholesterol Optimal: <100 mg/dL Near Optimal/above Optimal: 100-129 mg/dL Borderline High: 130-159 mg/dL High: 160-189 mg/dL Very High: greater than or equal to 190 mg/dL Performed By: #### 4 6087 #### LAB [address] [address] Gustavo Coats M.D. [id number] NON HDL CHOL 114 mg/dL Normal [facility] Comment on above: Result Comment: [facility] Cholesterol Education Program Guidelines: NON HDL Cholesterol Desirable: <130 mg/dL Borderline High: 130-159 mg/dL High: 160-189 mg/dL Very High: > or = 190 mg/dL Performed By: #### 4 6087 #### LAB [address] [address] Gustavo Coats M.D. [id number] Triglyceride [Mass/Vol] 238 mg/dL High 30-150 [facility] Comment on above: Performed By: #### 4 6087 #### [facility] LAB [address] [address] Gustavo Coats M.D. [id number] MICROALBUMIN/CREATININE RATI O, UR RANDOMon 02-19-2024 Albumin DL <= 20 mg/L (U) [Mass/Vol] 0.3 mg/dL Normal 0.0-1.8 [facility] Comment on above: Performed By: #### 4 6143 #### LAB [address] [address] Gustavo Coats M.D. [id number] CREATININE, URINE, RANDOM 205.0 mg/dL Normal [facility] Comment on above: Performed By: #### 4 6170 #### MH LAB [address] [address] Gustavo Coats M.D. [id number] MICROALBUMIN/CREATININE RATIO 1 mg/g crea Normal 0-25 [facility] Comment on above: Performed By: #### 4 6147 #### LAB [address] [address] Gustavo Coats M.D. [id number] MM SCREENING YOGESH RIGHTon MM SCREENING YOGESH [...] sent to the patient regarding the results. [facility], along with the National Comprehensive Cancer Network, the [employer], and [facility], recommend annual screening mammograms for women age 40 and older. [facility] Workstation ID: [id number] Dictated by: MARSHA MENJIVAR on FriFebruary 20, 2024 12:06:08 PM EDT Transcribed by: PADDY MUNOZ on FriFebruary 20, 2024 12:22:27 PM EDT Finalized by: MARSHA MENJIVAR on FriFebruary 20, 2024 2:42:06 PM EDT Normal [facility] Comment on above: Order Comment: Mammo bus TSH WITH REFLEX FREE T4on TSH Qn 3.09 m[IU]/L Normal 0.27-4.20 [facility] Comment on above: Performed By: #### 4 6612 #### LAB [address] [place], [place] [address] Gustavo Coats M.D. [id number] POC Urinalysis Dipstick, Aut oon 08-29-2023 Bilirubin Ql (U) Negative Negative [facility] Glucose Ql (U) Negative Normal, Negative mg/dL [facility] Hemoglobin Ql (U) Negative Negative [facility] Interpretation and review of laboratory results Abnormal [facility] Ketones Ql (U) Negative Negative mg/dL [facility] Leukocyte esterase Test strip Ql (U) Trace Abnormal Negative [facility] Nitrite Ql (U) Positive Abnormal Negative [facility] pH (U) 5.5 [pH] 5.0 - 7.0 [facility] Protein Ql (U) Negative Negative mg/dL [facility] Specific gravity (U) [Rel density] 1.030 Abnormal 1.005 - 1.025 [facility] Urobilinogen Qn (U) 0.2 mg/dL <2.0, 0. 2, Normal, Negative, 1.0, 2.0, <1.0 [facility] BASIC MET PANEL W/GFRon Calcium [Mass/Vol] 8.8 mg/dL Normal (8.6 - 10.6) [facility] Comment on above: Order Comment: FACIL ITY: [facility] [id number] Performed By: #### C HEM-B #### [facility] Lab [address] [facility], [address] Chloride [Moles/Vol] 108 mmol/L High (98 - 107) [facility] Comment on above: Order Comment: FACIL ITY: [facility] [id number] Performed By: #### C HEM-B #### [facility] Lab [address] [facility], [address] CO2 [Moles/Vol] 19 mmol/L Low (22 - 30) [facility] Comment on above: Order Comment: FACIL ITY: [facility] [id number] Performed By: #### C HEM-B #### [facility] Lab [address] [facility], [address] Creatinine [Mass/Vol] 0.62 mg/dL Normal (0.52 - 1.04) [facility] Comment on above: Order Comment: FACIL ITY: [facility] [id number] Performed By: #### C HEM-B #### [facility] Lab [address] [facility], [address] GFR- AMER 116.5 ML/M1.7 Normal (60.0 - 140.1) [facility] Comment on above: Order Comment: FACIL ITY: [facility] [id number] Performed By: #### C HEM-B #### [place] [facility] Lab [address] [place], [address] GFR-NON AFRIC-AMER 96.3 ML/M1.7 Normal (60.0 - 115.8) [facility] Comment on above: Order Comment: FACIL ITY: [facility] [id number] Performed By: #### C HEM-B #### [facility] [address] [place], [address] Glucose [Mass/Vol] 127 mg/dL High (74 - 106) [facility] Comment on above: Order Comment: FACIL ITY: [facility] [id number] Performed By: #### C HEM-B #### [facility] [address] [place], [address] Potassium [Moles/Vol] 5.7 mmol/L High (3.5 - 5.1) [facility] Comment on above: Order Comment: FACIL ITY: [facility] [id number] Result Comment: HEMO LYSIS PRESENT; VALIDITY OF RESULTS SHOULD BE DETERMINED BY CLINICAL JUDGEMENT. Performed By: #### C HEM-B #### [facility] [address] [place], [address] Sodium [Moles/Vol] 140 mmol/L Normal (137 - 145) [facility] Comment on above: Order Comment: FACIL ITY: [facility] [id number] Performed By: #### C HEM-B #### [facility] Lab [address] [place], [address] Urea nitrogen [Mass/Vol] 16 mg/dL Normal (7 - 17) [facility] Comment on above: Order Comment: FACIL ITY: [facility] [id number] Performed By: #### C HEM-B #### [place] [facility] Lab [address] [place], [address] VL ARTERIAL PVR LOWER WO EXE RCISEon 11-18-2019 [facility] Vascular Lower Arterial Plethysmography Procedure Patient Name REKHA Date of Study 08/09/2019 KATHERINE Bonner Date of 1955 Gender Female Age 64 year(s) Race Room Number op Corporate ID # [id number] Patient MR # [id number] Editor Index Yelena Weston RVT Interpreting Physician Paulino Melendez [...] the left arm. Risk Factors History + +----- -----+ ---------+ !Diagnosis !Date !Comments ! + +----- -----+ ---------+ !Previous Scan !11/27/2018!RT DP--.58 ! ! ! !LT DP--.96 ! + +----- -----+ ---------+ !Peripheral vascular disease->Aortic ! !H/O Ugzuh-ue-xdtyqix ! !aneurysm ! !bypass ! ! ! !RT atherectomy ! + +----- -----+ ---------+ - The patient's risk factor(s) include: diabetes mellitus, dyslipidemia and arterial hypertension. - The patient has a former tobacco history. - The patient has breast cancer. Allergies - Allergy:Penicillin(Jose g). Velocities are measured in cm/s ; Diameters are measured in cm Pressures + ++--- -----+-----+----+----- ---+-----+ ! !!Right ! !Left! ! ! + ++--- -----+-----+----+----- ---+-----+ !Location !!Pressure!Ratio! !Pressure!Ratio! + ++--- -----+-----+----+----- ---+-----+ !Thigh !!138 !0.88 ! !143 !0.92 ! + ++--- -----+-----+----+----- ---+-----+ !Calf !!139 !0.89 ! !132 !0.85 ! + ++--- -----+-----+----+----- ---+-----+ !Ankle PT !!145 !0.93 ! !139 !0.89 ! + ++--- -----+-----+----+----- ---+-----+ !Ankle DP !!142 !0.91 ! !137 !0.88 ! + ++--- -----+-----+----+----- ---+-----+ !Great Toe !!26 !0.17 ! !26 !0.17 ! + ++--- -----+-----+----+----- ---+-----+ - Brachial Pressure:Right: 156. - DEMETRIUS:Right: 0.93.Left: 0.89. Plethysmographic Digit Evaluation +---------++--------+- ----+ ++ --------+-----+------- ---------+ ! !!Right ! !Left !! ! ! ! +---------++--------+- ----+ ++ --------+-----+------- ---------+ !Location !!Pressure!Ratio!PPG Wave Form !!Pressure!Ratio!PPG Wave Form ! +---------++--------+- ----+ ++ --------+-----+------- ---------+ !Great Toe!!26 !0.17 ! !!26 !0.17 ! ! +---------++--------+- ----+ ++ --------+-----+------- ---------+ [facility]- [place], [place] Micah, keaton Incoming Cardio Results From [facility] - 08/09/2019 9:03 PM [facility] Vascular Lower Arterial Plethysmography Procedure Patient Name REKHA Date of Study 08/09/2019 KATHERINE Bonner Date of 1955 Gender Female Age 64 year(s) Race Room Number op Corporate ID # [id number] Patient MR # [id number] Editor Index Yelena Weston RVT Interpreting Physician Paulino Melendez [...] the left arm. Risk Factors History + +----- -----+ --------- + !Diagnosis !Date !Comments ! + +----- -----+ --------- + !Previous Scan !11/27/2018!RT DP--.58 ! ! ! !LT DP--.96 ! + +----- -----+ --------- + !Peripheral vascular disease->Aortic ! !H/O Pyqqb-im-nczdyiy ! !aneurysm ! !bypass ! ! ! !RT atherectomy ! + +----- -----+ --------- + - The patient's risk factor(s) include: diabetes mellitus, dyslipidemia and arterial hypertension. - The patient has a former tobacco history. - The patient has breast cancer. Allergies - Allergy:Penicillin(Jose g). Velocities are measured in cm/s ; Diameters are measured in cm Pressures + ++--- -----+-----+----+----- ---+----- + ! !!Right ! !Left! ! ! + ++--- -----+-----+----+----- ---+----- + !Location !!Pressure!Ratio! !Pressure!Ratio! + ++--- -----+-----+----+----- ---+----- + !Thigh !!138 !0.88 ! !143 !0.92 ! + ++--- -----+-----+----+----- ---+----- + !Calf !!139 !0.89 ! !132 !0.85 ! + ++--- -----+-----+----+----- ---+----- + !Ankle PT !!145 !0.93 ! !139 !0.89 ! + ++--- -----+-----+----+----- ---+----- + !Ankle DP !!142 !0.91 ! !137 !0.88 ! + ++--- -----+-----+----+----- ---+----- + !Great Toe !!26 !0.17 ! !26 !0.17 ! + ++--- -----+-----+----+----- ---+----- + - Brachial Pressure:Right: 156. - DEMETRUIS:Right: 0.93.Left: 0.89. Plethysmographic Digit Evaluation +---------++--------+- ----+ ++ --------+-----+------- --------- + ! !!Right ! !Left !! ! ! ! +---------++--------+- ----+ ++ --------+-----+------- --------- + !Location !!Pressure!Ratio!PPG Wave Form !!Pressure!Ratio!PPG Wave Form ! +---------++--------+- ----+ ++ --------+-----+------- --------- + !Great Toe!!26 !0.17 ! !!26 !0.17 ! ! +---------++--------+- ----+ ++ --------+-----+------- --------- + [facility]- [place], [place] OPERATIVE REPORTon OPERATIVE REPORT [address] [id number] OPERATIVE REPORT PATIENT NAME: KATHERINE DA SILVA : 1955 MED REC NO: [id number] ROOM: ACCOUNT NO: [id number] ADMIT DATE: 01/07/2019 PROVIDER: Kerri Rajput MD [...] sheath. I dilated the track with a 6-Nepalese dilator and then placed a 5-Nepalese sheath in. An RBI catheter was then [...] to circulate. I did not remove the 5-Nepalese sheath and dilated the track. I had exchanged RBI catheter for an wire and then I was able to get a 7-Nepalese, 45-cm Kane sheath up and over the [...] I exchanged the micropuncture sheath for a 6-Nepalese Terumo hydrophilic sheath. This was flushed and [...] for recovery. KERRI RAJPUT MD MANUEL/Jordana_SSREJ_I Doc#: [id number] CC: Normal [facility] Platelet Counton 01-07-2019 Platelets (Bld) [#/Vol] 243 10*3/uL Normal 138-453 [facility] Comment on above: Performed By: #### B MP, TSHX, FT4, GLYHGB #### [employer] [address] [place] [address] Tire Service Technician: Armando Vaz MD Lipid Profileon 11-25-2018 Cholesterol [Mass/Vol] 172 mg/dL Normal <200 [facility] Comment on above: Result Comment: Cholesterol Guidelines: <200 Desirable 200-240 Borderline >240 Undesirable Performed By: #### B MP, TSHX, FT4, GLYHGB #### [employer] [address] [place] [address] T[employer] Service Technician: Armando Vaz MD Cholesterol in HDL [Mass/Vol] 37 mg/dL Low >40 [facility] Comment on above: Result Comment: HDL Guidelines: <40 Undesirable 40-59 Borderline >59 Desirable Performed By: #### B MP, TSHX, FT4, GLYHGB #### [employer] [address] [place] [address] T[employer] Service Technician: Armando Vaz MD Cholesterol in LDL [Mass/Vol] 88 mg/dL Normal 0-130 [facility] Comment on above: Result Comment: LDL Guidelines: <100 Desirable 100-129 Near to/above Desirable 130-159 Borderline >159 Undesirable Direct (measured) LDL and calculated LDL are not interchangeable tests. Performed By: #### B MP, TSHX, FT4, GLYHGB #### [facility] [employer] [address] [place] [address] T[employer] Service Technician: Armando Vaz MD Cholesterol.total/Sakshi sterol in HDL [Mass ratio] 4.6 {ratio} Normal <5 [facility] Comment on above: Performed By: #### B MP, TSHX, FT4, GLYHGB #### [address] [address] Tire Service Technician: Armando Vaz MD Triglyceride [Mass/Vol] 237 mg/dL High <150 [facility] Comment on above: Result Comment: Triglyceride Guidelines: <150 Desirable 150-199 Borderline 200-499 High >499 Very high Based on AHA Guidelines for fasting triglyceride, June 2012. Performed By: #### B MP, TSHX, FT4, GLYHGB #### [address] [address] T[employer] Service Technician: Armando Vaz MD Cholesterol in VLDL [Mass/Vol] NOT REPORTED Normal 1-30 [facility] Comment on above: Performed By: #### B MP, TSHX, FT4, GLYHGB #### [address] [address] T[employer] Service Technician: Armando Vaz MD Basic Metabolic Profon 10-31 (cont.) Normal [facility] Comment on above: Result Comment: Aver age GFR for 60-69 years old: 85 mL/min/1.73sq m Chronic Kidney Disease: <60 mL/min/1.73sq m Kidney failure: <15 mL/min/1.73sq m eGFR calculated using average adult body mass. Additional eGFR calculator available at: http://www.[employer]k/multiple_crcl_2012.htm Performed By: #### B MP, TSHX, FT4, GLYHGB #### [facility] [employer] [address] [place] [address] T[employer] Service Technician: Armando Vaz MD Anion gap [Moles/Vol] 8 mmol/L Low 9-17 [facility] Comment on above: Performed By: #### B MP, TSHX, FT4, GLYHGB #### [facility] [employer] [address] [place] [address] [employer] Service Technician: Armando Vaz MD Calcium [Mass/Vol] 7.6 mg/dL Low 8.6-10.4 [facility] Comment on above: Performed By: #### B MP, TSHX, FT4, GLYHGB #### [facility] [employer] [address] [place] [address] T[employer] Service Technician: Armando Vaz MD Chloride [Moles/Vol] 114 mmol/L High 98-107 [facility] Comment on above: Performed By: #### B MP, TSHX, FT4, GLYHGB #### [facility] [employer] [address] [place] [address] T[employer] Service Technician: Armando Vaz MD CO2 [Moles/Vol] 24 mmol/L Normal 20-31 [facility] Comment on above: Performed By: #### B MP, TSHX, FT4, GLYHGB #### [facility] [employer] [address] [place] [address] [employer] Service Technician: Armando Vaz MD Creatinine [Mass/Vol] 0.56 mg/dL Normal 0.50-0.90 [facility] Comment on above: Performed By: #### B MP, TSHX, FT4, GLYHGB #### [facility] [employer] [address] [place] [address] [employer] Service Technician: Armando Vaz MD GFR, Amer >60 Normal >60 [facility] Comment on above: Performed By: #### B MP, TSHX, FT4, GLYHGB #### [address] [address] T[employer] Service Technician: Armando Vaz MD GFR,non Amer >60 Normal >60 [facility] Comment on above: Performed By: #### B MP, TSHX, FT4, GLYHGB #### [address] [address] T[employer] Service Technician: Armando Vaz MD Glucose [Mass/Vol] 112 mg/dL High 70-99 [facility] Comment on above: Performed By: #### B MP, TSHX, FT4, GLYHGB #### [address] [address] [employer] Service Technician: Armando Vaz MD Potassium [Moles/Vol] 3.6 mmol/L Low 3.7-5.3 [facility] Comment on above: Performed By: #### B MP, TSHX, FT4, GLYHGB #### [address] [address] [employer] Service Technician: Armando Vaz MD Sodium [Moles/Vol] 146 mmol/L High 135-144 [facility] Comment on above: Performed By: #### B MP, TSHX, FT4, GLYHGB #### [address] [address] T[employer] Service Technician: Armando Vaz MD Urea nitrogen [Mass/Vol] 11 mg/dL Normal 8-23 [facility] Comment on above: Performed By: #### B MP, TSHX, FT4, GLYHGB #### [facility] [employer] [address] [place] [address] T[employer] Service Technician: Armando Vaz MD BUN/CRE Ratio NOT REPORTED Normal -20 [facility] Comment on above: Performed By: #### B MP, TSHX, FT4, GLYHGB #### [facility] [address] [place] [address] Tire Service Technician: Armando Vaz MD Staging: NOT REPORTED Normal [facility] Comment on above: Performed By: #### B MP, TSHX, FT4, GLYHGB #### [facility] [address] [place] [address] T[employer] Service Technician: Armando Vaz MD (cont.) [facility] Comment on above: Result Comment: Aver age GFR for 60-69 years old: 85 mL/min/1.73sq m Chronic Kidney Disease: <60 mL/min/1.73sq m Kidney failure: <15 mL/min/1.73sq m eGFR calculated using average adult body mass. Additional eGFR calculator available at: http://www.[employer].com/multiple_crcl_2012.htm Performed By: #### B MP, TSHX, FT4, GLYHGB #### [address] [address] [employer] Service Technician: Armando Vaz MD Anion gap [Moles/Vol] 4 mmol/L Low 9-17 [facility] Comment on above: Performed By: #### B MP, TSHX, FT4, GLYHGB #### [facility] [address] [place] [address] Tire Service Technician: Armando Vaz MD Calcium [Mass/Vol] 7.3 mg/dL Low 8.6-10.4 [facility] Comment on above: Performed By: #### B MP, TSHX, FT4, GLYHGB #### [facility] [address] [place] [address] Tire Service Technician: Armando Vaz MD Chloride [Moles/Vol] 110 mmol/L High 98-107 [facility] Comment on above: Performed By: #### B MP, TSHX, FT4, GLYHGB #### [facility] [address] [place] [address] T[employer] Service Technician: Armando Vaz MD CO2 [Moles/Vol] 27 mmol/L Normal 20-31 [facility] Comment on above: Performed By: #### B MP, TSHX, FT4, GLYHGB #### [facility] [address] [place] [address] T[employer] Service Technician: Armando Vaz MD Creatinine [Mass/Vol] 0.67 mg/dL Normal 0.50-0.90 [facility] Comment on above: Performed By: #### B MP, TSHX, FT4, GLYHGB #### [address] [address] T[employer] Service Technician: Armando Vaz MD GFR, Amer >60 Normal >60 [facility] Comment on above: Performed By: #### B MP, TSHX, FT4, GLYHGB #### [facility] [employer] [address] [place] [address] Tire Service Technician: Armando Vaz MD GFR,non Amer >60 Normal >60 [facility] Comment on above: Performed By: #### B MP, TSHX, FT4, GLYHGB #### [facility] [address] [place] [address] T[employer] Service Technician: Armando Vaz MD Glucose [Mass/Vol] 106 mg/dL High 70-99 [facility] Comment on above: Performed By: #### B MP, TSHX, FT4, GLYHGB #### [facility] [address] [place] [address] T[employer] Service Technician: Armando Vaz MD Potassium [Moles/Vol] 3.3 mmol/L Low 3.7-5.3 [facility] Comment on above: Performed By: #### B MP, TSHX, FT4, GLYHGB #### [address] [address] T[employer] Service Technician: Armando Vaz MD Sodium [Moles/Vol] 141 mmol/L Normal 135-144 [facility] Comment on above: Performed By: #### B MP, TSHX, FT4, GLYHGB #### [address] [address] T[employer] Service Technician: Armando Vaz MD Urea nitrogen [Mass/Vol] 11 mg/dL Normal 8- [facility] Comment on above: Performed By: #### B MP, TSHX, FT4, GLYHGB #### [address] [address] T[employer] Service Technician: Armando Vaz MD BUN/CRE Ratio NOT REPORTED Normal - [facility] Comment on above: Performed By: #### B MP, TSHX, FT4, GLYHGB #### [address] [address] T[employer] Service Technician: Armando Vaz MD Staging: NOT REPORTED Normal [facility] Comment on above: Performed By: #### B MP, TSHX, FT4, GLYHGB #### [address] [address] T[employer] Service Technician: Armando Vaz MD Basic Metabolic Profon 10-30 (cont.) Normal [facility] Comment on above: Result Comment: Aver age GFR for 60-69 years old: 85 mL/min/1.73sq m Chronic Kidney Disease: <60 mL/min/1.73sq m Kidney failure: <15 mL/min/1.73sq m eGFR calculated using average adult body mass. Additional eGFR calculator available at: http://www.[employer]/multiple_crcl_2012.htm Performed By: #### B MP, TSHX, FT4, GLYHGB #### [facility] [employer] [address] [place] [address] T[employer] Service Technician: Armando Vaz MD Anion gap [Moles/Vol] 11 mmol/L Normal 9-17 [facility] Comment on above: Performed By: #### B MP, TSHX, FT4, GLYHGB #### [facility] [employer] [address] [place] [address] T[employer] Service Technician: Armando Vaz MD Calcium [Mass/Vol] 6.7 mg/dL Low 8.6-10.4 [facility] Comment on above: Performed By: #### B MP, TSHX, FT4, GLYHGB #### [facility] [employer] [address] [place] [address] T[employer] Service Technician: Armando Vaz MD Chloride [Moles/Vol] 109 mmol/L High 98-107 [facility] Comment on above: Performed By: #### B MP, TSHX, FT4, GLYHGB #### [facility] [employer] [address] [place] [address] T[employer] Service Technician: Armando Vaz MD CO2 [Moles/Vol] 20 mmol/L Normal 20-31 [facility] Comment on above: Performed By: #### B MP, TSHX, FT4, GLYHGB #### [facility] [employer] [address] [place] [address] T[employer] Service Technician: Armando Vaz MD Creatinine [Mass/Vol] 0.76 mg/dL Normal 0.50-0.90 [facility] Comment on above: Performed By: #### B MP, TSHX, FT4, GLYHGB #### [facility] [employer] [address] [place] [address] T[employer] Service Technician: Armando Vaz MD GFR, Amer >60 Normal >60 [facility] Comment on above: Performed By: #### B MP, TSHX, FT4, GLYHGB #### [facility] [employer] [address] [place] [address] T[employer] Service Technician: Armando Vaz MD GFR,non Amer >60 Normal >60 [facility] Comment on above: Performed By: #### B MP, TSHX, FT4, GLYHGB #### [facility] [employer] [address] [place] [address] T[employer] Service Technician: Armando Vaz MD Glucose [Mass/Vol] 151 mg/dL High 70-99 [facility] Comment on above: Performed By: #### B MP, TSHX, FT4, GLYHGB #### [facility] [employer] [address] [place] [address] T[employer] Service Technician: Armando Vaz MD Potassium [Moles/Vol] 3.6 mmol/L Low 3.7-5.3 [facility] Comment on above: Performed By: #### B MP, TSHX, FT4, GLYHGB #### [address] [address] T[employer] Service Technician: Armando Vaz MD Sodium [Moles/Vol] 140 mmol/L Normal 135-144 [facility] Comment on above: Performed By: #### B MP, TSHX, FT4, GLYHGB #### [facility] [employer] [address] [place] [address] T[employer] Service Technician: Armando Vaz MD Urea nitrogen [Mass/Vol] 13 mg/dL Normal 8-23 [facility] Comment on above: Performed By: #### B MP, TSHX, FT4, GLYHGB #### [facility] [employer] [address] [place] [address] [employer] Technician: Armando Vaz MD BUN/CRE Ratio NOT REPORTED Normal 9-20 [facility] Comment on above: Performed By: #### B MP, TSHX, FT4, GLYHGB #### [address] [address] [employer] Service Technician: Armando Vaz MD Staging: NOT REPORTED Normal [facility] Comment on above: Performed By: #### B MP, TSHX, FT4, GLYHGB #### [address] [address] [employer] Service Technician: Armando Vaz MD CBCon 10-30-2018 Erythrocyte distribution width (RBC) [Ratio] 16.0 % High 11.8-14.4 [facility] Comment on above: Performed By: #### B MP, TSHX, FT4, GLYHGB #### [address] [address] [employer] Technician: Armando Vaz MD Hematocrit (Bld) [Volume fraction] 31.0 % Low 36.3-47.1 [facility] Comment on above: Performed By: #### B MP, TSHX, FT4, GLYHGB #### [address] [address] [employer] Service Technician: Armando Vaz MD Hemoglobin (Bld) [Mass/Vol] 10.9 g/dL Low 11.9-15.1 [facility] Comment on above: Performed By: #### B MP, TSHX, FT4, GLYHGB #### [address] [address] [employer] Service Technician: Armando Vaz MD MCH (RBC) [Entitic mass] 31.6 pg Normal 25.2-33.5 [facility] Comment on above: Performed By: #### B MP, TSHX, FT4, GLYHGB #### [address] [address] [employer] Technician: Armando Vaz MD MCHC (RBC) [Mass/Vol] 35.2 g/dL High 28.4-34.8 [facility] Comment on above: Performed By: #### B MP, TSHX, FT4, GLYHGB #### [address] [address] [employer] Service Technician: Armando Vaz MD MCV (RBC) [Entitic vol] 89.9 fL Normal 82.6-102.9 [facility] Comment on above: Performed By: #### B MP, TSHX, FT4, GLYHGB #### [address] [address] [employer] Service Technician: Armando Vaz MD NRBC Automated 0.0 per 100 WBC Normal 0.0 [facility] Comment on above: Performed By: #### B MP, TSHX, FT4, GLYHGB #### [address] [address] [employer] Service Technician: Armando Vaz MD Platelet mean volume (Bld) [Entitic vol] 10.3 fL Normal 8.1-13.5 [facility] Comment on above: Performed By: #### B MP, TSHX, FT4, GLYHGB #### [address] [address] [employer] Technician: Armando Vaz MD Platelets (Bld) [#/Vol] 129 10*3/uL Low 138-453 [facility] Comment on above: Performed By: #### B MP, TSHX, FT4, GLYHGB #### [address] [address] [employer] Service Technician: Armando Vaz MD RBC (Bld) [#/Vol] 3.45 10*6/uL Low 3.95-5.11 [facility] Comment on above: Performed By: #### B MP, TSHX, FT4, GLYHGB #### [address] [address] [employer] Service Technician: Armando Vaz MD WBC (Bld) [#/Vol] 12.8 10*3/uL High 3.5-11.3 [facility] Comment on above: Performed By: #### B MP, TSHX, FT4, GLYHGB #### [facility] [address] [place] [address] [employer] Service Technician: Armando Vaz MD Lactic Acid,Whole Blon 10-30 Lactic Acid,Whole Bl 2.8 mmol/L High 0.7-2.1 [facility] Comment on above: Performed By: #### B MP, TSHX, FT4, GLYHGB #### [facility] [address] [place] [address] [employer] Service Technician: Armando Vaz MD XR CHEST PORTABLEon 10-30-19 XR CHEST PORTABLE EXAMINATION: SINGLE XRAY VIEW [...] Erik Elizondo MD 10/30/18 Final result Normal [facility] Basic Metab w/rfx MGon 10-29 (cont.) Normal [facility] Comment on above: Result Comment: Aver age GFR for 60-69 years old: 85 mL/min/1.73sq m Chronic Kidney Disease: <60 mL/min/1.73sq m Kidney failure: <15 mL/min/1.73sq m eGFR calculated using average adult body mass. Additional eGFR calculator available at: http://www.[employer]/multiple_crcl_2012.htm Performed By: #### B MP, TSHX, FT4, GLYHGB #### [facility] [employer] [address] [place] [address] [employer] Technician: Armando Vaz MD Anion gap [Moles/Vol] 9 mmol/L Normal 9-17 [facility] Comment on above: Performed By: #### B MP, TSHX, FT4, GLYHGB #### [facility] [employer] [address] [place] [address] [employer] Service Technician: Armando Vaz MD Calcium [Mass/Vol] 6.4 mg/dL Low 8.6-10.4 [facility] Comment on above: Performed By: #### B MP, TSHX, FT4, GLYHGB #### [facility] [employer] [address] [place] [address] [employer] Service Technician: Armando Vaz MD Chloride [Moles/Vol] 116 mmol/L High 98-107 [facility] Comment on above: Performed By: #### B MP, TSHX, FT4, GLYHGB #### [facility] [employer] [address] [place] [address] [employer] Service Technician: Armando Vaz MD CO2 [Moles/Vol] 14 mmol/L Low 20-31 [facility] Comment on above: Performed By: #### B MP, TSHX, FT4, GLYHGB #### [facility] [employer] [address] [place] [address] [employer] Service Technician: Armando Vaz MD Creatinine [Mass/Vol] 0.88 mg/dL Normal 0.50-0.90 [facility] Comment on above: Performed By: #### B MP, TSHX, FT4, GLYHGB #### [facility] [employer] [address] [place] [address] [employer] Technician: Armando Vaz MD GFR, Amer >60 Normal >60 [facility] Comment on above: Performed By: #### B MP, TSHX, FT4, GLYHGB #### [facility] [employer] [address] [place] [address] [employer] Service Technician: Armando Vaz MD GFR,non Amer >60 Normal >60 [facility] Comment on above: Performed By: #### B MP, TSHX, FT4, GLYHGB #### [facility] [employer] [address] [place] [address] [employer] Service Technician: Armando Vaz MD Glucose [Mass/Vol] 142 mg/dL High 70-99 [facility] Comment on above: Performed By: #### B MP, TSHX, FT4, GLYHGB #### [facility] [employer] [address] [place] [address] [employer] Service Technician: Armando Vaz MD Potassium [Moles/Vol] 4.1 mmol/L Normal 3.7-5.3 [facility] Comment on above: Performed By: #### B MP, TSHX, FT4, GLYHGB #### [address] [address] [employer] Service Technician: Armando Vaz MD Sodium [Moles/Vol] 139 mmol/L Normal 135-144 [facility] Comment on above: Performed By: #### B MP, TSHX, FT4, GLYHGB #### [facility] [employer] [address] [place] [address] [employer] Service Technician: Armando Vaz MD Urea nitrogen [Mass/Vol] 12 mg/dL Normal 8-23 [facility] Comment on above: Performed By: #### B MP, TSHX, FT4, GLYHGB #### [facility] [employer] [address] [place] [address] [employer] Service Technician: Armando Vaz MD BUN/CRE Ratio NOT REPORTED Normal 9-20 [facility] Comment on above: Performed By: #### B MP, TSHX, FT4, GLYHGB #### [address] [address] [employer] Service Technician: Armando Vaz MD Staging: NOT REPORTED Normal [facility] Comment on above: Performed By: #### B MP, TSHX, FT4, GLYHGB #### [address] [address] [employer] Service Technician: Armando Vaz MD Brain Natri. Peptideon 10-29 Natriuretic peptide B (Bld) [Mass/Vol] 288 pg/mL Normal <300 [facility] Comment on above: Result Comment: Pro- BNP results cannot be compared to BNP results. Performed By: #### B MP, TSHX, FT4, GLYHGB #### [address] [address] [employer] Service Technician: Armando Vaz MD Natriuretic peptide B (Bld) [Mass/Vol] Normal [facility] Comment on above: Result Comment: Pro- BNP Reference Range: Rule Out: <300 Ahn Zone: Age <50 300-450 Age 50-75 300-900 Age >75 300-1800 Usually represents mild to moderate HF but other cardiopulmonary causes cannot be ruled out. Rule In: Age <50 >450 Age 50-75 >900 Age >75 >1800 Performed By: #### B MP, TSHX, FT4, GLYHGB #### [address] [address] [employer] Technician: Armando Vaz MD CBCon 10-29-2018 Erythrocyte distribution width (RBC) [Ratio] 15.7 % High 11.8-14.4 [facility] Comment on above: Performed By: #### B MP, TSHX, FT4, GLYHGB #### [address] [address] [employer] Service Technician: Armando Vaz MD Hematocrit (Bld) [Volume fraction] 38.0 % Normal 36.3-47.1 [facility] Comment on above: Performed By: #### B MP, TSHX, FT4, GLYHGB #### [address] [address] [employer] Service Technician: Armando Vaz MD Hemoglobin (Bld) [Mass/Vol] 12.8 g/dL Normal 11.9-15.1 [facility] Comment on above: Performed By: #### B MP, TSHX, FT4, GLYHGB #### [address] [address] [employer] Service Technician: Armando Vaz MD MCH (RBC) [Entitic mass] 30.6 pg Normal 25.2-33.5 [facility] Comment on above: Performed By: #### B MP, TSHX, FT4, GLYHGB #### [address] [address] [employer] Service Technician: Armando Vaz MD MCHC (RBC) [Mass/Vol] 33.7 g/dL Normal 28.4-34.8 [facility] Comment on above: Performed By: #### B MP, TSHX, FT4, GLYHGB #### [address] [address] [employer] Service Technician: Armando Vaz MD MCV (RBC) [Entitic vol] 90.9 fL Normal 82.6-102.9 [facility] Comment on above: Performed By: #### B MP, TSHX, FT4, GLYHGB #### [address] [address] [employer] Service Technician: Armando Vaz MD NRBC Automated 0.0 per 100 WBC Normal 0.0 [facility] Comment on above: Performed By: #### B MP, TSHX, FT4, GLYHGB #### [address] [phone] [employer] Service Technician: Armando Vaz MD Platelet mean volume (Bld) [Entitic vol] 10.2 fL Normal 8.1-13.5 [facility] Comment on above: Performed By: #### B MP, TSHX, FT4, GLYHGB #### [address] [address] [employer] Service Technician: Armando Vaz MD Platelets (Bld) [#/Vol] 134 10*3/uL Low 138-453 [facility] Comment on above: Performed By: #### B MP, TSHX, FT4, GLYHGB #### [facility] [employer] [address] [place] [address] [employer] Service Technician: Armando Vaz MD RBC (Bld) [#/Vol] 4.18 10*6/uL Normal 3.95-5.11 [facility] Comment on above: Performed By: #### B MP, TSHX, FT4, GLYHGB #### [facility] [employer] [address] [place] [address] [employer] Service Technician: Armando Vaz MD WBC (Bld) [#/Vol] 12.3 10*3/uL High 3.5-11.3 [facility] Comment on above: Performed By: #### B MP, TSHX, FT4, GLYHGB #### [address] [address] [employer] Service Technician: Armando Vaz MD Cult,Urineon 10-29-2018 Cult,Urine Specimen Description .CATHETERIZED URINE TOM INSERTION Special Requests NOT REPORTED Culture NO GROWTH Report Status FINAL 10/29/2018 Normal [facility] Comment on above: Performed By: #### B MP, TSHX, FT4, GLYHGB #### [address] [address] [employer] Service Technician: Armando Vaz MD Lactic Acid,Whole Blon 10-29 Lactic Acid,Whole Bl 2.9 mmol/L High 0.7-2.1 [facility] Comment on above: Performed By: #### B MP, TSHX, FT4, GLYHGB #### [facility] [employer] [facility] [place], [place] [phone] T[employer] Service Technician: Armando Vaz MD Lactic Acid,Whole Bl 3.0 mmol/L High 0.7-2.1 [facility] Comment on above: Performed By: #### B MP, TSHX, FT4, GLYHGB #### [facility] [employer] [address] [place] [address] [phone] T[employer] Service Technician: Armando Vaz MD Phosphorus, Inorg.on 019 Phosphorus, Inorg. 2.3 mg/dL Low 2.6-4.5 [facility] Comment on above: Performed By: #### B MP, TSHX, FT4, GLYHGB #### [facility] [employer] [address] [place] [address] [phone] [employer] Service Technician: Armando Vaz MD Type + Screenon 10-29-2018 Type + Screen Sample Expiration 10/31/2018 Arm Band Number [id number] ABO/Rh(D) A POSITIVE Antibody Screen NEGATIVE Unit Number [id number] Blood Component Type Leukocyte Reduced Red Cell Unit Division 00 Status of Unit REL FROM ALLOC Transfusion Status OK TO TRANSFUSE Crossmatch Result COMPATIBLE Unit Number [id number] Blood Component Type Leukocyte Reduced Red Cell Unit Division 00 Status of Unit REL FROM ALLOC Transfusion Status OK TO TRANSFUSE Crossmatch Result COMPATIBLE Unit Number [id number] Blood Component Type Leukocyte Reduced Red Cell Unit Division 00 Status of Unit TRANSFUSED Transfusion Status OK TO TRANSFUSE Crossmatch Result COMPATIBLE Unit Number [id number] Blood Component Type Leukocyte Reduced Red Cell Unit Division 00 Status of Unit TRANSFUSED Transfusion Status OK TO TRANSFUSE Crossmatch Result COMPATIBLE [facility] Comment on above: Performed By: #### T YS #### [address] [phone] T[employer] Service Technician: Armando Vaz MD Basic Metabolic Profon 10-28 (cont.) Normal [facility] Comment on above: Result Comment: Aver age GFR for 60-69 years old: 85 mL/min/1.73sq m Chronic Kidney Disease: <60 mL/min/1.73sq m Kidney failure: <15 mL/min/1.73sq m eGFR calculated using average adult body mass. Additional eGFR calculator available at: http://www.[employer]/multiple_crcl_2012.htm Performed By: #### H H, BMP, MG #### [employer] [address] [place] [address] T[employer] Service Technician: Armando Vaz MD Anion gap [Moles/Vol] 10 mmol/L Normal 9-17 [facility] Comment on above: Performed By: #### H H, BMP, MG #### [facility] [address] [place] [address] T[employer] Service Technician: Armando Vaz MD Calcium [Mass/Vol] 6.6 mg/dL Low 8.6-10.4 [facility] Comment on above: Performed By: #### H H, BMP, MG #### [facility] [address] [place] [address] [employer] Service Technician: Armando Vaz MD Chloride [Moles/Vol] 119 mmol/L High 98-107 [facility] Comment on above: Performed By: #### H H, BMP, MG #### [facility] [address] [place] [address] T[employer] Service Technician: Armando Vaz MD CO2 [Moles/Vol] 16 mmol/L Low 20-31 [facility] Comment on above: Performed By: #### H H, BMP, MG #### [facility] [address] [place] [address] T[employer] Service Technician: Armando Vaz MD Creatinine [Mass/Vol] 0.65 mg/dL Normal 0.50-0.90 [facility] Comment on above: Performed By: #### H H, BMP, MG #### [facility] [address] [place] [address] [employer] Service Technician: Armando Vaz MD GFR, Amer >60 Normal >60 [facility] Comment on above: Performed By: #### H H, BMP, MG #### [facility] [address] [place] [address] [employer] Service Technician: Armando Vaz MD GFR,non Amer >60 Normal >60 [facility] Comment on above: Performed By: #### H H, BMP, MG #### [facility] [address] [place] [address] T[employer] Service Technician: Armando Vaz MD Glucose [Mass/Vol] 196 mg/dL High 70-99 [facility] Comment on above: Performed By: #### H H, BMP, MG #### [facility] [employer] [address] [place] [address] T[employer] Service Technician: Armando Vaz MD Potassium [Moles/Vol] 4.3 mmol/L Normal 3.7-5.3 [facility] Comment on above: Performed By: #### H H, BMP, MG #### [facility] [employer] [address] [place] [address] T[employer] Service Technician: Armando Vaz MD Sodium [Moles/Vol] 145 mmol/L High 135-144 [facility] Comment on above: Performed By: #### H H, BMP, MG #### [facility] [employer] [address] [place] [address] T[employer] Service Technician: Armando Vaz MD Urea nitrogen [Mass/Vol] 11 mg/dL Normal 8-23 [facility] Comment on above: Performed By: #### H H, BMP, MG #### [facility] [address] [place] [address] [employer] Service Technician: Armando Vaz MD BUN/CRE Ratio NOT REPORTED Normal 9-20 [facility] Comment on above: Performed By: #### H H, BMP, MG #### [place] [address] [employer] Service Technician: Armando Vaz MD Staging: NOT REPORTED Normal [facility] Comment on above: Performed By: #### H H, BMP, MG #### [place] [address] T[employer] Service Technician: Armando Vaz MD CBC with Diffon 10-28-2018 Abs. Basophil <0.03 Normal 0.00-0.20 [facility] Comment on above: Performed By: #### B MP, TSHX, FT4, GLYHGB #### [place] [address] [employer] Service Technician: Armando Vaz MD Abs.Imm.Granulocyte 0.08 k/uL Normal 0.00-0.30 [facility] Comment on above: Performed By: #### B MP, TSHX, FT4, GLYHGB #### [place] [address] [employer] Service Technician: Armando Vaz MD Abs.Neutrophil (Seg) 9.54 k/uL High 1.50-8.10 [facility] Comment on above: Performed By: #### B MP, TSHX, FT4, GLYHGB #### [place] [address] T[employer] Service Technician: Armando Vaz MD Basophils/100 WBC (Bld) 0 % Normal 0-2 [facility] Comment on above: Performed By: #### B MP, TSHX, FT4, GLYHGB #### [place] [address] T[employer] Service Technician: Armando Vaz MD Eosinophils (Bld) [#/Vol] 10*3/uL Normal 0.00-0.44 [facility] Comment on above: Performed By: #### B MP, TSHX, FT4, GLYHGB #### [address] [address] [employer] Service Technician: Armando Vaz MD Eosinophils/100 WBC (Bld) 0 % Low 1-4 [facility] Comment on above: Performed By: #### B MP, TSHX, FT4, GLYHGB #### [address] [address] [employer] Service Technician: Armando Vaz MD Erythrocyte distribution width (RBC) [Ratio] 14.7 % High 11.8-14.4 [facility] Comment on above: Performed By: #### B MP, TSHX, FT4, GLYHGB #### [address] [address] [employer] Service Technician: Armando Vaz MD Hematocrit (Bld) [Volume fraction] 25.6 % Low 36.3-47.1 [facility] Comment on above: Performed By: #### B MP, TSHX, FT4, GLYHGB #### [place] [address] [employer] Service Technician: Armando Vaz MD Hemoglobin (Bld) [Mass/Vol] 8.5 g/dL Low 11.9-15.1 [facility] Comment on above: Performed By: #### B MP, TSHX, FT4, GLYHGB #### [facility] [employer] [address] [place] [address] T[employer] Service Technician: Armando Vaz MD Immature granulocytes (Bld) [#/Vol] 1 % High 0 [facility] Comment on above: Performed By: #### B MP, TSHX, FT4, GLYHGB #### [facility] [employer] [address] [place] [address] T[employer] Service Technician: Armando Vaz MD Lymphocytes (Bld) [#/Vol] 1.38 10*3/uL Normal 1.10-3.70 [facility] Comment on above: Performed By: #### B MP, TSHX, FT4, GLYHGB #### [address] [address] [employer] Service Technician: Armnado Vaz MD Lymphocytes/100 WBC (Bld) 12 % Low 24-43 [facility] Comment on above: Performed By: #### B MP, TSHX, FT4, GLYHGB #### [address] [address] [employer] Service Technician: Armando Vaz MD MCH (RBC) [Entitic mass] 32.7 pg Normal 25.2-33.5 [facility] Comment on above: Performed By: #### B MP, TSHX, FT4, GLYHGB #### [place] [address] [employer] Service Technician: Armando Vaz MD MCHC (RBC) [Mass/Vol] 33.2 g/dL Normal 28.4-34.8 [facility] Comment on above: Performed By: #### B MP, TSHX, FT4, GLYHGB #### [address] [address] [employer] Service Technician: Armando Vaz MD MCV (RBC) [Entitic vol] 98.5 fL Normal 82.6-102.9 [facility] Comment on above: Performed By: #### B MP, TSHX, FT4, GLYHGB #### [place] [address] [employer] Service Technician: Armando Vaz MD Monocytes (Bld) [#/Vol] 0.90 10*3/uL Normal 0.10-1.20 [facility] Comment on above: Performed By: #### B MP, TSHX, FT4, GLYHGB #### [address] [address] [employer] Service Technician: Armando Vaz MD Monocytes/100 WBC (Bld) 8 % Normal 3-12 [facility] Comment on above: Performed By: #### B MP, TSHX, FT4, GLYHGB #### [address] [address] [employer] Service Technician: Armando Vaz MD Neutrophil (Seg) 79 % High 36-65 [facility] Comment on above: Performed By: #### B MP, TSHX, FT4, GLYHGB #### [address] [address] [employer] Service Technician: Armando Vaz MD NRBC Automated 0.0 per 100 WBC Normal 0.0 [facility] Comment on above: Performed By: #### B MP, TSHX, FT4, GLYHGB #### [address] [address] [employer] Service Technician: Armando Vaz MD Platelet mean volume (Bld) [Entitic vol] 10.1 fL Normal 8.1-13.5 [facility] Comment on above: Performed By: #### B MP, TSHX, FT4, GLYHGB #### [address] [address] [employer] Service Technician: Armando Vaz MD Platelets (Bld) [#/Vol] 146 10*3/uL Normal 138-453 [facility] Comment on above: Performed By: #### B MP, TSHX, FT4, GLYHGB #### [address] [address] [employer] Service Technician: Armando Vaz MD RBC (Bld) [#/Vol] 2.60 10*6/uL Low 3.95-5.11 [facility] Comment on above: Performed By: #### B MP, TSHX, FT4, GLYHGB #### [address] [address] [employer] Service Technician: Armando Vaz MD RBC morphology finding Nom (Bld) ANISOCYTOSIS PRESENT Normal [facility] Comment on above: Performed By: #### B MP, TSHX, FT4, GLYHGB #### [address] [address] [employer] Service Technician: Armando Vaz MD WBC (Bld) [#/Vol] 11.9 10*3/uL High 3.5-11.3 [facility] Comment on above: Performed By: #### B MP, TSHX, FT4, GLYHGB #### [address] [address] [employer] Service Technician: Armando Vaz MD Auto Diff Performed NOT REPORTED Normal [facility] Comment on above: Performed By: #### B MP, TSHX, FT4, GLYHGB #### [address] [address] [employer] Service Technician: Armando Vaz MD Platelets (Bld) [#/Vol] NOT REPORTED Normal [facility] Comment on above: Performed By: #### B MP, TSHX, FT4, GLYHGB #### [address] [address] T[employer] Service Technician: Armando Vaz MD WBC Morphology NOT REPORTED Normal [facility] Comment on above: Performed By: #### B MP, TSHX, FT4, GLYHGB #### [address] [address] [employer] Service Technician: Armando Vaz MD Hgb/Hcton 10-28-2018 Hematocrit (Bld) [Volume fraction] 31.2 % Low 36.3-47.1 [facility] Comment on above: Performed By: #### H H, BMP, MG #### [facility] [address] [place] [address] [employer] Service Technician: Armando Vaz MD Hemoglobin (Bld) [Mass/Vol] 10.6 g/dL Low 11.9-15.1 [facility] Comment on above: Performed By: #### H H, BMP, MG #### [facility] [address] [place] [address] [phone] T[employer] Service Technician: Armando Vaz MD Lactic Acid,Whole Blon 10-28 Lactic Acid,Whole Bl 3.9 mmol/L High 0.7-2.1 [facility] Comment on above: Performed By: #### L ACWB #### [facility] [address] [place] [address] [phone] T[employer] Service Technician: Armando Vaz MD Magnesiumon 10-28-2018 Magnesium [Mass/Vol] 1.3 mg/dL Low 1.6-2.6 [facility] Comment on above: Performed By: #### H H, BMP, MG #### [facility] [address] [place] [address] [phone] T[employer] Service Technician: Armando Vaz MD OPERATIVE REPORTon 9 OPERATIVE REPORT [address] [phone] OPERATIVE REPORT PATIENT NAME: KATHERINE DA SILVA : 1955 MED REC NO: [id number] ROOM: [facility] ACCOUNT NO: [id number] ADMIT DATE: 10/28/2018 PROVIDER: Kerri Rajput MD DATE OF PROCEDURE: 10/28/2018 PREOPERATIVE DIAGNOSES: Aortoiliac occlusion, lifestyle limiting claudication. POSTOPERATIVE DIAGNOSES: Aortoiliac occlusion, lifestyle limiting claudication. PROCEDURES PERFORMED: 1. Aortobifemoral bypass. 2. Aortic endarterectomy. 3. Right common femoral and superficial femoral artery endarterectomy. 4. Left common femoral artery endarterectomy. ANESTHESIA: General. SURGEON: Kerri Rajput MD METALLURGICAL ANALYST: Dr. Barrientos. ESTIMATED BLOOD LOSS: 950 mL. [...] and SFA. This was removed with a [place] elevator. Once I had a good endarterectomized [...] appearance. This was then endarterectomized using a [place] elevator. A good endarterectomized plane was taken. [...] was closed with interrupted 2-0, followed by Eirca's with 3-0 and deep dermal with 3-0 [...] the next 24 hours. KERRI RAJPUT MD REMINGTON_SSREJ_I Doc#: [id number] CC: Normal [facility] Surgical Pathologyon 019 Surgical Pathology (NOTE) [id number] CM [facility] ANATOMIC PATHOLOGY [address] [place] [phone] SURGICAL PATHOLOGY CONSULTATION Patient Name: KATHERINE DA SILVA [facility] Rec: [id number] Path Number: [id number] Collected: 10/28/2018 Received: 10/29/2018 Reported: 10/30/2018 16:46 [...] LEFT FEMORAL PLAQUE Gross Description 1. KATHERINE DA SILVA, AORTA AND AORTIC PLAQUE Mineralized yellow fragments, 2.0 x 1.2 x 0.2 cm and 4.3 x 1.5 x 0.3 cm. Bull Wheel Worker sections of each 1cs after decalcification. 2. KATHERINE DA SILVA RIGHT FEMORAL PLAQUE Fragments of yellow-mckenna atheromatous cast material, 3.2 x 0.5 x 0.3 cm in aggregate. Entirely 1cs after decalcification. 3. KATHERINE DA SILVA, LEFT FEMORAL PLAQUE 1.9 x 0.5 x 0.3 cm portion of mckenna plaque material. Entirely 1cs after decalcification. tm Microscopic Description 1-3. Microscopic examination performed. [facility] Comment on above: Performed By: #### B MP, TSHX, FT4, GLYHGB #### [employer] [address] [place] [address] Tire Service Technician: Armando Vaz MD Hemoglobin A1Con 10-25-2018 HbA1c (Bld) [Mass fraction] 6.1 % High 4.0-6.0 [facility] Comment on above: Performed By: #### B MP, TSHX, FT4, GLYHGB #### [address] [id number] Tire Service Technician: Armando Vaz MD HbA1c (Bld) [Mass fraction] 128 mg/dL Normal [facility] Comment on above: Result Comment: The ADA and AACC recommend providing the estimated average glucose result to permit better patient understanding of their HBA1c result. Performed By: #### B MP, TSHX, FT4, GLYHGB #### [address] [address] Tire Service Technician: Armando Vaz MD Thyroxine, Freeon 10-24-2018 Thyroxine, Free 1.03 ng/dL Normal 0.93-1.70 [facility] Comment on above: Performed By: #### B MP, TSHX, FT4, GLYHGB #### [address] [address] Tire Service Technician: Armando Vaz MD Basic Metabolic Profon 10-23 (cont.) Normal [facility] Comment on above: Result Comment: Aver age GFR for 60-69 years old: 85 mL/min/1.73sq m Chronic Kidney Disease: <60 mL/min/1.73sq m Kidney failure: <15 mL/min/1.73sq m eGFR calculated using average adult body mass. Additional eGFR calculator available at: http://www.[employer].com/multiple_crcl_2012.htm Performed By: #### B MP, TSHX, FT4, GLYHGB #### [address] [id number] Tire Service Technician: Armando Vaz MD Anion gap [Moles/Vol] 18 mmol/L High 9-17 [facility] Comment on above: Performed By: #### B MP, TSHX, FT4, GLYHGB #### [address] [address] Tire Service Technician: Armando Vaz MD Calcium [Mass/Vol] 10.3 mg/dL Normal 8.6-10.4 [facility] Comment on above: Performed By: #### B MP, TSHX, FT4, GLYHGB #### [address] [address] Tire Service Technician: Armando Vaz MD Chloride [Moles/Vol] 102 mmol/L Normal 98-107 [facility] Comment on above: Performed By: #### B MP, TSHX, FT4, GLYHGB #### [address] [address] Tire Service Technician: Armando Vaz MD CO2 [Moles/Vol] 20 mmol/L Normal 20-31 [facility] Comment on above: Performed By: #### B MP, TSHX, FT4, GLYHGB #### [address] [address] Tire Service Technician: Armando Vaz MD Creatinine [Mass/Vol] 1.06 mg/dL High 0.50-0.90 [facility] Comment on above: Performed By: #### B MP, TSHX, FT4, GLYHGB #### [facility] [employer] [address] [place] [address] Tire Service Technician: Armando Vaz MD GFR, Amer >60 Normal >60 [facility] Comment on above: Performed By: #### B MP, TSHX, FT4, GLYHGB #### [facility] [employer] [address] [place] [address] Tire Service Technician: Armando Vaz MD GFR,non Amer 53 mL/min Low >60 [facility] Comment on above: Performed By: #### B MP, TSHX, FT4, GLYHGB #### [facility] [employer] [address] [place] [address] T[employer] Service Technician: Armando Vaz MD Glucose [Mass/Vol] 85 mg/dL Normal 70-99 [facility] Comment on above: Performed By: #### B MP, TSHX, FT4, GLYHGB #### [facility] [address] [place] [address] Tire Service Technician: Armando Vaz MD Potassium [Moles/Vol] 4.2 mmol/L Normal 3.7-5.3 [facility] Comment on above: Performed By: #### B MP, TSHX, FT4, GLYHGB #### [facility] [employer] [address] [place] [address] T[employer] Service Technician: Armando Vaz MD Sodium [Moles/Vol] 140 mmol/L Normal 135-144 [facility] Comment on above: Performed By: #### B MP, TSHX, FT4, GLYHGB #### [address] [address] Tire Service Technician: Armando Vaz MD Urea nitrogen [Mass/Vol] 16 mg/dL Normal 8-23 [facility] Comment on above: Performed By: #### B MP, TSHX, FT4, GLYHGB #### [facility] [employer] [address] [place] [address] Tire Service Technician: Armando Vaz MD BUN/CRE Ratio NOT REPORTED Normal 9-20 [facility] Comment on above: Performed By: #### B MP, TSHX, FT4, GLYHGB #### [facility] [employer] [address] [place] [address] Tire Service Technician: Armando Vaz MD Staging: NOT REPORTED Normal [facility] Comment on above: Performed By: #### B MP, TSHX, FT4, GLYHGB #### [employer] [address] [place] [address] Tire Service Technician: Armando Vaz MD TSH w/reflex to FT4on 2018 TSH Qn 5.35 m[IU]/L High 0.30-5.00 [facility] Comment on above: Performed By: #### B MP, TSHX, FT4, GLYHGB #### [facility] [employer] [address] [place] [address] T[employer] Service Technician: Armando Vaz MD OPERATIVE REPORTon 8 OPERATIVE REPORT [facility] [address] [place] [id number] OPERATIVE REPORT PATIENT NAME: KATHERINE DA SILVA : 1955 MED REC NO: [id number] ROOM: ACCOUNT NO: [id number] ADMIT DATE: 08/11/2018 PROVIDER: Kerri Rajput MD [...] catheterization of left common iliac artery. SURGEON: Kerri Rajput MD ESTIMATED BLOOD LOSS: 5 mL. [...] micropuncture sheath and upsized to a short 6-Nepalese sheath on the right side. On the [...] micropuncture sheath and upsized to a short 7-Nepalese sheath. Using a Glidewire and a combination [...] perform a retrograde iliac angiogram to the 7-Nepalese sheath which showed a patent external and [...] bypass. We will have her see a reinforced ironworker prior to getting her scheduled as an outpatient. KERRI RAJPUT MD [id number] Doc#: [id number] CC: Normal [facility] BASIC METABOLIC PANELon 05-24 Calcium [Mass/Vol] 9.9 mg/dL Normal 8.6-10.3 [facility] Comment on above: Performed By: #### 0 0071 #### [facility] [address] Chloride [Moles/Vol] 105 mmol/L Normal 98-107 [facility] Comment on above: Performed By: #### 0 0071 #### [facility] [address] [place] [address], [facility] [[email or web address]] CO2 [Moles/Vol] 23 mmol/L Normal 21-31 [facility] Comment on above: Performed By: #### 0 0071 #### [facility] [address] [place] [address], [facility] [[email or web address]] Creatinine [Mass/Vol] 0.97 mg/dL Normal 0.60-1.20 [facility] Comment on above: Performed By: #### 0 0071 #### [facility] [address] [place] [address], [facility] [[email or web address]] GFR/1.73 sq M predicted among blacks MDRD (S/P/Bld) [Vol rate/Area] mL/min/{1.73_m2} Normal >60 [facility] Comment on above: Performed By: #### 0 [id number] #### [facility] [address] [place] [address], [facility] [[email or web address]] GFR/1.73 sq M predicted among non-blacks MDRD (S/P/Bld) [Vol rate/Area] 59 ml/min/1.73sq m Abnormal >60 [facility] Comment on above: Performed By: #### 0 0071 #### [facility] [address] [place] [address], [facility] [[email or web address]] Glucose [Mass/Vol] 155 mg/dL High 70-100 [facility] Comment on above: Performed By: #### 0 0071 #### [facility] [address] [place] [address], [facility] [[email or web address]] Potassium [Moles/Vol] 3.8 mmol/L Normal 3.5-5.1 [facility] Comment on above: Performed By: #### 0 0071 #### [facility] [address] [place] [address], [facility] [[email or web address]] Sodium [Moles/Vol] 139 mmol/L Normal 136-145 [facility] Comment on above: Performed By: #### 0 0071 #### [facility] [address] [place] [address], [facility] [[email or web address]] Urea nitrogen [Mass/Vol] 20 mg/dL Normal 7-25 [facility] Comment on above: Performed By: #### 0 [id number] #### [facility] [address] CNOVon 06-04-2017 CNOV Office Visit (GYNMN) KATHERINE SUMMERS ([id number]) 1955 FDate Time Provider Department9/13/17 10:30 AM MORTEZA THURSTONMN During your visit today, we recorded the following information about you: Blood pressure Weight Height 124/74 72.6 kg 1.524 Selene Thurston MD MPH 06/04/2017 2:16 PM SignedPROCEDURE NOTE: FRANCES FAY TOUCH LASERSmarzena Willett presents for Frances Fay Touch Laser treatment.Pre [...] of Time Out: YESSign Out Discussion: Penelope Thurston MD MPHVaginal TreatementMonaLisa Touch Laser setting confirmed: [...] by phone or in office.Referring Provider: CHRISTIE RAMIREZ ([facility]) [[id number]]Allergies As of Date: 06/04/2017 Noted Allergy ReactionPENICILLINS 11/27/2015 4 - HivesDate Reviewed: 06/04/2017Reviewed by: Mayte Ramirez [facility] [place] Fully AssessedReason for Visit: Procedure [88] Cmt: Frances LisaVisit Diagnoses:Vaginal atrophy [N95.2] Vaginal dryness [N89.8] Superficial [...] by KARENA GALVEZ, MORTEZA MPH on 06/04/17 [facility] PROGRESSon 06-04-2017 PROGRESS HNO ID: [id number]: Morteza Grayervice: (none)Author Type: PhysicianType: Progress NotesFiled: 06/04/2017 2:16 PMNote Text:PROCEDURE NOTE: FRANCES FAY TOUCH LASERSyudishaila Willett presents for Frances Fay Touch Laser treatment.Pre [...] of Time Out: YESSign Out Discussion: Penelope Thurston MD MPHVaginal TreatementMonaLisa Touch Laser setting confirmed: [...] months by phone or in office. Normal [facility] CNOVon 04-16-2017 CNOV Office Visit (GYNMN) KATHERINE SUMMERS ([id number]) 1955 FDate Time Provider Department04/16/17 1:30 PM MORTEZA THURSTON GYNMN During your visit today, we recorded the following information about you: Blood pressure Weight Height 128/74 73 kg 1.524 Selene Thurston MD MPH 04/17/2017 8:36 AM SignedPROCEDURE NOTE: FRANCES FAY TOUCH LASERSmarzena Willett presents for Frances Fay Touch Laser treatment.Pre [...] #3.MD Ej Torres Ma 04/16/2017 1:21 PM SignedMONA FAY LASER TREATMENT: Post-Treatment Instructions*Refrain from intercourse [...] to schedule follow up visitsReferring Provider: CHRISTIE RAMIREZ ([facility]) [[id number]]Allergies As of Date: 04/16/2017 Noted Allergy ReactionPENICILLINS 11/27/2015 4 - HivesDate Reviewed: 04/16/2017Reviewed by: Olivia Addison Ma - Fully AssessedReason for Visit: Procedure [...] encounter ATENOLOL 50 MG TABLET >> Olivia Addison Ma 04/16/2017 1:29 PM >> OLIVIA ADDISON MA FriApr 16, 2017 1:29 PM Received from: [facility] [place] Received Sig: Take 1 tablet by mouth daily ATORVASTATIN 10 MG TABLET >> Olivia Addison Ma 04/16/2017 1:29 PM >> OLIVIA ADDISON MA FriApr 16, 2017 1:29 PM Received from: [facility] [place] Received Sig: Take 1 tablet by mouth daily FUROSEMIDE 20 MG TABLET >> Olivia Addison Ma 04/16/2017 1:29 PM >> OLIVIA ADDISON MA FriApr 16, 2017 1:29 PM Received from: [place] Received Sig: Take 1 tablet by mouth 2times daily FENOFIBRATE NANOCRYSTALLIZED 145 MG TABLET >> Olivia Addison Ma 04/16/2017 1:29 PM >> OLIVIA ADDISON MA FriApr 16, 2017 1:29 PM Received from: External Pharmacy Received Sig: take 1 tablet by mouth oncedaily POTASSIUM CHLORIDE ER 10 MEQ TABLET,EXTENDED RELEASE(PART/CRYST) >> Olivia Kennedynava Car 04/16/2017 1:29 PM >> OLIVIA ADDISON MA FriApr 16, 2017 1:29 PM Received from: External Pharmacy Received Sig: take 1 tablet by mouth oncedaily CONJUGATED ESTROGENS 0.625 MG/GRAM VAGINAL CREAM >> Olivia Cyn Car 04/16/2017 1:28 PM >> OLIVIA ADDISON MA FriApr 16, 2017 1:28 PM Not [...] and to schedule follow up visitsEncounter Number: [id number] Status:Closed by KARENA GALVEZ, MORTEZA MPH on 04/17/17 [facility] PROGRESSon 04-16-2017 PROGRESS HNO ID: [id number]: Morteza Velaice: (none)Author Type: PhysicianType: Progress NotesFiled: 04/17/2017 8:36 AMNote Text:PROCEDURE NOTE: FRANCES FAY TOUCH Izaiah Willett presents for Frances Fay Touch Laser treatment.Pre [...] of Time Out: YESSign Out Discussion: Eliud Cyn Langford Touch Laser setting confirmed: yesTreatment Number: [...] Follow up 6-8 weeks for treatment #3.Morteza Thurston MD MPH Normal [facility] Vital Signs Date Time Vital Sign Value Performing Clinician Facility 04-15-2025 18:25-0400 Body temperature 98.1 [degF] Dr. James Franco DO Work Phone: [facility] 04-15-2025 18:25-0400 Diastolic blood pressure 74 mm[Hg] Dr. James Franco DO Work Phone: [facility] 04-15-2025 18:25-0400 Heart rate 88 /min Dr. James Franco DO Work Phone: [facility] 04-15-2025 18:25-0400 Respiratory rate 16 /min Dr. James Franco DO Work Phone: [facility] 04-15-2025 18:25-0400 SaO2% (BldA) [Mass fraction] 96 % Dr. James Franco DO Work Phone: [facility] 04-15-2025 18:25-0400 Systolic blood pressure 168 mm[Hg] Dr. James Franco DO Work Phone: [facility] 04-15-2025 15:22-0400 Body height 152.[address] James Franco DO Work Phone: [facility] 02-26-2024 15:30-0400 Diastolic blood pressure 73 mm[Hg] Simón Ramos MD Work Phone: [facility] 02-26-2024 15:30-0400 Heart rate 70 /min Simón Ramos MD Work Phone: [facility] 02-26-2024 15:30-0400 Respiratory rate 16 /min Simón Ramos MD Work Phone: [facility] 02-26-2024 15:30-0400 SaO2% (BldA) [Mass fraction] 95 % Simón Ramos MD Work Phone: [facility] 02-26-2024 15:30-0400 Systolic blood pressure 133 mm[Hg] Simón Ramos MD Work Phone: [facility] 02-26-2024 15:23-0400 Body height 152.4 cm Simón Ramos MD Work Phone: [facility] 02-26-2024 15:23-0400 Body mass index (BMI) [Ratio] 32.6 kg/m2 Simón Ramos MD Work Phone: [facility] 02-26-2024 15:23-0400 Body temperature 98.29 [degF] Simón Ramos MD Work Phone: [facility] 02-26-2024 15:23-0400 Body weight 75.7 kg Simón Ramos MD Work Phone: [facility] 08-29-2023 10:26-0500 Body height 152.4 cm Simón Ramos MD Work Phone: [facility] 08-29-2023 10:26-0500 Body mass index (BMI) [Ratio] 30.66 kg/m2 Simón Ramos MD Work Phone: [facility] 08-29-2023 10:26-0500 Body temperature 98.1 [degF] Simón Ramos MD Work Phone: [facility] 08-29-2023 10:26-0500 Body weight 71.22 kg Simón Ramos MD Work Phone: [facility] 08-29-2023 10:26-0500 Diastolic blood pressure 80 mm[Hg] Simón Ramos MD Work Phone: [facility] 08-29-2023 10:26-0500 Heart rate 71 /min Simón Ramos MD Work Phone: [facility] 08-29-2023 10:26-0500 Respiratory rate 16 /min Simón Ramos MD Work Phone: [facility] 08-29-2023 10:26-0500 SaO2% (BldA) [Mass fraction] 95 % Simón Ramos MD Work Phone: [facility] 08-29-2023 10:26-0500 Systolic blood pressure 125 mm[Hg] Simón Ramos MD Work Phone: [facility] Encounters Encounter Date Encounter Type Care Provider Facility Start: 04-15-2025 End: 04-15-2025 Emergency department patient visit Dr. James Franco DO Work Phone: -Emergency Department Work Phone: Start: 03-28-2025 End: 03-28-2025 ambulatory Keisha Ruiz MD Facility:[facility] Start: 12-27-2024 End: 12-27-2024 ambulatory Keisha Ruiz MD Facility:[facility] Start: 12-10-2024 End: 02-09-2025 Follow-up encounter Anabelle Foster RN [facility] Comment on above: Ultrasound ankle / b rachial indices extremity complete Start: 12-10-2024 End: 12-10-2024 ambulatory [facility] Start: 11-17-2024 End: 11-17-2024 Emergency department patient visit SIMÓN [facility] Start: 09-27-2024 End: 09-27-2024 ambulatory Keisha Ruiz MD Facility:[facility] Start: 06-28-2024 End: 06-28-2024 ambulatory Keisha Ruiz MD Facility:[facility] Start: 05-20-2024 End: 05-20-2024 Refill Go Valdes DO Work Phone: [facility] Comment on above: Type 2 diabetes mundo itus without complication, without long- term current use of insulin (HCC) Start: 05-09-2024 End: 05-10-2024 Refill Simón Ramos MD Work Phone: [facility] Comment on above: Hypertension, unspec ified type Start: 04-25-2024 End: 04-26-2024 Refill Simón Ramos MD Work Phone: [facility] Comment on above: Hypertension, unspec ified type; Vaginal dryness, menopausal Start: 02-26-2024 End: 02-26-2024 Office outpatient new 45 minutes Simón Ramos MD Work Phone: [facility] Comment on above: Vaginal dryness, men opausal (Primary Dx); At low risk for fall; Type 2 diabetes mellitus without complication, without long-term current use of insulin (HCC); Obesity (BMI 30-39.9) Start: 02-26-2024 End: 02-26-2024 Office outpatient visit 40 minutes Simón Ramos MD Work Phone: [facility] Comment on above: Vaginal dryness, men opausal (Primary Dx); At low risk for fall; Type 2 diabetes mellitus without complication, without long-term current use of insulin (HCC); Obesity (BMI 30-39.9) Start: 02-26-2024 End: 02-26-2024 Periodic preventive med est patient 65yrs& older Simón Ramos MD Work Phone: [facility] Comment on above: Vaginal dryness, men opausal (Primary Dx); At low risk for fall; Type 2 diabetes mellitus without complication, without long-term current use of insulin ([facility]); Obesity (BMI 30-39.9) Start: 02-26-2024 End: 02-26-2024 ambulatory SIMÓN MONTALVO [facility] Start: 02-19-2024 End: [facility] Start: 02-19-2024 End: 02-23-2024 ambulatory [facility] Start: 12-25-2023 End: 12-26-2023 ambulatory PROVIDER NOT IN SYSTEM [facility] Start: 11-05-2023 Documentation procedure Stephanie Olson LPN [facility] Comment on above: rescheduled Start: 08-29-2023 End: 08-29-2023 Office outpatient new 45 minutes Simón Ramos MD Work Phone: [facility] Comment on above: Dysuria (Primary Dx) ; Hypertension, unspecified type; Cancer ([facility]); Acute cystitis without hematuria; Encounter for screening for malignant neoplasm of breast, unspecified screening modality; PAD (peripheral artery disease) ([facility]); Prediabetes; Hyperlipidemia, unspecified hyperlipidemia type; Vaginal dryness, menopausal; Left groin pain; Skin cancer; Fibromyalgia Start: 08-29-2023 End: 08-29-2023 ambulatory SIMÓN [facility] Start: 02-07-2023 ambulatory ANDRIUS GIEDRAITIS Faci lity:H1 Start: 08-09-2019 End: 08-10-2019 Patient encounter procedure [facility] Start: 08-09-2019 End: 08-09-2019 Subsequent hospital visit by physician [facility] Comment on above: PAD (peripheral laura ry disease) ([facility]) Start: 01-07-2019 End: 01-08-2019 Patient encounter procedure [facility] Start: 11-27-2018 End: 11-28-2018 Patient encounter procedure KERRI RAJPUT [facility] Start: 11-25-2018 End: 11-26-2018 Patient encounter procedure VALERIE GIRON [facility] Start: 10-28-2018 End: 11-02-2018 Evaluation and management of inpatient KERRI RAJPUT [facility] Start: 10-23-2018 End: 10-24-2018 Patient encounter procedure VALERIE GIRON [facility] Start: 08-11-2018 End: 08-12-2018 Patient encounter procedure KERRI RAJPUT [facility] Start: 06-04-2017 End: 08-05-2017 Ambulatory MORTEZA A [facility] Start: 04-16-2017 End: 04-22-2017 Ambulatory MORTEZA Ch[facility] Procedures Date Procedure Procedure Detail Performing Clinician Start: 04-15-2025 Urnls dip stick/tabl et reagent auto microscopy Dr. James Franco DO Work Phone: Start: 04-15-2025 CT of head without contrast Dr. James Franco DO Work Phone: Start: 02-19-2024 Mammography Simón swift MD Work Phone: Start: 02-19-2024 Microalbumin [Mass/v olume] in Urine by Test strip Simón Ramos MD Work Phone: Start: 08-29-2023 Urnls dip stick/tabl et rgnt auto w/o microscopy Simón Ramos MD Work Phone: Start: 08-29-2023 Adult depression scr eening assessment Simón Ramos MD Work Phone: Start: 08-09-2019 Non-invasive physiol ogic study extremity 3 levls TEZFRANCISCAALAN JOHN Start: 08-09-2019 Non-invasive physiol ogic study extremity 3 levls Kerri Hagerrachelle Work Phone: Start: 01-08-2019 DIET NPO, SPECIFIED TIME KERRI HAGERRACHELLE Start: 01-07-2019 SUPERVISOR FABRICATION DEPARTMENT REPORT KIMBERLY RAJPTU Start: 01-07-2019 DISCHARGE PATIENT SHERYL RAJPUT Start: 01-07-2019 ASSESS KERRI RODRIGUEZ Start: 01-07-2019 BEDREST KERRI RODRIGUEZ Start: 01-07-2019 Continuous pulse oximetry KERRI RAJPUT Start: 01-07-2019 ENCOURAGE DEEP BREAT RAMY AND COUGHING KERRI RAJPUT Start: 01-07-2019 NEURO/VASCULAR CHECKS Shena RAJPUT Start: 01-07-2019 NOTIFY PHYSICIAN (SPECIFY) KERRI RAJPUT Start: 01-07-2019 NURSING COMMUNICATION Shena RAJPUT Start: 01-07-2019 REMOVE IV KERRI RODRIGUEZ Start: 01-07-2019 VITAL SIGNS KERRI RODRIGUEZ Start: 01-07-2019 INITIATE OXYGEN THER APY PROTOCOL KERRI RAJPUT Start: 01-07-2019 Blood count hemoglobin [facility] Start: 01-07-2019 Chloride other source M ROSIBEL RAJPUT Start: 01-07-2019 CREATININE W/GFR POI NT OF CARE KERRI RAJPUT Start: 01-07-2019 Gluc bld gluc mntr d ev cleared fda spec home use KERRI RAJPUT Start: 01-07-2019 Potassium serum plasma/whole blood [facility] Start: 01-07-2019 Sodium serum plasma or whole blood [facility] Start: 01-07-2019 Blood count platelet automated [facility] Start: 01-07-2019 R & l hrt cath w/njx l ventriculog img s&i KERRI RAJPUT Start: 01-07-2019 FULL CODE KERRI RODRIGUEZ Start: 01-07-2019 INITIATE OXYGEN THER APY PROTOCOL [facility] Start: 01-07-2019 VERIFY INFORMED CONSENT KERRI RAJPUT Start: 01-07-2019 POC CHEMISTRY (NA,K,ICA,GLU,CALC HCT/HGB,LACTATE,CREA,CL) KERRI RAJPUT Start: 11-27-2018 Non-invasive physiol ogic study extremity 3 levls KERRI RAJPUT Start: 11-25-2018 Lipid panel KERRI RODRIGUEZ Start: 11-02-2018 PULSE OXIMETRY, CONTINUOUS [facility] Start: 11-02-2018 [facility]CHAR[facility] Start: 11-02-2018 NASAL CANNULA OXYGEN MO HAMMED AKBANI Start: 11-02-2018 INITIATE OXYGEN THER APY PROTOCOL [facility] Start: 11-02-2018 PULSE OXIMETRY, [facility]UOUS [facility] Start: 11-02-2018 PULSE OXIMETRY, CONTINUOUS [facility] Start: 11-02-2018 PULSE OXIMETRY, [facility]UOUS [facility] Start: 11-01-2018 PULSE OXIMETRY, [facility]INUOUS [facility] Start: 11-01-2018 PULSE OXIMETRY, CONTINUOUS [facility] Start: 11-01-2018 PULSE OXIMETRY, [facility] Start: 11-01-2018 OT EVAL AND TREAT [facility] ALLEYSADEQuin Start: 11-01-2018 [facility] MICHAEL Start: 11-01-2018 MISCELLANEOUS NURSIN G CARE ORDER (SPECIFY) [facility] HAGERRACHELLE Start: 11-01-2018 VITAL SIGNS [facility] MICHAEL Start: 11-01-2018 INITIATE OXYGEN THER APY PROTOCOL [facility] ALLEY[facility] Start: 11-01-2018 NASAL CANNULA OXYGEN MO HAMMALAN AKBANI Start: 11-01-2018 PULSE OXIMETRY, [facility] Start: 11-01-2018 PULSE [facility]ET[facility], [facility] Start: 11-01-2018 PULSE [facility]ETRY, [facility] Start: 11-01-2018 TRANSFER PATIENT [facility] ALLEYRACHELLE Start: 10-31-2018 PULSE [facility]XIMETRY, [facility] Start: 10-31-2018 PULSE OXIMETRY, CONTIN[facility]OUS [facility] Start: 10-31-2018 PULSE OXIMETRY, CONTINUOUS [facility] Start: 10-31-2018 [facility]TER [facility] AK[facility] Start: 10-31-2018 AMBULATE PATIENT [facility] ALLEYRACHELLE Start: 10-31-2018 REMOVE ARTERIAL LINE MO HAMMED AKBANI Start: 10-31-2018 Basic metabolic pane l calcium total [facility] ALLEYRACHELLE Start: 10-31-2018 PT EVAL AND TREAT [facility] ALLEYRACHELLE Start: 10-31-2018 INITIATE OXYGEN THER APY PROTOCOL MOHAMMED AKBANI Start: 10-31-2018 NASAL CANNULA OXYGEN MO HAMMED AKBANI Start: 10-31-2018 PULSE OXIMETRY, CONTINUOUS MOHAMMED AKBANI Start: 10-31-2018 PULSE OXIMETRY, CONTINUOUS MOHAMMED AKBANI Start: 10-31-2018 TELEMETRY MONITORING MO HAMMALAN AKBANI Start: 10-31-2018 PULSE OXIMETRY, CONTINUOUS MOHAMMED AKBANI Start: 10-31-2018 Basic metabolic pane l calcium total MOHAMMED AKBANI Start: 10-30-2018 PULSE OXIMETRY, CONTINUOUS MOHAMMED AKBANI Start: 10-30-2018 PULSE OXIMETRY, CONTINUOUS MOHAMMED AKBANI Start: 10-30-2018 NASAL CANNULA OXYGEN MO HAMMALAN AKBANI Start: 10-30-2018 EXTUBATION MOHAMMED A KBANI Start: 10-30-2018 PULSE OXIMETRY, [facility]INUOUS [facility] Start: 10-30-2018 INITIATE OXYGEN THER APY PROTOCOL [facility] Start: 10-30-2018 PULSE OXIMETRY, CONTINUOUS [facility] Start: 10-30-2018 Radiologic exam ches t single view [facility] Start: 10-30-2018 Assay of lactate MOHAMM ED AKBANI Start: 10-30-2018 Basic metabolic pane l calcium total [facility] Start: 10-30-2018 Blood count complete automated [facility] Start: 10-30-2018 ARTERIAL BLOOD GAS, POC MOHAMMED AKBANI Start: 10-30-2018 POCT GLUCOSE MOHAMMED A KBANI Start: 10-30-2018 PULSE OXIMETRY, CONTINUOUS [facility] Start: 10-30-2018 PULSE OXIMETRY, CONTINUOUS MOHAMMED AKBANI Start: 10-30-2018 RESTRAINTS NON-VIOLE NT OR [id number] MOHAMMED AKBANI Start: 10-30-2018 ARTERIAL BLOOD GAS, POC MOHAMMED AKBANI Start: 10-30-2018 POCT GLUCOSE MOHAMMED A KBANI Start: 10-29-2018 ARTERIAL BLOOD GAS, POC MOHAMMED AKBANI Start: 10-29-2018 POCT GLUCOSE MOHAMMED A KBANI Start: 10-29-2018 PULSE OXIMETRY, CONTINUOUS MOHAMMED AKBANI Start: 10-29-2018 ABG DRAW MOHAMMED A KBANI Start: 10-29-2018 BRAIN NATRIURETIC PEPTIDE [facility] HAG[facility]HELLE Start: 10-29-2018 ARTERIAL BLOOD GAS, POC [facility] HAG[facility]HELLE Start: 10-29-2018 PULSE OXIMETRY, CONTINUOUS [facility] Start: 10-29-2018 Transfusion blood/bl ood components [facility] RAJPUT Start: 10-29-2018 [facility] HAGERRACHELLE Start: 10-29-2018 PULSE OXIMETRY, CONTINUOUS [facility] AKSADEI Start: 10-29-2018 Assay of lactate [facility] ALLEYRACHELLE Start: 10-29-2018 ANION GAP (CALC) [facility] Start: 10-29-2018 ARTERIAL BLOOD GAS, POC [facility] ALLEYRACHELLE Start: 10-29-2018 Calcium ionized [facility] ALLEYRACHELLE Start: 10-29-2018 Chloride other source [facility] Start: 10-29-2018 CREATININE W/GFR POI NT OF CARE [facility] HAGERRACHELLE Start: 10-29-2018 HGB/HCT KERRI Magana MICHAEL Start: 10-29-2018 LACTIC ACID,POINT OF CARE [facility] HAGERR[facility]HELLE Start: 10-29-2018 POCT GLUCOSE KERRI Magana LINDSEYLAURA Start: 10-29-2018 Potassium serum plasma/whole blood [facility] HAG[facility]HELLE Start: 10-29-2018 Sodium serum plasma or whole blood [facility] HAGERRACHELLE Start: 10-29-2018 IP CONSULT TO CASE MANAGEMENT [facility] HAGERRACHELLE Start: 10-29-2018 INITIATE OXYGEN THER APY PROTOCOL [facility] HAGERRACHELLE Start: 10-29-2018 PULSE OXIMETRY, CONTINUOUS [facility] VERENICEQuin Start: 10-29-2018 Assay of lactate [facility] ALLEYRACHELLE Start: 10-29-2018 IP CONSULT TO PULMONOLOGY [facility] ALLEYRACHELLE Start: 10-29-2018 ARTERIAL BLOOD GAS, POC [facility] ALLEYRACHELLE Start: 10-29-2018 Assay of phosphorus inorganic [facility] VERENICEQuin Start: 10-29-2018 Blood count complete automated [facility] ALLEYSADE Start: 10-29-2018 Comprehensive metabo lic panel [facility] ALLEYSADE Start: 10-29-2018 PULSE OXIMETRY, [facility]IN[facility]OUS [facility] Start: 10-29-2018 Blood gases any comb ination ph pco2 po2 co2 hco3 [facility] Start: 10-29-2018 TRANSFUSE RED BLOOD CELLS [facility] Start: 10-29-2018 ARTERIAL BLOOD GAS, POC [facility] Start: 10-29-2018 POCT GLUCOSE [facility] A KBANI Start: 10-29-2018 ABG DRAW [facility] A KBLAURA Start: 10-29-2018 DAILY WEIGHTS [facility] CALDERAI Start: 10-29-2018 PULSE OXIMETRY, CONTINUOUS [facility] Start: 10-29-2018 TRANSFUSE RED BLOOD CELLS [facility] VERENICE Start: 10-29-2018 PREPARE RBC (CROSSMATCH) [facility]A Start: 10-28-2018 Blood count complete auto&auto difrntl wbc [facility] AKSADE Start: 10-28-2018 ARTERIAL BLOOD GAS, POC [facility] VERENICEI Start: 10-28-2018 POCT GLUCOSE [facility] RODRIGUEZ Start: 10-28-2018 Potassium serum plasma/whole blood [facility] CALDERA Start: 10-28-2018 ABG DRAW [facility] Magana KBLAURA Start: 10-28-2018 PULSE OXIMETRY, CONTINUOUS [facility] AKSADEI Start: 10-28-2018 MISCELLANEOUS NURSIN G CARE ORDER (SPECIFY) [facility] Start: 10-28-2018 PULSE OXIMETRY, CONTINUOUS [facility] AKBAN Start: 10-28-2018 Assay of lactate [facility] VERENICE Start: 10-28-2018 PREVIOUS SPECIMEN [facility] ALLEYRACHELLE Start: 10-28-2018 ARTERIAL BLOOD GAS, POC [facility] VERENICE Start: 10-28-2018 Assay of magnesium [facility] VERENICEI Start: 10-28-2018 Basic metabolic pane l calcium total [facility] Start: 10-28-2018 HEMOGLOBIN AND HEMAT OCRIT, BLOOD [facility] VERENICEI Start: 10-28-2018 PLACE INTERMITTENT PNEUMATIC COMPRESSION DEVICE [facility] ALLEYBAN Start: 10-28-2018 TELEMETRY [facility]ITORING [facility] Start: 10-28-2018 FULL CODE [facility] ROD[facility]IGUEZ Start: 10-28-2018 INITIATE OXYGEN THER APY PROTOCOL [facility] ALLEYSADE Start: 10-28-2018 INTAKE AND OUTPUT [facility] AKBAN Start: 10-28-2018 VITAL SIGNS KERRI RODRIGUEZ Start: 10-28-2018 PATIENT STATUS (FROM ED OR OR/PROCEDURAL) KERRI RAJPUT Start: 10-28-2018 TRANSFER PATIENT [facility] JOHN Start: 10-28-2018 ARTERIAL BLOOD GAS, POC KERRI RAJPUT Start: 10-28-2018 Calcium ionized KIMBERLY D JOHN Start: 10-28-2018 HGB/HCT KERRI RODRIGUEZ Start: 10-28-2018 POCT [facility]COSE [facility] Start: 10-28-2018 Potassium serum plasma/whole blood [facility] CAL[facility] Start: 10-28-2018 SURGICAL PATHOLOGY [facility] MMED AKRACHELLE Start: 10-28-2018 [facility] CALDER[facility] Start: 10-28-2018 Culture bacterial quanttative colony count urine [facility] RA[facility] Start: 10-28-2018 TRANSFUSE RED BLOOD CELLS [facility] Start: 10-28-2018 TYPE AND SCREEN KIMBERLY HAGERRACHELLE Start: 10-28-2018 VERIFY INFORMED CONSENT [facility] RA[facility] Start: 10-23-2018 Assay of free thyroxine [facility] Start: 10-23-2018 Basic metabolic pane l calcium total [facility] Start: 10-23-2018 Hemoglobin glycosylated a1c [facility] ARJPUT Start: 10-23-2018 TSH WITH REFLEX KIMBERLY CALDERAQuin Start: 08-12-2018 DIET NPO, SPECIFIED TIME [facility] Start: 08-11-2018 DISCHARGE PATIENT [facility] JOHN Start: 08-11-2018 R & l hrt cath w/njx l ventriculog img s&i [facility] Start: 08-11-2018 Chloride other source M ALJIMMY RAJPUT Start: 08-11-2018 CREATININE W/GFR POI NT OF CARE [facility] CALDERAQuin Start: 08-11-2018 HGB/HCT KERRI RODRIGUEZ Start: 08-11-2018 NOTIFICATION PANEL, POC [facility] Start: 08-11-2018 POCT GLUCOSE KERRI RODRIGUEZ Start: 08-11-2018 Potassium serum plasma/whole blood [facility] CALDERAQuin Start: 08-11-2018 Sodium serum plasma or whole blood [facility] Start: 08-11-2018 FULL CODE KERRI RODRIGUEZ Start: 08-11-2018 INITIATE OXYGEN THER APY PROTOCOL KERRI RAJPUT Start: 08-11-2018 VERIFY INFORMED CONSENT KERRI RAJPUT Start: 08-11-2018 POC CHEMISTRY (NA,K,ICA,GLU,CALC HCT/HGB,LACTATE,CREA,CL) KERRI RAJPUT Plan of Treatment Date Care Activity Detail Author Start: 2031 Respiratory Syncytial Virus Immunization: Risk, 60-74 Risk, or 75+ (1 - 1-dose 75+ series) Respiratory Syncytial Virus Immunization: Risk, 60-74 Risk, or 75+ (1 - 1-dose 75+ series) [facility] Start: 05-23-2025 Influenza vaccination Influenza Vaccine (Season Ended) [facility] Start: 04-15-2025 [facility] Start: 04-15-2025 End: 04-15-2025 [facility] Start: 04-15-2025 Bacteria identified in Blood by Culture Blood Culture [facility] Start: 04-15-2025 Bacteria identified in Urine by Culture Urine Culture [facility] Start: 02-25-2025 History and physical examination, annual for health maintenance Wellness Visit [facility] Start: 02-19-2025 Fall risk assessment Falls Risk Assessment [facility] Start: 02-18-2025 eGFR Diabetes eGFR Diabetes [facility] Start: 02-18-2025 Screening for malignant neoplasm of breast Mammogram [facility] Start: 02-18-2025 Urine screening for protein [facility] Start: 08-29-2024 Depression screening using PHQ-9 (Patient Health Questionnaire 9) score [facility] Start: 08-21-2024 Hemoglobin A1c measurement A1C [facility] Start: 07-16-2024 End: 07-16-2024 Patient encounter procedure 07/16/2024 11:40 AM EDT Office Visit [facility] [address] [place] [id number] Simón Ramos MD [address] [address] [facility] Start: 05-23-2024 COVID-19 Vaccine ( season) COVID-19 Vaccine ( season) [facility] Start: 05-23-2024 Influenza vaccination [facility] Start: 03-11-2024 End: 03-11-2024 Patient encounter procedure 03/11/2024 3:40 PM EDT Office Visit [facility] [address] [place] [address] Simón Ramos MD [address] [address] [facility] Start: 02-29-2024 History and physical examination, annual for health maintenance Wellness Visit [facility] Start: 01-09-2024 End: 01-09-2024 Patient encounter procedure 01/09/2024 12:00 PM EDT Office Visit [facility] [address] [place] [address] Simón Ramos MD [address] [address] [facility] Start: 09-04-2023 Hemoglobin A1c measurement A1C [facility] Start: 05-23-2023 COVID-19 Vaccine ( season) COVID-19 Vaccine ( season) [facility] Start: 05-23-2023 Influenza vaccination Sequential Influenza Vaccine (#1) [facility] Start: 01-09-2023 Colon cancer screen colonoscopy Colon cancer screen colonoscopy [facility] [place] Start: 2021 Fall risk assessment Falls Risk Assessment [facility] Start: 2021 Pneumococcal Vaccine: Age 65+ (1 of 1 - PCV) Pneumococcal Vaccine: Age 65+ (1 of 1 - PCV) [facility] Start: 05-27-2020 Breast cancer screen Breast cancer screen [facility] [place] Start: 04-21-2020 Diabetic retinal exam Diabetic retinal exam [place], [place] Comment on above: Postponed from 1966 (Not Indicated ) Start: 04-12-2020 [object Object] Diabetic foot exam [facility] [place] Comment on above: Postponed from 1966 (Patient Refus ed) Start: 04-12-2020 Cervical cancer screen Cervical cancer screen [place], [place] Comment on above: Postponed from 1977 (Patient Refus ed) Start: 04-12-2020 DTaP/Tdap/Td vaccine (1 - Tdap) DTaP/Tdap/Td vaccine (1 - Tdap) [place], [place] Comment on above: Postponed from 1967 (Patient Refus ed) Start: 04-12-2020 Hepatitis C screen Hepatitis C screen [place], [place] Comment on above: Postponed from 1956 (Patient Refus ed) Start: 04-12-2020 Shingles Vaccine (1 of 2) Shingles Vaccine (1 of 2) [place], [place] Comment on above: Postponed from 2006 (Patient Refus ed) Start: 01-08-2020 Creatinine monitoring Creatinine monitoring [place], [place] Start: 01-08-2020 Potassium monitoring Potassium monitoring [place], [place] Start: 11-26-2019 Lipid screen Lipid screen [place] Start: 10-23-2019 A1C test (Diabetic or Prediabetic) A1C test (Diabetic or Prediabetic) [place], [place] Start: 05-23-2019 Influenza vaccination Flu vaccine (#1) [place] Start: 08-04-2018 Screening for malignant neoplasm of colon [facility] Start: 2006 Administration of herpes zoster vaccine Zoster Vaccines (1 of 2) [facility] Start: 2006 Screening for malignant neoplasm of colon Flexible sigmoidoscopy [facility] Start: 1996 Screening for malignant neoplasm of breast Mammogram [facility] Start: 1975 Administration of herpes zoster vaccine Zoster Vaccines (1 of 2) [facility] Start: 1975 Pneumococcal Vaccine: Age 50+ (1 of 2 - PCV) Pneumococcal Vaccine: Age 50+ (1 of 2 - PCV) [facility] Start: 1974 Diabetic microalbuminuria test Diabetic microalbuminuria test [place], [place] Start: 1974 Hepatitis C screening Hepatitis C Screening [facility] Start: 1966 Diabetic foot examination Diabetic Foot Exam [facility] Start: 1966 Glaucoma screening Diabetic Eye Exam [facility] Start: 1966 Urine screening for protein Urine Microalbumin [facility] Start: 1962 Pneumococcal 0-64 years Vaccine (1 of 1 - PPSV23) Pneumococcal 0-64 years Vaccine (1 of 1 - PPSV23) [place], [place] Start: 1962 Pneumococcal Vaccine: Age 65+ (1 - PCV) Pneumococcal Vaccine: Age 65+ (1 - PCV) [facility] Start: 1962 Pneumococcal Vaccine: Age 65+ (1 of 2 - PCV) Pneumococcal Vaccine: Age 65+ (1 of 2 - PCV) [facility] Start: 1961 COVID-19 Vaccine (#1) COVID-19 Vaccine (#1) [facility] Start: 01-08-1957 COVID-19 Vaccine (#1) COVID-19 Vaccine (#1) [facility] Start: 1956 Screening for malignant neoplasm of colon [facility] Start: 1956 Screening for osteoporosis Dexa Scan [facility] Start: 1956 Tetanus vaccination Tetanus: Every 10yrs [facility] End: 08-29-2024 Bacteria identified in Unspecified specimen by Aerobe culture Urine Aerobic Culture Microbiology Routine Dysuria 1 Occurrences starting 08/29/2023 until 08/29/2024 [facility] Work Phone: Comment on above: 1 Occurrences starting 08/29/2023 until 08/29/2024 Bacteria identified in Unspecified specimen by Aer[facility] culture Urine Aerobic Culture Microbiology Routine Dysuria 08/29/2023 10:49 AM EST [facility] End: 08-29-2024 Comprehensive metabolic 2000 panel - Serum or Plasma Comprehensive Metabolic Panel Lab Routine Prediabetes 1 Occurrences starting 08/29/2023 until 08/29/2024 [facility] Comment on above: 1 Occurrences starting 08/29/2023 until 08/29/2024 End: 08-29-2024 Hemoglobin A1c/Hemoglobin.total in Blood Hemoglobin A1c Lab Routine Prediabetes 1 Occurrences starting 08/29/2023 until 08/29/2024 [facility] Comment on above: 1 Occurrences starting 08/29/2023 until 08/29/2024 End: 02-25-2025 Hemoglobin A1c/Hemoglobin.total in Blood Hemoglobin A1c Lab Routine Type 2 diabetes mellitus without complication, without long-term current use of insulin (HCC) 1 Occurrences starting 02/26/2024 until 02/25/2025 [facility] Work Phone: Comment on above: 1 Occurrences starting 02/26/2024 until 02/25/2025 End: 08-29-2024 Lipid 1996 panel - Serum or Plasma Lipid Panel Lab Routine Prediabetes 1 Occurrences starting 08/29/2023 until 08/29/2024 [facility] Comment on above: 1 Occurrences starting 08/29/2023 until 08/29/2024 End: 10-30-2024 MG Breast - bilateral Screening Mammography Screening Yogesh Bilateral Imaging Routine Encounter for screening for malignant neoplasm of breast, unspecified screening modality 1 Occurrences starting 08/29/2023 until 10/30/2024 [facility] Comment on above: 1 Occurrences starting 08/29/2023 until 10/30/2024 End: 08-29-2024 Microalbumin measurement, urine, quantitative Microalbumin/Creatinine Ratio, UR Random Lab Routine Prediabetes 1 Occurrences starting 08/29/2023 until 08/29/2024 [facility] Comment on above: 1 Occurrences starting 08/29/2023 until 08/29/2024 Patient Education ED Confusion [facility] Work Phone: End: 08-29-2024 Thyrotropin [Units/volume] in Serum or Plasma TSH with Reflex Free T4 Lab Routine Prediabetes 1 Occurrences starting 08/29/2023 until 08/29/2024 [facility] Comment on above: 1 Occurrences starting 08/29/2023 until 08/29/2024 Urine culture [facility] Payers Date Payer Category Payer Self-pay 2021 Medicare MEDICARE PART A [id number] 2021 Medicare [id number] 2021 Blue Cross Blue Shield (Indemnity or Managed Care) - Out of State BCBS OUT OF STATE [facility] [id number] 2018 Unknown [id number] 2017 Unknown BCBS [place] - [place] P PO xxxxxxxxxxxx 2017-Present [address] [place] [address] xxxxxxxxxxxx [id number] 1959 Unknown [id number] 1956 Unknown [id number] 2..840.1.350534.3.579. 2.175 1956 Unknown [id number] 2.16840.1.739529.3.579. 2.175 1956 Unknown [id number] 2.16840.1.057255.3.579. 2.175 1956 Unknown [id number] 2.16840.1.112096.3.579. 2.175 1956 Unknown [id number] 2.16840.1.845435.3.579. 2.175 1956 Unknown [id number] 2.16.840.1.072779.3.579. 2.175 1956 Unknown [id number] 2.16.840.1.116565.3.579. 2.175 1956 Unknown [id number] 2.16.840.1.231953.3.579. 2.593 1956 Unknown [id number] 2.16.840.1.436918.3.579. 2.900 1956 Unknown [id number] 2.16.840.1.509436.3.579. 2.900 1956 Unknown [id number] 2.16.840.1.581306.3.579. 2.900 1956 Unknown [id number] 2.16.840.1.373816.3.579. 2.903 1956 Unknown [id number] 2.16.840.1.911560.3.579. 2.903 1956 Unknown [id number] 2.16.840.1.011461.3.579. 2.902 1956 Unknown [id number] 2.16.840.1.590496.3.579. 2.903 1956 Unknown [id number] 2.16.840.1.509374.3.579. 2.903 1956 Unknown [id number] 2.16.840.1.580789.3.579. 2.903 1956 Unknown [id number] 2.16.840.1.779314.3.579. 2.903 1956 Unknown [id number] 2.16.840.1.178612.3.579. 2.196 1956 Unknown [id number] 2.16.840.1.431337.3.579. 2.196 1956 Unknown [id number] 2.16.840.1.975817.3.579. 2.196 1956 Unknown [id number] 2.16.840.1.768699.3.579. 2.196 Unknown [id number] 2.16.840.1.837860.3.579. 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 (finding) [place] Start: 1955 Sex Assigned At Not on file [place] Start: 08-29-2023 Tobacco use and exposure Smokeless tobacco non-user [facility] Start: 08-29-2023 End: 11-17-2024 Alcohol intake Ex-drinker (finding) [facility] Start: 03-30-2014 End: 08-29-2023 History of Social function [facility] Start: 03-30-2014 End: 08-29-2023 Tobacco use panel [facility] Start: 05-08-2023 Sexual orientation Heterosexual (fin ding) [facility] Adult Depression Screening Assessment 2 [facility] Start: 09-01-2023 Gender identity Identifies as female gender (finding) [facility] Start: 04-15-2025 Tobacco smoking status NHIS Never smoked tobacco (finding) [facility] Start: 1955 Sex Assigned At Female W [facility] NEGATED: Highlighted rowStart: NINF History of tobacco use Passive smoker [facility] Medical Equipment Procedure Code Equipment Code Equipment Origin al Text Equipment Identifier Dates Graft Vasc Aort Abd Bif [id number] - [id number] Start: 10-28-2018 Comment on above: Description: KAREN SHANNON RN, Nathalie WHITE RN Mental Status Date Assessment Result Facility 04-15-2025 Cognitive function Voice/Name [facility] Work Phone: Clinical Notes 08-29-2023 to 04-15-2025 Telephone Encounter - Maffett, Viri, ASBESTOS CLOTH INSPECTOR - 05/20/2024 7:52 AM EDTTelephone Encounter - Viri Alarcon LPN - 05/20/2024 7:52 AM EDTTelephone Encounter - Stefany SwansonLAURI - 05/10/2024 6:47 AM EDT Note Date & Type Note Facility 04-15-2025 Radiology Diagnostic study note [facility] Imaging Services [address] [place], [place] [address] Brain/Head without Contrast MR#: [id number] Acct: [id number] Name: KATHERINE DA SILVA Rep #: [id number] : [id number] F [id number] From: Alek Seaman MD PCP: ROWAN BYRD Status: REG ER Study:Brain/Head without Contrast Date of Exa m: 04/15/25 Exam# [id number] Ordering Dr: James Franco DO PROCEDURE: BRAIN/HEAD WITHOUT CONTRAST 04/15/2025 REASON FOR EXAM: CONFUSION TECHNIQUE: BRAIN/HEAD WITHOUT CONTRAST Coronal and Sagittal reconstruction series were provided. One or more dose reduction techniques were used (e.g., Automated exposure control, adjustment of the mA and/or kV according to patient size, use of iterative reconstruction technique. RADIATION DOSE SUMMARY: CTDlvol: 44.99 mGy DLP: 76.11 mGycm FINDINGS: Ventricles are normal in size and midline in position. No evidence of acute hemorrhage or infarction. No extra-axial blood or fluid collections. The calvarial vault and skull base are intact. The paranasal sinuses and mastoid air cells are clear. CT/Brain/Head without Contrast IMPRESSION: NO ACUTE FINDINGS Reading Location: [id number] CC: CAESAR COLLAZO; Dr. James Franco DO ~ Medical Office Professional Instructor: Signed [facility] 05-20-2024 Telephone encounter Note Last OV 02/26/24. Pt cancelled her appointment that she was to have on 07/16/24 with provider and did not reschedule. [facility] 05-20-2024 Miscellaneous Notes Last OV 02/26/24. Pt cancelled her appointment that she was to have on 07/16/24 with provider and did not reschedule. documented in this encounter [facility] 05-10-2024 Telephone encounter Note Last visit 02/26/24 Next visit not scheduled. Last refill 08/29/23 [facility] 05-10-2024 Miscellaneous Notes Last visit 02/26/24 Next visit not scheduled. Last refill 08/29/23 documented in this encounter [facility] 04-26-2024 Telephone encounter Note Last OV 02/26/24. Next OV 07/16/24. [facility] 04-26-2024 Miscellaneous Notes Last OV 02/26/24. Next OV 07/16/24. documented in this encounter [facility] 03-24-2024 Note Addended by: Deloris OLSON on: 03/24/2024 10:17 AM Modules accepted: Level of Service [facility] 03-24-2024 Note Addended by: Deloris OLSON on: 03/24/2024 10:17 AM Modules accepted: Level of Service [facility] 03-24-2024 Note Addended by: Deloris OLSON on: 03/24/2024 10:17 AM Modules accepted: Level of Service [facility] 03-24-2024 Miscellaneous Notes Addended by: STEPHANIE OLSON on: 03/24/2024 10:17 AM Modules accepted: Level of Service Addended by: SIMÓN RAMOS on: 03/23/2024 05:36 PM Modules accepted: Level of Service Addended by: SIMÓN RAMOS on: 03/19/2024 05:16 PM Modules accepted: Level of Service documented in this encounter [facility] 03-23-2024 Note Addended by: SIMÓN RAMOS on: 03/23/2024 05:36 PM Modules accepted: Level of Service [facility] 03-23-2024 Note Addended by: SIMÓN RAMOS on: 03/23/2024 05:36 PM Modules accepted: Level of Service [facility] 03-23-2024 Note Addended by: SIMÓN RAMOS on: 03/23/2024 05:36 PM Modules accepted: Level of Service [facility] 03-23-2024 Note Addended by: SIMÓN RAMOS on: 03/23/2024 05:36 PM Modules accepted: Level of Service [facility] 03-23-2024 Miscellaneous Notes Addended by: SIMÓN RAMOS on: 03/23/2024 05:36 PM Modules accepted: Level of Service Addended by: SIMÓN RAMOS on: 03/19/2024 05:16 PM Modules accepted: Level of Service documented in this encounter [facility] 03-19-2024 Note Addended by: SIMÓN RAMOS on: 03/19/2024 05:16 PM Modules accepted: Level of Service [facility] 03-19-2024 Note Addended by: SIMÓN RAMOS on: 03/19/2024 05:16 PM Modules accepted: Level of Service [facility] 03-19-2024 Note Addended by: SIMÓN RAMOS on: 03/19/2024 05:16 PM Modules accepted: Level of Service [facility] 03-19-2024 Note Addended by: SIMÓN RAMOS on: 03/19/2024 05:16 PM Modules accepted: Level of Service [facility] 03-19-2024 Note Addended by: SIMÓN RAMOS on: 03/19/2024 05:16 PM Modules accepted: Level of Service [facility] 03-19-2024 Miscellaneous Notes Addended by: SIMÓN RAMOS on: 03/19/2024 05:16 PM Modules accepted: Level of Service documented in this encounter [facility] 02-26-2024 Instructions Simón Ramos MD - 02/26/2024 4:12 PM EDT [facility] Low Risk Patient Instructions: Your Falls Screening today shows that you are at low risk for falls. To further protect yourself from falls and maintain your independence, we recommend: 1. Read through the brochure, What You Can Do to Prevent Falls (from [facility]). 2. Go through the brochure, Check for Safety: A Home Fall Prevention Checklist for Older Adults (from [facility]), and make changes as recommended. 3. Join [...] blankets, or other objects on the floor? A.field pipelines supervisor things that are on the floor. Always keep objects off the floor. Q: Do you have to walk over or around wires or cords (like lamp, telephone, or extension cords)? A. Coil or tape cords and wires next to the wall so you can t trip over them. If needed, have an airport electrician put in another outlet. STAIRS AND STEPS: Look at the stairs you use both inside and outside your home. Q: Are there papers, shoes, books, or other objects on the stairs? A. field pipelines supervisor things on the stairs. Always keep objects off stairs. Q: Are some steps broken or uneven? A. Fix loose or uneven steps. Q: Are you missing a light over the stairway? A. Have an airport electrician put in an overhead light at the top and bottom of the stairs. Q: Do you have only one light switch for your stairs (only at the top or at the bottom of the stairs)? A. Have an airport electrician put in a light switch at the [...] at all the medicines you take, even oyyz-rhu-ywditin medicines. Some medicines can make you sleepy [...] lightweight curtains or shades to reduce glare. [place] a contrasting color on the top edge of all steps so you can see the stairs better. For example, use a light color paint on dark wood. To access this brochure online, please visit the CDC website at http://www.cdc.gov/steadi/pdf/pranay pérez_for_safety_brochure-a.pdf Chair Rise Exercise What it does: Strengthens [...] instructions, please visit the CDC website at http://www.cdc.gov/steadi/pdf/c hair_rise_exercise-a.pdf Stepping On is an evidence based program [...] vision, and medications. Classes are offered at [facility]. To find out specifics about a class, please call [phone]. Devyn chi: Moving for Better Balance involves low impact exercise. The 12-week class is offered for three hours per week and is led by a trained special makeup fx artist instructor. It is intended for people aged [...] additional resources about fall prevention please contact: [facility] Violence and Injury Prevention Program at [phone] or [email or web address] A Matter of Balance: Managing Concerns about Falls is an evidence based program designed to reduce the fear of falling and increase activity levels of older adults. A trained documentation lead leads 8 two-hour sessions for small groups [...] at home. Classes are offered in all [address] [place] [address] in [place]. For more information about specific classes near you, please visit http://aging.[place].gov/steadyu/r esources/matterofbalance.aspx. documented in this encounter [facility] 02-26-2024 Instructions Simón Ramos MD - 02/26/2024 4:12 PM EDT STEADI [...] Fall Prevention Checklist for Older Adults (from [facility]), and make changes as recommended. 3. Join [...] blankets, or other objects on the floor? A.field pipelines supervisor things that are on the floor. Always keep objects off the floor. Q: Do you have to walk over or around wires or cords (like lamp, telephone, or extension cords)? A. Coil or tape cords and wires next to the wall so you can t trip over them. If needed, have an airport electrician put in another outlet. STAIRS AND STEPS: Look at the stairs you use both inside and outside your home. Q: Are there papers, shoes, books, or other objects on the stairs? A. field pipelines supervisor things on the stairs. Always keep objects off stairs. Q: Are some steps broken or uneven? A. Fix loose or uneven steps. Q: Are you missing a light over the stairway? A. Have an airport electrician put in an overhead light at the top and bottom of the stairs. Q: Do you have only one light switch for your stairs (only at the top or at the bottom of the stairs)? A. Have an airport electrician put in a light switch at the [...] at all the medicines you take, even oyfr-zzw-vzlggfk medicines. Some medicines can make you sleepy [...] lightweight curtains or shades to reduce glare. [place] a contrasting color on the top edge of all steps so you can see the stairs better. For example, use a light color paint on dark wood. To access this brochure online, please visit the CDC website at http://www.cdc.gov/steadi/pdf/c beto_for_safety_brochure-a.pdf Chair Rise Exercise What it does: Strengthens [...] instructions, please visit the CDC website at http://www.cdc.gov/steadi/pdf/c hair_rise_exercise-a.pdf Stepping On is an evidence based program [...] vision, and medications. Classes are offered at [facility]. To find out specifics about a class, please call [phone]. Devyn chi: Moving for Better Balance involves low impact exercise. The 12-week class is offered for three hours per week and is led by a trained special makeup fx artist instructor. It is intended for people aged [...] additional resources about fall prevention please contact: [facility] Violence and Injury Prevention Program at [phone] or [email or web address] A Matter of Balance: Managing Concerns about Falls is an evidence based program designed to reduce the fear of falling and increase activity levels of older adults. A trained documentation lead leads 8 two-hour sessions for small groups [...] at home. Classes are offered in all [address] [place] [address] in [place]. For more information about specific classes near you, please visit http://aging.[place].gov/steadyu/r esources/matterofbalance.aspx. documented in this encounter [facility] 02-26-2024 Instructions Simón Ramos MD - 02/26/2024 4:12 PM EDT STEADI [...] Fall Prevention Checklist for Older Adults (from [facility]), and make changes as recommended. 3. Join [...] blankets, or other objects on the floor? A.field pipelines supervisor things that are on the floor. Always keep objects off the floor. Q: Do you have to walk over or around wires or cords (like lamp, telephone, or extension cords)? A. Coil or tape cords and wires next to the wall so you can t trip over them. If needed, have an airport electrician put in another outlet. STAIRS AND STEPS: Look at the stairs you use both inside and outside your home. Q: Are there papers, shoes, books, or other objects on the stairs? A. field pipelines supervisor things on the stairs. Always keep objects off stairs. Q: Are some steps broken or uneven? A. Fix loose or uneven steps. Q: Are you missing a light over the stairway? A. Have an airport electrician put in an overhead light at the top and bottom of the stairs. Q: Do you have only one light switch for your stairs (only at the top or at the bottom of the stairs)? A. Have an airport electrician put in a light switch at the [...] at all the medicines you take, even jpzj-stc-stipdef medicines. Some medicines can make you sleepy [...] lightweight curtains or shades to reduce glare. [place] a contrasting color on the top edge of all steps so you can see the stairs better. For example, use a light color paint on dark wood. To access this brochure online, please visit the CDC website at http://www.cdc.gov/steadi/pdf/pranay camarilloha_for_safety_brochure-a.pdf Chair Rise Exercise What it does: Strengthens [...] instructions, please visit the CDC website at http://www.cdc.gov/steadi/pdf/c hair_rise_exercise-a.pdf Stepping On is an evidence based program [...] vision, and medications. Classes are offered at [facility]. To find out specifics about a class, please call [phone]. Devyn chi: Moving for Better Balance involves low impact exercise. The 12-week class is offered for three hours per week and is led by a trained special makeup fx artist instructor. It is intended for people aged [...] additional resources about fall prevention please contact: [facility] Violence and Injury Prevention Program at [phone] or [email or web address] A Matter of Balance: Managing Concerns about Falls is an evidence based program designed to reduce the fear of falling and increase activity levels of older adults. A trained documentation lead leads 8 two-hour sessions for small groups [...] at home. Classes are offered in all [address] [place] [address] in [place]. For more information about specific classes near you, please visit http://aging.[place].gov/steadyu/r esources/matterofbalance.aspx. documented in this encounter [facility] 02-26-2024 Instructions Simnó Ramos MD - 02/26/2024 4:12 PM EDT STEADI Low Risk Patient Instructions: Your Falls Screening today shows that you are at low risk for falls. To further protect yourself from falls and maintain your independence, we recommend: 1. Read through the brochure, What You Can Do to Prevent Falls (from [facility]). 2. Go through the brochure, Check for Safety: A Home Fall Prevention Checklist for Older Adults (from [facility]), and make changes as recommended. 3. Join [...] blankets, or other objects on the floor? A.field pipelines supervisor things that are on the floor. Always keep objects off the floor. Q: Do you have to walk over or around wires or cords (like lamp, telephone, or extension cords)? A. Coil or tape cords and wires next to the wall so you can t trip over them. If needed, have an airport electrician put in another outlet. STAIRS AND STEPS: Look at the stairs you use both inside and outside your home. Q: Are there papers, shoes, books, or other objects on the stairs? A. field pipelines supervisor things on the stairs. Always keep objects off stairs. Q: Are some steps broken or uneven? A. Fix loose or uneven steps. Q: Are you missing a light over the stairway? A. Have an airport electrician put in an overhead light at the top and bottom of the stairs. Q: Do you have only one light switch for your stairs (only at the top or at the bottom of the stairs)? A. Have an airport electrician put in a light switch at the [...] at all the medicines you take, even xcvp-mlx-zpitzjp medicines. Some medicines can make you sleepy [...] lightweight curtains or shades to reduce glare. [place] a contrasting color on the top edge of all steps so you can see the stairs better. For example, use a light color paint on dark wood. To access this brochure online, please visit the CDC website at http://www.cdc.gov/steadi/pdf/c marquisek_for_safety_brochure-a.pdf Chair Rise Exercise What it does: Strengthens [...] instructions, please visit the CDC website at http://www.cdc.gov/steadi/pdf/c hair_rise_exercise-a.pdf Stepping On is an evidence based program [...] vision, and medications. Classes are offered at [facility]. To find out specifics about a class, please call [phone]. Devyn chi: Moving for Better Balance involves low impact exercise. The 12-week class is offered for three hours per week and is led by a trained special makeup fx artist instructor. It is intended for people aged [...] additional resources about fall prevention please contact: [facility] Violence and Injury Prevention Program at [phone] or [email or web address] A Matter of Balance: Managing Concerns about Falls is an evidence based program designed to reduce the fear of falling and increase activity levels of older adults. A trained documentation lead leads 8 two-hour sessions for small groups [...] at home. Classes are offered in all [address] [place] [address] in [place]. For more information about specific classes near you, please visit http://[place].gov/steadyu/r esources/matterofbalance.aspx. documented in this encounter [facility] 02-26-2024 Note Chief Complaint Patient presents with Follow-up 6 month f/u Fall Risk Screening HPI: Katherine Da Silva is a 68 y.o. female presenting [facility]. Former patient in [facility] in [place], recently moved back to [place], still works in [place] and retiring next year to settle locally. 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 We will get [...] No focal defic (more content not included)... [facility] 02-26-2024 History of Presen t illness Narrative Chief Complaint Patient presents with Follow-up 6 month f/u Fall Risk Screening HPI: Katherine Da Silva is a 68 y.o. female presenting today [facility] a [facility]. Former patient in [facility] in [place], recently moved back to [place], still works in [place] and retiring next year to settle locally. 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 We will get [...] months (around 06/27/2024) for Follow Up. SIMÓN RAMOS MD [facility] [address] [facility] [address] [facility] [id number] Dept: [phone] 08/29/2023 11:56 AM Depression Screening Little interest [...] difficult at all documented in this encounter [facility] 02-26-2024 History of Presen t illness Narrative Chief Complaint Patient presents with Follow-up 6 month f/u Fall Risk Screening HPI: Katherine Da Silva is a 68 y.o. female presenting today as a new patient to reestablish care. Former patient in [facility] in [place], recently moved back to [place], still works in [place] and retiring next year to settle locally. 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 We will get [...] months (around 06/27/2024) for Follow Up. SIMÓN RAMOS MD [facility] [address] [place] [id number] Dept: [phone] 08/29/2023 11:56 AM Depression Screening Little interest [...] difficult at all documented in this encounter [facility] 02-26-2024 History of Presen t illness Narrative Chief Complaint Patient presents with Follow-up 6 month f/u Fall Risk Screening HPI: Katherine Da Silva is a 68 y.o. female presenting today [facility] a [facility]. Former patient in [facility] in [place], recently moved back to [place], still works in [place] and retiring next year to settle locally. 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 We will get [...] 1 - PCV) Never done COVID-19 Vaccine (2022-) Never done Wellness Visit 02/29/2024 Assessment & [...] months (around 06/27/2024) for Follow Up. SIMÓN RAMOS MD [facility] [address] [place] [id number] Dept: [phone] 08/29/2023 11:56 AM Depression Screening Little interest [...] difficult at all documented in this encounter [facility] 02-26-2024 History of Presen t illness Narrative Chief Complaint Patient presents with Follow-up 6 month f/u Fall Risk Screening HPI: Katherine Da Silva is a 68 y.o. female presenting today as a new patient to reestablish care. Former patient in [facility] in [place], recently moved back to [place], still works in [place] and retiring next year to settle locally. 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 We will get [...] today's visit. My ongoing relationship with Katherine Ha Duffybartolo requires continued responsibility and cognitive effort of being the focal point for all services related to chronic condition(s). I spent 40 minutes with patient reviewing HPI and coordinating plan of care. Return in about 4 months (around 06/27/2024) for Follow Up. SIMÓN RAMOS MD [facility] [address] [place] [id number] Dept: [phone] 08/29/2023 11:56 AM Depression Screening Little interest [...] difficult at all documented in this encounter [facility] 02-26-2024 History of Presen t illness Narrative Chief Complaint Patient presents with Follow-up 6 month f/u Fall Risk Screening HPI: Katherine Da Silva is a 68 y.o. female presenting [facility] Former patient in [facility] in [place], recently moved back to [place], still works in [place] and retiring next year to settle locally. 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 We will get [...] months (around 06/27/2024) for Follow Up. SIMÓN RAMOS MD [facility] [phone] Dept: [phone] 08/29/2023 11:56 AM Depression Screening Little interest [...] difficult at all documented in this encounter [facility] 11-05-2023 History of Presen t illness Narrative Pt originally scheduled on 01/08/24, needed to reschedule due to provider out of office. was willing to see pt on 12/26/23 at 1:40 instead, pt declined, states she needs to move this appt out to February for insurance coverage purposes. documented in this encounter [facility] 08-29-2023 Evaluation + Plan note Associated Problem(s): Vaginal dryness, menopausal Refill Premarin cream, advised patient to use twice a week, was checked per oncology in the past prior to using it and was told it would be fine to continue on it [facility] 08-29-2023 Miscellaneous Notes Associated Problem(s): Vaginal dryness, menopausal Refill Premarin cream, advised patient to use twice a week, was checked per oncology in the past prior to using it and was told it would be fine to continue on it Associated Problem(s): Fibromyalgia Chronic for which she follow-up with Dr. Ruiz at the pain clinic in [facility] currently on hydrocodone 500/325. We will get [...] Used to follow-up with vascular medicine in [place] s/p aortobifemoral bypass as well as atherectomy of right SFA in 2019. Currently on Lipitor 40 mg and aspirin 81 mg. No concerns at this time documented in this encounter [facility] 08-29-2023 Evaluation + Plan note Associated Problem(s): Fibromyalgia Chronic for which she follow-up with Dr. Ruiz at the pain clinic in [facility] currently on hydrocodone 500/325. We will get records [facility] 08-29-2023 Evaluation + Plan note Associated Problem(s): Skin cancer SCC and BCC, following up with dermatology establishing will get records [facility] 08-29-2023 Evaluation + Plan note Associated Problem(s): Cancer (HCC) History of breast cancer in 2007 At this time mammogram ordered to be followed up annually, no previous history of recurrence. [facility] 08-29-2023 Evaluation + Plan note Associated Problem(s): Hypertension Controlled with diet and atenolol Blood work ordered today [facility] 08-29-2023 Evaluation + Plan note Associated Problem(s): Left groin pain I believe this is musculoskeletal and related to left hip pain, patient will continue to monitor it and work on stretches at home and will let me know if it got worse. [facility] 08-29-2023 Evaluation + Plan note Associated Problem(s): PAD (peripheral artery disease) (HCC) Used to follow-up with vascular medicine in [place] s/p aortobifemoral bypass as well as atherectomy of right SFA in 2019. Currently on Lipitor 40 mg and aspirin 81 mg. No concerns at this time [facility] 08-29-2023 Instructions Simón Ramos MD - 08/29/2023 11:30 AM EST Problem [...] look into their status. Customer Service/Billing Questions: [phone] [facility] Assistance: [phone] or [phone] Financial Assistance: [phone] or [phone] Friday 7 am to 5 pm Friday 7 am to 5 pm Friday closed 7 am to 5 pm Friday 8 am to 2 pm documented in this encounter [facility] 08-29-2023 History of Presen t illness Narrative Chief Complaint Patient presents with Establish Care UTI? HPI: Katherine Da Silva is a 68 y.o. female presenting today as a new patient to reestablish care. Former patient in [facility] in [place], recently moved back to [place], still works in [place] and retiring next year to settle locally. 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 We will get [...] Used to follow-up with vascular medicine in [place] s/p aortobifemoral bypass as well as atherectomy 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 We will get [...] 4 months (around 12/29/2023) for [facility]. SIMÓN RAMOS MD [facility] [address] [facility] [address] [facility] [id number] Dept: [phone] 08/29/2023 11:56 AM Depression Screening Little interest [...] difficult at all documented in this encounter [facility] Evaluation note Diagnosis Dysuria- Primary Hypertension, unspecified [...] Hypertension, unspecified type [facility] Diagnosis Type 2 diabetes mellitus without complication, without long-term current use of insulin (HCC) documented [facility] information [facility] [place] Work Phone: Reason for referral (narrative)No reason for referral information availableWSelect [facility] [place] Work Phone: Summary Purpose Family History No Family History Records FoundNo Family History Records FoundNo Family History Records FoundNo Family History Records FoundNo Family History Records FoundNo Family History Records FoundNo Family History Records FoundNo Family History Records FoundNo Family History Records FoundNo Family History Records FoundNo Family History Records Found Advance Directives No Advanced Directives Records FoundDocuments on File Type Date Recorded 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 Wheel 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 Advance Directives and Livin g Will Advance Directives and Livin g Will 10/29/2018 9:01 AM Power of Director Of Real Estate Power of Director Of Real Estate 10/29/2018 9:01 AM Latest Code Status on File Code Status Date Activated Date Inactivated Comments Full Code 01/07/2019 7:02 AM 01/08/2019 2:43 AM Full Code 10/28/2018 5:02 PM 11/02/2018 3:42 PM Full Code 10/28/2018 6:54 AM 10/28/2018 5:02 PM Full Code 08/11/2018 7:17 AM 08/12/2018 2:50 AM Documents on File Type Date Recorded 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 No April 15, 2025 4:26pm Reason for Referral Status Reason Specialty Diagnoses / Procedures Referre d By Contact Referred To Contact Open Radiology Diagnoses PAD (peripheral artery disease) (HCC) Procedures VL ARTERIAL PVR LOWER WO EXERCISE Kerri Rajput MD [facility] [id number] [place] [address] Specialty Diagnoses / Procedures Referred By Contac t Referred To Contact Radiology Diagnoses Encounter for screening for malignant neoplasm of breast, unspecified screening modality Procedures Mammography Screening Yogesh Bilateral Simón Ramos MD [facility] [address] [address] [place] [address] Referral ID Status Reason Start Date Expiration Date V isits Requested Visits Authorized [id number] Authorized 08/29/2023 08/28/2024 1 1 Specialty Diagnoses / Procedures Referred By Contac t Referred To Contact Nutrition Diagnoses Type 2 diabetes mellitus without complication, without long-term current use of insulin (HCC) Obesity (BMI 30-39.9) Simón Ramos MD [address] Referral ID Status Reason Start Date Expiration Date V isits Requested Visits Authorized [id number] Authorized 02/26/2024 02/25/2025 1 1 Specialty Diagnoses / Procedures Referred By Contac t Referred To Contact Nutrition Diagnoses Type 2 diabetes mellitus without complication, without long-term current use of insulin (HCC) Obesity (BMI 30-39.9) Simón Ramos MD [address] [address] Nutrition Services [facility] [place] [address] Referral ID Status Reason Start Date Expiration Date Visits Re quested Visits Authorized [id number] Closed 02/26/2024 02/25/2025 1 1 Assessments Diagnosis PAD (peripheral artery disease) (HCC) Unspecified disorders of arteries and arterioles Chief Complaint and Reason for Visit Chief Complaint Admit Date CONFUSION April 15, 2025 3:21 pm Additional Source Comments INFORMATION SOURCE (unrecogn ized section and content) DATE CREATED AUTHOR 03/17/2018 [facility] DATE CREATED AUTHOR AUTHOR'S ORGANIZ ATION 06/02/2019 [facility] DATE CREATED AUTHOR AUTHOR'S ORGANIZ ATION 08/10/2019 [facility] DATE CREATED AUTHOR AUTHOR'S ORGANIZ ATION 01/24/2023 [facility] DATE CREATED AUTHOR AUTHOR'S ORGANIZ ATION 03/01/2023 [facility] DATE CREATED AUTHOR AUTHOR'S ORGANIZ ATION 12/26/2023 [facility] DATE CREATED AUTHOR AUTHOR'S ORGANIZ ATION 03/25/2024 [facility] DATE CREATED AUTHOR AUTHOR'S ORGANIZ ATION 12/11/2024 [facility] DATE CREATED AUTHOR AUTHOR'S ORGANIZ ATION 12/12/2024 [facility] DATE CREATED AUTHOR AUTHOR'S ORGANIZ ATION 04/10/2025 [facility] DATE CREATED AUTHOR AUTHOR'S ORGANIZ ATION 04/23/2025 [facility] Reason for Visit (unrecogniz ed section and content) Status Reason Specialty Diagnoses / Procedures Referre d By Contact Referred To Contact Open Radiology Diagnoses PAD (peripheral artery disease) (HCC) Procedures VL ARTERIAL PVR LOWER WO EXERCISE Kerri Rajput MD [facility] [id number] [id number] [place] [address] Reason Comments Establish Care UTI? Reason Onset [...] Care Teams (unrecognized sec tion and content) Magnet Valve Assembler Relationship Specialty Start Date End Date Simón Ramos MD [address] [id number] PCP - General Family Medicine 08/29/23 Magnet Valve Assembler Relationship Specialty Start Date End Date Simón Ramos MD [address] [address] PCP - General Family Medicine 08/29/23 Magnet Valve Assembler Relationship Specialty Start Date End Date Simón Ramos MD [address] [address] PCP - General Family Medicine 08/29/23 Magnet Valve Assembler Relationship Specialty Start Date End Date Simón Ramos MD [facility] [address] [address] PCP - General Family Medicine 08/29/23 Dunia Simon, MIKKI Dietitian Case Management 02/27/24 Magnet Valve Assembler Relationship Specialty Start Date End Date Simón Ramos MD [facility] [address] [address] PCP - General Family Medicine 08/29/[address] Dietitian Case Management 02/27/24 Magnet Valve Assembler Relationship Specialty Start Date End Date Simón Ramos MD [address] [place], [place] [id number] PCP - General Family Medicine 08/29/[address] Dietitian Case Management 02/27/24 Magnet Valve Assembler Relationship Specialty Start Date End Date Simón Ramos MD [address] [place], [place] [id number] PCP - General Family Medicine 08/29/23 Magnet Valve Assembler Relationship Specialty Start Date End Date Simón Ramos MD [address] [place] [address] PCP - General Family Medicine 08/29/23 Magnet Valve Assembler Relationship Specialty Start Date End Date Rowan Byrd CNP [address] [place] [address] PCP - General Nurse Practitioner 11/24/24 Team Status: Active Member Role/Relationship Status Dates CAESAR COLLAZO Primary Care Provider Active Team Status: Inactive Member Role/Relationship Status Dates Dr. James Franco , DO Emergency Provider Active Start: April 15, 2025 End: April 15, 2025 CAESAR COLLAZO Primary Care Provider Active Start: April 15, 2025 End: April 15, 2025 Goals (unrecognized section and content) Goals may be documented in a n alternate section FOR RECORDS PERTAINING TO PATIENTS WHO ARE [...] BE BASED ON THE PRIMARY CLINICAL RECORDS. [employer] provides no warranty or guarantee of the accuracy or completeness of information in this document.
--- OUTSIDE RECORDS SUMMARY | 2025-06-27 07:15 | XMS_ITS | Encounter Summary ---
Author Organization [facility] Address [address], [address] [place] [address] Care Team Providers Care Pulper Operator Name Role Phone Ifeanyi Caldera MD Primary Care Provider [phone] Reason for Visit * Reason Comments Medication Refill Encounter Details Date Type Department Care Team (Late st Contact Info) Description 09/10/2018 Refill [facility] Primary Care [address] [place] [address] [place] [address] Salud Samayoa MD [address] [facility] [address] [place] [address] Medication Refill Social History Tobacco Use Types [...] Lymphedema of left upper extremity Mixed hyperlipidemia documented in this encounter Care Teams Pulper Operator Relationship Specialty Start Date End Date Ifeanyi Caldera MD PCP - General Family Medicine 08/09/19 documented as of this encounter
--- OUTSIDE RECORDS SUMMARY | 2025-06-27 07:15 | XMS_ITS | Encounter Summary ---
Author Organization [employer] [facility] tem Address [id number] [address] [place] [address] Care Team Providers Care Systems Integration Engineer Name Role Phone Ifeanyi Caldera MD Primary Care Provider [phone] Reason for Visit * Reason Onset Date Comments lab results 03/12/2023 Encounter Details Date Type Department Care Team (Late Contact Info) Description 03/12/2023 Telephone [facility] [address] [place] [phone] Lucretia Tobias MA lab results Social History Tobacco Use Types Packs/Day Years [...] on file documented as of this encounter Miscellaneous Notes * Telephone Encounter - Lucretia Tobias MA - 03/12/2023 3:46 PM EDT Pt requesting recent lab results and for insurance form to be filled out. * Telephone Encounter - Ifeanyi Caldera MD - 03/12/2023 3:46 PM EDT I don't see labs in the computer. Did you scan in? Can see where patient had done and fill out results on form for her and put lab results on my desk or scan into chart for me to also review. * Telephone Encounter - Lucretia Tobias MA - 03/12/2023 3:46 PM EDT Lab results requested from [facility] * Telephone Encounter - Lucretia Tobias MA - 03/12/2023 3:46 PM EDT Lab results received and ready for review. Pt form completed and taken to front desk person for pt to pickup. Pt notified. documented in this encounter Plan of Treatment Not on file documented as of this encounter Visit Diagnoses Not on filedocumented in this encounter Additional Health Concerns Assessment Noted Time PHQ-9 Depression Total Score: 0 02/29/20 10:13 AM EDT documented as of this encounter Care Teams Systems Integration Engineer Relationship Specialty Start Date End Date Ifeanyi Caldera MD [address] [place] [address] PCP - General Family Medicine 02/14/23 documented as of this encounter
--- OUTSIDE RECORDS SUMMARY | 2025-06-27 07:15 | XMS_ITS | Patient Health Record ---
Author Organization [facility] [place] Address [address] [place] [address] Care Team Providers Care Agricultural Equipment Salesperson Name Role Phone None, Unknown or Primary Care Provider Unavailab le Allergies Allergen (clinical drug ingredient) Drug/Non Drug Allergy documented on EMR Reaction Allergy Type Onset Date Status Penicillin Unknown Drug Allergy Active Reason For Referral No Information Medications Medication SIG (Take, Route, Frequency, Duration) Notes Start Date End Date Status Aspirin 81 MG 1 tablet Orally Once a day; Duration: 30 day(s) Active Miscellaneous Midnight sleep aid Active HYDROcodone-Acetaminop hen 10-325 MG 1 tablet as needed Orally QID prn Active Furosemide 20 mg 1 tablet Orally Once a day Active Fluticasone Propionate 50 MCG/ACT USE 1 SPRAY IN EACH NOSTRIL DAILY; Duration: 90 days Active Fenofibrate 145 mg TAKE 1 TABLET DAILY Active Calcium 600 600 MG 2 tablets Orally Daily; Duration: 90 days Active Atorvastatin Calcium 40 mg TAKE 1 TABLET DAILY Active Vitamin D 50 MCG (1999 UT) 1 tablet Orally Once a day; Duration: 30 day(s) Active Atenolol 50 MG 1 tablet Orally Once a day; Duration: 90 days 04/01/2022 Active Premarin 0.625 MG/GM APPLY VAGINALLY ONCE A DAY DIRECTED Active Potassium Chloride ER 10 MEQ TAKE 1 TABLET DAILY WITH FOOD Active Omeprazole 20 mg TAKE 1 CAPSULE DAILY 30 MINUTES BEFORE MORNING MEAL NEEDED prn Active Immunizations Vaccine Route Administration Date Status Comme nts SARS-COV-2 (COVID 19 Adrianna 0.5mL) Yakov and Yakov Unknown 01/04/2021 Administered Social History Tobacco Use: Social History Observation Description Date Details (start date - stop date) Never Smoker NA - NA Tobacco Use/Smoking Question Answer Notes Patient is a nonsmoker Alcohol Screen (Audit-C) Question Answer Notes Did you have a drink containing alcohol in the p ast year? No Points 0 Interpretation Negative Problems Problem Type SNOMED Code ICD Code Onset Dates Problem Status W/U Status Risk Notes Problem Mixed hyperlipidemia (566112804) Mixed hyperlipidemia (E78.2) Active confirmed Problem Essential hypertension (22532402) Essential hypertension (I10) Active confirmed Problem Peripheral vascular disease (234707683) PAD (peripheral artery disease) (I73.9) Active confirmed Problem Migraine without aura, not refractory (630822943) Migraine without aura and without status migrainosus, not intractable (G43.009) Active confirmed Problem Occlusion and stenosis of multiple and bilateral cerebral arteries (914233162) Bilateral carotid artery stenosis (I65.23) Active confirmed Problem Osteopenia (865797085) Osteopenia of multiple sites (M85.89) Active confirmed Problem Lymphedema (612111494) Lymphedema of left arm (I89.0) Active confirmed Problem Chronic kidney disease stage 3A (072129508) Stage 3a chronic kidney disease (N18.31) Active confirmed Plan Of Treatment Pending Test Test Name Order Date CMP (COMPLETE METABOLIC PANEL) VITAMIN B12 LEVEL (COBALAMIN) 03/05/2023 HEMOGLOBIN A1C (GLYCO) 03/05/2023 LIPID PANEL (CHOL/TRIG/HDL/LDL) 03/05/20 23 CBC WITH DIFF 03/05/2023 CBC w/ Diff 10/12/2021 CMP - Comprehensive Metabolic Panel 09/23 Lipid Panel 10/12/2021 TSH - Thyroid Stimulating Hormone 2021 MG Mammo Digital Screening Bilateral* MG Mammo Digital Screening Bilateral* VASC Carotid Duplex Complete 08/30/2022 Future Test Test Name Order Date BMP - Basic Metabolic Panel 08/24/2022 Insurance Providers Payer Name Payer Address Payer Phone Subscriber Number Group Number Insured Name Patient Relationship to Insured Coverage Start Date Coverage End Date BCBS OUT OF STATE [address] [place] [address] [phone] [id number] Francois Da Silva Spouse - patient is the spouse of the insured 2018 Medical (General) History Medical History History ICD Code Hypertension Hyperlipidemia Hyoer triglyceridemia Breast Cancer ON THE LEFT WITH MASTECTOM Y CHRONIC LE EDEMA - ON LASIX. NO HX OF CH F. Surgical History Surgery Date(Month/Year) B/L Leg Vascular Surgery With Stent Plac ement ON THE RIGHT Hysterectomy Colonoscopy: polyp, repeat in 5 years Melanoma b/l arms Gallbladder Surgery Breast Surgery--Mastectomy ON THE LEFT Tonsillectomy Eye Surgery Hospitalization History Reason Date(Month/Year) See Surgical
--- OUTSIDE RECORDS SUMMARY | 2025-06-27 07:15 | XMS_ITS | Encounter Summary ---
Author Organization [facility] Address [address] [place] [address] Care Team Providers Care Children'S Program Coordinator Name Role Phone Ifeanyi Caldera MD Primary Care Provider [phone] Reason for Visit * Reason Comments Medication Refill Encounter Details Date Type Department Care Team (Late st Contact Info) Description 07/20/2018 Refill [facility] Primary Care [address] [place] [address] [place] [address] Salud Samayoa MD [address] [facility] [address] [place] [address] Medication Refill Social History Tobacco Use Types [...] extremity documented in this encounter Care Teams Children'S Program Coordinator Relationship Specialty Start Date End Date Ifeanyi Caldera MD PCP - General Family Medicine 08/09/19 documented as of this encounter
--- NOTE | 2025-06-27 14:17 | PM.CN ---
Consult Note: HPI Data of Consult Patient: known to practice within the last 3 years Consult date: 06/27/25 Requesting Physician: Keisha Ruiz MD Primary Care Provider: Non-Staff Physician, Consult Narrative Reason for consult: low back pain, generalized pain Narrative: 69yof who presents for assessment. continues to have low back, generalized pain due to fibromyalgia. working on losing weight, on ozempic. continues on tramadol. denies adverse med side effects. cc:: CC: Keisha Ruiz MD Review of Systems ROS Status of ROS 10 or more systems reviewed and unremarkable except as noted in history and below Meds Home Medications and Allergies Home Medications ?Medication ?Instructions ?Recorded ?Confirmed ?Type atenolol 50 mg tablet 50 mg PO DAILY 04/07/23 04/07/23 History atorvastatin 40 mg tablet 40 mg PO DAILY 04/07/23 04/07/23 History calcium carbonate (Calcium 600) 600 mg PO DAILY 04/07/23 04/07/23 History conjugated estrogens 0.625 mg/gram 0.625 mg vaginal DAILY 04/07/23 04/07/23 History vaginal cream (Premarin) fenofibrate 150 mg capsule 150 mg PO DAILY 04/07/23 04/07/23 History furosemide 20 mg tablet 20 mg PO DAILY 04/07/23 04/07/23 History potassium chloride 10 mEq 10 meq PO DAILY 04/07/23 04/07/23 History tablet,extended release (K-Tab) naloxone 4 mg/actuation nasal 4 mg intranasal Q2M PRN opioid 07/21/24 Rx spray (Narcan) overdose #2 ea aspirin 81 mg capsule 81 mg PO DAILY 12/27/24 12/27/24 History semaglutide 0.25 mg or 0.5 mg (2 0.25 mg subcut QWEEK 12/27/24 12/27/24 History mg/1.5 mL) subcutaneous pen injector (Ozempic) vitamin E 200 unit capsule 201 mg PO .QD 12/27/24 12/27/24 History tramadol 50 mg tablet 50 mg PO QID PRN pain #120 tabs 01/19/25 Rx tramadol 50 mg tablet 50 mg PO QID PRN pain #120 tabs 02/17/25 Rx tramadol 50 mg tablet 50 mg PO QID PRN pain #120 tabs 03/17/25 Rx tramadol 50 mg tablet 50 mg PO QID PRN pain #120 tabs 05/17/25 Rx tramadol 50 mg tablet 50 mg PO QID PRN pain #120 tabs 06/13/25 Rx Allergies Allergy/AdvReac Type Severity Reaction Status Date / Time Penicillins Allergy Verified 04/07/23 14:08 Exam Narrative Exam Narrative: Psych-alert and oriented x 3. Attentive and appropriate, constitutionally normal, displays normal mood and affect per situation.? There are no obvious deficits in memory, reasoning, or intellect.? Skin-no obvious rashes, bruising, erythema noted to the patient's area of pain. Extremities- extremities are warm with minimal edema and palpable pulses. Lumbar-no significant tenderness to palpation noted in the lumbar spine and paraspinal musculature.? Pain is elicited with extension, and lateral rotation of the lumbar spine. Range of motion is slightly diminished with these motions due to pain. Coordination remains intact.? Gait remains non-antalgic. Assessment and Plan Assessment and Plan (1) Lumbar spondylosis: Plan 69yof who presents for assessment. continues to have generalized pain, currently stable with tramadol. will continue tramadol as before. follow up in 3 months or sooner, if needed.
== END 2025-06-27 07:12 | disposition home or self-care (01) ==
PROVIDERS: Visit Provider Anesthesiology
DX: M47.816 Spondylosis without myelopathy or radiculopathy, lumbar region (principal)
CPT/HCPCS: G0463